=== PATIENT | female | born 1955 | race American Indian/Alaskan Native ===

== ENCOUNTER 2016-07-01 11:55 | Inpatient (IN) | payer MEDICARE ==
[2016-07-01 13:13] LABS: Eosinophils % (Auto) 6.3 % (0.0-4.3); Hematocrit 27.4 % (30.3-42.9); Hemoglobin 8.3 gm/dl (10.1-14.3); Mean Corpuscular HGB Conc 30 % (30-34); Platelet Count 529 K/mm3 (140-440); Red Blood Count 4.16 M/mm3 (3.65-5.03); White Blood Count 13.1 K/mm3 (4.5-11.0)
[2016-07-01 13:24] LABS: Mean Corpuscular Hemoglobin 20 pg (28-32); Mean Corpuscular Volume 66 fl (79-97); Red Cell Distribution Width 21.7 % (13.2-15.2)
[2016-07-01 13:43] LABS: Blood Urea Nitrogen 12 mg/dL (7-17); Calcium 8.8 mg/dL (8.4-10.2); Carbon Dioxide 23 mmol/L (22-30); Chloride 96.6 mmol/L (98-107); Glucose 168 mg/dL (65-100); Sodium 140 mmol/L (137-145)
[2016-07-01 14:24] LABS: Anion Gap 25 mmol/L; Potassium 4.5 mmol/L (3.6-5.0)
--- NOTE | 2016-07-01 16:36 | Emergency Department Report ---
HPI - General Chief Complaint: Chest Pain Time Seen by Provider: 07/01/16 16:19 - HPI HPI: Room 8 The patient is a 61-year-old female presenting with a chief complaint of chest pain headache and shortness of breath. The patient has a history of previous CVA with right-sided weakness and appears of expressive aphasia which limits history. Patient doesn't know she developed substernal chest pain associated with shortness of breath nausea and diaphoresis. The patient currently gives her pain a score of 8/10. The patient states today chest fell and she believes she lost consciousness. Patient complains of a headache. Patient denies bright red blood per rectum states she has noticed black stools as recently as today. The patient states she's never had a cardiac catheterization Location: [see above] Duration: One day Quality: Pain Severity: 8/10 Modifying factors: [see above] Context: [see above] Mode of transportation: [not driving] ED Past Medical Hx - Past Medical History Hx Hypertension: Yes Hx CVA: Yes Hx Congestive Heart Failure: Yes Hx Diabetes: Yes Hx Seizures: Yes - Surgical History Additional Surgical History: HYSTERECTOMY - Family History Family history: no significant - Social History Smoking Status: Never Smoker Substance Use Type: None - Medications Home Medications: Home Medications Medication Instructions Recorded Confirmed Last Taken Type AtorvaSTATin [Lipitor] 20 mg PO QDAY 11/11/14 07/01/16 06/30/16 History Furosemide [Lasix TAB] 40 mg PO BID 11/11/14 07/01/16 06/30/16 History Gemfibrozil [Lopid] 600 mg PO QDAY 11/11/14 07/01/16 06/30/16 History Insulin Glargine [Lantus VIAL] 60 units SUB-Q QHS 11/11/14 07/01/16 06/30/16 History Metformin HCl [Glucophage] 1,000 mg PO BID 11/11/14 07/01/16 06/30/16 History Phenytoin Chew [Dilantin Chew] 150 mg PO QDAY 11/11/14 07/01/16 06/30/16 History Potassium Chloride [K-Dur] 20 meq PO QDAY 11/11/14 07/01/16 06/30/16 History Warfarin [Coumadin] 10 mg PO Q24H #14 tablet 11/14/14 07/01/16 06/30/16 Rx Celecoxib [celeBREX] 200 mg PO BID 07/01/16 07/01/16 06/30/16 History Warfarin [Coumadin] 5 mg PO QDAY 07/01/16 07/01/16 06/30/16 History traMADol [Ultram] 50 mg PO Q6HR PRN 07/01/16 07/01/16 06/30/16 History ED Review of Systems ROS: Stated complaint: FELL/HEAD/CHEST PAIN/NAUSEA Other details as noted in HPI Comment: All other systems reviewed and negative Constitutional: denies: chills, fever Eyes: denies: eye pain, eye discharge, vision change ENT: denies: ear pain, throat pain Respiratory: shortness of breath. denies: cough, wheezing Cardiovascular: chest pain Endocrine: no symptoms reported Gastrointestinal: nausea. denies: vomiting Genitourinary: denies: urgency, dysuria, discharge Musculoskeletal: myalgia Skin: denies: rash, lesions Neurological: headache Psychiatric: denies: anxiety, depression Hematological/Lymphatic: denies: easy bleeding, easy bruising Physical Exam - Physical Exam Vital Signs: Vital Signs 07/01/16 07/01/16 07/01/16 12:22 13:57 14:48 Temperature 98.5 F Pulse Rate 124 H 106 H 107 H Respiratory 18 18 18 Rate Blood Pressure 132/77 Blood Pressure 150/85 131/82 [Left] O2 Sat by Pulse 95 94 94 Oximetry Physical Exam: GENERAL: The patient is well-developed well-nourished female lying on stretcher not appearing to be in acute distress. [] HEENT: Normocephalic. Atraumatic. Extraocular motions are intact. Patient has moist mucous membranes. NECK: Supple. Mild axial tenderness. No step off CHEST/LUNGS: Clear to auscultation. There is no respiratory distress noted. HEART/CARDIOVASCULAR: Regular. There is no tachycardia. There is no gallop rub or murmur. ABDOMEN: Abdomen is soft, nontender. Patient has normal bowel sounds. There is no abdominal distention. SKIN: There is no rash. There is no diaphoresis. NEURO: The patient is awake, alert, and oriented. The patient is cooperative. Cranial nerves II through XII grossly intact except for cranial nerve XI on the right. Patient has residual right-sided weakness from previous CVA. The patient has normal speech and has difficulty expressing herself at times MUSCULOSKELETAL: There is no evidence of acute injury. ED Course Vital Signs 07/01/16 07/01/16 07/01/16 12:22 13:57 14:48 Temperature 98.5 F Pulse Rate 124 H 106 H 107 H Respiratory 18 18 18 Rate Blood Pressure 132/77 Blood Pressure 150/85 131/82 [Left] O2 Sat by Pulse 95 94 94 Oximetry - Consultations Consultation #1: 07/01/16 18:20 Case discussed with admitting hospitalist Dr. Madrid. When asked if he wants me to administer FFP or vitamin K he states that he will take care of it ED Medical Decision Making - Lab Data Result diagrams: 07/01/16 12:35 07/01/16 12:35 Laboratory Tests 07/01/16 07/01/16 07/01/16 12:35 12:35 15:20 WBC 13.1 H RBC 4.16 Hgb 8.3 L Hct 27.4 L MCV 66 L MCH 20 L MCHC 30 RDW 21.7 H Plt Count 529 H Lymph % (Auto) 14.4 Mckinley % (Auto) 6.0 Eos % (Auto) 6.3 H Baso % (Auto) 1.0 Lymph # 1.9 Mckinley # 0.8 Eos # 0.8 H Baso # 0.1 Seg Neutrophils % 72.3 H Seg Neutrophils # 9.4 H PT Sodium 140 Potassium 4.5 Chloride 96.6 L Carbon Dioxide 23 Anion Gap 25 BUN 12 Creatinine 0.8 Estimated GFR > 60 BUN/Creatinine Ratio 15.00 Glucose 168 H Calcium 8.8 Troponin T < 0.010 < 0.010 Phenytoin Antibody Screen 07/01/16 07/01/16 07/01/16 16:31 16:31 16:31 WBC RBC Hgb Hct MCV MCH MCHC RDW Plt Count Lymph % (Auto) Mckinley % (Auto) Eos % (Auto) Baso % (Auto) Lymph # Mckinley # Eos # Baso # Seg Neutrophils % Seg Neutrophils # PT 75.4 H Sodium Potassium Chloride Carbon Dioxide Anion Gap BUN Creatinine Estimated GFR BUN/Creatinine Ratio Glucose Calcium Troponin T Phenytoin 10.2 Antibody Screen TNR INR 9.07 - EKG Data -: EKG Interpreted by Me EKG shows normal: sinus rhythm Rate: tachycardia (120 bpm ) - EKG Data When compared to previous EKG there are: no significant change Interpretation: unchanged when compared t (11/11/2014) - Radiology Data Radiology results: report reviewed (CT head, CT cervical spine), image reviewed (CT head, CT cervical spine, chest x-ray) interpreted by me: Chest x-ray-right hilar fullness. Slightly obscured left costophrenic angle. No pneumothorax CT cervical spine (read by radiologist)-calcified left posterior fossa intracranial mass further described on today's CT head. No acute traumatic abnormality identified. CT Head (read by radiologist)-remote left MCA distribution infarct. Large calcified mass within the left posterior fossa. Appearance mulls just meningioma however primary lesion cannot be excluded. Posterior supratentorial dural constipation along the falx could reflect additional meningioma. Further evaluation with MRI with and without contrast is recommended. Comparison with any prior studies and these could be obtained will be helpful further evaluation. No acute intracranial hemorrhage identified. - Differential Diagnosis ACS, ICH, Coumadin toxicity, GI bleed Critical care attestation.: If time is entered above; I have spent that time in minutes in the direct care of this critically ill patient, excluding procedure time. ED Disposition Clinical Impression: Chest pain, Anemia, Closed head injury, Coumadin toxicity Disposition: OP ADMITTED IP TO THIS HOSP Is pt being admited?: Yes Does the pt Need Aspirin: No Condition: Serious Instructions: Chest Pain (ED) Referrals: PRIMARY CARE, [Primary Care Provider] - 3-5 Days Time of Disposition: 18:12 (hospitalist paged)
--- NOTE | 2016-07-01 17:12 | Cat Scan Report ---
FINAL REPORT EXAM: CT HEAD/BRAIN WO CON HISTORY: fall, headache. On Coumadin TECHNIQUE: CT head without contrast PRIORS: No prior studies are available for comparison FINDINGS: There is encephalomalacia with volume loss and left MCA distribution involving temporal and frontal lobes. There is ex vacuo dilatation of the left lateral ventricle there is a large left posterior fossa partially calcified intracranial mass measuring 2.5 x 3.7 centimeters. Appearance is most suggestive of meningioma however and primary brain lesion is a differential consideration. Recommend further evaluation with MRI including contrast. There is additional calcification posterior dura measuring 1.2 x 0.5 centimeters may reflect dural calcification versus additional meningioma No additional acute intracranial findings are identified. No acute hemorrhage seen. IMPRESSION: Remote left MCA distribution infarct Large calcified mass within the left posterior fossa. Appearance most suggest meningioma however primary brain lesion cannot be excluded. Posterior supratentorial dural calcification along the falx could reflect additional meningioma. Further evaluation with MRI with and without contrast is recommended. Comparison with any prior studies if these could be obtained would be helpful for further evaluation. No acute intracranial hemorrhage identified
--- NOTE | 2016-07-01 17:17 | Cat Scan Report ---
FINAL REPORT EXAM: CT CERVICAL SPINE WO CON HISTORY: neck pain after fall TECHNIQUE: CT cervical spine with reconstructions PRIORS: None. FINDINGS: Vertebral bodies demonstrate normal height and alignment. The disk spaces are within normal limits. The facet joints demonstrate normal alignment. The spinous processes are intact. Craniocervical junction is unremarkable. C1 and C2 are intact. Calcified mass seen in the left posterior fossa noted further described on today's CT of the head IMPRESSION: Calcified left posterior fossa intracranial mass further described on today's CT head No acute traumatic abnormality identified
[2016-07-01 18:09] LABS: INR 9.07 (0.87-1.13)
[2016-07-01 18:10] LABS: Partial Thromboplastin Time 117.9 Sec. (24.2-36.6)
--- NOTE | 2016-07-01 23:53 | Event Note ---
Date: 07/01/16 See H/p in reports
[2016-07-02] MEDS ORDERED: SODIUM CHLORIDE FLUSH SYRINGE 10 ML IV PRN (00:35)
[2016-07-02] MEDS ORDERED: VITAMIN K (ADULT ONLY) 10 MG in NACL 0.9% 50 ML IV ONE (00:37)
[2016-07-02] MEDS: ULTRAM PO PRN (01:56)
[2016-07-02] MEDS ORDERED: LEXISCAN IV ONE ×2 (09:23→09:30)
[2016-07-02] MEDS ORDERED: NON-FORMULARY (Metformin Hcl [Glucophage] 1,000 MG) PO SCH (10:00)
[2016-07-02] MEDS ORDERED: PHENYTOIN 150 MG PO SCH (10:00)
[2016-07-02] MEDS ORDERED: GEMFIBROZIL 600 MG PO SCH (10:00)
--- NOTE | 2016-07-02 10:00 | History and Physical Report ---
CHIEF COMPLAINT: Left-sided chest pain. HISTORY OF PRESENT ILLNESS: A 61-year-old -English female with right-sided hemiplegia with contractures in the hand and also on the foot comes in for left-sided chest pain. The pain is substernal and about 8 on a scale of 1 to 10. Yesterday with shortness of breath and diaphoresis. Chest felt heavy. She also believed that she may have lost consciousness. Denies any bright red blood per rectum or black colored stools. Pain is about 8/10 with exacerbating and relieving factors. PAST MEDICAL HISTORY: Significant for hypertension, cerebrovascular accident, congestive heart failure, diabetes, and seizure disorder. PAST SURGICAL HISTORY: Hysterectomy. FAMILY HISTORY: No significant family history. SOCIAL HISTORY: Does not smoke. No alcohol, no recreational drugs. CURRENT MEDICATIONS: On the chart. REVIEW OF SYSTEMS: Right-sided weakness present. Left-sided chest pain 8 on a scale of 1 to 10 present. Slight shortness of breath present. Otherwise, review of systems is essentially negative. A 14-point review of systems done. PHYSICAL EXAMINATION: GENERAL: Elderly female, cooperative during examination. VITAL SIGNS: Blood pressure is 132/77, pulse is 124, saturation is 98, respiratory rate is 18. HEENT: Unremarkable. Pupils equal and reactive. NECK: Supple; no lymphadenopathy, no thyromegaly. LUNGS: Clear to auscultation and percussion. Good air entry. CARDIOVASCULAR: S1, S2 heard. No gallop, no murmur, no rub. Apical impulse in left fifth intercostal space and midclavicular line. ABDOMEN: Soft and benign. No hepatosplenomegaly. No guarding, no rigidity. Hernial orifices are normal. EXTREMITIES: Good pedal pulses. No pedal edema. CENTRAL NERVOUS SYSTEM: Alert and oriented x 4, right-sided hemiplegia present. SKIN: Normal. LABORATORY DATA: Significant for white count of 13,000, H and H of 8.6/27.4. Electrolytes are normal. Glucose 158. EKG shows ____. A calcified left posterior fossa intracranial mass. ____ shows remote left MCA infarction ____ even in the left posterior fossa, possible meningioma. ASSESSMENT AND PLAN: 1. Acute coronary syndrome. Chest pain protocol. We will check serial cardiac enzymes and Lexiscan in the morning. 2. Cerebrovascular accident. Continue Coumadin. 3. Congestive heart failure. Continue Lasix. 4. Insulin-dependent diabetes. Continue insulin, Levemir 60 units at nighttime and metformin 1000 b.i.d. 5. Hyperlipidemia. Continue atorvastatin 50 mg once a day. 6. Anticoagulation. Continue Coumadin. 7. Deep venous thrombosis prophylaxis with Lovenox not necessary because the Coumadin is on board and the patient is supratherapeutic. [facility]# [id number] IRVIN/NTS
--- NOTE | 2016-07-02 10:01 | XRay Report ---
CHEST ONE VIEW INDICATION: Chest pain. COMPARISON: 11/11/2014. FINDINGS: Portable, single, frontal chest radiograph demonstrates limited inspiration with exaggerated cardiomediastinal silhouette and somewhat crowded lung markings centrally and toward the bases. Mild left basilar atelectasis not excluded. Intact bones. Extrinsic EKG leads. CONCLUSION: Limited exam with hypoventilatory changes, as described. Please correlate. Thank you for the opportunity to participate in this patient's care.
--- NOTE | 2016-07-02 11:28 | Admit Criteria Form ---
Admission Criteria Documentation: HEMATOLOGY GRG Clinical Indications for Admission to Inpatient Care (Place 'X' for any and all applicable criteria): Hospital admission is needed for appropriate care of the patient because of ANY ONE of the following: [ ]I. Severe anemia indicated by ANY ONE of the following (1)(2) [ ]a) Altered mental status [ ]b) Syncope [ ]c) Other findings suggesting inadequate perfusion [ ]d) Chest pain [ ]e) Exertional dyspnea [ ]f) Treatment with transfusion or volume replacement is ineffective at resolving ANY ONE of the following [A]: [ ]i) Tachycardia for age [ ]ii) Orthostatic vital sign changes as indicated by ANY ONE of the following (3) [ ]1) Fall in SBP of 20 mm Hg or more 1 to 3 minutes after patient sits or stands from recumbent position [ ]2) Fall in DBP of 10 mm Hg or more 1 to 3 minutes after patient sits or stands from recumbent position [ ]II. High-risk febrile neutropenia [B] as indicated by ANY ONE of the following(4)(5) [ ]a) Hemodynamic instability [ ]b) Hypoxemia [ ]c) Tachypnea [ ]d) Altered mental status [ ]e) New onset abdominal pain [ ]f) New onset vomiting or diarrhea [ ]g) Pneumonia [ ]h) Profound neutropenia [C] anticipated to extend for more than 7 days [ ]i) Oral or gastrointestinal mucositis that interferes with swallowing or causes severe diarrhea [ ]j) Evidence of significant focal infection (eg, cellulitis, central line or catheter infection, perirectal abscess) [ ]k) Leukemia or lymphoma induction therapy [ ]l) Bone marrow transplant patient [ ]m) Renal insufficiency (eg, GFR of less than 30 mL/min/1.73m2 (0.5 mL/sec/1.73m2) [ ]n) Severe liver dysfunction (transaminase levels greater than 5 times normal) [ ]o) Platelet count less than 50,000/mm3 (50 x109/L)(6) [ ]p) Multinational Association for Supportive Care in Cancer (MASCC) Risk Index score of < 21 [D] [ ]III. High-risk low platelet count as indicated by ANY ONE of the following(8) (9) [ ]a) Severe or life-threatening bleeding (eg, intracranial, major gastrointestinal, or extensive mucosal bleeding), with any reduced platelet count [ ]b) Platelet count less than 20,000/mm3 (20 x109/L) with any active bleeding [ ]c) Platelet count less than 10,000/mm3 (10 x109/L) with minor purpura or petechiae [ ]d) Platelet count less than 5000/mm3 (5 x109/L) [ ]e) Low platelet count with hemolytic anemia [ ]IV.Active hemolysis with high-risk findings, including ANY ONE of the following(2)(10)(11) [ ]a) Hematocrit less than 25% (0.25) [ ]b) Rapidly progressing anemia [ ]c) Thrombocytopenia(12)(13) [ ]d) Evidence of thrombosis or new renal insufficiency [ ]V. Bleeding disorder with high-risk features (eg, hemophilia, coagulopathy) as indicated by ANY ONE of the following (2)(14)(15) [ ]a) Central nervous system bleeding [ ]b) Retroperitoneal bleeding [ ]c) Retropharyngeal bleeding [ ]d) Gastrointestinal bleeding (22) [ ]e) Purpura [ ]f) Disseminated intravascular coagulation(23) [ ]g) Major trauma [ ]h) Deep laceration [ ]i) Head trauma [ ]j) Any trauma with internal hematoma (eg, retroperitoneal, ocular) [ ]k) Failed outpatient management [X]. Severe over-anticoagulation or high-risk situation as indicated by ANY ONE of the following(24)(25) [ ]a) Active bleeding [ ]b) International normalized ratio 5 or greater and rapid reversal needed [X]c) International normalized ratio 9 or greater [ ]VII. Congenital immunodeficiency states with severe morbidity as indicated by ANY ONE of the following(26)(27) [ ]a) Severe infection [ ]b) Bone marrow transplant needed (Also use Medical Oncology GRG) [ ]VIII. Hyperviscosity syndrome with high-risk indicators indicated by ANY ONE of the following (2)(28)(29)(30)(31) [ ]a) Polycythemia vera with hematocrit greater than 60% (0.60) [ ]b) Elevated platelet count associated with thrombosis, bleeding, or life-threatening organ dysfunction [ ]c) Severe signs or symptoms from elevated red cell, white cell, or protein levels, including ANY ONE of the following: [ ]i) Mental status change [ ]ii) Dyspnea [ ]iii) Chest x-ray infiltrate [ ]iv) Visual changes [ ]v) Retinal abnormalities [ ]vi) Neuromuscular symptoms [ ]vii) Suspected ischemia or thrombosis [ ]viii) Bleeding [ ]IX. Methemoglobinemia greater than 15% (0.15) or severe symptoms persist after emergency treatment (32)(33) [ ]X. Spleen trauma with blood loss or other need for acute (medical) treatment (34) [ ]XI. Hematology condition and ALL of the following: [ ]a) Symptom or finding for which emergency and observation care have failed or are not considered appropriate (Also use General Criteria: Observation Care as appropriate) [ ]b) Presence of ANY ONE of the following: [ ]i) A General Admission Criteria [ ]ii) A Pediatric General Admission Criteria The original [facility] [employer] content created by [facility] has been revised. The portions of the content which have been revised are identified through the use of italic text or in bold, and [facility] has neither reviewed nor approved the modified material. All other unmodified content is copyright [facility]. Please see references footnoted in the original [facility] edition 2016 Admission Criteria Met: Yes
[2016-07-02 11:33] LABS: INR 1.81 (0.87-1.13)
[2016-07-02] MEDS: NOVOLOG SUB-Q SCH ×4 (11:36→21:26)
[2016-07-02] MEDS: LOPID PO SCH (11:38)
[2016-07-02] MEDS: K-DUR PO SCH (11:39)
[2016-07-02] MEDS: LASIX PO SCH ×2 (11:39→21:25)
[2016-07-02] MEDS: GLUCOPHAGE PO SCH ×2 (11:42→17:45)
[2016-07-02 11:43] LABS: Creatine Kinase 106 units/L (30-135)
[2016-07-02] MEDS: DILANTIN PO SCH (11:43)
[2016-07-02 11:44] LABS: Creatine Kinase MB < 1.0 ng/mL (0.0-4.0)
--- NOTE | 2016-07-02 15:33 | Progress Note ---
Assessment and Plan The patient is a 61-year-old female with a history of CVA with right-sided weakness, chronic anticoagulation with Coumadin, presented with a chief complaint of chest pain and shortness of breath. Patient also stated that before coming to the hospital she had an episode where she felt like she almost passed out. In the ER she noted to have INR greater than 9, and CT scan of the brain revealed left posterior fossa mass. Acute chest pain - Likely musculoskeletal, has significant chest wall tenderness on palpation - Monitored with serial cardiac enzymes and EKG - Stress test was normal Presyncope - CT scan of the brain showed possible posterior fossa mass - We'll get a MRI of the brain and carotid Doppler History of CVA with right-sided hemiparesis - Continue Lipitor - Hold Coumadin for now due to supratherapeutic INR and till repeat INR at Available CHF, compensated - Continue home dose of Lasix Insulin-dependent diabetes mellitus type 2 - Place on ADA diet -Continue Levemir 60 units at bedtime and metformin 1000 twice a day Supratherapeutic INR - Reversed with FFP and vitamin K - Wait for repeat level Hypertension, uncontrolled -We will resume her home medications - Monitor BP and adjust meds as needed Calcified mass in the left posterior fossa - Seen on CT of the head - We'll get MRI of the brain for further confirmation - Likely meningioma Subjective Date of service: 07/02/16 Interval history: Patient seen and examined. Medical records and medication list reviewed. No acute event overnight noted by the RN. Patient continued to complain of substernal chest pain, denies any difficulty breathing. Patient is tolerating diet. Discussed plan of care at bedside with patient. Objective - Exam Narrative Exam: GENERAL: well-developed and well-nourished -[place] female lying on bed appeared to be in no discomfort. HEENT: Normocephalic. Atraumatic. No conjunctival congestion or icterus. Patient has moist mucous membranes. NECK: Supple. Trachea midline. CHEST/LUNGS: Clear to auscultated bilaterally, breathing nonlabored. No wheezes crackles or rhonchi. HEART/CARDIOVASCULAR: Regular in rate and rhythm. S1 and S2 positive. ABDOMEN: Abdomen is soft, nontender. Patient has normal bowel sounds. SKIN: There is no rash. Warm and dry. NEURO: Right-sided weakness. Follows command. MUSCULOSKELETAL: No joint effusion or tenderness. EXTRIMITY: No edema, no cyanosis or clubbing. PSYCH: Cooperative. - Constitutional Vitals: Vital Signs - 12hr 07/02/16 07/02/16 07/02/16 08:40 08:41 09:34 Temperature 98.6 F Pulse Rate 104 H Pulse Rate [ 108 H Right] Respiratory 18 Rate Blood Pressure 154/79 Blood Pressure 131/68 [Right Arm] O2 Sat by Pulse 95 94 Oximetry 07/02/16 07/02/16 07/02/16 09:39 09:40 09:41 Temperature Pulse Rate 118 H 113 H 114 H Pulse Rate [ Right] Respiratory Rate Blood Pressure 165/82 142/73 162/80 Blood Pressure [Right Arm] O2 Sat by Pulse Oximetry 07/02/16 07/02/16 07/02/16 09:42 09:43 09:44 Temperature Pulse Rate 112 H 110 H 110 H Pulse Rate [ Right] Respiratory Rate Blood Pressure 169/82 165/79 142/78 Blood Pressure [Right Arm] O2 Sat by Pulse Oximetry 07/02/16 12:49 Temperature 98.4 F Pulse Rate Pulse Rate [ 113 H Right] Respiratory 18 Rate Blood Pressure Blood Pressure 127/65 [Right Arm] O2 Sat by Pulse 96 Oximetry - Labs CBC & Chem 7: 07/03/16 05:39 07/01/16 12:35 Labs: Abnormal lab results 07/01/16 07/02/16 Range/Units 22:41 10:58 PT 21.0 H (12.2-14.9) Sec. INR 1.81 H (0.87-1.13) POC Glucose 180 H (70-105)
[2016-07-02] MEDS ORDERED: COUMADIN PO SCH (17:00)
--- NOTE | 2016-07-02 17:43 | Magnetic Resonance Report ---
FINAL REPORT EXAM: MR BRAIN WO/W CON HISTORY: brain mass TECHNIQUE: Multi sequence multi planar MR images obtained of the brain prior to and following intravenous administration of 15 milliliters MultiHance contrast PRIORS: CT scan of the head from 07/01/2016 FINDINGS: There is moderate atrophy. There is extensive malacia in the left middle cerebral artery territory with associated ex vacuo change in the left lateral ventricle. There is asymmetry in the brainstem suggesting wallerian degeneration on the left side. There is a mass in the lateral aspect of the left posterior fossa correlating with the calcified mass seen in the prior CT scan. This appears to be extra-axial. This measures approximately 4 x 2.5 x 3.6 centimeters. There is a small amount of hyperintense T2 and FLAIR signal in the adjacent brain parenchyma. There is slight effacement of the left side of the 4th ventricle. There is a 2nd extra-axial calcified mass adjacent to the right side of the posterior aspect of the falx that measures approximately 1.4 x 0.8 centimeters in axial dimension. Orbits appear fairly symmetric. Mucosal thickening is seen in ethmoidal air cells on the right side. The craniocervical junction appears normal. IMPRESSION: 1. Previously described calcified extra-axial masses are re-identified. These most likely represent meningiomata. The larger is in the left side of the posterior fossa. There is local mass effect as described above. Neurosurgical consultation is recommended. 2. Sequelae from prior infarct are seen in the left middle cerebral artery territory.
[2016-07-02] MEDS: COUMADIN PO SCH (17:45)
[2016-07-02] MEDS: LOPRESSOR PO SCH (21:25)
[2016-07-02] MEDS: LEVEMIR SUB-Q SCH (21:28)
[2016-07-02] MEDS ORDERED: INSULIN GLARGINE 60 UNIT SUB-Q SCH (22:00)
--- NOTE | 2016-07-03 06:50 | Treadmill Report ---
INDICATION: Chest pain. ORDERING PHYSICIAN: Dr. Fco Madrid. FINDINGS: The left ventricular cavity is normal in size. There is no scintigraphic evidence of myocardial ischemia. There is normal wall motion and wall thickening. The left ventricular ejection fraction is measured at 84%. CONCLUSION: Normal perfusion scan. JOB# [id number] AKD/NTS
[2016-07-03 06:52] LABS: Hematocrit 24.3 % (30.3-42.9); Hemoglobin 7.6 gm/dl (10.1-14.3); Mean Corpuscular HGB Conc 31 % (30-34); Platelet Count 503 K/mm3 (140-440); White Blood Count 10.6 K/mm3 (4.5-11.0)
[2016-07-03 06:55] LABS: INR 1.29 (0.87-1.13)
[2016-07-03 07:19] LABS: Mean Corpuscular Hemoglobin 21 pg (28-32); Mean Corpuscular Volume 66 fl (79-97); Red Cell Distribution Width 21.2 % (13.2-15.2)
[2016-07-03] MEDS: LOPID PO SCH (11:56)
[2016-07-03] MEDS: DILANTIN PO SCH (11:56)
[2016-07-03] MEDS: LOPRESSOR PO SCH ×2 (11:57→21:44)
[2016-07-03] MEDS: K-DUR PO SCH (11:58)
[2016-07-03] MEDS: NOVOLOG SUB-Q SCH ×4 (11:58→23:03)
[2016-07-03] MEDS: LASIX PO SCH ×2 (12:20→21:43)
[2016-07-03] MEDS: GLUCOPHAGE PO SCH ×2 (12:20→16:27)
--- NOTE | 2016-07-03 16:06 | Progress Note ---
Assessment and Plan The patient is a 61-year-old female with a history of CVA with right-sided weakness, chronic anticoagulation with Coumadin, presented with a chief complaint of chest pain and shortness of breath. Patient also stated that before coming to the hospital she had an episode where she felt like she almost passed out. In the ER she noted to have INR greater than 9, and CT scan of the brain revealed left posterior fossa mass. Acute chest pain - Likely musculoskeletal, has significant chest wall tenderness on palpation - Monitored with serial cardiac enzymes and EKG - Stress test was normal Presyncope - CT scan of the brain showed possible posterior fossa mass - MRI of the brain revealed meningioma with mass effect - and carotid Doppler showed about 70% stenosis on the rt side - will do NS and VS eval History of CVA with right-sided hemiparesis - Continue Lipitor and coumadin CHF, compensated - Continue home dose of Lasix Insulin-dependent diabetes mellitus type 2 - Place on ADA diet -Continue Levemir 60 units at bedtime and metformin 1000 twice a day Supratherapeutic INR - Reversed with FFP and vitamin K Hypertension, uncontrolled -wen colbertl now with her home medications - Monitor BP and adjust meds as needed Calcified mass in the left posterior fossa - Seen on CT of the head - MRI of the brain showed meningioma with pressure effect - wait neurosurgery consult Subjective Date of service: 07/03/16 Interval history: Patient seen and examined. Medical records and medication list reviewed. No acute event overnight noted by the RN. Patient continued to complain of substernal chest pain, denies any difficulty breathing. Patient is tolerating diet. no further episode of dizziness Discussed plan of care at bedside with patient. Objective - Exam Narrative Exam: GENERAL: well-developed and well-nourished -[place]oven[place] female lying on bed appeared to be in no discomfort. HEENT: Normocephalic. Atraumatic. No conjunctival congestion or icterus. Patient has moist mucous membranes. NECK: Supple. Trachea midline. CHEST/LUNGS: Clear to auscultated bilaterally, breathing nonlabored. No wheezes crackles or rhonchi. HEART/CARDIOVASCULAR: Regular in rate and rhythm. S1 and S2 positive. ABDOMEN: Abdomen is soft, nontender. Patient has normal bowel sounds. SKIN: There is no rash. Warm and dry. NEURO: Right-sided weakness. Follows command. MUSCULOSKELETAL: No joint effusion or tenderness. EXTRIMITY: No edema, no cyanosis or clubbing. PSYCH: Cooperative. - Constitutional Vitals: Vital Signs - 12hr 07/03/16 07/03/16 07/03/16 05:00 07:43 11:57 Temperature 98.7 F Pulse Rate 106 H 70 Pulse Rate [ 100 H Right] Respiratory 18 Rate Blood Pressure 165/70 Blood Pressure 115/61 [Right Arm] O2 Sat by Pulse 93 Oximetry 07/03/16 13:00 Temperature Pulse Rate 111 H Pulse Rate [ Right] Respiratory Rate Blood Pressure Blood Pressure [Right Arm] O2 Sat by Pulse Oximetry - Labs CBC & Chem 7: 07/03/16 05:39 07/01/16 12:35 Labs: Abnormal lab results 07/02/16 07/02/16 07/02/16 Range/Units 08:11 11:18 17:31 Hgb (10.1-14.3) gm/dl Hct (30.3-42.9) % MCV (79-97) fl MCH (28-32) pg RDW (13.2-15.2) % Plt Count (140-440) K/mm3 PT (12.2-14.9) Sec. INR (0.87-1.13) POC Glucose 239 H 312 H 229 H (70-105) 07/02/16 07/03/16 07/03/16 Range/Units 21:05 05:39 05:39 Hgb 7.6 L (10.1-14.3) gm/dl Hct 24.3 L (30.3-42.9) % MCV 66 L (79-97) fl MCH 21 L (28-32) pg RDW 21.2 H (13.2-15.2) % Plt Count 503 H (140-440) K/mm3 PT 16.0 H (12.2-14.9) Sec. INR 1.29 H (0.87-1.13) POC Glucose 230 H (70-105) 07/03/16 07/03/16 Range/Units 07:43 11:02 Hgb (10.1-14.3) gm/dl Hct (30.3-42.9) % MCV (79-97) fl MCH (28-32) pg RDW (13.2-15.2) % Plt Count (140-440) K/mm3 PT (12.2-14.9) Sec. INR (0.87-1.13) POC Glucose 245 H 347 H (70-105)
[2016-07-03] MEDS: ULTRAM PO PRN (16:27)
[2016-07-03] MEDS: COUMADIN PO SCH (16:27)
[2016-07-03 17:38] LABS: Iron 22 ug/dL (37-170); Total Iron Binding Capacity 286 mcg/dL (250-450)
[2016-07-03] MEDS: LEVEMIR SUB-Q SCH (21:43)
[2016-07-04 06:27] LABS: INR 1.27 (0.87-1.13)
[2016-07-04] MEDS: GLUCOPHAGE PO SCH ×2 (07:57→17:09)
[2016-07-04] MEDS: NOVOLOG SUB-Q SCH ×4 (07:57→22:04)
--- NOTE | 2016-07-04 09:01 | Consultation ---
History of Present Illness - Reason for Consult Consult date: 07/04/16 Carotid stenosis - History of Present Illness Patient with a history of left CEA with residual right-sided weakness. She presents complaining of chest pain. She also states that she had an episode of lightheadedness which fell backwards. Initial INR supratherapeutic. CT scan of the brain demonstrates left MCA distribution encephalomalacia and calcified left mass. MRI demonstrates masking consistent with meningioma. Her carotid ultrasounds showed 50-79% stenosis on the right and less than 50% stenosis on the left. Past History Past Medical History: stroke Medications and Allergies Allergies Allergy/AdvReac Type Severity Reaction Status Date / Time Penicillins Allergy Unknown Verified 11/10/14 21:41 Peas Allergy Swelling Uncoded 07/01/16 12:21 Home Medications Medication Instructions Recorded Confirmed Last Taken Type AtorvaSTATin [Lipitor] 20 mg PO QDAY 11/11/14 07/01/16 06/30/16 History Furosemide [Lasix TAB] 40 mg PO BID 11/11/14 07/01/16 06/30/16 History Gemfibrozil [Lopid] 600 mg PO QDAY 11/11/14 07/01/16 06/30/16 History Insulin Glargine [Lantus VIAL] 60 units SUB-Q QHS 11/11/14 07/01/16 06/30/16 History Metformin HCl [Glucophage] 1,000 mg PO BID 11/11/14 07/01/16 06/30/16 History Phenytoin Chew [Dilantin Chew] 150 mg PO QAM 11/11/14 07/02/16 06/30/16 History Potassium Chloride [K-Dur] 20 meq PO QDAY 11/11/14 07/01/16 06/30/16 History Warfarin [Coumadin] 10 mg PO Q24H #14 tablet 11/14/14 07/01/16 06/30/16 Rx Celecoxib [celeBREX] 200 mg PO BID 07/01/16 07/01/16 06/30/16 History Warfarin [Coumadin] 5 mg PO QDAY 07/01/16 07/01/16 06/30/16 History traMADol [Ultram] 50 mg PO Q6HR PRN 07/01/16 07/01/16 06/30/16 History Phenytoin Sodium Extended 200 mg PO QHS 07/02/16 07/02/16 Unknown History Active Meds: Active Medications Atorvastatin Calcium (Lipitor) 20 mg PO QDAY [facility] Last Admin: 07/03/16 11:54 Dose: 20 mg Celecoxib (Celebrex) 200 mg PO BID [facility] Last Admin: 07/03/16 21:43 Dose: 200 mg Furosemide (Lasix) 40 mg PO BID [facility] Last Admin: 07/03/16 21:43 Dose: 40 mg Gemfibrozil (Lopid) 600 mg PO QDAY [facility] Last Admin: 07/03/16 11:56 Dose: 600 mg Insulin Aspart (Novolog) 0 units SUB-Q [facility] PRN Reason: Protocol Last Admin: 07/04/16 07:57 Dose: 3 units Insulin [facility]) [facility] Admin: 07/03/16 21:43 Dose: 60 units Metformin HCl (Glucophage) 1,000 mg PO BIDDIAB [facility] Last Admin: 07/04/16 07:57 Dose: 1,000 mg Metoprolol Tartrate (Lopressor) 25 mg PO BID [facility] Last Admin: 07/03/16 21:44 Dose: 25 mg Phenytoin (Dilantin) 150 mg PO QDAY [facility] Last Admin: 07/03/16 11:56 Dose: 150 mg Potassium Chloride (K-Dur) 20 meq PO QDAY [facility] Last Admin: 07/03/16 11:58 Dose: 20 meq Sodium Chloride (Sodium Chloride Flush Syringe 10 Ml) 10 ml IV PRN PRN PRN Reason: LINE FLUSH Tramadol HCl (Ultram) 50 mg PO Q6HR PRN PRN Reason: Pain Last Admin: 07/03/16 16:27 Dose: 50 mg Warfarin Sodium (Coumadin) 5 mg PO QDAY@1700 [facility] PRN Reason: Protocol Last Admin: 07/03/16 16:27 Dose: 5 mg Review of Systems All systems: negative Exam - Constitutional Vitals: Temp Pulse Resp BP Pulse Ox 98.1 F 99 H 18 135/66 95 07/04/16 04:35 07/04/16 04:35 07/04/16 04:35 07/04/16 04:35 07/04/16 04:35 General appearance: Present: no acute distress, obese - EENT Eyes: Present: EOM intact ENT: hearing intact - Neck Neck: Present: supple, normal ROM - Respiratory Respiratory effort: normal - Abdominal General gastrointestinal: Present: deferred Female genitourinary: Present: deferred - Rectal Rectal Exam: deferred - Musculoskeletal Musculoskeletal: right sided weakness - Psychiatric Psychiatric: cooperative Results - Labs CBC & Chem 7: 07/03/16 05:39 07/01/16 12:35 Labs: Abnormal lab results 07/03/16 07/03/16 07/03/16 Range/Units 07:43 11:02 15:49 PT (12.2-14.9) Sec. INR (0.87-1.13) POC Glucose 245 H 347 H 227 H (70-105) Iron (37-170) ug/dL 07/03/16 07/03/16 07/04/16 Range/Units 17:06 22:30 05:25 PT 15.8 H (12.2-14.9) Sec. INR 1.27 H (0.87-1.13) POC Glucose 240 H (70-105) Iron 22 L (37-170) ug/dL - Imaging and Cardiology CT Scan - head: report reviewed MRI - head: report reviewed Venous US: report reviewed (carotid doppler) Assessment and Plan Patient with 50-79% carotid stenosis on the right and less than 50% carotid stenosis on the left. Would recommending optimizing medical management. The patient will follow up in our office for surveillance carotid ultrasounds.
[2016-07-04] MEDS: LOPID PO SCH (09:15)
[2016-07-04] MEDS: LASIX PO SCH ×2 (09:16→22:04)
[2016-07-04] MEDS: K-DUR PO SCH (09:16)
[2016-07-04] MEDS: DILANTIN PO SCH (09:17)
[2016-07-04] MEDS: LOPRESSOR PO SCH ×2 (09:17→22:04)
[2016-07-04] MEDS: COUMADIN PO SCH (17:10)
--- NOTE | 2016-07-04 17:47 | Progress Note ---
Assessment and Plan The patient is a 61-year-old female with a history of CVA with right-sided weakness, chronic anticoagulation with Coumadin, presented with a chief complaint of chest pain and shortness of breath. Patient also stated that before coming to the hospital she had an episode where she felt like she almost passed out. In the ER she noted to have INR greater than 9, and CT scan of the brain revealed left posterior fossa mass. Acute chest pain - Likely musculoskeletal, has significant chest wall tenderness on palpation - Monitored with serial cardiac enzymes and EKG - Stress test was normal Presyncope - CT scan of the brain showed possible posterior fossa mass - MRI of the brain revealed meningioma with mass effect - and carotid Doppler showed about 70% stenosis on the rt side - VS recommended outpt follow up - NS consult pending History of CVA with right-sided hemiparesis - Continue Lipitor and coumadin CHF, compensated - Continue home dose of Lasix Insulin-dependent diabetes mellitus type 2 - Place on ADA diet -Continue Levemir 60 units at bedtime and metformin 1000 twice a day Supratherapeutic INR - Reversed with FFP and vitamin K Hypertension, uncontrolled -wen puga now with her home medications - Monitor BP and adjust meds as needed Calcified mass in the left posterior fossa - Seen on CT of the head - MRI of the brain showed meningioma with pressure effect - wait neurosurgery consult Subjective Date of service: 07/04/16 Interval history: Patient seen and examined. Medical records and medication list reviewed. No acute event overnight noted by the RN. Patient has no chest pain, denies any difficulty breathing. Patient is tolerating diet. no further episode of dizziness Discussed plan of care at bedside with patient. Objective - Exam Narrative Exam: GENERAL: well-developed and well-nourished -[place] female lying on bed appeared to be in no discomfort. HEENT: Normocephalic. Atraumatic. No conjunctival congestion or icterus. Patient has moist mucous membranes. NECK: Supple. Trachea midline. CHEST/LUNGS: Clear to auscultated bilaterally, breathing nonlabored. No wheezes crackles or rhonchi. HEART/CARDIOVASCULAR: Regular in rate and rhythm. S1 and S2 positive. ABDOMEN: Abdomen is soft, nontender. Patient has normal bowel sounds. SKIN: There is no rash. Warm and dry. NEURO: Right-sided weakness. Follows command. MUSCULOSKELETAL: No joint effusion or tenderness. EXTRIMITY: No edema, no cyanosis or clubbing. PSYCH: Cooperative. - Constitutional Vitals: Vital Signs - 12hr 07/04/16 07/04/16 07/04/16 07:00 08:15 09:17 Temperature 98.3 F Pulse Rate 64 62 Pulse Rate [ Left Radial] Pulse Rate [ 92 H Right Radial] Respiratory 20 Rate Blood Pressure 123/66 Blood Pressure [Left Radial Artery] Blood Pressure 127/63 [Right Arm] O2 Sat by Pulse 98 Oximetry 07/04/16 07/04/16 07/04/16 11:14 15:00 16:30 Temperature 98.4 F 98.5 F Pulse Rate 62 Pulse Rate [ 98 H 98 H Left Radial] Pulse Rate [ Right Radial] Respiratory 20 20 Rate Blood Pressure Blood Pressure 119/68 107/62 [Left Radial Artery] Blood Pressure [Right Arm] O2 Sat by Pulse 99 93 Oximetry - Labs CBC & Chem 7: 07/03/16 05:39 07/01/16 12:35 Labs: Abnormal lab results 07/03/16 07/04/16 07/04/16 Range/Units 22:30 05:25 08:04 PT 15.8 H (12.2-14.9) Sec. INR 1.27 H (0.87-1.13) POC Glucose 240 H 209 H (70-105) 07/04/16 Range/Units 11:14 PT (12.2-14.9) Sec. INR (0.87-1.13) POC Glucose 241 H (70-105)
[2016-07-04] MEDS: LEVEMIR SUB-Q SCH (22:04)
[2016-07-05 05:59] LABS: INR 1.24 (0.87-1.13)
[2016-07-05] MEDS: ULTRAM PO PRN ×2 (06:37→23:57)
[2016-07-05] MEDS: GLUCOPHAGE PO SCH ×2 (09:11→17:04)
[2016-07-05] MEDS: NOVOLOG SUB-Q SCH ×4 (09:12→21:51)
[2016-07-05] MEDS: LOVENOX SUB-Q SCH ×2 (10:14→21:51)
[2016-07-05] MEDS: LASIX PO SCH ×2 (10:15→21:50)
[2016-07-05] MEDS: LOPID PO SCH (10:15)
[2016-07-05] MEDS: K-DUR PO SCH (10:15)
[2016-07-05] MEDS: LOPRESSOR PO SCH ×2 (10:15→21:50)
[2016-07-05] MEDS: DILANTIN PO SCH (10:16)
--- NOTE | 2016-07-05 16:53 | Progress Note ---
Assessment and Plan The patient is a 61-year-old female with a history of CVA with right-sided weakness, chronic anticoagulation with Coumadin, presented with a chief complaint of chest pain and shortness of breath. Patient also stated that before coming to the hospital she had an episode where she felt like she almost passed out. In the ER she noted to have INR greater than 9, and CT scan of the brain revealed left posterior fossa mass. Acute chest pain - Likely musculoskeletal, has significant chest wall tenderness on palpation - Monitored with serial cardiac enzymes and EKG - Stress test was normal Presyncope - CT scan of the brain showed possible posterior fossa mass - MRI of the brain revealed meningioma with mass effect - and carotid Doppler showed about 70% stenosis on the rt side - VS recommended outpt follow up - NS consult pending, will ask neurology to evaluate the pt History of CVA with right-sided hemiparesis - Continue Lipitor and coumadin CHF, compensated - Continue home dose of Lasix Insulin-dependent diabetes mellitus type 2 - Place on ADA diet -Continue Levemir 60 units at bedtime and metformin 1000 twice a day Supratherapeutic INR - Reversed with FFP and vitamin K - now INT subtherapeutic - will have neurology consult if she is appropriate to be discharge with outpt f /u Hypertension, uncontrolled -wen puga now with her home medications - Monitor BP and adjust meds as needed Calcified mass in the left posterior fossa - Seen on CT of the head - MRI of the brain showed meningioma with pressure effect - wait neurosurgery/neurology consult Subjective Date of service: 07/05/16 Interval history: Patient seen and examined. Medical records and medication list reviewed. No acute event overnight noted by the RN. Patient has no chest pain, denies any difficulty breathing. Patient is tolerating diet. no further episode of dizziness INR subtherapeutic Discussed plan of care at bedside with patient. Objective - Exam Narrative Exam: GENERAL: well-developed and well-nourished -[place]izean female lying on bed appeared to be in no discomfort. HEENT: Normocephalic. Atraumatic. No conjunctival congestion or icterus. Patient has moist mucous membranes. NECK: Supple. Trachea midline. CHEST/LUNGS: Clear to auscultated bilaterally, breathing nonlabored. No wheezes crackles or rhonchi. HEART/CARDIOVASCULAR: Regular in rate and rhythm. S1 and S2 positive. ABDOMEN: Abdomen is soft, nontender. Patient has normal bowel sounds. SKIN: There is no rash. Warm and dry. NEURO: Right-sided weakness. Follows command. MUSCULOSKELETAL: No joint effusion or tenderness. EXTRIMITY: No edema, no cyanosis or clubbing. PSYCH: Cooperative. - Constitutional Vitals: Vital Signs - 12hr 07/05/16 07/05/16 07/05/16 05:00 08:30 10:00 Temperature 97.9 F 97.8 F Pulse Rate Pulse Rate [ 96 H 98 H Right Radial] Respiratory 18 20 20 Rate Blood Pressure 120/75 104/69 [Left Radial Artery] O2 Sat by Pulse 98 97 97 Oximetry 07/05/16 11:05 Temperature Pulse Rate 96 H Pulse Rate [ Right Radial] Respiratory Rate Blood Pressure [Left Radial Artery] O2 Sat by Pulse Oximetry - Labs CBC & Chem 7: 07/03/16 05:39 07/01/16 12:35 Labs: Abnormal lab results 07/04/16 07/04/16 07/05/16 Range/Units 16:06 21:06 04:59 PT 15.5 H (12.2-14.9) Sec. INR 1.24 H (0.87-1.13) POC Glucose 241 H 296 H (70-105) 07/05/16 07/05/16 Range/Units 08:39 11:33 PT (12.2-14.9) Sec. INR (0.87-1.13) POC Glucose 267 H 221 H (70-105)
[2016-07-05] MEDS: COUMADIN PO SCH (17:04)
[2016-07-05] MEDS: LEVEMIR SUB-Q SCH (21:51)
[2016-07-06 05:40] LABS: INR 1.32 (0.87-1.13)
[2016-07-06] MEDS: GLUCOPHAGE PO SCH ×2 (08:03→16:59)
[2016-07-06] MEDS: NOVOLOG SUB-Q SCH ×4 (08:03→21:57)
[2016-07-06] MEDS: LOPID PO SCH (09:27)
[2016-07-06] MEDS: LASIX PO SCH ×2 (09:27→21:56)
[2016-07-06] MEDS: LOVENOX SUB-Q SCH ×2 (09:28→21:56)
[2016-07-06] MEDS: DILANTIN PO SCH (09:28)
[2016-07-06] MEDS: K-DUR PO SCH (09:28)
[2016-07-06] MEDS: LOPRESSOR PO SCH ×2 (09:33→21:55)
--- NOTE | 2016-07-06 15:16 | Progress Note ---
Assessment and Plan The patient is a 61-year-old female with a history of CVA with right-sided weakness, chronic anticoagulation with Coumadin, presented with a chief complaint of chest pain and shortness of breath. Patient also stated that before coming to the hospital she had an episode where she felt like she almost passed out. In the ER she noted to have INR greater than 9, and CT scan of the brain revealed left posterior fossa mass. Acute chest pain - Likely musculoskeletal, has significant chest wall tenderness on palpation - Monitored with serial cardiac enzymes and EKG - Stress test was normal Presyncope - CT scan of the brain showed possible posterior fossa mass - MRI of the brain revealed meningioma with mass effect - and carotid Doppler showed about 70% stenosis on the rt side - VS recommended outpt follow up - NS consult pending, consulted andhe is neurology to evaluate the pt History of CVA with right-sided hemiparesis - Continue Lipitor and coumadin CHF, compensated - Continue home dose of Lasix Insulin-dependent diabetes mellitus type 2 - Place on ADA diet -Continue Levemir 60 units at bedtime and metformin 1000 twice a day Supratherapeutic INR - Reversed with FFP and vitamin K - now INT subtherapeutic - will have neurology consult if she is appropriate to be discharge with outpt f /u Hypertension, uncontrolled -wen controll now with her home medications - Monitor BP and adjust meds as needed Calcified mass in the left posterior fossa - Seen on CT of the head - MRI of the brain showed meningioma with pressure effect - wait neurosurgery/neurology consult Subjective Date of service: 07/06/16 Interval history: Patient seen and examined. Medical records and medication list reviewed. No acute event overnight noted by the RN. Patient has no chest pain, denies any difficulty breathing. Patient is tolerating diet. no further episode of dizziness INR still subtherapeutic Discussed plan of care at bedside with patient. Objective - Exam Narrative Exam: GENERAL: well-developed and well-nourished -[place] female lying on bed appeared to be in no discomfort. HEENT: Normocephalic. Atraumatic. No conjunctival congestion or icterus. Patient has moist mucous membranes. NECK: Supple. Trachea midline. CHEST/LUNGS: Clear to auscultated bilaterally, breathing nonlabored. No wheezes crackles or rhonchi. HEART/CARDIOVASCULAR: Regular in rate and rhythm. S1 and S2 positive. ABDOMEN: Abdomen is soft, nontender. Patient has normal bowel sounds. SKIN: There is no rash. Warm and dry. NEURO: Right-sided weakness. Follows command. MUSCULOSKELETAL: No joint effusion or tenderness. EXTRIMITY: No edema, no cyanosis or clubbing. PSYCH: Cooperative. - Constitutional Vitals: Vital Signs - 12hr 07/06/16 07/06/16 07/06/16 04:00 07:53 10:00 Temperature 98.2 F 98.5 F Pulse Rate Pulse Rate [ Left Radial] Pulse Rate [ 102 H 95 H Right Radial] Pulse Rate [ 95 H Right] Respiratory 18 20 20 Rate Blood Pressure 108/65 [Left Radial Artery] Blood Pressure 107/57 [Right Arm] O2 Sat by Pulse 98 96 96 Oximetry 07/06/16 07/06/16 11:00 11:41 Temperature 98.2 F Pulse Rate 99 H Pulse Rate [ 100 H Left Radial] Pulse Rate [ Right Radial] Pulse Rate [ Right] Respiratory 20 Rate Blood Pressure 128/60 [Left Radial Artery] Blood Pressure [Right Arm] O2 Sat by Pulse 99 Oximetry - Labs CBC & Chem 7: 07/03/16 05:39 07/01/16 12:35 Labs: Abnormal lab results 07/05/16 07/05/16 07/06/16 Range/Units 16:51 21:13 04:50 PT 16.3 H (12.2-14.9) Sec. INR 1.32 H (0.87-1.13) POC Glucose 154 H 243 H (70-105) 07/06/16 07/06/16 Range/Units 07:53 11:37 PT (12.2-14.9) Sec. INR (0.87-1.13) POC Glucose 196 H 232 H (70-105)
[2016-07-06] MEDS: COUMADIN PO SCH (16:59)
[2016-07-06] MEDS: LEVEMIR SUB-Q SCH (21:58)
[2016-07-06] MEDS: ULTRAM PO PRN (22:06)
[2016-07-07 06:40] LABS: INR 1.44 (0.87-1.13)
[2016-07-07] MEDS: NOVOLOG SUB-Q SCH ×4 (08:55→23:21)
[2016-07-07] MEDS: GLUCOPHAGE PO SCH ×2 (08:55→18:35)
[2016-07-07] MEDS: LOPID PO SCH ×2 (08:56→09:02)
[2016-07-07] MEDS: LOVENOX SUB-Q SCH ×3 (08:56→22:12)
[2016-07-07] MEDS: K-DUR PO SCH ×2 (08:57→09:01)
[2016-07-07] MEDS: LASIX PO SCH ×3 (08:57→22:11)
[2016-07-07] MEDS: LOPRESSOR PO SCH ×3 (08:57→22:08)
[2016-07-07] MEDS: DILANTIN PO SCH (12:58)
--- NOTE | 2016-07-07 13:59 | Progress Note ---
Assessment and Plan The patient is a 61-year-old female with a history of CVA with right-sided weakness, chronic anticoagulation with Coumadin, presented with a chief complaint of chest pain and shortness of breath. Patient also stated that before coming to the hospital she had an episode where she felt like she almost passed out. In the ER she noted to have INR greater than 9, and CT scan of the brain revealed left posterior fossa mass. Acute chest pain - Likely musculoskeletal, has significant chest wall tenderness on palpation - Monitored with serial cardiac enzymes and EKG - Stress test was normal Presyncope - CT scan of the brain showed possible posterior fossa mass - MRI of the brain revealed meningioma with mass effect - and carotid Doppler showed about 70% stenosis on the rt side - VS recommended outpt follow up - Neurology consult pending for brain mass History of CVA with right-sided hemiparesis - Continue Lipitor and coumadin CHF, compensated - Continue home dose of Lasix Insulin-dependent diabetes mellitus type 2 - Place on ADA diet -Continue Levemir 60 units at bedtime and metformin 1000 twice a day Supratherapeutic INR - Reversed with FFP and vitamin K - now INT subtherapeutic - will have neurology consult if she is appropriate to be discharge with outpt f /u Hypertension, uncontrolled -sladeer controll now with her home medications - Monitor BP and adjust meds as needed Calcified mass in the left posterior fossa - Seen on CT of the head - MRI of the brain showed meningioma with pressure effect - wait neurosurgery/neurology consult Subjective Date of service: 07/07/16 Interval history: Patient seen and examined. Medical records and medication list reviewed. No acute event overnight noted by the RN. Patient has no chest pain, denies any difficulty breathing. Patient is tolerating diet. no further episode of dizziness INR still subtherapeutic Discussed plan of care at bedside with patient. Objective - Exam Narrative Exam: GENERAL: well-developed and well-nourished -Turkish female lying on bed appeared to be in no discomfort. HEENT: Normocephalic. Atraumatic. No conjunctival congestion or icterus. Patient has moist mucous membranes. NECK: Supple. Trachea midline. CHEST/LUNGS: Clear to auscultated bilaterally, breathing nonlabored. No wheezes crackles or rhonchi. HEART/CARDIOVASCULAR: Regular in rate and rhythm. S1 and S2 positive. ABDOMEN: Abdomen is soft, nontender. Patient has normal bowel sounds. SKIN: There is no rash. Warm and dry. NEURO: Right-sided weakness. Follows command. MUSCULOSKELETAL: No joint effusion or tenderness. EXTRIMITY: No edema, no cyanosis or clubbing. PSYCH: Cooperative. - Constitutional Vitals: Vital Signs - 12hr 07/07/16 07/07/16 07/07/16 05:21 08:00 08:57 Temperature 98.9 F 97.4 F L Pulse Rate 113 H Pulse Rate [ 107 H 103 H Right Dorsalis Pedis] Respiratory 18 20 Rate Respiratory Rate [left leg pain] Blood Pressure 114/58 Blood Pressure 99/55 114/58 [Left Radial Artery] O2 Sat by Pulse 97 95 Oximetry 07/07/16 07/07/16 10:00 11:00 Temperature Pulse Rate 113 H Pulse Rate [ Right Dorsalis Pedis] Respiratory Rate Respiratory 18 Rate [left leg pain] Blood Pressure Blood Pressure [Left Radial Artery] O2 Sat by Pulse Oximetry - Labs CBC & Chem 7: 07/03/16 05:39 07/01/16 12:35 Labs: Abnormal lab results 07/06/16 07/06/16 07/07/16 Range/Units 15:58 21:38 05:39 PT 17.5 H (12.2-14.9) Sec. INR 1.44 H (0.87-1.13) POC Glucose 188 H 200 H (70-105)
[2016-07-07] MEDS: COUMADIN PO SCH (18:35)
[2016-07-07] MEDS: LEVEMIR SUB-Q SCH (22:13)
[2016-07-08 05:54] LABS: Basophils % (Auto) 0.6 % (0.0-1.8); Eosinophils % (Auto) 7.2 % (0.0-4.3); Hematocrit 24.5 % (30.3-42.9); Hemoglobin 7.5 gm/dl (10.1-14.3); Mean Corpuscular HGB Conc 31 % (30-34); Platelet Count 414 K/mm3 (140-440); Red Blood Count 3.73 M/mm3 (3.65-5.03); White Blood Count 8.9 K/mm3 (4.5-11.0)
[2016-07-08 05:58] LABS: Mean Corpuscular Hemoglobin 20 pg (28-32); Mean Corpuscular Volume 66 fl (79-97)
[2016-07-08 06:02] LABS: INR 1.57 (0.87-1.13)
[2016-07-08 06:12] LABS: Anion Gap 22 mmol/L; BUN/Creatinine Ratio 21.42; Blood Urea Nitrogen 15 mg/dL (7-17); Calcium 8.8 mg/dL (8.4-10.2); Carbon Dioxide 23 mmol/L (22-30); Chloride 98.4 mmol/L (98-107); Glucose 213 mg/dL (65-100); Sodium 139 mmol/L (137-145)
[2016-07-08] MEDS: NOVOLOG SUB-Q SCH ×4 (08:25→22:57)
[2016-07-08] MEDS: GLUCOPHAGE PO SCH ×2 (08:35→17:27)
[2016-07-08] MEDS: ULTRAM PO PRN ×2 (08:36→17:35)
[2016-07-08] MEDS: DILANTIN PO SCH (10:40)
[2016-07-08] MEDS: LOPRESSOR PO SCH ×2 (10:42→22:53)
[2016-07-08] MEDS: LASIX PO SCH ×2 (10:42→22:53)
[2016-07-08] MEDS: LOPID PO SCH (10:42)
[2016-07-08] MEDS: K-DUR PO SCH (10:42)
[2016-07-08] MEDS: LOVENOX SUB-Q SCH ×2 (10:43→22:56)
[2016-07-08] MEDS: COUMADIN PO SCH (17:27)
--- NOTE | 2016-07-08 20:13 | Progress Note ---
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 Chest pain Likely musculoskeletal (significant chest wall tenderness on palpation) EKG with no changes, CE normal, stress test negative 2. Presyncope CT scan of the brain showed possible posterior fossa mass MRI of the brain revealed meningioma with some mass effect Carotid Doppler showed about 70% stenosis on the right side 3. Meningioma Neurosurgery consulted, no intervention indicated at this time, outpatient f/u 4. R carotid stenosis Evaluated by [facility] Surgery and outpatient f/u recommended 5. Old CVA With right sided hemiparesis Anticoagulated with Coumadin On statin 6. Coagulopathy Reversed with FFP and vit K Resolved Coumadin dose adjusted 7. Chronic CHF Compensated, continue home dose of Lasix 8. HypertensionBP controlled after regimen adjusted 9. Insulin-dependent diabetes mellitus type 2 Continue long acting insulin along with Metformin 1000 10. DVT prophylaxis Anticoagulated with Coumadin History Interval history: c/o worsening weakness, inability to walk, some issues with her right leg brace sister present, discussed all findings in detail Hospitalist Physical - Constitutional Vitals: Temp Pulse Resp BP Pulse Ox 98.0 F 73 20 114/62 99 07/08/16 16:14 07/08/16 16:14 07/08/16 16:14 07/08/16 16:14 07/08/16 16:14 General appearance: Present: no acute distress, obese - EENT Eyes: Present: PERRL, EOM intact - Neck Neck: Present: supple, normal ROM. Absent: masses or JVD - Respiratory Respiratory effort: normal Respiratory: bilateral: CTA, negative: rhonchi, wheezing - Cardiovascular Rhythm: regular Heart Sounds: Present: S1 & S2. Absent: systolic murmur - Extremities Extremities: no ischemia - Abdominal General gastrointestinal: soft, non-tender, non-distended, normal bowel sounds - Psychiatric Psychiatric: cooperative - Neurologic Neurologic: other (R-sided hemiparesis) Results - Labs CBC & Chem 7: 07/08/16 05:02 07/08/16 05:02 Labs: Laboratory Last Values WBC 8.9 K/mm3 (4.5-11.0) 07/08/16 05:02 RBC 3.73 M/mm3 (3.65-5.03) 07/08/16 05:02 Hgb 7.5 gm/dl (10.1-14.3) L 07/08/16 05:02 Hct 24.5 % (30.3-42.9) L 07/08/16 05:02 MCV 66 fl (79-97) L 07/08/16 05:02 MCH 20 pg (28-32) L 07/08/16 05:02 MCHC 31 % (30-34) 07/08/16 05:02 RDW 22.0 % (13.2-15.2) H 07/08/16 05:02 Plt Count 414 K/mm3 (140-440) 07/08/16 05:02 Lymph % (Auto) 21.0 % (13.4-35.0) 07/08/16 05:02 Mobile % (Auto) 4.6 % (0.0-7.3) 07/08/16 05:02 Eos % (Auto) 7.2 % (0.0-4.3) H 07/08/16 05:02 Baso % (Auto) 0.6 % (0.0-1.8) 07/08/16 05:02 Lymph # 1.9 K/mm3 (1.2-5.4) 07/08/16 05:02 Mobile # 0.4 K/mm3 (0.0-0.8) 07/08/16 05:02 Eos # 0.6 K/mm3 (0.0-0.4) H 07/08/16 05:02 Baso # 0.1 K/mm3 (0.0-0.1) 07/08/16 05:02 Seg Neutrophils % 66.6 % (40.0-70.0) 07/08/16 05:02 Seg Neutrophils # 5.9 K/mm3 (1.8-7.7) 07/08/16 05:02 PT 18.7 Sec. (12.2-14.9) H 07/08/16 05:02 INR 1.57 (0.87-1.13) H 07/08/16 05:02 APTT 117.9 Sec. (24.2-36.6) H* 07/01/16 16:31 Sodium 139 mmol/L (137-145) 07/08/16 05:02 Potassium 4.0 mmol/L (3.6-5.0) 07/08/16 05:02 Chloride 98.4 mmol/L (98-107) 07/08/16 05:02 Carbon Dioxide 23 mmol/L (22-30) 07/08/16 05:02 Anion Gap 22 mmol/L 07/08/16 05:02 BUN 15 mg/dL (7-17) 07/08/16 05:02 Creatinine 0.7 mg/dL (0.7-1.2) 07/08/16 05:02 Estimated GFR > 60 ml/min 07/08/16 05:02 BUN/Creatinine Ratio 21.42 % 07/08/16 05:02 Glucose 213 mg/dL (65-100) H 07/08/16 05:02 POC Glucose 235 (70-105) H 07/08/16 16:11 Calcium 8.8 mg/dL (8.4-10.2) 07/08/16 05:02 Iron 22 ug/dL (37-170) L 07/03/16 17:06 TIBC 286 mcg/dL (250-450) 07/03/16 17:06 Total Creatine Kinase 106 units/L (30-135) 07/02/16 10:58 CK-MB (CK-2) < 1.0 ng/mL (0.0-4.0) 07/02/16 10:58 CK-MB (CK-2) Rel Index 0.9 (0-4) 07/02/16 10:58 Troponin T < 0.010 ng/mL (0.00-0.029) 07/02/16 10:58 Phenytoin 10.2 mg/L (10.0-20.0) 07/01/16 16:31 Blood Type B POSITIVE 07/01/16 16:31 Antibody Screen TNR 07/01/16 16: CINDY Antibody Screen Negative 07/01/16 16:31
[2016-07-08] MEDS: LEVEMIR SUB-Q SCH (22:59)
[2016-07-09 06:02] LABS: INR 1.6 (0.87-1.13)
[2016-07-09] MEDS: NOVOLOG SUB-Q SCH (09:53)
[2016-07-09] MEDS: LOPRESSOR PO SCH (09:54)
[2016-07-09] MEDS: K-DUR PO SCH (09:54)
[2016-07-09] MEDS: GLUCOPHAGE PO SCH (09:54)
[2016-07-09] MEDS: LASIX PO SCH (09:54)
[2016-07-09] MEDS: DILANTIN PO SCH (09:55)
[2016-07-09] MEDS: LOPID PO SCH (09:56)
[2016-07-09] MEDS: LOVENOX SUB-Q SCH (09:56)
--- NOTE | 2016-07-09 11:03 | Vascular Lab Report ---
CAROTID DUPLEX STUDY: RIGHT PSVEDV CCA PROX:[id number] CCA DIST:[id number] ICA PROX:[id number] ICA MID: 9638 ICA DIST: 9244 ECA: 137 VERT: 59 15 LEFT PSVEDV CCA PROX:[id number] CCA DIST:17219 ICA PROX:91275 ICA MID: 5714 ICA DIST: 36 9 ECA: 82 VERT: 47 15 REASON FOR EXAM: Carotid artery stenosis/syncope. COMMENTS ON THE RIGHT: Doppler frequency analysis is consistent with 16 to 49 percent diameter reduction of the internal carotid artery. Minimal amount of plaque is seen. The common carotid artery is patent. The external carotid artery is patent. The vertebral artery has antegrade flow. COMMENTS ON THE LEFT: Doppler frequency analysis is consistent with 16 to 49 percent diameter reduction of the internal carotid artery. Minimal amount of plaque is seen. The common carotid artery is patent. The external carotid artery is patent. The vertebral artery has antegrade flow. IMPRESSION: Less than 50% diameter reduction in the internal carotid arteries bilaterally. Consider repeat carotid artery duplex in 12 months.
--- NOTE | 2016-07-09 12:08 | Consultation ---
History of Present Illness Consult date: 07/09/16 Requesting physician: MAURO RICE Reason for Consult: brain mass Chief complaint: chest pain History of present illness: 61 YO F Hx L MCA stroke in past on Coumadin INR 9 on presentation and seizure disorder on PHT p/w chest pain/SOB. CTH revealed L cerebellar extra-axial brain mass confirmed on MRI Brain suspected meningioma. Pt does affirm headache. Hx somewhat limited by dysphasia. She does affirm difficulty walking but denies L sided weakness. She affirms frequent HAs. Sx are constant but waxing and waning. There are no clear aggravating, relieving or temporal factors. Severity is such to cause difficulty walking. Past History Past Medical History: stroke Past Surgical History: No surgical history Social history: single, lives with family. denies: smoking, alcohol abuse Family history: no significant family history Medications and Allergies Allergies Allergy/AdvReac Type Severity Reaction Status Date / Time Penicillins Allergy Unknown Verified 11/10/14 21:41 Peas Allergy Swelling Uncoded 07/01/16 12:21 Home Medications Medication Instructions Recorded Confirmed Last Taken Type AtorvaSTATin [Lipitor] 20 mg PO QDAY 11/11/14 07/01/16 06/30/16 History Furosemide [Lasix TAB] 40 mg PO BID 11/11/14 07/01/16 06/30/16 History Gemfibrozil [Lopid] 600 mg PO QDAY 11/11/14 07/01/16 06/30/16 History Insulin Glargine [Lantus VIAL] 60 units SUB-Q QHS 11/11/14 07/01/16 06/30/16 History Metformin HCl [Glucophage] 1,000 mg PO BID 11/11/14 07/01/16 06/30/16 History Phenytoin Chew [Dilantin Chew] 150 mg PO QAM 11/11/14 07/02/16 06/30/16 History Potassium Chloride [K-Dur] 20 meq PO QDAY 11/11/14 07/01/16 06/30/16 History Warfarin [Coumadin] 10 mg PO Q24H #14 tablet 11/14/14 07/01/16 06/30/16 Rx Celecoxib [celeBREX] 200 mg PO BID 07/01/16 07/01/16 06/30/16 History Warfarin [Coumadin] 5 mg PO QDAY 07/01/16 07/01/16 06/30/16 History traMADol [Ultram] 50 mg PO Q6HR PRN 07/01/16 07/01/16 06/30/16 History Phenytoin Sodium Extended 200 mg PO QHS 07/02/16 07/02/16 Unknown History Active Meds: Active Medications Atorvastatin Calcium (Lipitor) 20 mg PO QDAY [facility] Last Admin: 07/09/16 09:54 Dose: 20 mg Celecoxib (Celebrex) 200 mg PO BID [facility] Last Admin: 07/09/16 09:54 Dose: 200 mg Enoxaparin Sodium (Lovenox) 100 mg SUB-Q Q12HR [facility] Last Admin: 07/09/16 09:56 Dose: 100 mg Furosemide (Lasix) 40 mg PO BID [facility] Last Admin: 07/09/16 09:54 Dose: 40 mg Gemfibrozil (Lopid) 600 mg PO QDAY [facility] Last Admin: 07/09/16 09:56 Dose: 600 mg Insulin Aspart (Novolog) 0 units SUB-Q [facility] PRN Reason: Protocol Last Admin: 07/09/16 09:53 Dose: 2 units Insulin Detemir (Levemir) 60 units SUB-Q QHS [facility] Last Admin: 07/08/16 22:59 Dose: 60 units Metformin HCl (Glucophage) 1,000 mg PO BIDDIAB [facility] Last Admin: 07/09/16 09:54 Dose: 1,000 mg Metoprolol Tartrate (Lopressor) 25 mg PO BID [facility] Last Admin: 07/09/16 09:54 Dose: 25 mg Phenytoin (Dilantin) 150 mg PO QDAY [facility] Last Admin: 07/09/16 09:55 Dose: 150 mg Potassium Chloride (K-Dur) 20 meq PO QDAY [facility] Last Admin: 07/09/16 09:54 Dose: 20 meq Sodium Chloride (Sodium Chloride Flush Syringe 10 Ml) 10 ml IV PRN PRN PRN Reason: LINE FLUSH Tramadol HCl (Ultram) 50 mg PO Q6HR PRN PRN Reason: Pain Last Admin: 07/08/16 17:35 Dose: 50 mg Warfarin Sodium (Coumadin) 7.5 mg PO QDAY@1700 [facility] PRN Reason: Protocol Last Admin: 07/08/16 17:27 Dose: 7.5 mg Review of Systems All systems: negative Constitutional: fatigue, weakness, lethargy Cardiovascular: chest pain Respiratory: shortness of breath Neurological: weakness, numbness, lack of coordination, headaches, balance difficulties, gait dysfunction, motor disturbance, sensory deficit Physical Examination - Vital Signs Vital Signs: Vital Signs Temp Pulse Resp BP Pulse Ox 98.5 F 124 H 18 132/77 95 07/01/16 12:22 07/01/16 12:22 07/01/16 12:22 07/01/16 12:22 07/01/16 12:22 - Constitutional General appearance: comfortable, chronically ill - EENT EENT: Present: ATNC, PERRL, mucous membranes moist, hearing intact, vision intact - Respiratory Respiratory: Present: chest non-tender, normal breath sounds, no respiratory distress - Cardiovascular Cardiovascular: Present: regular rate Extremities: Present: no peripheral edema bilatateraly, no clubbing, cyanosis, no inflammation, no ischemia or petechiae - Gastrointestinal Gastrointestinal: Present: normoactive bowel sounds, soft, non-distended - Integumentary Integumentary: Present: normal - Neurologic Cranial nerve examination: PERRL, EOMI, VFF, V1/V2/V3 grossly intact, tongue midline, intact, Intact Vestibulo-ocular r, intact corneal reflex, facial droop (on R), normal palatal elevation Speech examination: motor aphasia, sensory aphasia Sensorimotor examination: pronator drift (on R), hemiparesis (on R), rigidity ( spastic on R) Motor examination - right side: 3/5: biceps, triceps, wrist flexion, wrist extension, cassandra developer, hip flexors, knee extensors, dorsiflexion, toe extension (EHL) , plantarflexion Motor examination - left side: 5/5: biceps, triceps, wrist flexion, wrist extension, cassandra developer, hip flexors, knee extensors, dorsiflexion, toe extension (EHL) , plantarflexion Detailed sensory examination: light touch, temperature (decr on R hemibody) Reflex and gait examination: Babinski's sign (on R) Reflexes: 3+: ankle (on R), bicep, knee, tricep Cerebellar examination: dysmetria (on L), dysdiadochokinesia, nystagmus - Musculoskeletal Musculoskeletal: Present: no fluid collection, no pain, normal range of motion - Psychiatric Psychiatric: Present: mood/affect appropriate, cooperative Results - Laboratory Findings CBC and BMP: 07/08/16 05:02 07/08/16 05:02 Abnormal Lab Findings: Abnormal Labs 07/01/16 07/02/16 07/02/16 22:41 08:11 10:58 Hgb Hct MCV MCH RDW Plt Count Eos % (Auto) Eos # PT 21.0 H INR 1.81 H Glucose POC Glucose 180 H 239 H Iron 07/02/16 07/02/16 07/02/16 11:18 17:31 21:05 Hgb Hct MCV MCH RDW Plt Count Eos % (Auto) Eos # PT INR Glucose POC Glucose 312 H 229 H 230 H Iron 07/03/16 07/03/16 07/03/16 05:39 05:39 07:43 Hgb 7.6 L Hct 24.3 L MCV 66 L MCH 21 L RDW 21.2 H Plt Count 503 H Eos % (Auto) Eos # PT 16.0 H INR 1.29 H Glucose POC Glucose 245 H Iron 07/03/16 07/03/16 07/03/16 11:02 15:49 17:06 Hgb Hct MCV MCH RDW Plt Count Eos % (Auto) Eos # PT INR Glucose POC Glucose 347 H 227 H Iron 22 L 07/03/16 07/04/16 07/04/16 22:30 05:25 08:04 Hgb Hct MCV MCH RDW Plt Count Eos % (Auto) Eos # PT 15.8 H INR 1.27 H Glucose POC Glucose 240 H 209 H Iron 07/04/16 07/04/16 07/04/16 11:14 16:06 21:06 Hgb Hct MCV MCH RDW Plt Count Eos % (Auto) Eos # PT INR Glucose POC Glucose 241 H 241 H 296 H Iron 07/05/16 07/05/16 07/05/16 04:59 08:39 11:33 Hgb Hct MCV MCH RDW Plt Count Eos % (Auto) Eos # PT 15.5 H INR 1.24 H Glucose POC Glucose 267 H 221 H Iron 07/05/16 07/05/16 07/06/16 16:51 21:13 04:50 Hgb Hct MCV MCH RDW Plt Count Eos % (Auto) Eos # PT 16.3 H INR 1.32 H Glucose POC Glucose 154 H 243 H Iron 07/06/16 07/06/16 07/06/16 07:53 11:37 15:58 Hgb Hct MCV MCH RDW Plt Count Eos % (Auto) Eos # PT INR Glucose POC Glucose 196 H 232 H 188 H Iron 07/06/16 07/07/16 07/07/16 21:38 05:39 07:42 Hgb Hct MCV MCH RDW Plt Count Eos % (Auto) Eos # PT 17.5 H INR 1.44 H Glucose POC Glucose 200 H 295 H Iron 07/07/16 07/07/16 07/07/16 12:45 17:39 22:29 Hgb Hct MCV MCH RDW Plt Count Eos % (Auto) Eos # PT INR Glucose POC Glucose 194 H 217 H 191 H Iron 07/08/16 07/08/16 07/08/16 05:02 05:02 05:02 Hgb 7.5 L Hct 24.5 L MCV 66 L MCH 20 L RDW 22.0 H Plt Count Eos % (Auto) 7.2 H Eos # 0.6 H PT 18.7 H INR 1.57 H Glucose 213 H POC Glucose Iron 07/08/16 07/08/16 07/08/16 07:42 11:33 16:11 Hgb Hct MCV MCH RDW Plt Count Eos % (Auto) Eos # PT INR Glucose POC Glucose 232 H 195 H 235 H Iron 07/08/16 07/09/16 07/09/16 21:30 04:28 08:00 Hgb Hct MCV MCH RDW Plt Count Eos % (Auto) Eos # PT 19.0 H INR 1.60 H Glucose POC Glucose 205 H 191 H Iron Assessment and Plan 61 YO F Hx L MCA stroke in past on Coumadin INR 9 on presentation and seizure disorder on PHT 150 QDay p/w chest pain/SOB and reported fall w/o LOC. CTH revealed L cerebellar > R extra-axial brain massed confirmed on MRI Brain as L 4x2.5x3.6 and R 1.4x0.8 suspected meningioma w/ mass effect but no hydrocephalus. There is some LUIS and L hemiataxia. Recs: 1. Neuro checks 2. Management of these extra-axial brain masses are not medical but rather surgical so will defer to Neurosurgery sql consultant who has been engaged in patient's care. 3. Minimal if any vasogenic edema w/o indication for steroids @ this time 4. Cont PHT 150mg QDay 5. Cont Coumadin for goal INR 2-3 6. We can revisit as needed.
--- NOTE | 2016-07-09 12:34 | Discharge Summary ---
Providers - Providers Date of Admission: 07/01/16 18:15 Date of discharge: 07/09/16 Attending physician: MAURO RICE 07/02/16 Consult to Cardiac Rehabilitation [CONS] Routine Reason For Exam: Phase I 07/03/16 09:21 Consult to Physician [CONS] Routine Consulting Provider: YOCASTA BARFIELD Reason For Exam: brain mass with pressure effect Place consult to:: neuro surg Notified:: office Phone number called:: [phone] Was contact made?: Yes If yes, spoke with:: yamil Time called:: 11:31 07/03/16 16:06 Consult to Physician [CONS] Routine Consulting Provider: AKIRA ROCHE Reason For Exam: carotid stenosis Place consult to:: vascular surgeon Notified:: a service Phone number called:: [phone] Was contact made?: Yes If yes, spoke with:: cherelle Time called:: 16:38 07/05/16 11:23 Consult to Physician [CONS] Routine Consulting Provider: GRACY BARCENAS Reason For Exam: brain mass Place consult to:: Dr. Barcenas Notified:: En CAT Phone number called:: 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 Chest pain Likely musculoskeletal (significant chest wall tenderness on palpation) EKG with no changes, CE normal, stress test negative 2. Presyncope CT scan of the brain showed possible posterior fossa mass MRI of the brain revealed meningioma with some mass effect Carotid Doppler showed about 70% stenosis on the right side 3. Meningioma Neurosurgery consulted, no intervention indicated at this time, outpatient f/u 4. R carotid stenosis Evaluated by [facility] Surgery and outpatient f/u recommended 5. Old CVA With right sided hemiparesis Anticoagulated with Coumadin On statin 6. Coagulopathy Reversed with FFP and vit K Resolved Coumadin dose adjusted 7. Chronic CHF Compensated, continue home dose of Lasix 8. HypertensionBP controlled after regimen adjusted 9. Insulin-dependent diabetes mellitus type 2 Continue long acting insulin along with Metformin 1000 1 Disposition: DC/TX HOME UNDER HOME HEALTH Time spent for discharge: 35 min Core Measure Documentation - Palliative Care Palliative Care/ Comfort Measures: Not Applicable - Core Measures Any of the following diagnoses?: stroke, history only - Stroke Discharge Requirements Statin for LDL = or >70 mg/dl on DC: Yes Anticoag for atrial fib/atrial flutter: Yes Antithrombotic for ischemic stroke: No Reason for no antithrombotic on DC: Medical Contraindication Exam - Constitutional Vitals: Temp Pulse Resp BP Pulse Ox 98.7 F 107 H 12 117/57 107 H 07/09/16 09:54 07/09/16 09:54 07/09/16 09:54 07/09/16 09:54 07/09/16 09:54 General appearance: Present: no acute distress, obese - EENT Eyes: Present: PERRL, EOM intact - Neck Neck: Present: supple, normal ROM. Absent: masses or JVD - Respiratory Respiratory effort: normal Respiratory: bilateral: CTA, negative: rhonchi, wheezing - Cardiovascular Rhythm: regular Heart Sounds: Present: S1 & S2. Absent: systolic murmur - Extremities Extremities: no ischemia - Abdominal General gastrointestinal: Present: soft, non-tender, non-distended, normal bowel sounds - Musculoskeletal Musculoskeletal: right sided weakness - Psychiatric Psychiatric: cooperative Plan Activity: advance as tolerated, fall precautions Diet: low cholesterol, low salt Follow up with: PRIMARY MD CHERIE [Primary Care Provider] - 3-5 Days YOCASTA BARFIELD MD [Staff Physician] - 7 Days Forms: Warfarin Discharge Instruction Prescriptions: Insulin Glargine [Lantus VIAL] 60 units SUB-Q QHS #1 units Phenytoin Sodium Extended 200 mg PO QHS #60 capsule AtorvaSTATin [Lipitor] 20 mg PO QDAY #30 tablet Furosemide [Lasix TAB] 40 mg PO BID #60 tablet Metformin HCl [Glucophage] 1,000 mg PO BID #60 tablet Metoprolol [Lopressor TAB] 25 mg PO BID #60 tablet Phenytoin (25 mg/ml) [Dilantin] 100 mg PO QDAY #30 oral.liqd Potassium Chloride [K-Dur] 20 meq PO QDAY #30 tablet Warfarin [Coumadin] 7.5 mg PO QDAY@1700 #30 tablet
[2016-07-09 13:48] VITALS: BP 124/72
--- NOTE | 2016-07-09 20:49 | Consultation ---
History of Present Illness Consult date: 07/09/16 Requesting physician: ANN HOLMAN Reason for Consult: brain tumor Chief complaint: They found something on my scan. History of present illness: 61 YO female history of left MCA stroke in past on Coumadin INR 9 on presentation and seizure disorder on PHT p/w chest pain/SOB. CTH revealed L cerebellar extra-axial brain mass confirmed on MRI Brain suspected meningioma. Pt does affirm headache. Hx somewhat limited by dysphasia. She does affirm difficulty walking but denies L sided weakness. She affirms frequent HAs. Sx are constant but waxing and waning. There are no clear aggravating, relieving or temporal factors. Severity is such to cause difficulty walking. Neurosurgery consulted due to left posterior fossa calcified mass suggestive of meningioma. No other issues as it relates to the tumor noted. Past History Past Medical History: stroke Past Surgical History: No surgical history Social history: single, lives with family. denies: smoking, alcohol abuse Family history: no significant family history Medications and Allergies Allergies Allergy/AdvReac Type Severity Reaction Status Date / Time Penicillins Allergy Unknown Verified 11/10/14 21:41 Peas Allergy Swelling Uncoded 07/01/16 12:21 Home Medications Medication Instructions Recorded Confirmed Last Taken Type traMADol [Ultram 50 MG tab] 50 mg PO Q6HR PRN 07/01/16 07/01/16 06/30/16 History AtorvaSTATin [Lipitor] 20 mg PO QDAY #30 tablet 07/09/16 Unknown Rx Furosemide [Lasix TAB] 40 mg PO BID #60 tablet 07/09/16 Unknown Rx Insulin Glargine [Lantus VIAL] 60 units SUB-Q QHS #1 units 07/09/16 Unknown Rx Metformin HCl [Glucophage] 1,000 mg PO BID #60 tablet 07/09/16 Unknown Rx Metoprolol [Lopressor TAB] 25 mg PO BID #60 tablet 07/09/16 Unknown Rx Phenytoin (25 mg/ml) [Dilantin] 100 mg PO QDAY #30 oral.liqd 07/09/16 Unknown Rx Phenytoin Sodium Extended 200 mg PO QHS #60 capsule 07/09/16 Unknown Rx Potassium Chloride [K-Dur] 20 meq PO QDAY #30 tablet 07/09/16 Unknown Rx Warfarin [Coumadin] 7.5 mg PO QDAY@1700 #30 tablet 07/09/16 Unknown Rx Review of Systems All systems: negative Constitutional: lethargy, chronic pain Physical Examination - Vital Signs Vital Signs: Vital Signs Temp Pulse Resp BP Pulse Ox 98.5 F 124 H 18 132/77 95 07/01/16 12:22 07/01/16 12:22 07/01/16 12:22 07/01/16 12:22 07/01/16 12:22 - Constitutional General appearance: comfortable - EENT EENT: Present: ATNC, PERRL - Respiratory Respiratory: Present: chest non-tender - Cardiovascular Cardiovascular: Present: regular rate Extremities: Present: non-pitting edema - Gastrointestinal Gastrointestinal: Present: soft, non-tender - Neurologic Candelario Coma Scale (3-15): 14 Speech examination: speech apraxia Sensorimotor examination: intact, other (right sided sensory loss (chronic)) Detailed motor examination: other (Chronic right sided weakness) Cerebellar examination: dysmetria - Musculoskeletal Musculoskeletal: Present: no fluid collection - Psychiatric Psychiatric: Present: mood/affect appropriate Results - Laboratory Findings CBC and BMP: 07/08/16 05:02 07/08/16 05:02 Abnormal Lab Findings: Abnormal Labs 07/01/16 07/02/16 07/02/16 22:41 08:11 10:58 Hgb Hct MCV MCH RDW Plt Count Eos % (Auto) Eos # PT 21.0 H INR 1.81 H Glucose POC Glucose 180 H 239 H Iron 07/02/16 07/02/16 07/02/16 11:18 17:31 21:05 Hgb Hct MCV MCH RDW Plt Count Eos % (Auto) Eos # PT INR Glucose POC Glucose 312 H 229 H 230 H Iron 07/03/16 07/03/16 07/03/16 05:39 05:39 07:43 Hgb 7.6 L Hct 24.3 L MCV 66 L MCH 21 L RDW 21.2 H Plt Count 503 H Eos % (Auto) Eos # PT 16.0 H INR 1.29 H Glucose POC Glucose 245 H Iron 07/03/16 07/03/16 07/03/16 11:02 15:49 17:06 Hgb Hct MCV MCH RDW Plt Count Eos % (Auto) Eos # PT INR Glucose POC Glucose 347 H 227 H Iron 22 L 07/03/16 07/04/16 07/04/16 22:30 05:25 08:04 Hgb Hct MCV MCH RDW Plt Count Eos % (Auto) Eos # PT 15.8 H INR 1.27 H Glucose POC Glucose 240 H 209 H Iron 07/04/16 07/04/16 07/04/16 11:14 16:06 21:06 Hgb Hct MCV MCH RDW Plt Count Eos % (Auto) Eos # PT INR Glucose POC Glucose 241 H 241 H 296 H Iron 07/05/16 07/05/16 07/05/16 04:59 08:39 11:33 Hgb Hct MCV MCH RDW Plt Count Eos % (Auto) Eos # PT 15.5 H INR 1.24 H Glucose POC Glucose 267 H 221 H Iron 07/05/16 07/05/16 07/06/16 16:51 21:13 04:50 Hgb Hct MCV MCH RDW Plt Count Eos % (Auto) Eos # PT 16.3 H INR 1.32 H Glucose POC Glucose 154 H 243 H Iron 07/06/16 07/06/16 07/06/16 07:53 11:37 15:58 Hgb Hct MCV MCH RDW Plt Count Eos % (Auto) Eos # PT INR Glucose POC Glucose 196 H 232 H 188 H Iron 07/06/16 07/07/16 07/07/16 21:38 05:39 07:42 Hgb Hct MCV MCH RDW Plt Count Eos % (Auto) Eos # PT 17.5 H INR 1.44 H Glucose POC Glucose 200 H 295 H Iron 07/07/16 07/07/16 07/07/16 12:45 17:39 22:29 Hgb Hct MCV MCH RDW Plt Count Eos % (Auto) Eos # PT INR Glucose POC Glucose 194 H 217 H 191 H Iron 07/08/16 07/08/16 07/08/16 05:02 05:02 05:02 Hgb 7.5 L Hct 24.5 L MCV 66 L MCH 20 L RDW 22.0 H Plt Count Eos % (Auto) 7.2 H Eos # 0.6 H PT 18.7 H INR 1.57 H Glucose 213 H POC Glucose Iron 07/08/16 07/08/16 07/08/16 07:42 11:33 16:11 Hgb Hct MCV MCH RDW Plt Count Eos % (Auto) Eos # PT INR Glucose POC Glucose 232 H 195 H 235 H Iron 07/08/16 07/09/16 07/09/16 21:30 04:28 08:00 Hgb Hct MCV MCH RDW Plt Count Eos % (Auto) Eos # PT 19.0 H INR 1.60 H Glucose POC Glucose 205 H 191 H Iron 07/09/16 13:15 Hgb Hct MCV MCH RDW Plt Count Eos % (Auto) Eos # PT INR Glucose POC Glucose 235 H Iron Assessment and Plan 61 yo female with history of left MCA stroke and recently diagnosed left posterior fossa mass suspicous for meningioma. No role for surgery on an emergent basis at this time. I would recommend follow up with [facility]. I can help arrange as an outpatient. Thanks for the consult and call with any questions.
== END 2016-07-09 14:15 | disposition home health service (06) | DRG 313 ==
LOC: ED 11:55 → 4A 18:15
PROVIDERS: ADMIT Internal Medicine; ATTEND Internal Medicine
DX: R07.89 Other chest pain (principal); I69.351 Hemiplegia and hemiparesis following cerebral infarction affecting right dominant side; D64.9 Anemia, unspecified; I50.9 Heart failure, unspecified; E78.5 Hyperlipidemia, unspecified; E11.9 Type 2 diabetes mellitus without complications; T45.515A Adverse effect of anticoagulants, initial encounter; G40.909 Epilepsy, unspecified, not intractable, without status epilepticus; I11.0 Hypertensive heart disease with heart failure; R55 Syncope and collapse; I65.23 Occlusion and stenosis of bilateral carotid arteries; Z88.0 Allergy status to penicillin; Z90.710 Acquired absence of both cervix and uterus; Z79.4 Long term (current) use of insulin; Z79.01 Long term (current) use of anticoagulants; Z79.899 Other long term (current) drug therapy; Z91.010 Allergy to peanuts
CPT/HCPCS: 36415; 70450; 70553; 71010; 72125; 78452; 80048; 80185; 82270; 82271; 82550; 82553; 82962; 83550; 84484; 85025; 85027; 85610; 85730; 86850; 86900; 86901; 93005; 93010; 93017; 93306; 93880; A9270-GY; A9502; A9577; G8978-GP; G8979-GP; J1650; J1815; J1818; J2785; J3430

== ENCOUNTER 2017-06-23 11:53 | Outpatient (CLI) | payer MEDICARE | END 2017-06-23 11:54 | disposition home or self-care (01) | LOC: LAB 11:53 | PROVIDERS: ATTEND Internal Medicine | DX: E11.8 Type 2 diabetes mellitus with unspecified complications (principal); I10 Essential (primary) hypertension; D64.9 Anemia, unspecified | CPT/HCPCS: 36415; 83036 ==

== ENCOUNTER 2018-08-30 11:31 | Outpatient (CLI) | payer MEDICARE ==
[2018-08-30 12:57] LABS: Chol/HDL Ratio 3.1 %
== END 2018-08-30 11:32 | disposition home or self-care (01) ==
LOC: LAB 11:31
PROVIDERS: ATTEND Internal Medicine
DX: E11.8 Type 2 diabetes mellitus with unspecified complications (principal); E78.5 Hyperlipidemia, unspecified; I11.0 Hypertensive heart disease with heart failure; I50.9 Heart failure, unspecified; J44.9 Chronic obstructive pulmonary disease, unspecified; E66.9 Obesity, unspecified; Z90.710 Acquired absence of both cervix and uterus
CPT/HCPCS: 36415; 80061; 83036

== ENCOUNTER 2018-10-01 19:34 | Inpatient (IN) | payer MEDICARE ==
[2018-10-01] MEDS ORDERED: XYLOCAINE 2% INFILTRATI ONE ×2 (20:59→21:00)
[2018-10-01] MEDS ORDERED: D50W (25GM) Syringe IV ONE (21:08)
[2018-10-01] MEDS ORDERED: NACL 0.9% 500 ML 500 ML IV ONE (21:08)
--- NOTE | 2018-10-01 21:27 | Emergency Department Report ---
ED General Adult HPI - General Chief complaint: Altered Mental Status Stated complaint: LOW BLOOD SUGAR Time Seen by Provider: 10/01/18 20:35 Source: patient, family, EMS (ems notes not available at time of chart dictation), RN notes reviewed, old records reviewed Mode of arrival: Stretcher Limitations: Altered Mental Status, Physical Limitation - History of Present Illness Initial comments: Primary care Dr.: DR Linda Koroma Cardiology: Dr. Senior Past medical history: Stroke, hypertension, diabetes, DVT, IVC filter, congestive heart failure, residual right-sided weakness, on Coumadin therapy, dementia History is primarily obtained from the patient's sister and reported power of fast food fry cook, Ms. Nusrat Andrade; [phone] This is a 63-year-old female. The patient is not known to this provider previously. The patient is brought to the hospital by EMS for hypoglycemia. Medications include metformin. Uncertain if the patient fell. The patient is not able to provide additional history. Her sister endorses that the patient has chronic dental pain and dental caries. She is on chronic anticoagulation, and oral surgeons that they have received consultations from in the past have declined to perform dental extraction secondary to the patient being on Coumadin therapy. As per family, the patient's primary care doctor does not feel that it is appropriate to discontinue Coumadin therapy. Therefore, the patient is reportedly not eating much, if at all. Apparently, the patient was found to be hypoglycemic, and given dextrose in the field, which improved her symptoms. In the ER, the patient is anxious but follows commands, moves left arm and left leg. She is found to be hypoglycemic. She is given our shoes which improves her hypoglycemia. However, she required initiation of a dextrose drip. Patient is a very difficult IV stick. Multiple nurses attempted to place peripheral lines, and unfortunately were not successful. This provider evaluating the patient's anatomy with an ultrasound, unfortunately, the patient was not able to receive peripheral placed ultrasound guided IV in the upper extremities. Therefore, a right lower extremity intraosseous line is placed. -: unknown Radiation: other Quality: other Consistency: other Improves with: other Worsens with: other - Related Data Home Medications Medication Instructions Recorded Confirmed Last Taken AtorvaSTATin [Lipitor] 20 mg PO QDAY 10/29/16 10/01/18 1 Day Ago ~10/29/16 Citalopram [celeXA] 10 mg PO TID 10/29/16 10/02/18 1 Day Ago ~10/29/16 Phenytoin Sodium Extended 200 mg PO QHS 10/30/16 10/01/18 1 Day Ago ~10/29/16 Carvedilol [Coreg] 3.125 mg PO BID 10/01/18 10/01/18 Unknown Clopidogrel [Plavix] 75 mg PO QDAY 10/01/18 10/01/18 Unknown DULoxetine [Cymbalta] 60 mg PO QDAY 10/01/18 10/01/18 Unknown Gemfibrozil [Lopid] 600 mg PO QDAY 10/01/18 10/01/18 Unknown Morphine Sulfate 15 mg PO BID 10/01/18 10/01/18 Unknown Phenytoin [Dilantin] 150 mg PO QDAY 10/01/18 10/01/18 Unknown predniSONE [Deltasone] 5 mg PO Q48HR 10/03/18 10/03/18 Unknown Previous Rx's Medication Instructions Recorded Last Taken Type AtorvaSTATin [Lipitor] 20 mg PO QDAY #30 tablet 07/09/16 1 Day Ago Rx ~10/29/16 Furosemide [Lasix TAB] 40 mg PO BID #60 tablet 07/09/16 1 Day Ago Rx ~10/29/16 Metformin HCl [Glucophage] 1,000 mg PO BID #60 tablet 07/09/16 1 Day Ago Rx ~10/29/16 Metoprolol [Lopressor TAB] 25 mg PO BID #60 tablet 07/09/16 1 Day Ago Rx ~10/29/16 Potassium Chloride [K-Dur] 20 meq PO QDAY #30 tablet 07/09/16 1 Day Ago Rx ~10/29/16 Insulin Glargine [Lantus VIAL] 10 units SUB-Q QHS #1 units 11/04/16 1 Day Ago Rx ~10/29/16 Allergies Allergy/AdvReac Type Severity Reaction Status Date / Time Penicillins Allergy Unknown Verified 11/10/14 21:41 Peas Allergy Swelling Uncoded 07/01/16 12:21 ED Review of Systems ROS: Stated complaint: LOW BLOOD SUGAR Other details as noted in HPI Comment: Unobtainable due to pts medical conditions Constitutional: malaise, weakness Neurological: weakness, confusion ED Past Medical Hx - Past Medical History Hx Hypertension: Yes Hx CVA: Yes (right sided residual weakness) Hx Congestive Heart Failure: Yes Hx Diabetes: Yes Hx Seizures: Yes Hx Asthma: Yes Hx COPD: Yes - Surgical History Additional Surgical History: HYSTERECTOMY - Social History Smoking Status: Never Smoker Substance Use Type: None - Medications Home Medications: Home Medications Medication Instructions Recorded Confirmed Last Taken Type AtorvaSTATin [Lipitor] 20 mg PO QDAY #30 tablet 07/09/16 10/01/18 1 Day Ago Rx ~10/29/16 Furosemide [Lasix TAB] 40 mg PO BID #60 tablet 07/09/16 10/01/18 1 Day Ago Rx ~10/29/16 Metformin HCl [Glucophage] 1,000 mg PO BID #60 tablet 07/09/16 10/01/18 1 Day Ago Rx ~10/29/16 Metoprolol [Lopressor TAB] 25 mg PO BID #60 tablet 07/09/16 10/02/18 1 Day Ago Rx ~10/29/16 Potassium Chloride [K-Dur] 20 meq PO QDAY #30 tablet 07/09/16 10/01/18 1 Day Ago Rx ~10/29/16 AtorvaSTATin [Lipitor] 20 mg PO QDAY 10/29/16 10/01/18 1 Day Ago History ~10/29/16 Citalopram [celeXA] 10 mg PO TID 10/29/16 10/02/18 1 Day Ago History ~10/29/16 Phenytoin Sodium Extended 200 mg PO QHS 10/30/16 10/01/18 1 Day Ago History ~10/29/16 Insulin Glargine [Lantus VIAL] 10 units SUB-Q QHS #1 units 11/04/16 10/02/18 1 Day Ago Rx ~10/29/16 Carvedilol [Coreg] 3.125 mg PO BID 10/01/18 10/01/18 Unknown History Clopidogrel [Plavix] 75 mg PO QDAY 10/01/18 10/01/18 Unknown History DULoxetine [Cymbalta] 60 mg PO QDAY 10/01/18 10/01/18 Unknown History Gemfibrozil [Lopid] 600 mg PO QDAY 10/01/18 10/01/18 Unknown History Morphine Sulfate 15 mg PO BID 10/01/18 10/01/18 Unknown History Phenytoin [Dilantin] 150 mg PO QDAY 10/01/18 10/01/18 Unknown History predniSONE [Deltasone] 5 mg PO Q48HR 10/03/18 10/03/18 Unknown History ED Physical Exam - General Limitations: Altered Mental Status General appearance: anxious, obese - Head Head exam: Present: atraumatic, normocephalic - Eye Eye exam: Present: normal appearance, EOMI. Absent: nystagmus - ENT ENT exam: Present: normal orophraynx, mucous membranes dry, normal external ear exam, other (the patient is found to have dry mucous membranes. Patient has poor dentition. Dry blood is noted in the oropharynx. There is no stridor, there is no elevation of the base of the tongue. Gingival caries noted) - Neck Neck exam: Present: normal inspection, full ROM. Absent: tenderness, meningismus - Respiratory Respiratory exam: Present: normal lung sounds bilaterally. Absent: respiratory distress - Cardiovascular Cardiovascular Exam: Present: normal rhythm, tachycardia, normal heart sounds. Absent: systolic murmur, diastolic murmur, rubs, gallop - GI/Abdominal GI/Abdominal exam: Present: soft. Absent: distended, tenderness, guarding, rigid, pulsatile mass - Rectal Rectal exam: Present: normal inspection, normal rectal tone, heme (-) stool, other (chaperoned by nurse Jannet shah). Absent: heme (+) stool, black stool, bloody stool - Extremities Exam Extremities exam: Present: normal inspection, full ROM, other (2+ pulses noted in the bilateral upper, lower extremities. Compartments soft. No long bony tenderness. The pelvis is stable.). Absent: joint swelling, calf tenderness - Back Exam Back exam: Present: normal inspection, full ROM. Absent: tenderness, CVA tenderness (R), CVA tenderness (L), paraspinal tenderness, vertebral tenderness - Neurological Exam Neurological exam: Present: altered (the patient is alert to name. The patient follows commands.), motor sensory deficit (right-sided weakness, chronic), other (there is no facial droop. The tongue is midline. The extraocular movements are intact bilaterally. Sensation intact to light touch left arm, left leg. Patient endorses decreased sensation to light touch right arm, right leg.) - Psychiatric Psychiatric exam: Present: normal affect, normal mood - Skin Skin exam: Present: warm, dry, intact, normal color. Absent: rash ED Course Vital Signs 10/01/18 10/01/18 10/01/18 20:22 20:29 20:30 Temperature 98.1 F Pulse Rate 113 H 118 H Respiratory 17 17 Rate Blood Pressure 144/88 154/94 Blood Pressure [Right] O2 Sat by Pulse 98 100 100 Oximetry 10/01/18 10/01/18 10/01/18 20:46 21:00 21:34 Temperature Pulse Rate 117 H 115 H Respiratory 12 17 Rate Blood Pressure 144/88 144/88 150/84 Blood Pressure [Right] O2 Sat by Pulse 98 96 Oximetry 10/01/18 10/01/18 10/01/18 21:45 22:05 22:36 Temperature Pulse Rate 109 H 114 H Respiratory 19 17 22 Rate Blood Pressure 131/77 131/77 Blood Pressure [Right] O2 Sat by Pulse 100 Oximetry 10/01/18 10/01/18 10/01/18 22:45 23:00 23:15 Temperature Pulse Rate 116 H 114 H 110 H Respiratory 10 L 22 17 Rate Blood Pressure 142/84 142/84 127/71 Blood Pressure [Right] O2 Sat by Pulse 96 96 97 Oximetry 10/01/18 10/01/18 10/02/18 23:30 23:36 00:00 Temperature Pulse Rate 112 H 112 H 114 H Respiratory 21 11 L 22 Rate Blood Pressure 135/81 127/71 141/80 Blood Pressure [Right] O2 Sat by Pulse 99 98 99 Oximetry 10/02/18 10/02/18 10/02/18 00:30 00:36 00:46 Temperature Pulse Rate 123 H 110 H 123 H Respiratory 18 16 19 Rate Blood Pressure 136/73 136/73 Blood Pressure 112/76 [Right] O2 Sat by Pulse 97 97 100 Oximetry 10/02/18 10/02/18 10/02/18 01:15 01:45 02:17 Temperature 98.2 F Pulse Rate 113 H 117 H 114 H Respiratory 15 23 18 Rate Blood Pressure 127/70 112/70 129/69 Blood Pressure [Right] O2 Sat by Pulse 100 97 98 Oximetry - Reevaluation(s) Reevaluation #1: 10/01/18 22:19 Differential diagnosis, including but not limited to: Hypoglycemia, pneumonia, urinary tract infection, dehydration, viremia, bacteremia, intracranial injury, intra-abdominal injury Assessment and plan: 63-year-old female with hypoglycemia, likely secondary to not eating and drinking much within the past week, likely secondary to chronic dentalgia and poor dentition. The patient is afebrile, but tachycardic, and is also found to have a leukocytosis. This may be multifactorial, including stress from hypoglycemia, dehydration, and may be infectious in etiology. Patient will be covered empirically with fluids, dextrose strip, and Levaquin antibiotic. CT scan of the brain, cervical spine, abdomen and pelvis has been requested. Had an extensive discussion with the patient's sister, regarding need for establishing long-term goals of care They have requested a case management consult which I have ordered as a courtesy. Patient will be started on dextrose drip, fluids, and Levaquin empirically. Patient may benefit from inpatient gastroenterology consultation for possible PEG tube placement, however, we will defer to the inpatient team. H&H reviewed and appreciated, also found to have thrombocytosis, question mild dysplastic syndrome. Guaiac negative from below. Reevaluation #2: 10/01/18 23:16 CT scan of the brain, cervical spine negative for acute disease. CT scan of the abdomen and pelvis suggest colonic mass. Case presented to the Hospital physician, Dr. Rosetta Judd, who accepts the patient to the medical service for systemic inflammatory response syndrome, hypoglycemia and generalized weakness. As a courtesy, a gastroenterology consultation has been ordered in the computer, however, based off of the current history and physical, the patient does not require emergent GI consultation this evening, and they can follow her up in the morning. - IO Right Tibia Consent Obtained: emergent situation Time Out Performed: Yes Anesthetic Used: Lidocaine 2% Amount of Anesthetic Used (mls): 10 IO Instrument Used to Penetrate the Cortex: battery powered IO drill Patient Tolerated Procedure: well Complications: none Additional Comments: The right proximal tibial region is cleansed with alcohol and typical aseptic fashion. 10 mL of 2% lidocaine are infiltrated over the periosteum. A 15 mm 25-gauge intraosseous line is drilled into the right proximal tibial region, with good aspiration of bone marrow products. Additional 5 mL of 2% lidocaine without epinephrine are then instilled to the line for pain control. The patient tolerated this adequately. ED Medical Decision Making - Lab Data Result diagrams: 10/04/18 12:46 10/04/18 12:46 Vital Signs 10/01/18 10/01/18 20:29 22:05 Temperature 98.1 F Pulse Rate 113 H Respiratory 17 17 Rate Blood Pressure 144/88 O2 Sat by Pulse 100 100 Oximetry Lab Results 10/01/18 10/01/18 10/01/18 Range/Units 20:30 21:17 21:40 WBC (4.5-11.0) K/mm3 RBC (3.65-5.03) M/mm3 Hgb (10.1-14.3) gm/dl Hct (30.3-42.9) % MCV (79-97) fl MCH (28-32) pg MCHC (30-34) % RDW (13.2-15.2) % Plt Count (140-440) K/mm3 Seg Neutrophils % PT 14.2 (12.2-14.9) Sec. INR 1.13 (0.87-1.13) APTT 25.3 (24.2-36.6) Sec. Sodium (137-145) mmol/L Potassium (3.6-5.0) mmol/L Chloride (98-107) mmol/L Carbon Dioxide (22-30) mmol/L Anion Gap mmol/L BUN (7-17) mg/dL Creatinine (0.7-1.2) mg/dL Estimated GFR ml/min BUN/Creatinine Ratio % Glucose (65-100) mg/dL POC Glucose 59 L 51 L (70-105) Calcium (8.4-10.2) mg/dL Magnesium (1.7-2.3) mg/dL Total Bilirubin (0.1-1.2) mg/dL AST (5-40) units/L ALT (7-56) units/L Alkaline Phosphatase (35-129) units/L Ammonia (25-60) umol/L Total Creatine Kinase (30-135) units/L Troponin T (0.00-0.029) ng/mL Total Protein (6.3-8.2) g/dL Albumin (3.9-5) g/dL Albumin/Globulin Ratio % Blood Type 10/01/18 10/01/18 10/01/18 Range/Units 21:40 21:40 21:40 WBC 18.4 H (4.5-11.0) K/mm3 RBC 4.09 (3.65-5.03) M/mm3 Hgb 8.2 L (10.1-14.3) gm/dl Hct 27.3 L (30.3-42.9) % MCV 67 L (79-97) fl MCH 20 L (28-32) pg MCHC 30 (30-34) % RDW 19.1 H (13.2-15.2) % Plt Count 869 H (140-440) K/mm3 Seg Neutrophils % Custom Bow Maker PT 14.2 (12.2-14.9) Sec. INR 1.13 (0.87-1.13) APTT (24.2-36.6) Sec. Sodium 137 (137-145) mmol/L Potassium 3.7 (3.6-5.0) mmol/L Chloride 94.5 L (98-107) mmol/L Carbon Dioxide 30 (22-30) mmol/L Anion Gap 16 mmol/L BUN 11 (7-17) mg/dL Creatinine 0.7 (0.7-1.2) mg/dL Estimated GFR > 60 ml/min BUN/Creatinine Ratio 16 % Glucose 222 H (65-100) mg/dL POC Glucose (70-105) Calcium 8.4 (8.4-10.2) mg/dL Magnesium 1.50 L (1.7-2.3) mg/dL Total Bilirubin < 0.20 (0.1-1.2) mg/dL AST 33 (5-40) units/L ALT 24 (7-56) units/L Alkaline Phosphatase 253 H (35-129) units/L Ammonia (25-60) umol/L Total Creatine Kinase 33 (30-135) units/L Troponin T < 0.010 (0.00-0.029) ng/mL Total Protein 7.3 (6.3-8.2) g/dL Albumin 2.7 L (3.9-5) g/dL Albumin/Globulin Ratio 0.6 % Blood Type 10/01/18 10/01/18 Range/Units 21:40 21:41 WBC (4.5-11.0) K/mm3 RBC (3.65-5.03) M/mm3 Hgb (10.1-14.3) gm/dl Hct (30.3-42.9) % MCV (79-97) fl MCH (28-32) pg MCHC (30-34) % RDW (13.2-15.2) % Plt Count (140-440) K/mm3 Seg Neutrophils % PT (12.2-14.9) Sec. INR (0.87-1.13) APTT (24.2-36.6) Sec. Sodium (137-145) mmol/L Potassium (3.6-5.0) mmol/L Chloride (98-107) mmol/L Carbon Dioxide (22-30) mmol/L Anion Gap mmol/L BUN (7-17) mg/dL Creatinine (0.7-1.2) mg/dL Estimated GFR ml/min BUN/Creatinine Ratio % Glucose (65-100) mg/dL POC Glucose (70-105) Calcium (8.4-10.2) mg/dL Magnesium (1.7-2.3) mg/dL Total Bilirubin (0.1-1.2) mg/dL AST (5-40) units/L ALT (7-56) units/L Alkaline Phosphatase (35-129) units/L Ammonia 38.0 (25-60) umol/L Total Creatine Kinase (30-135) units/L Troponin T (0.00-0.029) ng/mL Total Protein (6.3-8.2) g/dL Albumin (3.9-5) g/dL Albumin/Globulin Ratio % Blood Type B POSITIVE - EKG Data -: EKG Interpreted by Md EKG shows normal: sinus rhythm Rate: tachycardia - EKG Data 10/01/18 22:24 This is a sinus tachycardia, 108 bpm, normal axis, QTC 477 ms, the EKG is abnormal, it is not consistent with an ST elevation myocardial infarction, the EKG is apparently unchanged from prior EKG from October 2016. - Radiology Data Radiology results: pending, report reviewed, image reviewed Critical Care Time: Yes Critical care time in (mins) excluding proc time.: 35 Critical care attestation.: If time is entered above; I have spent that time in minutes in the direct care of this critically ill patient, excluding procedure time. ED Disposition Clinical Impression: Hypoglycemia, SIRS (systemic inflammatory response syndrome), Dementia, Dental caries Disposition: OP ADMIT IP TO THIS HOSP Is pt being admited?: Yes Condition: Fair
--- NOTE | 2018-10-01 21:48 | XRay Report ---
CHEST 1 VIEW INDICATION: ams hypoglycemia. COMPARISON: 10/29/2016. FINDINGS: Support devices: None. Heart: Normal. Lungs/Pleura: No acute pulmonary or pleural findings. There is mild atelectasis in the left lung base . IMPRESSION: 1. No acute findings. Signer Name: Jose Roberto Jules MD Signed: 10/01/2018 9:44 PM Workstation Name: [id number]
[2018-10-01 21:55] LABS: Hematocrit 27.3 % (30.3-42.9); Hemoglobin 8.2 gm/dl (10.1-14.3); Mean Corpuscular HGB Conc 30 % (30-34); Platelet Count 869 K/mm3 (140-440); Red Blood Count 4.09 M/mm3 (3.65-5.03); Red Cell Distribution Width 19.1 % (13.2-15.2)
[2018-10-01] MEDS ORDERED: D5/0.45NS 1,000 ML IV SCH (22:00)
[2018-10-01 22:06] LABS: INR 1.13 (0.87-1.13)
[2018-10-01 22:08] LABS: Mean Corpuscular Volume 67 fl (79-97)
[2018-10-01] MEDS ORDERED: NACL 0.9% 1000 ML IV ONE (22:10)
[2018-10-01 22:13] LABS: INR 1.13 (0.87-1.13); Partial Thromboplastin Time 25.3 Sec. (24.2-36.6)
[2018-10-01 22:15] LABS: Alanine Aminotransferase 24 units/L (7-56); Albumin 2.7 g/dL (3.9-5); BUN/Creatinine Ratio 16; Blood Urea Nitrogen 11 mg/dL (7-17); Calcium 8.4 mg/dL (8.4-10.2); Hemolysis Index 0
[2018-10-01] MEDS ORDERED: MAG-OX PO STA (22:25)
--- NOTE | 2018-10-01 22:34 | Cat Scan Report ---
CT HEAD WITHOUT CONTRAST INDICATION / CLINICAL INFORMATION: Altered mental status. Patient found down. TECHNIQUE: All CT scans at this location are performed using CT dose reduction for ALARA by means of automated e xposure control. COMPARISON: Head CT 10/29/2016 and 07/01/2016 and MRI brain 05/28/2011 FINDINGS: HEMORRHAGE: No evidence of intracranial hemorrhage or extra-axial fluid collection. EXTRA-AXIAL SPACES: Dilatation of the left sylvian fissure. Dilatation of the cortical sulci over the lateral convexity of the left cerebral hemisphere is noted secondary to remote left MCA infarction. Cortical sulci, sylvian fissures and basilar cisterns have an otherwise unremarkable appearance. VENTRICULAR SYSTEM: There is dilatation of the frontal horn and body of the left lateral ventricle se condary to encephalomalacia due to remote left MCA infarction. The ventricular system is otherwise of normal size and configuration. CEREBRAL PARENCHYMA: Large area of encephalomalacia is observed involving portions of the left fronta l, parietal and temporal lobe secondary to remote left MCA infarction. Dystrophic calcification is se en along the medial aspect of this large remote infarction. No areas of abnormal brain parenchymal at tenuation are identified. There is no indication of recent infarction. MIDLINE SHIFT OR HERNIATION: There is no mass effect. CEREBELLUM / BRAINSTEM: There is a large left-sided posterior fossa mass representing an extensively calcified meningioma which measures about 3.7 x 2.8 cm in transverse dimension. This is unchanged in comparison to previous studies dating back through 07/01/2016. The large meningioma appears to arise f rom the tentorium and excess both above and below the tentorium. The lesion is closely applied to the adjacent left transverse sinus. INTRACRANIAL VESSELS:No abnormalities are identified on this noncontrast head CT. ORBITS: No abnormality. SOFT TISSUES of HEAD: No significant abnormality. CALVARIUM: Evaluation of bone windows reveals no abnormalities. PARANASAL SINUSES / MASTOID AIR CELLS: Paranasal sinuses are free from inflammatory mucosal disease. Mastoid air cells are normally pneumatized. IMPRESSION: 1. Large left posterior fossa meningioma which is not significantly changed since 05/28/2011. 2. Extensive encephalomalacia secondary to remote left MCA infarction unchanged since 05/28/2011 Signer Name: Kael Loomis MD Signed: 10/01/2018 10:30 PM Workstation Name: [id number]
[2018-10-01 22:44] LABS: Basophils % (Manual) 0 % (0.0-1.8); Total Cells Counted 100
[2018-10-01 22:45] LABS: Platelet Estimate Appears Increased
[2018-10-01 22:46] LABS: Anisocytosis 2+; Poikilocytosis 1+
--- NOTE | 2018-10-01 22:50 | Cat Scan Report ---
CT CERVICAL SPINE WITHOUT CONTRAST HISTORY: COMPARISON: None TECHNIQUE: CT images of the cervical spine were obtained without contrast. Sagittal and coronal refo rmats were post-processed. CONTRAST: None. FINDINGS: Alignment: Normal. Vertebrae:No significant abnormality. Disc Spaces: No significant abnormality allowing for lack of intrathecal contrast. Facet Joints:No significant abnormality. Craniocervical Junction:No significant abnormality. Prevertebral Soft Tissues:No significant abnormality. Lung Apices: No significant abnormality. Additional Findings: Posterior fossa meningioma is noted. IMPRESSION: 1. No acute fracture or subluxation is seen. Signer Name: Jose Roberto Jules MD Signed: 10/01/2018 10:46 PM Workstation Name: [id number]
--- NOTE | 2018-10-01 22:56 | Cat Scan Report ---
CT ABDOMEN AND PELVIS WITHOUT IV CONTRAST INDICATION: ams found down. COMPARISON: None available. TECHNIQUE: All CT scans at this facility use dose modulation, automated exposure control, iterative reconstructi on or weight based dosing, when appropriate, to reduce radiation dose to as low as reasonably achieva ble. FINDINGS: Lung Bases: No significant abnormality. Skeletal System: No acute abnormality. ABDOMEN: Liver: No significant abnormality. Gallbladder: Removed. Bile Ducts: Mild common duct dilatation may be related to prior cholecystectomy. Pancreas: No significant abnormality. Spleen: No significant abnormality. Adrenals: No significant abnormality. Right Kidney: No significant abnormality. Left Kidney: No significant abnormality. Upper GI tract: No significant abnormality. Lymph Nodes: No significant adenopathy. Aorta: No significant abnormality. Additional Findings: IVC filter is noted. PELVIS: Colon: There appears to be a mass in the proximal ascending colon, the colon is diffusely thickened i n this region with collapse of the lumen. This measures 6.6 x 6.1 cm on axial image 56. There is loca l right lower quadrant adenopathy and mild pericolonic stranding. Urinary Bladder and Distal Ureters: The bladder is distended but otherwise unremarkable. Appendix: Not visualized. Lymph Nodes: No significant adenopathy. Additional Findings: None. IMPRESSION: 1. There appears to be a large acsending colon/cecal mass with mild pericolonic stranding and local right lower quadrant mesenteric adenopathy. Colonoscopy is recommended. 2. Incidental findings, as above. Signer Name: Jose Roberto Jules MD Signed: 10/01/2018 10:51 PM Workstation Name: [id number]
[2018-10-01] MEDS ORDERED: LEVAQUIN 750MG/150ML 750 MG/150 ML BAG IV SCH (23:00)
[2018-10-01] MEDS ORDERED: FLAGYL 500 MG/100 ML 500 MG/100 ML BAG IV ONE (23:12)
[2018-10-01 23:44] LABS: Bilirubin,Urine NEG (Negative); Blood,Urine NEG (Negative); Color,Urine Yellow (Yellow); Protein,Urine <15 mg/dL mg/dL (Negative); RBC,Urine < 1.0 /HPF (0.0-6.0); Urobilinogen,Urine < 2.0 mg/dL (<2.0); WBC,Urine < 1.0 /HPF (0.0-6.0)
[2018-10-01] MEDS ORDERED: VANCOMYCIN PHARMACY TO DOSE IV SCH (23:45)
[2018-10-02] MEDS ORDERED: VANCOMYCIN 1,750 MG in NACL 0.9% 500 ML 500 ML IV ONE (00:30)
[2018-10-02] MEDS ORDERED: FLAGYL 500 MG/100 ML 500 MG/100 ML BAG IV ONE (00:58)
[2018-10-02] MEDS ORDERED: TYLENOL ONE (00:58)
[2018-10-02] MEDS: TYLENOL PO PRN ×3 (01:02→13:33)
[2018-10-02] MEDS: NACL 0.9% 1000 ML 1,000 ML IV SCH (04:48)
--- NOTE | 2018-10-02 05:05 | History and Physical Report ---
CHIEF COMPLAINT: Weakness. Other complaint includes palpitation and low blood sugar. HISTORY OF PRESENT ILLNESS: The patient is a 63-year-old female who was noted to have a change in mental status with weakness, and EMS was called by family and they found the blood sugar to be low. Also, the patient was noted to be running low blood sugar a lot in the last few days because of inadequate oral intake, and the patient was transported to the Emergency Room. There was also complaint of rapid heartbeat and the patient was evaluated and presented for admission because of altered mental status, weakness, and finding of a mass in the colon on CAT scan. PAST MEDICAL HISTORY: Pertinent for hypertension, cerebrovascular accident with right-sided weakness, congestive heart failure, diabetes mellitus, seizure disorder, asthma, and COPD. PAST SURGICAL HISTORY: Pertinent for hysterectomy. FAMILY HISTORY: Reviewed and noncontributory. SOCIAL HISTORY: The patient lives with family. Does not smoke, does not drink alcohol and does not use illicit drugs. MEDICATIONS: The patient is on Lipitor 20 mg by mouth daily, Lasix 40 mg by mouth twice daily, metformin 1000 mg by mouth twice daily, metoprolol or Lopressor 20 mg by mouth twice daily, potassium chloride/K-Dur 20 mEq by mouth daily, Lipitor 20 mg by mouth daily, citalopram or Celexa 10 mg by mouth t.i.d., phenytoin sodium 200 mg by mouth at bedtime, Lantus insulin 10 units subQ at bedtime, Coreg 3.125 mg by mouth twice daily, Plavix 75 mg by mouth daily, Cymbalta 60 mg by mouth daily, gemfibrozil 600 mg by mouth daily, and morphine sulfate 15 mg by mouth twice daily. ALLERGIES: THE PATIENT IS ALLERGIC TO PENICILLIN AND PEAS. REVIEW OF SYSTEMS: CONSTITUTIONAL: There is no fever, no chills, no diaphoresis. HEENT: There is no headache or sore throat. CARDIOVASCULAR SYSTEM: There is no chest pain or orthopnea, but there is palpitation. RESPIRATORY SYSTEM: There is no shortness of breath or cough. GASTROINTESTINAL SYSTEM: There is no nausea, no vomiting, no abdominal pain, diarrhea or constipation. NEUROLOGICAL SYSTEM: Weakness noted, altered mental status noted. MUSCULOSKELETAL SYSTEM: There is no joint pain or swelling. DERMATOLOGICAL SYSTEM: There is no skin rash or itching. GENITOURINARY SYSTEM: There is no dysuria, hematuria, or flank pain. Rest of system review is normal. PHYSICAL EXAMINATION: GENERAL: At the time of exam, the patient was found to be alert, oriented x 3 and not in acute distress. VITAL SIGNS: At the initial time of presentation showed temperature of 98.1 degrees Fahrenheit, pulse of 113, respirations 17, blood pressure 144/88, O2 sat of 100% on room air. HEENT: Showed pupils to be equal, round, reactive to light and accommodation. Extraocular muscles are intact. NECK: Supple with no JVD or carotid bruit. CARDIOVASCULAR SYSTEM: Showed normal first and second heart sounds with no gallops or murmurs. RESPIRATORY SYSTEM: Showed good air entry on both sides of the lungs, with no abnormal breath sounds. GASTROINTESTINAL SYSTEM: Show abdomen to be full, soft, nontender, with no organomegaly or rigidity. NEUROLOGICAL: Shows no new focal deficits. MUSCULOSKELETAL SYSTEM: Showed no joint swelling or tenderness. DERMATOLOGICAL SYSTEM: Showed no skin rash. GENITOURINARY SYSTEM: Showed no costovertebral angle tenderness. PERTINENT LABORATORY AND IMAGING STUDIES: The patient has CT of the head without contrast done that shows large left posterior fossa meningioma which is not significantly changed since 05/28/2011. The patient also had extensive encephalomalacia secondary to remote left MCA infarction, unchanged since 05/28/2011. The patient also has CT of the cervical spine done that shows no acute fracture or subluxation. The patient has CT of the abdomen and pelvis without IV contrast done that shows large ascending colon/cecal mass with mild pericolonic stranding and local right lower quadrant mesenteric adenopathy and the radiologist said that colonoscopy is recommended. The patient also had chest x-ray done that shows no acute findings. Lab results, the patient's CBC show elevated white count of 18,400 with low hemoglobin of 8.2 and low hematocrit of 27.3 with elevated platelet count of 869 and CBC differential showed elevated segmented neutrophil count of 94%. Coagulation studies were unremarkable. The patient's chemistry show normal sodium, normal potassium level with low chloride level of 94.5, elevated blood glucose level of 222 and elevated lactic acid level of 2.4 and low magnesium level of 1.5. The patient's albumin level was low with a value of 2.7. The patient's urinalysis was unremarkable. Toxicology screen shows a low phenytoin level of 6.7. DIAGNOSES: 1. Altered mental status due to hypoglycemia. 2. Systemic inflammatory response syndrome. 3. Colon mass according to CT findings. 4. Subtherapeutic phenytoin level. 5. Low magnesium level. PLAN OF CARE: 1. The patient will be admitted to medical/surgical younger on remote telemetry. 2. The patient will be on maintenance IV fluids of normal saline at 125 mL an hour because of history of congestive heart failure. 3. The patient will be on IV Levaquin 750 mg daily and IV vancomycin with pharmacy to dose. The patient will also continue IV metronidazole 500 mg q.8 hours. 4. The patient will continue GI consult with Dr. Juan Alberto Siddiqui of [facility] as requested by the Emergency Room physician. 5. The patient will be on Accu-Chek every hour for management of hypoglycemia. 6. The patient will be on Tylenol 650 mg by mouth every 4 hours as needed for fever and headache. 7. The patient will have magnesium level checked in the morning. 8. The patient will be on her home medication as shown in the medication reconciliation section. JOB# [id number] [facility]/MARIAM HAWKINS
[2018-10-02] MEDS: FLAGYL 500 MG/100 ML 500 MG/100 ML BAG IV SCH ×3 (05:37→22:13)
[2018-10-02] MEDS ORDERED: D50W (25GM) Syringe IV PRN (08:23)
[2018-10-02] MEDS: D5NS 1,000 ML IV SCH ×2 (08:46→19:34)
--- NOTE | 2018-10-02 12:28 | Progress Note ---
Assessment and Plan Assessment and plan: 63-year-old female with past medical history significant for CVA with right-sided hemiplegia, lupus was presented to the emergency department with complaints of altered mental status. In the emergency department patient was found to have hypoglycemia and was treated accordingly. Workup showed that she has leukocytosis and elevated lactic acid level which may be suggestive of infection. Patient admitted to the floor for further workup and management. Acute metabolic encephalopathy due to hypoglycemia - Patient was treated with D50 and currently on D5 normal saline - Mentation is getting better and that sugar is above 100 Sepsis -Source of infection could be from the mouth -Patient had elevated lactic acid level and leukocytosis -Patient is on IV fluids Lupus - Continue pain medicine and start her prednisone Colonic mass - GI consulted for possible colonoscopy - We will do more workup based on the finding History of CVA with right hemiplegia - Supportive care DVT prophylaxis Disposition - Continue inpatient care History Interval history: Patient was seen evaluated this morning, patient was alert and oriented. patient was confused. Hospitalist Physical - Physical exam Narrative exam: Not in cardiopulmonary distress. The patient appeared well nourished and normally developed. Vital signs as documented. Head exam is unremarkable. No scleral icterus . Neck is without jugular venous distension, thyromegaly, or carotid bruits. Lungs are clear to auscultation. Cardiac exam reveals regular rate and Rhythm. Abdominal exam reveals normal bowel sounds, no masses, no organomegaly and no aortic enlargement. Extremities are nonedematous and both femoral and pedal pulses are normal. 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 Skin: Dry, intact. - Constitutional Vitals: Temp Pulse Resp BP Pulse Ox 98.6 F 113 H 18 121/64 99 10/02/18 05:37 10/02/18 05:37 10/02/18 05:37 10/02/18 05:37 10/02/18 05:37 Results - Labs CBC & Chem 7: 10/01/18 21:40 10/01/18 21:40 Labs: Laboratory Last Values WBC 18.4 K/mm3 (4.5-11.0) H 10/01/18 21:40 RBC 4.09 M/mm3 (3.65-5.03) 10/01/18 21:40 Hgb 8.2 gm/dl (10.1-14.3) L 10/01/18 21:40 Hct 27.3 % (30.3-42.9) L 10/01/18 21:40 MCV 67 fl (79-97) L 10/01/18 21:40 MCH 20 pg (28-32) L 10/01/18 21:40 MCHC 30 % (30-34) 10/01/18 21:40 RDW 19.1 % (13.2-15.2) H 10/01/18 21:40 Plt Count 869 K/mm3 (140-440) H 10/01/18 21:40 Add Manual Diff Complete 10/01/18 21:40 Total Counted 100 10/01/18 21:40 Seg Neutrophils % Manufacturing [employer] 10/01/18 21:40 Seg Neuts % (Manual) 94.0 % (40.0-70.0) H 10/01/18 21:40 0 % 10/01/18 21:40 2.0 % (13.4-35.0) L 10/01/18 21:40 Reactive Lymphs % (Man) 0 % 10/01/18 21:40 3.0 % (0.0-7.3) 10/01/18 21:40 1.0 % (0.0-4.3) 10/01/18 21:40 0 % (0.0-1.8) 10/01/18 21:40 0 % 10/01/18 21:40 0 % 10/01/18 21:40 0 % 10/01/18 21:40 0 % 10/01/18 21:40 Nucleated RBC % Not Reportable 10/01/18 21:40 Seg Neutrophils # Man 17.3 K/mm3 (1.8-7.7) H 10/01/18 21:40 Band Neutrophils # 0.0 K/mm3 10/01/18 21:40 0.4 K/mm3 (1.2-5.4) L 10/01/18 21:40 Abs React Lymphs (Man) 0.0 K/mm3 10/01/18 21:40 0.6 K/mm3 (0.0-0.8) 10/01/18 21:40 0.2 K/mm3 (0.0-0.4) 10/01/18 21:40 0.0 K/mm3 (0.0-0.1) 10/01/18 21:40 0.0 K/mm3 10/01/18 21:40 0.0 K/mm3 10/01/18 21:40 0.0 K/mm3 10/01/18 21:40 Blast Cells # 0.0 K/mm3 10/01/18 21:40 WBC Morphology Not Reportable 10/01/18 21:40 Hypersegmented Neuts Not Reportable 10/01/18 21:40 Hyposegmented Neuts Not Reportable 10/01/18 21:40 Hypogranular Neuts Not Reportable 10/01/18 21:40 Not Reportable 10/01/18 21:40 Not Reportable 10/01/18 21:40 Not Reportable 10/01/18 21:40 Not Reportable 10/01/18 21:40 Not Reportable 10/01/18 21:40 Not Reportable 10/01/18 21:40 Appears increased 10/01/18 21:40 Not Reportable 10/01/18 21:40 Plt Clumps, EDTA Not Reportable 10/01/18 21:40 Not Reportable 10/01/18 21:40 Not Reportable 10/01/18 21:40 Not Reportable 10/01/18 21:40 Plt Morphology Comment Not Reportable 10/01/18 21:40 RBC Morphology Not Reportable 10/01/18 21:40 Dimorphic RBCs Not Reportable 10/01/18 21:40 Not Reportable 10/01/18 21:40 Not Reportable 10/01/18 21:40 1+ 10/01/18 21:40 2+ 10/01/18 21:40 1+ 10/01/18 21:40 Not Reportable 10/01/18 21:40 Not Reportable 10/01/18 21:40 Not Reportable 10/01/18 21:40 Not Reportable 10/01/18 21:40 Not Reportable 10/01/18 21:40 Not Reportable 10/01/18 21:40 Not Reportable 10/01/18 21:40 Not Reportable 10/01/18 21:40 Not Reportable 10/01/18 21:40 Not Reportable 10/01/18 21:40 Not Reportable 10/01/18 21:40 Not Reportable 10/01/18 21:40 Not Reportable 10/01/18 21:40 Not Reportable 10/01/18 21:40 Acanthocytes (Spur) Not Reportable 10/01/18 21:40 Rouleaux Not Reportable 10/01/18 21:40 Not Reportable 10/01/18 21:40 Not Reportable 10/01/18 21:40 Not Reportable 10/01/18 21:40 Not Reportable 10/01/18 21:40 Hem Pathologist Commnt No 10/01/18 21:40 PT 14.2 Sec. (12.2-14.9) 10/01/18 21:40 PT 14.2 Sec. (12.2-14.9) 10/01/18 21:40 INR 1.13 (0.87-1.13) 10/01/18 21:40 INR 1.13 (0.87-1.13) 10/01/18 21:40 APTT 25.3 Sec. (24.2-36.6) 10/01/18 21:40 Sodium 137 mmol/L (137-145) 10/01/18 21:40 Potassium 3.7 mmol/L (3.6-5.0) 10/01/18 21:40 Chloride 94.5 mmol/L (98-107) L 10/01/18 21:40 Carbon Dioxide 30 mmol/L (22-30) 10/01/18 21:40 16 mmol/L 10/01/18 21:40 BUN 11 mg/dL (7-17) 10/01/18 21:40 0.7 mg/dL (0.7-1.2) 10/01/18 21:40 Estimated GFR > 60 ml/min 10/01/18 21:40 16 % 10/01/18 21:40 Glucose 222 mg/dL (65-100) H 10/01/18 21:40 POC Glucose 179 (70-105) H 10/02/18 12:10 Lactic Acid 2.90 mmol/L (0.7-2.0) H* 10/02/18 10:27 Calcium 8.4 mg/dL (8.4-10.2) 10/01/18 21:40 Magnesium 1.50 mg/dL (1.7-2.3) L 10/01/18 21:40 < 0.20 mg/dL (0.1-1.2) 10/01/18 21:40 AST 33 units/L (5-40) 10/01/18 21:40 ALT 24 units/L (7-56) 10/01/18 21:40 253 units/L (35-129) H 10/01/18 21:40 38.0 umol/L (25-60) 10/01/18 21:40 33 units/L (30-135) 10/01/18 21:40 < 0.010 ng/mL (0.00-0.029) 10/01/18 21:40 7.3 g/dL (6.3-8.2) 10/01/18 21:40 2.7 g/dL (3.9-5) L 10/01/18 21:40 0.6 % 10/01/18 21:40 TSH 0.449 mlU/mL (0.270-4.200) 10/01/18 21:40 Yellow (Yellow) 10/01/18 23:24 Clear (Clear) 10/01/18 23:24 5.0 (5.0-7.0) 10/01/18 23:24 Ur Specific [place] 1.010 (1.003-1.030) 10/01/18 23:24 <15 mg/dl mg/dL (Negative) 10/01/18 23:24 Neg mg/dL (Negative) 10/01/18 23:24 Neg mg/dL (Negative) 10/01/18 23:24 Neg (Negative) 10/01/18 23:24 Neg (Negative) 10/01/18 23:24 Neg (Negative) 10/01/18 23:24 < 2.0 mg/dL (<2.0) 10/01/18 23:24 Ur Leukocyte Esterase Neg (Negative) 10/01/18 23:24 < 1.0 /HPF (0.0-6.0) 10/01/18 23:24 < 1.0 /HPF (0.0-6.0) 10/01/18 23:24 Salicylates < 0.3 mg/dL (2.8-20.0) L 10/01/18 21:40 Acetaminophen < 5.0 ug/mL (10.0-30.0) L 10/01/18 21:40 Phenytoin 6.7 ug/mL (10.0-20.0) L 10/01/18 23:44 Plasma/Serum Alcohol < 0.01 % (0-0.07) 10/01/18 21:40 Blood Type B POSITIVE 10/01/18 21:41 Antibody Screen Negative 10/01/18 21:41 Active Medications - Current Medications Current Medications: Generic Name Dose Route Start Last Admin Trade Name Freq PRN Reason Stop Dose Admin Acetaminophen 650 mg 10/01/18 23:43 10/02/18 05:32 Tylenol PO 650 mg Q4H PRN Administration Fever >101 Dextrose 50 ml 10/02/18 08:23 10/02/18 08:46 D50w (25gm) Syringe IV 50 ml PRN PRN Administration Hypoglycemia Sodium Chloride 1,000 mls @ 125 mls/hr 10/01/18 23:45 10/02/18 04:48 Nacl 0.9% 1000 Ml IV 125 mls/hr DIRECT ART Administration Vancomycin HCl 1,250 mg/ 275 mls @ 166.667 mls/hr 10/02/18 14:00 Sodium Chloride IV Q12H ART Metronidazole 500 mg in 100 mls @ 100 mls/hr 10/02/18 06:00 10/02/18 05:37 Flagyl 500 Mg/100 Ml IV 100 mls/hr Q8HR ART Administration Protocol Levofloxacin/Dextrose 750 mg in 150 mls @ 100 mls/hr 10/02/18 22:00 Levaquin 750mg/150ml IV Q24H ART Dextrose/Sodium Chloride 1,000 mls @ 125 mls/hr 10/02/18 09:00 10/02/18 08:46 D5ns IV 125 mls/hr DIRECT ART Administration Ondansetron HCl 4 mg 10/01/18 23:42 Zofran IV Q8H PRN Nausea And Vomiting
[2018-10-02] MEDS ORDERED: DILANTIN PO SCH (13:00)
[2018-10-02] MEDS ORDERED: celeXA PO SCH (14:00)
--- NOTE | 2018-10-02 14:41 | Gastroenterology Consultation ---
History of Present Illness - Reason for Consult Consult date: 10/02/18 colon mass Requesting physician: KRYS SMITH - History of Present Illness The patient is a 63 yo aaf who presents for AMS. Patient with significant past medical history including CVA/dementia, CHF, and SLE. She presents with sepsis, AMS in setting of hypoglycemia. Pt with history of chronic MERRY; she is unable to provide history at the time of exam due to mental status. She had CT scan during admission which showed a mass in the ascending colon concerning for possible neoplasm. No reported history of gi bleeding. Unknown if patient has had prior endoscopic work-up/colonoscopy. She is on plavix per home medications. Past History Past Medical History: other ( Stroke, hypertension, diabetes, DVT, IVC filter, congestive heart failure, residual right-sided weakness, on Coumadin therapy, dementia) Past Surgical History: Other (IVC filter) Social history: other (unable to obtain) Medications and Allergies Allergies Allergy/AdvReac Type Severity Reaction Status Date / Time Penicillins Allergy Unknown Verified 11/10/14 21:41 Peas Allergy Swelling Uncoded 07/01/16 12:21 Home Medications Medication Instructions Recorded Confirmed Last Taken Type AtorvaSTATin [Lipitor] 20 mg PO QDAY #30 tablet 07/09/16 10/01/18 1 Day Ago Rx ~10/29/16 Furosemide [Lasix TAB] 40 mg PO BID #60 tablet 07/09/16 10/01/18 1 Day Ago Rx ~10/29/16 Metformin HCl [Glucophage] 1,000 mg PO BID #60 tablet 07/09/16 10/01/18 1 Day Ago Rx ~10/29/16 Metoprolol [Lopressor TAB] 25 mg PO BID #60 tablet 07/09/16 10/02/18 1 Day Ago Rx ~10/29/16 Potassium Chloride [K-Dur] 20 meq PO QDAY #30 tablet 07/09/16 10/01/18 1 Day Ago Rx ~10/29/16 AtorvaSTATin [Lipitor] 20 mg PO QDAY 10/29/16 10/01/18 1 Day Ago History ~10/29/16 Citalopram [celeXA] 10 mg PO TID 10/29/16 10/02/18 1 Day Ago History ~10/29/16 Phenytoin Sodium Extended 200 mg PO QHS 10/30/16 10/01/18 1 Day Ago History ~10/29/16 Insulin Glargine [Lantus VIAL] 10 units SUB-Q QHS #1 units 11/04/16 10/02/18 1 Day Ago Rx ~10/29/16 Carvedilol [Coreg] 3.125 mg PO BID 10/01/18 10/01/18 Unknown History Clopidogrel [Plavix] 75 mg PO QDAY 10/01/18 10/01/18 Unknown History DULoxetine [Cymbalta] 60 mg PO QDAY 10/01/18 10/01/18 Unknown History Gemfibrozil [Lopid] 600 mg PO QDAY 10/01/18 10/01/18 Unknown History Morphine Sulfate 15 mg PO BID 10/01/18 10/01/18 Unknown History Phenytoin [Dilantin] 150 mg PO QDAY 10/01/18 10/01/18 Unknown History Active Meds: Active Medications Acetaminophen (Tylenol) 650 mg PO Q4H PRN PRN Reason: Fever >101 Last Admin: 10/02/18 13:33 Dose: 650 mg Documented by: Atorvastatin Calcium (Lipitor) 20 mg PO QHS [facility] Carvedilol (Coreg) 3.125 mg PO BID ART Clopidogrel Bisulfate (Plavix) 75 mg PO QDAY [facility] Dextrose (D50w (25gm) Syringe) 50 ml IV PRN PRN PRN Reason: Hypoglycemia Last Admin: 10/02/18 08:46 Dose: 50 ml Documented by: Duloxetine HCl (Cymbalta) 60 mg PO QDAY [facility] Sodium Chloride (Nacl 0.9% 1000 Ml) 1,000 mls @ 125 mls/hr IV DIRECT ART Last Admin: 10/02/18 04:48 Dose: 125 mls/hr Documented by: Vancomycin HCl 1,250 mg/ (Sodium Chloride) 275 mls @ 166.667 mls/hr IV Q12H ART Metronidazole (Flagyl 500 Mg/100 Ml) 500 mg in 100 mls @ 100 mls/hr IV Q8HR [facility]; Protocol Last Admin: 10/02/18 13:35 Dose: 100 mls/hr Documented by: Levofloxacin/Dextrose (Levaquin 750mg/150ml) 750 mg in 150 mls @ 100 mls/hr IV Q24H [facility] Dextrose/Sodium Chloride (D5ns) 1,000 mls @ 125 mls/hr IV DIRECT ART Last Admin: 10/02/18 08:46 Dose: 125 mls/hr Documented by: Ondansetron HCl (Zofran) 4 mg IV Q8H PRN PRN Reason: Nausea And Vomiting Phenytoin (Dilantin) 200 mg PO QHS [facility] Reviewed/updated patient's home and current medications Review of Systems - Review of Systems ROS unobtainable: due to mental status Exam - Constitutional Vital Signs: Temp Pulse Resp BP Pulse Ox 98.0 F 124 H 20 153/79 97 10/02/18 12:05 10/02/18 12:05 10/02/18 12:05 10/02/18 12:05 10/02/18 12:05 General appearance: obese, other (altered mental status) - EENT ENT: other (dry mucous memranes) - Respiratory Respiratory effort: normal Respiratory: bilateral: CTA - Cardiovascular Rhythm: regular Heart Sounds: Present: S1 & S2 - Gastrointestinal General gastrointestinal: Present: soft, non-tender, non-distended - Neurologic Neurological: disoriented - Psychiatric Psychiatric: other (+ memory loss) - Labs CBC & Chem 7: 10/01/18 21:40 10/01/18 21:40 Lab Results: Laboratory Results - last 24 hr 10/01/18 10/01/18 10/01/18 20:30 21:17 21:40 WBC RBC Hgb Hct MCV MCH MCHC RDW Plt Count Add Manual Diff Total Counted Seg Neutrophils % Seg Neuts % (Manual) Band Neutrophils % Lymphocytes % (Manual) Reactive Lymphs % (Man) Monocytes % (Manual) Eosinophils % (Manual) Basophils % (Manual) Metamyelocytes % Myelocytes % Promyelocytes % Blast Cells % Nucleated RBC % Seg Neutrophils # Man Band Neutrophils # Lymphocytes # (Manual) Abs React Lymphs (Man) Monocytes # (Manual) Eosinophils # (Manual) Basophils # (Manual) Metamyelocytes # Myelocytes # Promyelocytes # Blast Cells # WBC Morphology Hypersegmented Neuts Hyposegmented Neuts Hypogranular Neuts Smudge Cells Toxic Granulation Toxic Vacuolation Dohle Bodies Pelger-Huet Anomaly Iliana Rods Platelet Estimate Clumped Platelets Plt Clumps, EDTA Large Platelets Giant Platelets Platelet Satelliting Plt Morphology Comment RBC Morphology Dimorphic RBCs Polychromasia Hypochromasia Poikilocytosis Anisocytosis Microcytosis Macrocytosis Spherocytes Pappenheimer Bodies Sickle Cells Target Cells Tear Drop Cells Ovalocytes Helmet Cells [place] Bodies [place] Rings Trae Cells Bite Cells Crenated Cell Elliptocytes Acanthocytes (Spur) Rouleaux Hemoglobin C Crystals Schistocytes Malaria parasites John Bodies Hem Pathologist Commnt PT 14.2 INR 1.13 APTT 25.3 Sodium Potassium Chloride Carbon Dioxide Anion Gap BUN Creatinine Estimated GFR BUN/Creatinine Ratio Glucose POC Glucose 59 L 51 L Lactic Acid Calcium Magnesium Total Bilirubin AST ALT Alkaline Phosphatase Ammonia Total Creatine Kinase Troponin T Total Protein Albumin Albumin/Globulin Ratio TSH Urine Color Urine Turbidity Urine pH Ur Specific [place] Urine Protein Urine Glucose (UA) Urine Ketones Urine Blood Urine Nitrite Urine Bilirubin Urine Urobilinogen Ur Leukocyte Esterase Urine WBC (Auto) Urine RBC (Auto) Salicylates Acetaminophen Phenytoin Plasma/Serum Alcohol Blood Type Antibody Screen 10/01/18 10/01/18 10/01/18 21:40 21:40 21:40 WBC 18.4 H RBC 4.09 Hgb 8.2 L Hct 27.3 L MCV 67 L MCH 20 L MCHC 30 RDW 19.1 H Plt Count 869 H Add Manual Diff Complete Total Counted 100 Seg Neutrophils % [employer] Seg Neuts % (Manual) 94.0 H Band Neutrophils % 0 Lymphocytes % (Manual) 2.0 L Reactive Lymphs % (Man) 0 Monocytes % (Manual) 3.0 Eosinophils % (Manual) 1.0 Basophils % (Manual) 0 Metamyelocytes % 0 Myelocytes % 0 Promyelocytes % 0 Blast Cells % 0 Nucleated RBC % Not Reportable Seg Neutrophils # Man 17.3 H Band Neutrophils # 0.0 Lymphocytes # (Manual) 0.4 L Abs React Lymphs (Man) 0.0 Monocytes # (Manual) 0.6 Eosinophils # (Manual) 0.2 Basophils # (Manual) 0.0 Metamyelocytes # 0.0 Myelocytes # 0.0 Promyelocytes # 0.0 Blast Cells # 0.0 WBC Morphology Not Reportable Hypersegmented Neuts Not Reportable Hyposegmented Neuts Not Reportable Hypogranular Neuts Not Reportable Smudge Cells Not Reportable Toxic Granulation Not Reportable Toxic Vacuolation Not Reportable Dohle Bodies Not Reportable Pelger-Huet Anomaly Not Reportable Iliana Rods Not Reportable Platelet Estimate Appears increased Clumped Platelets Not Reportable Plt Clumps, EDTA Not Reportable Large Platelets Not Reportable Giant Platelets Not Reportable Platelet Satelliting Not Reportable Plt Morphology Comment Not Reportable RBC Morphology Not Reportable Dimorphic RBCs Not Reportable Polychromasia Not Reportable Hypochromasia Not Reportable Poikilocytosis 1+ Anisocytosis 2+ Microcytosis 1+ Macrocytosis Not Reportable Spherocytes Not Reportable Pappenheimer Bodies Not Reportable Sickle Cells Not Reportable Target Cells Not Reportable Tear Drop Cells Not Reportable Ovalocytes Not Reportable Helmet Cells Not Reportable [place] Bodies Not Reportable [place] Rings Not Reportable Richey Cells Not Reportable Bite Cells Not Reportable Crenated Cell Not Reportable Elliptocytes Not Reportable Acanthocytes (Spur) Not Reportable Rouleaux Not Reportable Hemoglobin C Crystals Not Reportable Schistocytes Not Reportable Malaria parasites Not Reportable John Bodies Not Reportable Hem Pathologist Commnt No PT 14.2 INR 1.13 APTT Sodium 137 Potassium 3.7 Chloride 94.5 L Carbon Dioxide 30 Anion Gap 16 BUN 11 Creatinine 0.7 Estimated GFR > 60 BUN/Creatinine Ratio 16 Glucose 222 H POC Glucose Lactic Acid Calcium 8.4 Magnesium 1.50 L Total Bilirubin < 0.20 AST 33 ALT 24 Alkaline Phosphatase 253 H Ammonia Total Creatine Kinase 33 Troponin T < 0.010 Total Protein 7.3 Albumin 2.7 L Albumin/Globulin Ratio 0.6 TSH Urine Color Urine Turbidity Urine pH Ur Specific [place] Urine Protein Urine Glucose (UA) Urine Ketones Urine Blood Urine Nitrite Urine Bilirubin Urine Urobilinogen Ur Leukocyte Esterase Urine WBC (Auto) Urine RBC (Auto) Salicylates Acetaminophen Phenytoin Plasma/Serum Alcohol Blood Type Antibody Screen 10/01/18 10/01/18 10/01/18 21:40 21:40 21:40 WBC RBC Hgb Hct MCV MCH MCHC RDW Plt Count Add Manual Diff Total Counted Seg Neutrophils % Seg Neuts % (Manual) Band Neutrophils % Lymphocytes % (Manual) Reactive Lymphs % (Man) Monocytes % (Manual) Eosinophils % (Manual) Basophils % (Manual) Metamyelocytes % Myelocytes % Promyelocytes % Blast Cells % Nucleated RBC % Seg Neutrophils # Man Band Neutrophils # Lymphocytes # (Manual) Abs React Lymphs (Man) Monocytes # (Manual) Eosinophils # (Manual) Basophils # (Manual) Metamyelocytes # Myelocytes # Promyelocytes # Blast Cells # WBC Morphology Hypersegmented Neuts Hyposegmented Neuts Hypogranular Neuts Smudge Cells Toxic Granulation Toxic Vacuolation Dohle Bodies Pelger-Huet Anomaly Iliana Rods Platelet Estimate Clumped Platelets Plt Clumps, EDTA Large Platelets Giant Platelets Platelet Satelliting Plt Morphology Comment RBC Morphology Dimorphic RBCs Polychromasia Hypochromasia Poikilocytosis Anisocytosis Microcytosis Macrocytosis Spherocytes Pappenheimer Bodies Sickle Cells Target Cells Tear Drop Cells Ovalocytes Helmet Cells [place] Bodies [place] Rings Richey Cells Bite Cells Crenated Cell Elliptocytes Acanthocytes (Spur) Rouleaux Hemoglobin C Crystals Schistocytes Malaria parasites John Bodies Hem Pathologist Commnt PT INR APTT Sodium Potassium Chloride Carbon Dioxide Anion Gap BUN Creatinine Estimated GFR BUN/Creatinine Ratio Glucose POC Glucose Lactic Acid 2.20 H* Calcium Magnesium Total Bilirubin AST ALT Alkaline Phosphatase Ammonia 38.0 Total Creatine Kinase Troponin T Total Protein Albumin Albumin/Globulin Ratio TSH 0.449 Urine Color Urine Turbidity Urine pH Ur Specific [place] Urine Protein Urine Glucose (UA) Urine Ketones Urine Blood Urine Nitrite Urine Bilirubin Urine Urobilinogen Ur Leukocyte Esterase Urine WBC (Auto) Urine RBC (Auto) Salicylates Acetaminophen Phenytoin Plasma/Serum Alcohol Blood Type Antibody Screen 10/01/18 10/01/18 10/01/18 21:40 21:40 21:40 WBC RBC Hgb Hct MCV MCH MCHC RDW Plt Count Add Manual Diff Total Counted Seg Neutrophils % Seg Neuts % (Manual) Band Neutrophils % Lymphocytes % (Manual) Reactive Lymphs % (Man) Monocytes % (Manual) Eosinophils % (Manual) Basophils % (Manual) Metamyelocytes % Myelocytes % Promyelocytes % Blast Cells % Nucleated RBC % Seg Neutrophils # Man Band Neutrophils # Lymphocytes # (Manual) Abs React Lymphs (Man) Monocytes # (Manual) Eosinophils # (Manual) Basophils # (Manual) Metamyelocytes # Myelocytes # Promyelocytes # Blast Cells # WBC Morphology Hypersegmented Neuts Hyposegmented Neuts Hypogranular Neuts Smudge Cells Toxic Granulation Toxic Vacuolation Dohle Bodies Pelger-Huet Anomaly Iliana Rods Platelet Estimate Clumped Platelets Plt Clumps, EDTA Large Platelets Giant Platelets Platelet Satelliting Plt Morphology Comment RBC Morphology Dimorphic RBCs Polychromasia Hypochromasia Poikilocytosis Anisocytosis Microcytosis Macrocytosis Spherocytes Pappenheimer Bodies Sickle Cells Target Cells Tear Drop Cells Ovalocytes Helmet Cells [place] Bodies [place] Rings Richey Cells Bite Cells Crenated Cell Elliptocytes Acanthocytes (Spur) Rouleaux Hemoglobin C Crystals Schistocytes Malaria parasites John Bodies Hem Pathologist Commnt PT INR APTT Sodium Potassium Chloride Carbon Dioxide Anion Gap BUN Creatinine Estimated GFR BUN/Creatinine Ratio Glucose POC Glucose Lactic Acid Calcium Magnesium Total Bilirubin AST ALT Alkaline Phosphatase Ammonia Total Creatine Kinase Troponin T Total Protein Albumin Albumin/Globulin Ratio TSH Urine Color Urine Turbidity Urine pH Ur Specific [place] Urine Protein Urine Glucose (UA) Urine Ketones Urine Blood Urine Nitrite Urine Bilirubin Urine Urobilinogen Ur Leukocyte Esterase Urine WBC (Auto) Urine RBC (Auto) Salicylates < 0.3 L Acetaminophen < 5.0 L Phenytoin Plasma/Serum Alcohol < 0.01 Blood Type Antibody Screen 10/01/18 10/01/18 10/01/18 21:41 22:55 23:24 WBC RBC Hgb Hct MCV MCH MCHC RDW Plt Count Add Manual Diff Total Counted Seg Neutrophils % Seg Neuts % (Manual) Band Neutrophils % Lymphocytes % (Manual) Reactive Lymphs % (Man) Monocytes % (Manual) Eosinophils % (Manual) Basophils % (Manual) Metamyelocytes % Myelocytes % Promyelocytes % Blast Cells % Nucleated RBC % Seg Neutrophils # Man Band Neutrophils # Lymphocytes # (Manual) Abs React Lymphs (Man) Monocytes # (Manual) Eosinophils # (Manual) Basophils # (Manual) Metamyelocytes # Myelocytes # Promyelocytes # Blast Cells # WBC Morphology Hypersegmented Neuts Hyposegmented Neuts Hypogranular Neuts Smudge Cells Toxic Granulation Toxic Vacuolation Dohle Bodies Pelger-Huet Anomaly Iliana Rods Platelet Estimate Clumped Platelets Plt Clumps, EDTA Large Platelets Giant Platelets Platelet Satelliting Plt Morphology Comment RBC Morphology Dimorphic RBCs Polychromasia Hypochromasia Poikilocytosis Anisocytosis Microcytosis Macrocytosis Spherocytes Pappenheimer Bodies Sickle Cells Target Cells Tear Drop Cells Ovalocytes Helmet Cells [place] Bodies [place] Rings Richey Cells Bite Cells Crenated Cell Elliptocytes Acanthocytes (Spur) Rouleaux Hemoglobin C Crystals Schistocytes Malaria parasites John Bodies Hem Pathologist Commnt PT INR APTT Sodium Potassium Chloride Carbon Dioxide Anion Gap BUN Creatinine Estimated GFR BUN/Creatinine Ratio Glucose POC Glucose Lactic Acid 2.40 H* Calcium Magnesium Total Bilirubin AST ALT Alkaline Phosphatase Ammonia Total Creatine Kinase Troponin T Total Protein Albumin Albumin/Globulin Ratio TSH Urine Color Yellow Urine Turbidity Clear Urine pH 5.0 Ur Specific [place] 1.010 Urine Protein <15 mg/dl Urine Glucose (UA) Neg Urine Ketones Neg Urine Blood Neg Urine Nitrite Neg Urine Bilirubin Neg Urine Urobilinogen < 2.0 Ur Leukocyte Esterase Neg Urine WBC (Auto) < 1.0 Urine RBC (Auto) < 1.0 Salicylates Acetaminophen Phenytoin Plasma/Serum Alcohol Blood Type B POSITIVE Antibody Screen Negative 10/01/18 10/01/18 10/02/18 23:40 23:44 04:36 WBC RBC Hgb Hct MCV MCH MCHC RDW Plt Count Add Manual Diff Total Counted Seg Neutrophils % Seg Neuts % (Manual) Band Neutrophils % Lymphocytes % (Manual) Reactive Lymphs % (Man) Monocytes % (Manual) Eosinophils % (Manual) Basophils % (Manual) Metamyelocytes % Myelocytes % Promyelocytes % Blast Cells % Nucleated RBC % Seg Neutrophils # Man Band Neutrophils # Lymphocytes # (Manual) Abs React Lymphs (Man) Monocytes # (Manual) Eosinophils # (Manual) Basophils # (Manual) Metamyelocytes # Myelocytes # Promyelocytes # Blast Cells # WBC Morphology Hypersegmented Neuts Hyposegmented Neuts Hypogranular Neuts Smudge Cells Toxic Granulation Toxic Vacuolation Dohle Bodies Pelger-Huet Anomaly Iliana Rods Platelet Estimate Clumped Platelets Plt Clumps, EDTA Large Platelets Giant Platelets Platelet Satelliting Plt Morphology Comment RBC Morphology Dimorphic RBCs Polychromasia Hypochromasia Poikilocytosis Anisocytosis Microcytosis Macrocytosis Spherocytes Pappenheimer Bodies Sickle Cells Target Cells Tear Drop Cells Ovalocytes Helmet Cells [place] Bodies [place] Rings Trae Cells Bite Cells Crenated Cell Elliptocytes Acanthocytes (Spur) Rouleaux Hemoglobin C Crystals Schistocytes Malaria parasites John Bodies Hem Pathologist Commnt PT INR APTT Sodium Potassium Chloride Carbon Dioxide Anion Gap BUN Creatinine Estimated GFR BUN/Creatinine Ratio Glucose POC Glucose 141 H Lactic Acid 3.50 H* Calcium Magnesium Total Bilirubin AST ALT Alkaline Phosphatase Ammonia Total Creatine Kinase Troponin T Total Protein Albumin Albumin/Globulin Ratio TSH Urine Color Urine Turbidity Urine pH Ur Specific [place] Urine Protein Urine Glucose (UA) Urine Ketones Urine Blood Urine Nitrite Urine Bilirubin Urine Urobilinogen Ur Leukocyte Esterase Urine WBC (Auto) Urine RBC (Auto) Salicylates Acetaminophen Phenytoin 6.7 L Plasma/Serum Alcohol Blood Type Antibody Screen 10/02/18 10/02/18 10/02/18 04:50 05:51 08:21 WBC RBC Hgb Hct MCV MCH MCHC RDW Plt Count Add Manual Diff Total Counted Seg Neutrophils % Seg Neuts % (Manual) Band Neutrophils % Lymphocytes % (Manual) Reactive Lymphs % (Man) Monocytes % (Manual) Eosinophils % (Manual) Basophils % (Manual) Metamyelocytes % Myelocytes % Promyelocytes % Blast Cells % Nucleated RBC % Seg Neutrophils # Man Band Neutrophils # Lymphocytes # (Manual) Abs React Lymphs (Man) Monocytes # (Manual) Eosinophils # (Manual) Basophils # (Manual) Metamyelocytes # Myelocytes # Promyelocytes # Blast Cells # WBC Morphology Hypersegmented Neuts Hyposegmented Neuts Hypogranular Neuts Smudge Cells Toxic Granulation Toxic Vacuolation Dohle Bodies Pelger-Huet Anomaly Iliana Rods Platelet Estimate Clumped Platelets Plt Clumps, EDTA Large Platelets Giant Platelets Platelet Satelliting Plt Morphology Comment RBC Morphology Dimorphic RBCs Polychromasia Hypochromasia Poikilocytosis Anisocytosis Microcytosis Macrocytosis Spherocytes Pappenheimer Bodies Sickle Cells Target Cells Tear Drop Cells Ovalocytes Helmet Cells [place] Bodies [place] Rings Trae Cells Bite Cells Crenated Cell Elliptocytes Acanthocytes (Spur) Rouleaux Hemoglobin C Crystals Schistocytes Malaria parasites John Bodies Hem Pathologist Commnt PT INR APTT Sodium Potassium Chloride Carbon Dioxide Anion Gap BUN Creatinine Estimated GFR BUN/Creatinine Ratio Glucose POC Glucose 113 H 96 65 L Lactic Acid Calcium Magnesium Total Bilirubin AST ALT Alkaline Phosphatase Ammonia Total Creatine Kinase Troponin T Total Protein Albumin Albumin/Globulin Ratio TSH Urine Color Urine Turbidity Urine pH Ur Specific [place] Urine Protein Urine Glucose (UA) Urine Ketones Urine Blood Urine Nitrite Urine Bilirubin Urine Urobilinogen Ur Leukocyte Esterase Urine WBC (Auto) Urine RBC (Auto) Salicylates Acetaminophen Phenytoin Plasma/Serum Alcohol Blood Type Antibody Screen 10/02/18 10/02/18 10/02/18 08:49 09:33 10:27 WBC RBC Hgb Hct MCV MCH MCHC RDW Plt Count Add Manual Diff Total Counted Seg Neutrophils % Seg Neuts % (Manual) Band Neutrophils % Lymphocytes % (Manual) Reactive Lymphs % (Man) Monocytes % (Manual) Eosinophils % (Manual) Basophils % (Manual) Metamyelocytes % Myelocytes % Promyelocytes % Blast Cells % Nucleated RBC % Seg Neutrophils # Man Band Neutrophils # Lymphocytes # (Manual) Abs React Lymphs (Man) Monocytes # (Manual) Eosinophils # (Manual) Basophils # (Manual) Metamyelocytes # Myelocytes # Promyelocytes # Blast Cells # WBC Morphology Hypersegmented Neuts Hyposegmented Neuts Hypogranular Neuts Smudge Cells Toxic Granulation Toxic Vacuolation Dohle Bodies Pelger-Huet Anomaly Iliana Rods Platelet Estimate Clumped Platelets Plt Clumps, EDTA Large Platelets Giant Platelets Platelet Satelliting Plt Morphology Comment RBC Morphology Dimorphic RBCs Polychromasia Hypochromasia Poikilocytosis Anisocytosis Microcytosis Macrocytosis Spherocytes Pappenheimer Bodies Sickle Cells Target Cells Tear Drop Cells Ovalocytes Helmet Cells [place] Bodies [place] Rings Trae Cells Bite Cells Crenated Cell Elliptocytes Acanthocytes (Spur) Rouleaux Hemoglobin C Crystals Schistocytes Malaria parasites John Bodies Hem Pathologist Commnt PT INR APTT Sodium Potassium Chloride Carbon Dioxide Anion Gap BUN Creatinine Estimated GFR BUN/Creatinine Ratio Glucose POC Glucose 193 H Lactic Acid 2.60 H* 2.90 H* Calcium Magnesium Total Bilirubin AST ALT Alkaline Phosphatase Ammonia Total Creatine Kinase Troponin T Total Protein Albumin Albumin/Globulin Ratio TSH Urine Color Urine Turbidity Urine pH Ur Specific [place] Urine Protein Urine Glucose (UA) Urine Ketones Urine Blood Urine Nitrite Urine Bilirubin Urine Urobilinogen Ur Leukocyte Esterase Urine WBC (Auto) Urine RBC (Auto) Salicylates Acetaminophen Phenytoin Plasma/Serum Alcohol Blood Type Antibody Screen 10/02/18 10/02/18 10/02/18 11:28 12:10 13:25 WBC RBC Hgb Hct MCV MCH MCHC RDW Plt Count Add Manual Diff Total Counted Seg Neutrophils % Seg Neuts % (Manual) Band Neutrophils % Lymphocytes % (Manual) Reactive Lymphs % (Man) Monocytes % (Manual) Eosinophils % (Manual) Basophils % (Manual) Metamyelocytes % Myelocytes % Promyelocytes % Blast Cells % Nucleated RBC % Seg Neutrophils # Man Band Neutrophils # Lymphocytes # (Manual) Abs React Lymphs (Man) Monocytes # (Manual) Eosinophils # (Manual) Basophils # (Manual) Metamyelocytes # Myelocytes # Promyelocytes # Blast Cells # WBC Morphology Hypersegmented Neuts Hyposegmented Neuts Hypogranular Neuts Smudge Cells Toxic Granulation Toxic Vacuolation Dohle Bodies Pelger-Huet Anomaly Iliana Rods Platelet Estimate Clumped Platelets Plt Clumps, EDTA Large Platelets Giant Platelets Platelet Satelliting Plt Morphology Comment RBC Morphology Dimorphic RBCs Polychromasia Hypochromasia Poikilocytosis Anisocytosis Microcytosis Macrocytosis Spherocytes Pappenheimer Bodies Sickle Cells Target Cells Tear Drop Cells Ovalocytes Helmet Cells [place] Bodies [place] Rings Richey Cells Bite Cells Crenated Cell Elliptocytes Acanthocytes (Spur) Rouleaux Hemoglobin C Crystals Schistocytes Malaria parasites John Bodies Hem Pathologist Commnt PT INR APTT Sodium Potassium Chloride Carbon Dioxide Anion Gap BUN Creatinine Estimated GFR BUN/Creatinine Ratio Glucose POC Glucose 183 H 179 H Lactic Acid 2.50 H* Calcium Magnesium Total Bilirubin AST ALT Alkaline Phosphatase Ammonia Total Creatine Kinase Troponin T Total Protein Albumin Albumin/Globulin Ratio TSH Urine Color Urine Turbidity Urine pH Ur Specific [place] Urine Protein Urine Glucose (UA) Urine Ketones Urine Blood Urine Nitrite Urine Bilirubin Urine Urobilinogen Ur Leukocyte Esterase Urine WBC (Auto) Urine RBC (Auto) Salicylates Acetaminophen Phenytoin Plasma/Serum Alcohol Blood Type Antibody Screen - Imaging CT Scan: report reviewed Assessment and Plan 1. Colon mass 2. Iron deficiency anemia 3. Altered mental status 4. Sepsis -CT findings in setting of MERRY concerning for neoplasm. Pt with other acute medical issues at present time and currently not candidate for prep/colonoscopy. once acute medical issues improve and able to drink prep, will need colonoscopy to evaluate for possible malignancy.
[2018-10-02] MEDS: PLAVIX PO SCH (14:54)
[2018-10-02] MEDS: CYMBALTA PO SCH (14:54)
[2018-10-02] MEDS: VANCOMYCIN 1,250 MG in NACL 0.9% 250ML 250 ML IV SCH (14:54)
[2018-10-02] MEDS ORDERED: MS CONTIN ER PO SCH (22:00)
[2018-10-02] MEDS ORDERED: LOPRESSOR PO SCH (22:00)
[2018-10-02] MEDS ORDERED: NON-FORMULARY (Phenytoin Sodium Extended [Phenytoin Sodium Extended] 200 MG) PO SCH (22:00)
[2018-10-02] MEDS: DILANTIN PO SCH (22:17)
[2018-10-02] MEDS: MS CONTIN ER PO SCH (22:17)
[2018-10-02] MEDS: COREG PO SCH (22:18)
[2018-10-02] MEDS: LEVAQUIN 750MG/150ML 750 MG/150 ML BAG IV SCH (22:21)
[2018-10-03] MEDS: VANCOMYCIN 1,250 MG in NACL 0.9% 250ML 250 ML IV SCH ×2 (01:53→13:11)
[2018-10-03] MEDS: FLAGYL 500 MG/100 ML 500 MG/100 ML BAG IV SCH ×3 (05:11→21:56)
[2018-10-03 05:45] LABS: Basophils % (Auto) 0.5 % (0.0-1.8); Eosinophils # (Auto) 0.1 K/mm3 (0.0-0.4); Eosinophils % (Auto) 0.7 % (0.0-4.3); Hematocrit 23.3 % (30.3-42.9); Hemoglobin 7.2 gm/dl (10.1-14.3); Lymphocytes % (Auto) 10.7 % (13.4-35.0); Mean Corpuscular HGB Conc 31 % (30-34); Monocytes # (Auto) 0.7 K/mm3 (0.0-0.8); Monocytes % (Auto) 7.8 % (0.0-7.3); Platelet Count 707 K/mm3 (140-440); Red Blood Count 3.51 M/mm3 (3.65-5.03); Red Cell Distribution Width 18.5 % (13.2-15.2)
[2018-10-03 05:46] LABS: Mean Corpuscular Volume 66 fl (79-97)
[2018-10-03 05:58] LABS: BUN/Creatinine Ratio 10; Blood Urea Nitrogen 6 mg/dL (7-17); Calcium 7.8 mg/dL (8.4-10.2); Hemolysis Index 0
[2018-10-03] MEDS: MS CONTIN ER PO SCH ×2 (10:06→21:58)
[2018-10-03] MEDS: NACL 0.9% 1000 ML 1,000 ML IV SCH ×2 (10:06→19:18)
[2018-10-03] MEDS: CYMBALTA PO SCH (10:07)
[2018-10-03] MEDS: PLAVIX PO SCH (10:07)
[2018-10-03] MEDS: COREG PO SCH ×2 (10:07→22:25)
--- NOTE | 2018-10-03 16:25 | Progress Note ---
Assessment and Plan Assessment and plan: 63-year-old female with past medical history significant for CVA with right-sided hemiplegia, lupus was presented to the emergency department with complaints of altered mental status. In the emergency department patient was found to have hypoglycemia and was treated accordingly. Workup showed that she has leukocytosis and elevated lactic acid level which may be suggestive of infection. Patient admitted to the floor for further workup and management. Acute metabolic encephalopathy due to hypoglycemia - Patient was treated with D50 and currently on D5 normal saline - Mentation is getting better and that sugar is above 100 Sepsis -Source of infection could be from the mouth -Patient had elevated lactic acid level and leukocytosis -Patient is on IV fluids Lupus - Continue pain medicine and start her prednisone Colonic mass - GI consulted for possible colonoscopy - We will do more workup based on the finding History of CVA with right hemiplegia - Supportive care DVT prophylaxis Disposition - Continue inpatient care History Interval history: Patient was seen evaluated this morning, patient was alert and oriented. patient was confused. Hospitalist Physical - Physical exam Narrative exam: Not in cardiopulmonary distress. The patient appeared well nourished and normally developed. Vital signs as documented. Head exam is unremarkable. No scleral icterus . Neck is without jugular venous distension, thyromegaly, or carotid bruits. Lungs are clear to auscultation. Cardiac exam reveals regular rate and Rhythm. Abdominal exam reveals normal bowel sounds, no masses, no organomegaly and no aortic enlargement. Extremities are nonedematous and both femoral and pedal pulses are normal. PCAS: Alert and confused. Skin: Dry, intact. Hospitalist Physical - Constitutional Vitals: Temp Pulse Resp BP Pulse Ox 98.1 F 107 H 18 120/73 95 10/03/18 11:24 10/03/18 11:24 10/03/18 11:24 10/03/18 11:24 10/03/18 11:24 Results - Labs CBC & Chem 7: 10/03/18 04:57 10/03/18 04:57 Labs: Laboratory Last Values WBC 9.5 K/mm3 (4.5-11.0) 10/03/18 04:57 RBC 3.51 M/mm3 (3.65-5.03) L 10/03/18 04:57 Hgb 7.2 gm/dl (10.1-14.3) L 10/03/18 04:57 Hct 23.3 % (30.3-42.9) L 10/03/18 04:57 MCV 66 fl (79-97) L 10/03/18 04:57 MCH 21 pg (28-32) L 10/03/18 04:57 MCHC 31 % (30-34) 10/03/18 04:57 RDW 18.5 % (13.2-15.2) H 10/03/18 04:57 Plt Count 707 K/mm3 (140-440) H 10/03/18 04:57 Lymph % (Auto) 10.7 % (13.4-35.0) L 10/03/18 04:57 [place] % (Auto) 7.8 % (0.0-7.3) H 10/03/18 04:57 Eos % (Auto) 0.7 % (0.0-4.3) 10/03/18 04:57 Baso % (Auto) 0.5 % (0.0-1.8) 10/03/18 04:57 Lymph # 1.0 K/mm3 (1.2-5.4) L 10/03/18 04:57 [place] # 0.7 K/mm3 (0.0-0.8) 10/03/18 04:57 Eos # 0.1 K/mm3 (0.0-0.4) 10/03/18 04:57 Baso # 0.0 K/mm3 (0.0-0.1) 10/03/18 04:57 Add Manual Diff Complete 10/01/18 21:40 Total Counted 100 10/01/18 21:40 Seg Neutrophils % 80.3 % (40.0-70.0) H 10/03/18 04:57 Seg Neuts % (Manual) 94.0 % (40.0-70.0) H 10/01/18 21:40 0 % 10/01/18 21:40 2.0 % (13.4-35.0) L 10/01/18 21:40 Reactive Lymphs % (Man) 0 % 10/01/18 21:40 3.0 % (0.0-7.3) 10/01/18 21:40 1.0 % (0.0-4.3) 10/01/18 21:40 0 % (0.0-1.8) 10/01/18 21:40 0 % 10/01/18 21:40 0 % 10/01/18 21:40 0 % 10/01/18 21:40 0 % 10/01/18 21:40 Nucleated RBC % Not Reportable 10/01/18 21:40 Seg Neutrophils # 7.6 K/mm3 (1.8-7.7) 10/03/18 04:57 Seg Neutrophils # Man 17.3 K/mm3 (1.8-7.7) H 10/01/18 21:40 Band Neutrophils # 0.0 K/mm3 10/01/18 21:40 0.4 K/mm3 (1.2-5.4) L 10/01/18 21:40 Abs React Lymphs (Man) 0.0 K/mm3 10/01/18 21:40 0.6 K/mm3 (0.0-0.8) 10/01/18 21:40 0.2 K/mm3 (0.0-0.4) 10/01/18 21:40 0.0 K/mm3 (0.0-0.1) 10/01/18 21:40 0.0 K/mm3 10/01/18 21:40 0.0 K/mm3 10/01/18 21:40 0.0 K/mm3 10/01/18 21:40 Blast Cells # 0.0 K/mm3 10/01/18 21:40 WBC Morphology Not Reportable 10/01/18 21:40 Hypersegmented Neuts Not Reportable 10/01/18 21:40 Hyposegmented Neuts Not Reportable 10/01/18 21:40 Hypogranular Neuts Not Reportable 10/01/18 21:40 Not Reportable 10/01/18 21:40 Not Reportable 10/01/18 21:40 Not Reportable 10/01/18 21:40 Not Reportable 10/01/18 21:40 Not Reportable 10/01/18 21:40 Not Reportable 10/01/18 21:40 Appears increased 10/01/18 21:40 Not Reportable 10/01/18 21:40 Plt Clumps, EDTA Not Reportable 10/01/18 21:40 Not Reportable 10/01/18 21:40 Not Reportable 10/01/18 21:40 Not Reportable 10/01/18 21:40 Plt Morphology Comment Not Reportable 10/01/18 21:40 RBC Morphology Not Reportable 10/01/18 21:40 Dimorphic RBCs Not Reportable 10/01/18 21:40 Not Reportable 10/01/18 21:40 Not Reportable 10/01/18 21:40 1+ 10/01/18 21:40 2+ 10/01/18 21:40 1+ 10/01/18 21:40 Not Reportable 10/01/18 21:40 Not Reportable 10/01/18 21:40 Not Reportable 10/01/18 21:40 Not Reportable 10/01/18 21:40 Not Reportable 10/01/18 21:40 Not Reportable 10/01/18 21:40 Not Reportable 10/01/18 21:40 Not Reportable 10/01/18 21:40 Not Reportable 10/01/18 21:40 Not Reportable 10/01/18 21:40 Not Reportable 10/01/18 21:40 Not Reportable 10/01/18 21:40 Not Reportable 10/01/18 21:40 Not Reportable 10/01/18 21:40 Acanthocytes (Spur) Not Reportable 10/01/18 21:40 Rouleaux Not Reportable 10/01/18 21:40 Not Reportable 10/01/18 21:40 Not Reportable 10/01/18 21:40 Not Reportable 10/01/18 21:40 Not Reportable 10/01/18 21:40 Hem Pathologist Commnt No 10/01/18 21:40 PT 14.2 Sec. (12.2-14.9) 10/01/18 21:40 PT 14.2 Sec. (12.2-14.9) 10/01/18 21:40 INR 1.13 (0.87-1.13) 10/01/18 21:40 INR 1.13 (0.87-1.13) 10/01/18 21:40 APTT 25.3 Sec. (24.2-36.6) 10/01/18 21:40 Sodium 141 mmol/L (137-145) 10/03/18 04:57 Potassium 3.0 mmol/L (3.6-5.0) L 10/03/18 04:57 Chloride 103.1 mmol/L (98-107) 10/03/18 04:57 Carbon Dioxide 25 mmol/L (22-30) 10/03/18 04:57 16 mmol/L 10/03/18 04:57 BUN 6 mg/dL (7-17) L 10/03/18 04:57 0.6 mg/dL (0.7-1.2) L 10/03/18 04:57 Estimated GFR > 60 ml/min 10/03/18 04:57 10 % 10/03/18 04:57 Glucose 212 mg/dL (65-100) H 10/03/18 04:57 POC Glucose 197 (70-105) H 10/03/18 16:13 Lactic Acid 1.10 mmol/L (0.7-2.0) 10/02/18 16:50 Calcium 7.8 mg/dL (8.4-10.2) L 10/03/18 04:57 Magnesium 1.50 mg/dL (1.7-2.3) L 10/01/18 21:40 < 0.20 mg/dL (0.1-1.2) 10/01/18 21:40 AST 33 units/L (5-40) 10/01/18 21:40 ALT 24 units/L (7-56) 10/01/18 21:40 253 units/L (35-129) H 10/01/18 21:40 38.0 umol/L (25-60) 10/01/18 21:40 33 units/L (30-135) 10/01/18 21:40 < 0.010 ng/mL (0.00-0.029) 10/01/18 21:40 7.3 g/dL (6.3-8.2) 10/01/18 21:40 2.7 g/dL (3.9-5) L 10/01/18 21:40 0.6 % 10/01/18 21:40 TSH 0.449 mlU/mL (0.270-4.200) 10/01/18 21:40 Yellow (Yellow) 10/01/18 23:24 Clear (Clear) 10/01/18 23:24 5.0 (5.0-7.0) 10/01/18 23:24 Ur Specific [place] 1.010 (1.003-1.030) 10/01/18 23:24 <15 mg/dl mg/dL (Negative) 10/01/18 23:24 Neg mg/dL (Negative) 10/01/18 23:24 Neg mg/dL (Negative) 10/01/18 23:24 Neg (Negative) 10/01/18 23:24 Neg (Negative) 10/01/18 23:24 Neg (Negative) 10/01/18 23:24 < 2.0 mg/dL (<2.0) 10/01/18 23:24 Ur Leukocyte Esterase Neg (Negative) 10/01/18 23:24 < 1.0 /HPF (0.0-6.0) 10/01/18 23:24 < 1.0 /HPF (0.0-6.0) 10/01/18 23:24 Salicylates < 0.3 mg/dL (2.8-20.0) L 10/01/18 21:40 Acetaminophen < 5.0 ug/mL (10.0-30.0) L 10/01/18 21:40 Phenytoin 6.7 ug/mL (10.0-20.0) L 10/01/18 23:44 Plasma/Serum Alcohol < 0.01 % (0-0.07) 10/01/18 21:40 Blood Type B POSITIVE 10/01/18 21:41 Antibody Screen Negative 10/01/18 21:41 Active Medications - Current Medications Current Medications: Generic Name Dose Route Start Last Admin Trade Name Freq PRN Reason Stop Dose Admin Acetaminophen 650 mg 10/01/18 23:43 10/02/18 13:33 Tylenol PO 650 mg Q4H PRN Administration Fever >101 Atorvastatin Calcium 20 mg 10/02/18 22:00 10/02/18 22:18 Lipitor PO 20 mg QHS ART Administration Carvedilol 3.125 mg 10/02/18 22:00 10/03/18 10:07 Coreg PO 3.125 mg BID ART Administration Clopidogrel Bisulfate 75 mg 10/02/18 14:00 10/03/18 10:07 Plavix PO 75 mg QDAY ART Administration Dextrose 50 ml 10/02/18 08:23 10/02/18 08:46 D50w (25gm) Syringe IV 50 ml PRN PRN Administration Hypoglycemia Duloxetine HCl 60 mg 10/02/18 14:00 10/03/18 10:07 Cymbalta PO 60 mg QDAY ART Administration Sodium Chloride 1,000 mls @ 125 mls/hr 10/01/18 23:45 10/03/18 10:06 Nacl 0.9% 1000 Ml IV 125 mls/hr DIRECT ART Administration Vancomycin HCl 1,250 mg/ 275 mls @ 166.667 mls/hr 10/02/18 14:00 10/03/18 13:11 Sodium Chloride IV 166.667 mls/hr Q12H ART Administration Metronidazole 500 mg in 100 mls @ 100 mls/hr 10/02/18 06:00 10/03/18 13:08 Flagyl 500 Mg/100 Ml IV 100 mls/hr Q8HR ART Administration Protocol Levofloxacin/Dextrose 750 mg in 150 mls @ 100 mls/hr 10/02/18 22:00 10/02/18 22:21 Levaquin 750mg/150ml IV 100 mls/hr Q24H ART Administration Dextrose/Sodium Chloride 1,000 mls @ 125 mls/hr 10/02/18 09:00 10/02/18 19:34 D5ns IV 125 mls/hr DIRECT ART Administration Morphine Sulfate 15 mg 10/02/18 22:00 10/03/18 10:06 Ms Contin Er PO 15 mg Q12HR ART Administration Ondansetron HCl 4 mg 10/01/18 23:42 Zofran IV Q8H PRN Nausea And Vomiting Phenytoin 200 mg 10/02/18 22:00 10/02/18 22:17 Dilantin PO 200 mg QHS ART Administration
[2018-10-03] MEDS ORDERED: KCL 40 MEQ in NACL 0.45% 500 ML IV SCH (16:30)
[2018-10-03] MEDS: DILANTIN PO SCH (21:58)
[2018-10-03] MEDS: LEVAQUIN 750MG/150ML 750 MG/150 ML BAG IV SCH (23:13)
[2018-10-04] MEDS: VANCOMYCIN 1,250 MG in NACL 0.9% 250ML 250 ML IV SCH ×2 (01:20→14:32)
[2018-10-04] MEDS: FLAGYL 500 MG/100 ML 500 MG/100 ML BAG IV SCH ×2 (05:20→14:32)
[2018-10-04] MEDS: NACL 0.9% 1000 ML 1,000 ML IV SCH ×2 (08:37→14:34)
[2018-10-04] MEDS: MS CONTIN ER PO SCH ×2 (10:20→22:22)
[2018-10-04] MEDS: CYMBALTA PO SCH (10:20)
[2018-10-04] MEDS: PLAVIX PO SCH (10:20)
[2018-10-04] MEDS: COREG PO SCH ×2 (10:20→22:24)
--- NOTE | 2018-10-04 11:21 | Gastroenterology Progress Note ---
<ALEX GONZALEZ - Last Filed: 10/04/18 13:11> Assessment and Plan 1. Colon mass 2. Iron deficiency anemia -H/H 7.2/23.2-no active signs of bleeding -continue to monitor H/H and transfuse as needed -CT findings in setting of MERRY concerning for neoplasm -will tentatively schedule for colonoscopy on after plavix is held (ca lled and spoke with patient's family (sister Nusrat [phone]) this am to discuss colonoscopy to include risks vs benefits and she is agreeable to proceed) -continue supportive care -will follow 3. Altered mental status 4. Sepsis- origin thought to be from mouth; on antibiotics) 5.lupus 6.H/o CVA/dementia Subjective Date of service: 10/04/18 Principal diagnosis: colonic mass Interval history: No acute distress. Reports lower abd discomfort. No N/V. Tolerating diet. Objective - Constitutional Vitals: Temp Pulse Resp BP Pulse Ox 98.0 F 98 H 20 111/60 96 10/04/18 04:49 10/04/18 04:49 10/04/18 04:49 10/04/18 04:49 10/04/18 04:49 General appearance: no acute distress - Respiratory Respiratory effort: normal - Cardiovascular Rhythm: other (tachycardia) - Gastrointestinal General gastrointestinal: Present: soft, non-distended, normal bowel sounds - Labs CBC & Chem 7: 10/03/18 04:57 10/03/18 04:57 Labs: Laboratory Results - last 24 hr 10/03/18 10/03/18 10/04/18 16:13 21:00 07:53 POC Glucose 197 H 230 H 212 H <CB STONE - Last Filed: 10/04/18 19:34> Assessment and Plan Patient seen and examined. Agree with note above. Objective - Constitutional Vitals: Temp Pulse Resp BP Pulse Ox 98.8 F 108 H 20 112/55 95 10/04/18 17:11 10/04/18 17:11 10/04/18 17:11 10/04/18 17:11 10/04/18 17:11 - Labs CBC & Chem 7: 10/04/18 12:46 10/04/18 12:46 Labs: Laboratory Results - last 24 hr 10/03/18 10/04/18 10/04/18 21:00 07:53 11:36 WBC RBC Hgb Hct MCV MCH MCHC RDW Plt Count Lymph % (Auto) [place] % (Auto) Eos % (Auto) Baso % (Auto) Lymph # [place] # Eos # Baso # Seg Neutrophils % Seg Neutrophils # Sodium Potassium Chloride Carbon Dioxide Anion Gap BUN Creatinine Estimated GFR BUN/Creatinine Ratio Glucose POC Glucose 230 H 212 H 283 H Calcium Vancomycin Trough 10/04/18 10/04/18 10/04/18 12:46 12:46 12:46 WBC 7.9 RBC 3.27 L Hgb 6.7 L Hct 21.5 L MCV 66 L MCH 20 L MCHC 31 RDW 19.0 H Plt Count 654 H Lymph % (Auto) 9.7 L [place] % (Auto) 5.2 Eos % (Auto) 2.8 Baso % (Auto) 0.6 Lymph # 0.8 L [place] # 0.4 Eos # 0.2 Baso # 0.0 Seg Neutrophils % 81.7 H Seg Neutrophils # 6.4 Sodium 140 Potassium 2.9 L* Chloride 106.9 Carbon Dioxide 22 Anion Gap 14 BUN 4 L Creatinine 0.5 L Estimated GFR > 60 BUN/Creatinine Ratio 8 Glucose 203 H POC Glucose Calcium 7.0 L Vancomycin Trough 9.4
--- NOTE | 2018-10-04 12:35 | Progress Note ---
Hospitalist Physical - Constitutional Vitals: Temp Pulse Resp BP Pulse Ox 97.9 F 110 H 20 116/62 95 10/04/18 11:30 10/04/18 11:30 10/04/18 11:30 10/04/18 11:30 10/04/18 11:30 Results - Labs CBC & Chem 7: 10/03/18 04:57 10/03/18 04:57 Labs: Laboratory Last Values WBC 9.5 K/mm3 (4.5-11.0) 10/03/18 04:57 RBC 3.51 M/mm3 (3.65-5.03) L 10/03/18 04:57 Hgb 7.2 gm/dl (10.1-14.3) L 10/03/18 04:57 Hct 23.3 % (30.3-42.9) L 10/03/18 04:57 MCV 66 fl (79-97) L 10/03/18 04:57 MCH 21 pg (28-32) L 10/03/18 04:57 MCHC 31 % (30-34) 10/03/18 04:57 RDW 18.5 % (13.2-15.2) H 10/03/18 04:57 Plt Count 707 K/mm3 (140-440) H 10/03/18 04:57 Lymph % (Auto) 10.7 % (13.4-35.0) L 10/03/18 04:57 [place] % (Auto) 7.8 % (0.0-7.3) H 10/03/18 04:57 Eos % (Auto) 0.7 % (0.0-4.3) 10/03/18 04:57 Baso % (Auto) 0.5 % (0.0-1.8) 10/03/18 04:57 Lymph # 1.0 K/mm3 (1.2-5.4) L 10/03/18 04:57 [place] # 0.7 K/mm3 (0.0-0.8) 10/03/18 04:57 Eos # 0.1 K/mm3 (0.0-0.4) 10/03/18 04:57 Baso # 0.0 K/mm3 (0.0-0.1) 10/03/18 04:57 Add Manual Diff Complete 10/01/18 21:40 Total Counted 100 10/01/18 21:40 Seg Neutrophils % 80.3 % (40.0-70.0) H 10/03/18 04:57 Seg Neuts % (Manual) 94.0 % (40.0-70.0) H 10/01/18 21:40 0 % 10/01/18 21:40 2.0 % (13.4-35.0) L 10/01/18 21:40 Reactive Lymphs % (Man) 0 % 10/01/18 21:40 3.0 % (0.0-7.3) 10/01/18 21:40 1.0 % (0.0-4.3) 10/01/18 21:40 0 % (0.0-1.8) 10/01/18 21:40 0 % 10/01/18 21:40 0 % 10/01/18 21:40 0 % 10/01/18 21:40 0 % 10/01/18 21:40 Nucleated RBC % Not Reportable 10/01/18 21:40 Seg Neutrophils # 7.6 K/mm3 (1.8-7.7) 10/03/18 04:57 Seg Neutrophils # Man 17.3 K/mm3 (1.8-7.7) H 10/01/18 21:40 Band Neutrophils # 0.0 K/mm3 10/01/18 21:40 0.4 K/mm3 (1.2-5.4) L 10/01/18 21:40 Abs React Lymphs (Man) 0.0 K/mm3 10/01/18 21:40 0.6 K/mm3 (0.0-0.8) 10/01/18 21:40 0.2 K/mm3 (0.0-0.4) 10/01/18 21:40 0.0 K/mm3 (0.0-0.1) 10/01/18 21:40 0.0 K/mm3 10/01/18 21:40 0.0 K/mm3 10/01/18 21:40 0.0 K/mm3 10/01/18 21:40 Blast Cells # 0.0 K/mm3 10/01/18 21:40 WBC Morphology Not Reportable 10/01/18 21:40 Hypersegmented Neuts Not Reportable 10/01/18 21:40 Hyposegmented Neuts Not Reportable 10/01/18 21:40 Hypogranular Neuts Not Reportable 10/01/18 21:40 Not Reportable 10/01/18 21:40 Not Reportable 10/01/18 21:40 Not Reportable 10/01/18 21:40 Not Reportable 10/01/18 21:40 Not Reportable 10/01/18 21:40 Not Reportable 10/01/18 21:40 Appears increased 10/01/18 21:40 Not Reportable 10/01/18 21:40 Plt Clumps, EDTA Not Reportable 10/01/18 21:40 Not Reportable 10/01/18 21:40 Not Reportable 10/01/18 21:40 Not Reportable 10/01/18 21:40 Plt Morphology Comment Not Reportable 10/01/18 21:40 RBC Morphology Not Reportable 10/01/18 21:40 Dimorphic RBCs Not Reportable 10/01/18 21:40 Not Reportable 10/01/18 21:40 Not Reportable 10/01/18 21:40 1+ 10/01/18 21:40 2+ 10/01/18 21:40 1+ 10/01/18 21:40 Not Reportable 10/01/18 21:40 Not Reportable 10/01/18 21:40 Not Reportable 10/01/18 21:40 Not Reportable 10/01/18 21:40 Not Reportable 10/01/18 21:40 Not Reportable 10/01/18 21:40 Not Reportable 10/01/18 21:40 Not Reportable 10/01/18 21:40 Not Reportable 10/01/18 21:40 Not Reportable 10/01/18 21:40 Not Reportable 10/01/18 21:40 Not Reportable 10/01/18 21:40 Not Reportable 10/01/18 21:40 Not Reportable 10/01/18 21:40 Acanthocytes (Spur) Not Reportable 10/01/18 21:40 Rouleaux Not Reportable 10/01/18 21:40 Not Reportable 10/01/18 21:40 Not Reportable 10/01/18 21:40 Not Reportable 10/01/18 21:40 Not Reportable 10/01/18 21:40 Hem Pathologist Commnt No 10/01/18 21:40 PT 14.2 Sec. (12.2-14.9) 10/01/18 21:40 PT 14.2 Sec. (12.2-14.9) 10/01/18 21:40 INR 1.13 (0.87-1.13) 10/01/18 21:40 INR 1.13 (0.87-1.13) 10/01/18 21:40 APTT 25.3 Sec. (24.2-36.6) 10/01/18 21:40 Sodium 141 mmol/L (137-145) 10/03/18 04:57 Potassium 3.0 mmol/L (3.6-5.0) L 10/03/18 04:57 Chloride 103.1 mmol/L (98-107) 10/03/18 04:57 Carbon Dioxide 25 mmol/L (22-30) 10/03/18 04:57 16 mmol/L 10/03/18 04:57 BUN 6 mg/dL (7-17) L 10/03/18 04:57 0.6 mg/dL (0.7-1.2) L 10/03/18 04:57 Estimated GFR > 60 ml/min 10/03/18 04:57 10 % 10/03/18 04:57 Glucose 212 mg/dL (65-100) H 10/03/18 04:57 POC Glucose 283 (70-105) H 10/04/18 11:36 Lactic Acid 1.10 mmol/L (0.7-2.0) 10/02/18 16:50 Calcium 7.8 mg/dL (8.4-10.2) L 10/03/18 04:57 Magnesium 1.50 mg/dL (1.7-2.3) L 10/01/18 21:40 < 0.20 mg/dL (0.1-1.2) 10/01/18 21:40 AST 33 units/L (5-40) 10/01/18 21:40 ALT 24 units/L (7-56) 10/01/18 21:40 253 units/L (35-129) H 10/01/18 21:40 38.0 umol/L (25-60) 10/01/18 21:40 33 units/L (30-135) 10/01/18 21:40 < 0.010 ng/mL (0.00-0.029) 10/01/18 21:40 7.3 g/dL (6.3-8.2) 10/01/18 21:40 2.7 g/dL (3.9-5) L 10/01/18 21:40 0.6 % 10/01/18 21:40 TSH 0.449 mlU/mL (0.270-4.200) 10/01/18 21:40 Yellow (Yellow) 10/01/18 23:24 Clear (Clear) 10/01/18 23:24 5.0 (5.0-7.0) 10/01/18 23:24 Ur Specific [place] 1.010 (1.003-1.030) 10/01/18 23:24 <15 mg/dl mg/dL (Negative) 10/01/18 23:24 Neg mg/dL (Negative) 10/01/18 23:24 Neg mg/dL (Negative) 10/01/18 23:24 Neg (Negative) 10/01/18 23:24 Neg (Negative) 10/01/18 23:24 Neg (Negative) 10/01/18 23:24 < 2.0 mg/dL (<2.0) 10/01/18 23:24 Ur Leukocyte Esterase Neg (Negative) 10/01/18 23:24 < 1.0 /HPF (0.0-6.0) 10/01/18 23:24 < 1.0 /HPF (0.0-6.0) 10/01/18 23:24 Salicylates < 0.3 mg/dL (2.8-20.0) L 10/01/18 21:40 Acetaminophen < 5.0 ug/mL (10.0-30.0) L 10/01/18 21:40 Phenytoin 6.7 ug/mL (10.0-20.0) L 10/01/18 23:44 Plasma/Serum Alcohol < 0.01 % (0-0.07) 10/01/18 21:40 Blood Type B POSITIVE 10/01/18 21:41 Antibody Screen Negative 10/01/18 21:41 Active Medications - Current Medications Current Medications: Generic Name Dose Route Start Last Admin Trade Name Freq PRN Reason Stop Dose Admin Acetaminophen 650 mg 10/01/18 23:43 10/02/18 13:33 Tylenol PO 650 mg Q4H PRN Administration Fever >101 Atorvastatin Calcium 20 mg 10/02/18 22:00 10/03/18 21:58 Lipitor PO 20 mg QHS ART Administration Carvedilol 3.125 mg 10/02/18 22:00 10/04/18 10:20 Coreg PO 3.125 mg BID ART Administration Clopidogrel Bisulfate 75 mg 10/02/18 14:00 10/04/18 10:20 Plavix PO 75 mg QDAY ART Administration Dextrose 50 ml 10/02/18 08:23 10/02/18 08:46 D50w (25gm) Syringe IV 50 ml PRN PRN Administration Hypoglycemia Duloxetine HCl 60 mg 10/02/18 14:00 10/04/18 10:20 Cymbalta PO 60 mg QDAY ART Administration Sodium Chloride 1,000 mls @ 125 mls/hr 10/01/18 23:45 10/04/18 08:37 Nacl 0.9% 1000 Ml IV 125 mls/hr DIRECT ART Administration Vancomycin HCl 1,250 mg/ 275 mls @ 166.667 mls/hr 10/02/18 14:00 10/04/18 01:20 Sodium Chloride IV 166.667 mls/hr Q12H ART Administration Metronidazole 500 mg in 100 mls @ 100 mls/hr 10/02/18 06:00 10/04/18 05:20 Flagyl 500 Mg/100 Ml IV 100 mls/hr Q8HR ART Administration Protocol Levofloxacin/Dextrose 750 mg in 150 mls @ 100 mls/hr 10/02/18 22:00 10/03/18 23:13 Levaquin 750mg/150ml IV 100 mls/hr Q24H ART Administration Dextrose/Sodium Chloride 1,000 mls @ 125 mls/hr 10/02/18 09:00 10/02/18 19:34 D5ns IV 125 mls/hr DIRECT ART Administration Morphine Sulfate 15 mg 10/02/18 22:00 10/04/18 10:20 Ms Contin Er PO 15 mg Q12HR ART Administration Ondansetron HCl 4 mg 10/01/18 23:42 Zofran IV Q8H PRN Nausea And Vomiting Phenytoin 200 mg 10/02/18 22:00 10/03/18 21:58 Dilantin PO 200 mg QHS ART Administration
[2018-10-04 13:35] LABS: Basophils % (Auto) 0.6 % (0.0-1.8); Eosinophils # (Auto) 0.2 K/mm3 (0.0-0.4); Eosinophils % (Auto) 2.8 % (0.0-4.3); Hematocrit 21.5 % (30.3-42.9); Hemoglobin 6.7 gm/dl (10.1-14.3); Lymphocytes # (Auto) 0.8 K/mm3 (1.2-5.4); Lymphocytes % (Auto) 9.7 % (13.4-35.0); Mean Corpuscular HGB Conc 31 % (30-34); Monocytes # (Auto) 0.4 K/mm3 (0.0-0.8); Monocytes % (Auto) 5.2 % (0.0-7.3); Platelet Count 654 K/mm3 (140-440); Red Blood Count 3.27 M/mm3 (3.65-5.03)
[2018-10-04 13:38] LABS: Mean Corpuscular Volume 66 fl (79-97)
[2018-10-04 13:58] LABS: BUN/Creatinine Ratio 8; Blood Urea Nitrogen 4 mg/dL (7-17); Hemolysis Index 3
[2018-10-04] MEDS ORDERED: MAGNESIUM SULFATE 2GM/50ML 2 GM/50 ML BAG IV ONE (15:18)
[2018-10-04] MEDS ORDERED: KCL 40 MEQ in NACL 0.45% 500 ML IV SCH (15:30)
[2018-10-04] MEDS ORDERED: NACL 0.9% 500 ML 500 ML IV ONE (16:40)
[2018-10-04] MEDS: DILANTIN PO SCH (22:22)
[2018-10-04] MEDS: LEVAQUIN 750MG/150ML 750 MG/150 ML BAG IV SCH (22:28)
[2018-10-05] MEDS: MS CONTIN ER PO SCH ×3 (00:32→23:16)
[2018-10-05] MEDS: TYLENOL PO PRN (00:37)
[2018-10-05] MEDS: FLAGYL 500 MG/100 ML 500 MG/100 ML BAG IV SCH ×4 (00:45→23:21)
[2018-10-05] MEDS: LEVAQUIN 750MG/150ML 750 MG/150 ML BAG IV SCH (05:20)
[2018-10-05] MEDS: VANCOMYCIN 1,250 MG in NACL 0.9% 250ML 250 ML IV SCH ×3 (05:35→13:37)
[2018-10-05 06:11] LABS: Basophils % (Auto) 0.4 % (0.0-1.8); Eosinophils # (Auto) 0.3 K/mm3 (0.0-0.4); Hemoglobin 8.1 gm/dl (10.1-14.3); Lymphocytes # (Auto) 0.9 K/mm3 (1.2-5.4); Mean Corpuscular HGB Conc 33 % (30-34); Monocytes # (Auto) 0.5 K/mm3 (0.0-0.8); Monocytes % (Auto) 5.9 % (0.0-7.3); Platelet Count 655 K/mm3 (140-440); Red Blood Count 3.63 M/mm3 (3.65-5.03)
[2018-10-05 06:24] LABS: Mean Corpuscular Volume 69 fl (79-97); Red Cell Distribution Width 22.7 % (13.2-15.2)
[2018-10-05 06:33] LABS: BUN/Creatinine Ratio 10; Blood Urea Nitrogen 4 mg/dL (7-17); Calcium 7.7 mg/dL (8.4-10.2); Hemolysis Index 0
[2018-10-05] MEDS: COREG PO SCH ×2 (10:34→23:18)
[2018-10-05] MEDS: LOPID PO SCH (10:34)
[2018-10-05] MEDS: PLAVIX PO SCH (10:35)
[2018-10-05] MEDS: NACL 0.9% 1000 ML 1,000 ML IV SCH ×2 (10:37→23:31)
[2018-10-05] MEDS: CYMBALTA PO SCH (10:57)
--- NOTE | 2018-10-05 12:37 | Progress Note ---
Assessment and Plan Assessment and plan: 63-year-old female with past medical history significant for CVA with right-sided hemiplegia, lupus was presented to the emergency department with complaints of altered mental status. In the emergency department patient was found to have hypoglycemia and was treated accordingly. Workup showed that she has leukocytosis and elevated lactic acid level which may be suggestive of infection. Patient admitted to the floor for further workup and management. Acute metabolic encephalopathy due to hypoglycemia - Patient was treated with dextrose, now resolved Sepsis -Source of infection could be from the mouth as she has chronic dental carries, cont abx Lupus - Continue pain medicine and start her prednisone Colonic mass - For c scope on , plavix on hold History of CVA with right hemiplegia - Supportive care DVT prophylaxis Disposition - Continue inpatient care, home with sister when acute issues resolved History Interval history: Patient was seen evaluated this morning, patient was alert and oriented. patient was confused. Hospitalist Physical - Physical exam Narrative exam: Not in cardiopulmonary distress. The patient appeared well nourished and normally developed. Vital signs as documented. Head exam is unremarkable. No scleral icterus . Neck is without jugular venous distension, thyromegaly, or carotid bruits. Lungs are clear to auscultation. Cardiac exam reveals regular rate and Rhythm. Abdominal exam reveals normal bowel sounds, no masses, no organomegaly and no aortic enlargement. Extremities are nonedematous and both femoral and pedal pulses are normal. 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 Skin: Dry, intact. Hospitalist Physical - Constitutional Vitals: Temp Pulse Resp BP Pulse Ox 98.9 F 104 H 20 118/75 95 10/05/18 11:30 10/05/18 11:30 10/05/18 11:30 10/05/18 11:30 10/05/18 11:30 Results - Labs CBC & Chem 7: 10/05/18 05:56 10/05/18 05:56 Labs: Laboratory Last Values WBC 7.9 K/mm3 (4.5-11.0) 10/05/18 05:56 RBC 3.63 M/mm3 (3.65-5.03) L 10/05/18 05:56 Hgb 8.1 gm/dl (10.1-14.3) L 10/05/18 05:56 Hct 25.0 % (30.3-42.9) L 10/05/18 05:56 MCV 69 fl (79-97) L 10/05/18 05:56 MCH 22 pg (28-32) L 10/05/18 05:56 MCHC 33 % (30-34) 10/05/18 05:56 RDW 22.7 % (13.2-15.2) H 10/05/18 05:56 Plt Count 655 K/mm3 (140-440) H 10/05/18 05:56 Lymph % (Auto) 12.0 % (13.4-35.0) L 10/05/18 05:56 Desha % (Auto) 5.9 % (0.0-7.3) 10/05/18 05:56 Eos % (Auto) 4.0 % (0.0-4.3) 10/05/18 05:56 Baso % (Auto) 0.4 % (0.0-1.8) 10/05/18 05:56 Lymph # 0.9 K/mm3 (1.2-5.4) L 10/05/18 05:56 Desha # 0.5 K/mm3 (0.0-0.8) 10/05/18 05:56 Eos # 0.3 K/mm3 (0.0-0.4) 10/05/18 05:56 Baso # 0.0 K/mm3 (0.0-0.1) 10/05/18 05:56 Add Manual Diff Complete 10/01/18 21:40 Total Counted 100 10/01/18 21:40 Seg Neutrophils % 77.7 % (40.0-70.0) H 10/05/18 05:56 Seg Neuts % (Manual) 94.0 % (40.0-70.0) H 10/01/18 21:40 0 % 10/01/18 21:40 2.0 % (13.4-35.0) L 10/01/18 21:40 Reactive Lymphs % (Man) 0 % 10/01/18 21:40 3.0 % (0.0-7.3) 10/01/18 21:40 1.0 % (0.0-4.3) 10/01/18 21:40 0 % (0.0-1.8) 10/01/18 21:40 0 % 10/01/18 21:40 0 % 10/01/18 21:40 0 % 10/01/18 21:40 0 % 10/01/18 21:40 Nucleated RBC % Not Reportable 10/01/18 21:40 Seg Neutrophils # 6.1 K/mm3 (1.8-7.7) 10/05/18 05:56 Seg Neutrophils # Man 17.3 K/mm3 (1.8-7.7) H 10/01/18 21:40 Band Neutrophils # 0.0 K/mm3 10/01/18 21:40 0.4 K/mm3 (1.2-5.4) L 10/01/18 21:40 Abs React Lymphs (Man) 0.0 K/mm3 10/01/18 21:40 0.6 K/mm3 (0.0-0.8) 10/01/18 21:40 0.2 K/mm3 (0.0-0.4) 10/01/18 21:40 0.0 K/mm3 (0.0-0.1) 10/01/18 21:40 0.0 K/mm3 10/01/18 21:40 0.0 K/mm3 10/01/18 21:40 0.0 K/mm3 10/01/18 21:40 Blast Cells # 0.0 K/mm3 10/01/18 21:40 WBC Morphology Not Reportable 10/01/18 21:40 Hypersegmented Neuts Not Reportable 10/01/18 21:40 Hyposegmented Neuts Not Reportable 10/01/18 21:40 Hypogranular Neuts Not Reportable 10/01/18 21:40 Not Reportable 10/01/18 21:40 Not Reportable 10/01/18 21:40 Not Reportable 10/01/18 21:40 Not Reportable 10/01/18 21:40 Not Reportable 10/01/18 21:40 Not Reportable 10/01/18 21:40 Appears increased 10/01/18 21:40 Not Reportable 10/01/18 21:40 Plt Clumps, EDTA Not Reportable 10/01/18 21:40 Not Reportable 10/01/18 21:40 Not Reportable 10/01/18 21:40 Not Reportable 10/01/18 21:40 Plt Morphology Comment Not Reportable 10/01/18 21:40 RBC Morphology Not Reportable 10/01/18 21:40 Dimorphic RBCs Not Reportable 10/01/18 21:40 Not Reportable 10/01/18 21:40 Not Reportable 10/01/18 21:40 1+ 10/01/18 21:40 2+ 10/01/18 21:40 1+ 10/01/18 21:40 Not Reportable 10/01/18 21:40 Not Reportable 10/01/18 21:40 Not Reportable 10/01/18 21:40 Not Reportable 10/01/18 21:40 Not Reportable 10/01/18 21:40 Not Reportable 10/01/18 21:40 Not Reportable 10/01/18 21:40 Not Reportable 10/01/18 21:40 Not Reportable 10/01/18 21:40 Not Reportable 10/01/18 21:40 Not Reportable 10/01/18 21:40 Not Reportable 10/01/18 21:40 Not Reportable 10/01/18 21:40 Not Reportable 10/01/18 21:40 Acanthocytes (Spur) Not Reportable 10/01/18 21:40 Rouleaux Not Reportable 10/01/18 21:40 Not Reportable 10/01/18 21:40 Not Reportable 10/01/18 21:40 Not Reportable 10/01/18 21:40 Not Reportable 10/01/18 21:40 Hem Pathologist Commnt No 10/01/18 21:40 PT 14.2 Sec. (12.2-14.9) 10/01/18 21:40 PT 14.2 Sec. (12.2-14.9) 10/01/18 21:40 INR 1.13 (0.87-1.13) 10/01/18 21:40 INR 1.13 (0.87-1.13) 10/01/18 21:40 APTT 25.3 Sec. (24.2-36.6) 10/01/18 21:40 Sodium 142 mmol/L (137-145) 10/05/18 05:56 Potassium 3.4 mmol/L (3.6-5.0) L 10/05/18 05:56 Chloride 108.2 mmol/L (98-107) H 10/05/18 05:56 Carbon Dioxide 26 mmol/L (22-30) 10/05/18 05:56 11 mmol/L 10/05/18 05:56 BUN 4 mg/dL (7-17) L 10/05/18 05:56 0.4 mg/dL (0.7-1.2) L 10/05/18 05:56 Estimated GFR > 60 ml/min 10/05/18 05:56 10 % 10/05/18 05:56 Glucose 209 mg/dL (65-100) H 10/05/18 05:56 POC Glucose 311 (70-105) H 10/05/18 11:36 Lactic Acid 1.10 mmol/L (0.7-2.0) 10/02/18 16:50 Calcium 7.7 mg/dL (8.4-10.2) L 10/05/18 05:56 Phosphorus 2.10 mg/dL (2.5-4.5) L 10/05/18 05:56 Magnesium 2.00 mg/dL (1.7-2.3) 10/05/18 05:56 < 0.20 mg/dL (0.1-1.2) 10/01/18 21:40 AST 33 units/L (5-40) 10/01/18 21:40 ALT 24 units/L (7-56) 10/01/18 21:40 253 units/L (35-129) H 10/01/18 21:40 38.0 umol/L (25-60) 10/01/18 21:40 33 units/L (30-135) 10/01/18 21:40 < 0.010 ng/mL (0.00-0.029) 10/01/18 21:40 7.3 g/dL (6.3-8.2) 10/01/18 21:40 2.7 g/dL (3.9-5) L 10/01/18 21:40 0.6 % 10/01/18 21:40 TSH 0.449 mlU/mL (0.270-4.200) 10/01/18 21:40 Yellow (Yellow) 10/01/18 23:24 Clear (Clear) 10/01/18 23:24 5.0 (5.0-7.0) 10/01/18 23:24 Ur Specific [place] 1.010 (1.003-1.030) 10/01/18 23:24 <15 mg/dl mg/dL (Negative) 10/01/18 23:24 Neg mg/dL (Negative) 10/01/18 23:24 Neg mg/dL (Negative) 10/01/18 23:24 Neg (Negative) 10/01/18 23:24 Neg (Negative) 10/01/18 23:24 Neg (Negative) 10/01/18 23:24 < 2.0 mg/dL (<2.0) 10/01/18 23:24 Ur Leukocyte Esterase Neg (Negative) 10/01/18 23:24 < 1.0 /HPF (0.0-6.0) 10/01/18 23:24 < 1.0 /HPF (0.0-6.0) 10/01/18 23:24 Vancomycin Trough 9.4 ug/mL (5.0-20.0) 10/04/18 12:46 Salicylates < 0.3 mg/dL (2.8-20.0) L 10/01/18 21:40 Acetaminophen < 5.0 ug/mL (10.0-30.0) L 10/01/18 21:40 Phenytoin 6.7 ug/mL (10.0-20.0) L 10/01/18 23:44 Plasma/Serum Alcohol < 0.01 % (0-0.07) 10/01/18 21:40 Blood Type B POSITIVE 10/04/18 19:36 Antibody Screen Negative 10/04/18 19:36 Crossmatch See Detail 10/04/18 19:36 Active Medications - Current Medications Current Medications: Generic Name Dose Route Start Last Admin Trade Name Freq PRN Reason Stop Dose Admin Acetaminophen 650 mg 10/01/18 23:43 10/05/18 00:37 Tylenol PO 325 mg Q4H PRN Administration Fever >101 Atorvastatin Calcium 20 mg 10/02/18 22:00 10/04/18 22:24 Lipitor PO 20 mg QHS ART Administration Carvedilol 3.125 mg 10/02/18 22:00 10/05/18 10:34 Coreg PO 3.125 mg BID ART Administration Dextrose 50 ml 10/02/18 08:23 10/02/18 08:46 D50w (25gm) Syringe IV 50 ml PRN PRN Administration Hypoglycemia Duloxetine HCl 60 mg 10/02/18 14:00 10/05/18 10:57 Cymbalta PO 60 mg QDAY ART Administration Gemfibrozil 600 mg 10/05/18 10:00 10/05/18 10:34 Lopid PO 600 mg QDAY ART Administration Sodium Chloride 1,000 mls @ 125 mls/hr 10/01/18 23:45 10/05/18 10:37 Nacl 0.9% 1000 Ml IV 125 mls/hr DIRECT ART Administration Vancomycin HCl 1,250 mg/ 275 mls @ 166.667 mls/hr 10/02/18 14:00 10/05/18 07:14 Sodium Chloride IV 166.667 mls/hr Q12H ART Administration Metronidazole 500 mg in 100 mls @ 100 mls/hr 10/02/18 06:00 10/05/18 05:55 Flagyl 500 Mg/100 Ml IV 100 mls/hr Q8HR ART Administration Protocol Levofloxacin/Dextrose 750 mg in 150 mls @ 100 mls/hr 10/02/18 22:00 10/05/18 05:20 Levaquin 750mg/150ml IV 100 mls/hr Q24H ART Administration Dextrose/Sodium Chloride 1,000 mls @ 125 mls/hr 10/02/18 09:00 10/02/18 19:34 D5ns IV 125 mls/hr DIRECT ART Administration Insulin Human Lispro 0 unit 10/05/18 16:30 Humalog SUB-Q ACHS ART Protocol Morphine Sulfate 15 mg 10/02/18 22:00 10/05/18 10:35 Ms Contin Er PO 15 mg Q12HR ART Administration Ondansetron HCl 4 mg 10/01/18 23:42 Zofran IV Q8H PRN Nausea And Vomiting Phenytoin 200 mg 10/02/18 22:00 10/04/18 22:22 Dilantin PO 200 mg QHS ART Administration Prednisone 5 mg 10/06/18 10:00 Deltasone PO Q48HR ART
--- NOTE | 2018-10-05 13:57 | Gastroenterology Progress Note ---
Assessment and Plan 1. Colon mass 2. Iron deficiency anemia -H/H 8.1/25.0 s/p blood transfusion-no active signs of bleeding -continue to monitor H/H and transfuse as needed -CT findings in setting of MERRY concerning for neoplasm -continue to hold plavix -colonoscopy tentatively on (family (sister Nusrat [phone]) agreeable to proceed) -continue supportive care -will follow 3. Altered mental status 4. Sepsis- origin thought to be from mouth; on antibiotics) 5.lupus 6.H/o CVA/dementia Subjective Date of service: 10/05/18 Principal diagnosis: colonic mass Interval history: No acute distress or new GI complaints. Objective - Constitutional Vitals: Temp Pulse Resp BP Pulse Ox 98.9 F 104 H 20 118/75 95 10/05/18 11:30 10/05/18 11:30 10/05/18 11:30 10/05/18 11:30 10/05/18 11:30 General appearance: no acute distress - Respiratory Respiratory effort: normal - Cardiovascular Rhythm: other (tachycardia) - Gastrointestinal General gastrointestinal: Present: soft, non-tender, non-distended, normal bowel sounds - Labs CBC & Chem 7: 10/05/18 05:56 10/05/18 05:56 Labs: Laboratory Results - last 24 hr 10/04/18 10/04/18 10/04/18 12:46 12:46 17:19 WBC RBC Hgb Hct MCV MCH MCHC RDW Plt Count Lymph % (Auto) [place] % (Auto) Eos % (Auto) Baso % (Auto) Lymph # [place] # Eos # Baso # Seg Neutrophils % Seg Neutrophils # Sodium 140 Potassium 2.9 L* Chloride 106.9 Carbon Dioxide 22 Anion Gap 14 BUN 4 L Creatinine 0.5 L Estimated GFR > 60 BUN/Creatinine Ratio 8 Glucose 203 H POC Glucose 235 H Calcium 7.0 L Phosphorus Magnesium Vancomycin Trough 9.4 Blood Type Antibody Screen Crossmatch 10/04/18 10/04/18 10/05/18 19:36 21:20 05:56 WBC 7.9 RBC 3.63 L Hgb 8.1 L Hct 25.0 L MCV 69 L MCH 22 L MCHC 33 RDW 22.7 H Plt Count 655 H Lymph % (Auto) 12.0 L Kimball % (Auto) 5.9 Eos % (Auto) 4.0 Baso % (Auto) 0.4 Lymph # 0.9 L Kimball # 0.5 Eos # 0.3 Baso # 0.0 Seg Neutrophils % 77.7 H Seg Neutrophils # 6.1 Sodium Potassium Chloride Carbon Dioxide Anion Gap BUN Creatinine Estimated GFR BUN/Creatinine Ratio Glucose POC Glucose 276 H Calcium Phosphorus Magnesium Vancomycin Trough Blood Type B POSITIVE Antibody Screen Negative Crossmatch See Detail 10/05/18 10/05/18 10/05/18 05:56 07:55 11:36 WBC RBC Hgb Hct MCV MCH MCHC RDW Plt Count Lymph % (Auto) [place] % (Auto) Eos % (Auto) Baso % (Auto) Lymph # [place] # Eos # Baso # Seg Neutrophils % Seg Neutrophils # Sodium 142 Potassium 3.4 L Chloride 108.2 H Carbon Dioxide 26 Anion Gap 11 BUN 4 L Creatinine 0.4 L Estimated GFR > 60 BUN/Creatinine Ratio 10 Glucose 209 H POC Glucose 234 H 311 H Calcium 7.7 L Phosphorus 2.10 L Magnesium 2.00 Vancomycin Trough Blood Type Antibody Screen Crossmatch
[2018-10-05] MEDS: HumaLOG SUB-Q SCH ×2 (17:32→23:27)
[2018-10-05] MEDS: DILANTIN PO SCH (23:16)
[2018-10-06] MEDS: LEVAQUIN 750MG/150ML 750 MG/150 ML BAG IV SCH (00:30)
[2018-10-06] MEDS: VANCOMYCIN 1,250 MG in NACL 0.9% 250ML 250 ML IV SCH ×2 (03:21→15:59)
[2018-10-06] MEDS: FLAGYL 500 MG/100 ML 500 MG/100 ML BAG IV SCH ×2 (06:01→13:47)
[2018-10-06] MEDS: HumaLOG SUB-Q SCH ×3 (08:50→18:20)
--- NOTE | 2018-10-06 09:22 | Cat Scan Report ---
CT FACIAL BONES WITH CONTRAST INDICATION : oral infection, pain in maxilla. Bilateral jaw swelling. TECHNIQUE: Axial imaging performed through the face following 100 cc of Omnipaque 300 with reconstru cted images also reviewed. Sagittal and coronal reformatted images. All CT scans at this location are performed using CT dose reduction for ALARA by means of automated exposure control. COMPARISON: None FINDINGS: Poor dentition is noted with multiple dental caries. Multiple teeth are absent as well. Th ere are small areas of periapical lucency surrounding a right maxillary incisor and a left posterior molar which are concerning for small periapical tooth abscesses. Smaller similar appearing area of pe riapical lucency is identified and a right mandibular incisor. There is no evidence for large areas o f bony destruction or extension to the soft tissues. The paranasal sinuses are adequately aerated. There is minimal mucosal thickening in the inferior max illary sinuses. No evidence for facial bone fracture or bony lesion. Skull base structures are intact . There is a large calcified mass in the left side of the posterior fossa measuring up to 4 cm which is partially imaged. Please report to the CT head report 10/01/2018. IMPRESSION: Poor dentition as described. Multiple dental caries are identified. 3 areas of small chavo apical tooth abscesses are also suggested as outlined above. Signer Name: Bimal Menendez Jr, MD Signed: 10/06/2018 9:18 AM Workstation Name: [id number]
[2018-10-06] MEDS: DELTASONE PO SCH (11:06)
[2018-10-06] MEDS: LOPID PO SCH (11:06)
[2018-10-06] MEDS: MS CONTIN ER PO SCH ×2 (11:07→21:25)
[2018-10-06] MEDS: COREG PO SCH ×2 (11:07→21:25)
--- NOTE | 2018-10-06 12:48 | Gastroenterology Progress Note ---
Assessment and Plan 1. Colon mass 2. Iron deficiency anemia -H/H 8.1/25.0 s/p blood transfusion-no active signs of bleeding -continue to monitor H/H and transfuse as needed -CT findings in setting of MERRY concerning for neoplasm -continue to hold plavix for colonoscopy tomorrow (family (sister Nusrat [phone]) agreeable to proceed) -clear liquids today, then NPO after MN -okay to place NGT if need to help facilitate completion of colon prep -INR in am -continue supportive care -will follow 3. Altered mental status 4. Sepsis- origin thought to be from mouth; on antibiotics) 5.lupus 6.H/o CVA/dementia Subjective Date of service: 10/06/18 Principal diagnosis: colonic mass Interval history: No acute distress or new GI complaints. Objective - Constitutional Vitals: Temp Pulse Resp BP Pulse Ox 97.3 F L 95 H 18 115/76 97 10/06/18 11:36 10/06/18 11:36 10/06/18 11:36 10/06/18 11:36 10/06/18 11:36 General appearance: no acute distress - Cardiovascular Rhythm: regular - Gastrointestinal General gastrointestinal: Present: soft, non-distended, normal bowel sounds - Labs CBC & Chem 7: 10/05/18 05:56 10/05/18 05:56 Labs: Laboratory Results - last 24 hr 10/05/18 10/05/18 10/06/18 16:57 21:43 05:56 POC Glucose 230 H 301 H Hemoglobin A1c 5.4 10/06/18 10/06/18 07:26 11:29 POC Glucose 201 H 282 H Hemoglobin A1c
--- NOTE | 2018-10-06 12:51 | Consultation ---
History of Present Illness - Reason for Consult Consult date: 10/06/18 Sepsis Requesting physician: JOSEPH ROSARIO - History of Present Illness This patient is a 63-year-old female with a past medical history of CVA with right-sided hemiplegia, Lupus, Diabetes, DVT, IVC filter, CHF and dementia that presented in the ED on 10/01/18 with complaints of altered mental status. On admission, patient was unable to provide history, sister stated taht patient has had chronic dental pain and dental caries. Dental extraction declined by oral surgeon due to cur rent coumadin therapy. On admission WBC 18, Creatinine 0.7, Lactic Acid 3.5, Temperature 98.1, HR 113. UA negative. CXR negative. Face CT showed multiple dental careies and 3 areas of small periapical tooth abscesses. Cervical Spine CT show posterior fossa meningioma. Abdomen and pelvis CT show large ascending colon/cecal mass with mild pericolonic stranding and local right lower quadrant mesenteric adenopathy. Blood and urine cultures show no growth. Review of systems unobtainable due to mental status. History obtained from chart review, nursing and family at bedside. Past History Past Medical History: other ( Stroke, hypertension, diabetes, DVT, IVC filter, congestive heart failure, residual right-sided weakness, on Coumadin therapy, dementia) Past Surgical History: Other (IVC filter) Social history: other (unable to obtain) Medications and Allergies Allergies Allergy/AdvReac Type Severity Reaction Status Date / Time Penicillins Allergy Unknown Verified 11/10/14 21:41 Peas Allergy Swelling Uncoded 07/01/16 12:21 Home Medications Medication Instructions Recorded Confirmed Last Taken Type AtorvaSTATin [Lipitor] 20 mg PO QDAY #30 tablet 07/09/16 10/01/18 1 Day Ago Rx ~10/29/16 Furosemide [Lasix TAB] 40 mg PO BID #60 tablet 07/09/16 10/01/18 1 Day Ago Rx ~10/29/16 Metformin HCl [Glucophage] 1,000 mg PO BID #60 tablet 07/09/16 10/01/18 1 Day Ago Rx ~10/29/16 Metoprolol [Lopressor TAB] 25 mg PO BID #60 tablet 07/09/16 10/02/18 1 Day Ago Rx ~10/29/16 Potassium Chloride [K-Dur] 20 meq PO QDAY #30 tablet 07/09/16 10/01/18 1 Day Ago Rx ~10/29/16 AtorvaSTATin [Lipitor] 20 mg PO QDAY 10/29/16 10/01/18 1 Day Ago History ~10/29/16 Citalopram [celeXA] 10 mg PO TID 10/29/16 10/02/18 1 Day Ago History ~10/29/16 Phenytoin Sodium Extended 200 mg PO QHS 10/30/16 10/01/18 1 Day Ago History ~10/29/16 Insulin Glargine [Lantus VIAL] 10 units SUB-Q QHS #1 units 11/04/16 10/02/18 1 Day Ago Rx ~10/29/16 Carvedilol [Coreg] 3.125 mg PO BID 10/01/18 10/01/18 Unknown History Clopidogrel [Plavix] 75 mg PO QDAY 10/01/18 10/01/18 Unknown History DULoxetine [Cymbalta] 60 mg PO QDAY 10/01/18 10/01/18 Unknown History Gemfibrozil [Lopid] 600 mg PO QDAY 10/01/18 10/01/18 Unknown History Morphine Sulfate 15 mg PO BID 10/01/18 10/01/18 Unknown History Phenytoin [Dilantin] 150 mg PO QDAY 10/01/18 10/01/18 Unknown History predniSONE [Deltasone] 5 mg PO Q48HR 10/03/18 10/03/18 Unknown History Active Meds: Active Medications Acetaminophen (Tylenol) 650 mg PO Q4H PRN PRN Reason: Fever >101 Last Admin: 10/05/18 00:37 Dose: 325 mg Documented by: Atorvastatin Calcium (Lipitor) 20 mg PO QHS [facility] [place] Last Admin: 10/05/18 23:20 Dose: 20 mg Documented by: Carvedilol (Coreg) 3.125 mg PO BID [facility] [place] Last Admin: 10/06/18 11:07 Dose: 3.125 mg Documented by: Dextrose (D50w (25gm) Syringe) 50 ml IV PRN PRN PRN Reason: Hypoglycemia Last Admin: 10/02/18 08:46 Dose: 50 ml Documented by: Duloxetine HCl (Cymbalta) 60 mg PO QDAY [facility] [place] Last Admin: 10/05/18 10:57 Dose: 60 mg Documented by: Gemfibrozil (Lopid) 600 mg PO QDAY [facility] [place] Last Admin: 10/06/18 11:06 Dose: 600 mg Documented by: Sodium Chloride (Nacl 0.9% 1000 Ml) 1,000 mls @ 125 mls/hr IV DIRECT ART Last Admin: 10/05/18 23:31 Dose: 125 mls/hr Documented by: Vancomycin HCl 1,250 mg/ (Sodium Chloride) 275 mls @ 166.667 mls/hr IV Q12H ART Last Admin: 10/06/18 03:21 Dose: 166.667 mls/hr Documented by: Metronidazole (Flagyl 500 Mg/100 Ml) 500 mg in 100 mls @ 100 mls/hr IV Q8HR ART; Protocol Last Admin: 10/06/18 06:01 Dose: 100 mls/hr Documented by: Levofloxacin/Dextrose (Levaquin 750mg/150ml) 750 mg in 150 mls @ 100 mls/hr IV Q24H ART Last Admin: 10/06/18 00:30 Dose: 100 mls/hr Documented by: Dextrose/Sodium Chloride (D5ns) 1,000 mls @ 125 mls/hr IV DIRECT ART Last Admin: 10/02/18 19:34 Dose: 125 mls/hr Documented by: Insulin Human Lispro (Humalog) 0 unit SUB-Q ACHS ART; Protocol Last Admin: 10/06/18 08:50 Dose: Not Given Documented by: Morphine Sulfate (Ms Contin Er) 15 mg PO Q12HR [facility] [place] Last Admin: 10/06/18 11:07 Dose: 15 mg Documented by: Ondansetron HCl (Zofran) 4 mg IV Q8H PRN PRN Reason: Nausea And Vomiting Phenytoin (Dilantin) 200 mg PO QHS [facility] [place] Last Admin: 10/05/18 23:16 Dose: 200 mg Documented by: Polyethylene Glycol/Electrolytes (Golytely) 4,000 ml PO ONCE ONE Stop: 10/06/18 16:01 Prednisone (Deltasone) 5 mg PO Q48HR [facility] [place] Last Admin: 10/06/18 11:06 Dose: 5 mg Documented by: Review of Systems ROS unobtainable: due to mental status Physical Examination - Physical Exam Narrative exam: Constitutional: Alert, cooperative. No acute distress. AMS Head, Ears, Nose: Normocephalic, atraumatic. External ears, nose normal Eyes: Conjunctivae/corneas clear. No icterus. No ptosis. Neck: Supple, no meningeal signs Oral: dentition poor, dental caries. no thrush. oral mucosa moist Cardiovascular: S1, S2 normal. Respiratory: Good air entry, clear to auscultation bilaterally GI: Soft, non-tender; bowel sounds normal. No peritoneal signs. Gu: [place] cath + Musculoskeletal: No pedal edema, no cyanosis. Skin: No rash or abscess. Hem/Lymphatic: No palpable cervical or supraclavicular nodes. No lymphangitis Psych: Mood ok. affect flat Neurological: Awake, alert, confused. - Constitutional Vitals: Vital Signs Temp Pulse Resp BP Pulse Ox 97.3 F L 95 H 18 115/76 97 10/06/18 11:36 10/06/18 11:36 10/06/18 11:36 10/06/18 11:36 10/06/18 11:36 Temperature -Last 24 Hours Temperature 97.3 F Temperature 97.4 F Temperature 98.4 F Temperature 98.3 F Results - Labs CBC & Chem 7: 10/05/18 05:56 10/05/18 05:56 Labs: Abnormal lab results 10/05/18 10/05/18 10/06/18 Range/Units 16:57 21:43 07:26 POC Glucose 230 H 301 H 201 H (70-105) 10/06/18 Range/Units 11:29 POC Glucose 282 H (70-105) - Imaging and Cardiology Chest x-ray: report reviewed (no consolidation) Abdominal x-ray: report reviewed ( ), other CT scan - abdomen: report reviewed (large acsending colon/cecal mass with mild pericolonic stranding and local right lower quadrant mesenteric adenopathy) CT Scan - head: report reviewed (Large left posterior fossa meningioma which is not significantly changed since . 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 On admission, patient was unable to provide history, sister stated that patient has had chronic dental pain and dental caries. Dental extraction declined by oral surgeon due to current coumadin therapy. Admitted with: 1. Sepsis on admission: evidenced by leukocytoisis, elevated lactic acid and tachycardia. Etiology multifactoral dental caries with 3 periapical tooth abscess vs colonic mass. no fevers. Blood cultures no growth,. Urine culture no growth. UA negative. CXR negative. Currently being treated with Levofloxacin, Flagyl and Vancomycin 2. Periapical Tooth Abscess: with dental caries: Face CT shows multiple dental caries and 3 areas of small periapical tooth abscesses. 3. Colonic Mass: Abdomen and Pelvis CT which shows a mass in the ascending colon, concerning for possible neoplasm. Colonoscopy tomorrow, GI following. 4. History of CVA with right hemiplegia: 5. Acute metabolic encephalopathy due to hypoglycemia 6. Penicillin allergy: ?allergy as a child., per sister. Unsure of reaction. Has taken cephalosporins in the past without reaction. Will give oral amoxicillin challenge of 250mg x 1. Recommendations: -discontinue Levofloxacin, Flagyl and Vancomycin -Give oral Amoxicillin challenge of 250mg PO times 1. Monitor closely for reaction (discussed with bedside nurse) -If tolerates Amoxicillin challenge, will start Augmentin times 1 week with outpatient dental follow-up D/w Dr. Kiki Krishnan, [facility] M: [phone] O:[phone]
[2018-10-06] MEDS: CYMBALTA PO SCH (14:06)
--- NOTE | 2018-10-06 15:17 | Progress Note ---
Assessment and Plan 63-year-old female with past medical history significant for CVA with right-sided hemiplegia, lupus was presented to the emergency department with complaints of altered mental status. In the emergency department patient w as found to have hypoglycemia and was treated accordingly. Workup showed that she has leukocytosis and elevated lactic acid level which may be suggestive of infection. Patient admitted to the floor for further workup and management. Acute metabolic encephalopathy due to hypoglycemia - Patient was treated with dextrose, now resolved Sepsis -Source of infection could be from the mouth as she has chronic dental carries, cont abx Lupus - Continue pain medicine and start her prednisone Colonic mass - For c scope on , plavix on hold History of CVA with right hemiplegia - Supportive care DVT prophylaxis Disposition - Continue inpatient care, home with sister when acute issues resolved Subjective Date of service: 10/06/18 Principal diagnosis: colonic mass Objective - Constitutional Vitals: Vital Signs - 12hr 10/06/18 10/06/18 10/06/18 05:34 10:58 11:07 Temperature 97.4 F L Pulse Rate 93 H Respiratory 18 Rate Blood Pressure 129/84 150/80 150/88 O2 Sat by Pulse 97 Oximetry 10/06/18 11:36 Temperature 97.3 F L Pulse Rate 95 H Respiratory 18 Rate Blood Pressure 115/76 O2 Sat by Pulse 97 Oximetry General appearance: Present: no acute distress, well-nourished - EENT Eyes: PERRL, EOM intact ENT: hearing intact, clear oral mucosa Ears: bilateral: normal - Neck Neck: supple, normal ROM - Respiratory Respiratory effort: normal Respiratory: bilateral: CTA - Breasts Breasts: normal - Cardiovascular Rhythm: regular Heart Sounds: Present: S1 & S2. Absent: gallop, rub Extremities: pulses intact, No edema, normal color, Full ROM - Gastrointestinal General gastrointestinal: Present: soft, non-tender, non-distended, normal bowel sounds - Genitourinary Female genitourinary: normal - Integumentary Integumentary: clear, warm, dry - Musculoskeletal Musculoskeletal: 1, strength equal bilaterally - Neurologic Neurologic: moves all extremities - Psychiatric Psychiatric: memory intact, appropriate mood/affect, intact judgment & insight - Labs CBC & Chem 7: 10/05/18 05:56 10/05/18 05:56 Labs: Abnormal lab results 10/05/18 10/05/18 10/06/18 Range/Units 16:57 21:43 07:26 POC Glucose 230 H 301 H 201 H (70-105) 10/06/18 Range/Units 11:29 POC Glucose 282 H (70-105)
[2018-10-06] MEDS ORDERED: TRIMOX PO ONE (15:30)
[2018-10-06] MEDS ORDERED: GOLYTELY PO ONE (16:00)
[2018-10-06] MEDS: ZOFRAN IV PRN (20:38)
[2018-10-06] MEDS: NACL 0.9% 1000 ML 1,000 ML IV SCH (20:48)
[2018-10-06] MEDS: DILANTIN PO SCH (21:25)
[2018-10-07] MEDS: HumaLOG SUB-Q SCH ×5 (00:34→23:40)
[2018-10-07 06:19] LABS: INR 1.22 (0.87-1.13)
[2018-10-07] MEDS: NACL 0.9% 1000 ML 1,000 ML IV SCH ×3 (06:59→23:42)
--- NOTE | 2018-10-07 09:12 | Progress Note ---
Assessment and Plan Cultures: 10/01/18 Blood: no growth 10/01/18 Urine; no growth 10/01/18 Stool: negative A/P: 63-year-old female with a past medical history of CVA with right-sided h emiplegia, Lupus, Diabetes, DVT, IVC filter, CHF and dementia that presented in the ED on 10/01/18 with complaints of altered mental status. On admission, patient was unable to provide history, sister stated that patient has had chronic dental pain and dental caries. Dental extraction declined by oral surgeon due to current coumadin therapy. Admitted with: 1. Sepsis on admission: Resolved. evidenced by leukocytoisis, elevated lactic acid and tachycardia. Etiology multifactoral dental caries with 3 periapical tooth abscess vs colonic mass. no fevers. Blood cultures no growth,. Urine culture no growth. UA negative. CXR negative. 2. Periapical Tooth Abscess: with dental caries: Face CT shows multiple dental caries and 3 areas of small periapical tooth abscesses. 3. Colonic Mass: Abdomen and Pelvis CT which shows a mass in the ascending colon, concerning for possible neoplasm. Colonoscopy today. GI following. 4. History of CVA with right hemiplegia: 5. Acute metabolic encephalopathy due to hypoglycemia 6. Penicillin allergy: ?allergy as a child., per sister. Unsure of reaction. Has taken cephalosporins in the past without reaction. No reaction from amoxicillin challenge. Will proceed with Augmentin for 5 days. Recommendations: -No reaction from amoxicillin challenge. Will start Augmentin 875 PO BID for 5 days. Continue to monitor closely -follow up with dentist/oral surgeon outpatient ID is signing off, please call for questions. Kathryn Krishnan NP [facility] M: [id number] O:[phone] Subjective Date of service: 10/07/18 Principal diagnosis: colonic mass Interval history: Patient seen and examined. Laying in bed, no acute distress reported. Sister at bedside. No fevers . Objective - Exam Narrative Exam: Constitutional: Alert, cooperative. No acute distress. AMS Head, Ears, Nose: Normocephalic, atraumatic. External ears, nose normal Eyes: Conjunctivae/corneas clear. No icterus. No ptosis. Neck: Supple, no meningeal signs Oral: dentition poor, dental caries. no thrush. oral mucosa moist Cardiovascular: S1, S2 normal. Respiratory: Good air entry, clear to auscultation bilaterally GI: Soft, non-tender; bowel sounds normal. No peritoneal signs. Gu: Purewick cath + Musculoskeletal: No pedal edema, no cyanosis. Skin: No rash or abscess. Hem/Lymphatic: No palpable cervical or supraclavicular nodes. No lymphangitis Psych: Mood ok. affect flat Neurological: Awake, alert, confused. - Constitutional Vitals: Vital Signs Temp Pulse Resp BP Pulse Ox 98.2 F 97 H 18 134/77 96 10/07/18 05:26 10/07/18 05:26 10/07/18 05:26 10/07/18 05:26 10/07/18 05:26 Temperature -Last 24 Hours Temperature 98.2 F Temperature 97.9 F Temperature 98.3 F Temperature 97.3 F - Labs CBC & Chem 7: 10/05/18 05:56 10/05/18 05:56 Labs: Abnormal lab results 10/06/18 10/06/18 10/06/18 Range/Units 11:29 16:50 21:22 PT (12.2-14.9) Sec. INR (0.87-1.13) POC Glucose 282 H 302 H 249 H (70-105) 10/07/18 10/07/18 Range/Units 05:24 08:01 PT 15.1 H (12.2-14.9) Sec. INR 1.22 H (0.87-1.13) POC Glucose 234 H (70-105)
[2018-10-07] MEDS: COREG PO SCH ×2 (10:41→23:39)
[2018-10-07] MEDS: CYMBALTA PO SCH (10:41)
[2018-10-07] MEDS: AUGMENTIN 875 MG PO SCH ×2 (10:41→23:34)
[2018-10-07] MEDS: LOPID PO SCH (10:41)
[2018-10-07] MEDS: MS CONTIN ER PO SCH ×2 (10:42→23:37)
[2018-10-07] MEDS ORDERED: DIPRIVAN 10 MG/ML IV ONE ×2 (15:44)
--- NOTE | 2018-10-07 16:22 | Operative Report ---
Operative Report Operative Report: Colonoscopy Procedure Note with Biopsy and Submucosal Injection Date of procedure: 10/07/2018 Endoscopist: Job Weinstein Pre-op diagnosis: Abnormal CT scan, iron deficiency anemia Post-op diagnosis: Tumor in suspected ascending colon. Anesthesia: MAC Complications: No immediate complications Estimated blood loss: minimal Procedure: After consent was obtained from the patient's sister, the patient was placed in the left lateral decubitus position. The olympus colonoscope was inserted into the patient's rectum under direct vision, and advanced to the cecum without difficulty. The patient tolerated the procedure well. The views of the mucosa were good. The quality of prep was good. The patient's vital signs were monitored continuously throughout the procedure. Findings: There was an ulcerated, near circumferential tumor in the suspected ascending colon. There was moderate to severe stenosis secondary to the mass which was unable to be traversed. Multiple biopsies were obtained. Tattoo was injected distal to the tumor. Impression: 1. Mass (likely malignant) in the suspected ascending colon. Unable to traverse with colonoscope due to stenosis secondary to the tumor. Multiple biopsies were obtained. Tattoo injected distally. Recommendations: -follow-up pathology -CT scan of chest for staging (CT of abdomen/pelvis performed on admission) -check CEA level -surgery consult. will need partial colon resection (even if path non- diagnostic) given degree of stenosis from the mass -oncology consult -discussed findings and plan with patient's sister
--- NOTE | 2018-10-07 16:29 | Anesthesia Consultation ---
Anesthesia Consult and Med Hx Date of service: 10/07/18 - Airway Anesthetic Teeth Evaluation: Poor, Dentures ROM Head & Neck: Adequate Mental/Hyoid Distance: Inadequate Mallampati Class: Class III Intubation Access Assessment: Possibly Difficult - Pulmonary Exam CTA: Yes - Cardiac Exam Cardiac Exam: RRR (irregular rhythm) - Pre-Operative Health Status ASA Pre-Surgery Classification: ASA3 Proposed Anesthetic Plan: MAC - Pulmonary Hx Asthma: Yes COPD: Yes - Cardiovascular System Hx Hypertension: Yes Hx Coronary Artery Disease: No (hx CHF; normal EF 2016) Hx Pacemaker: No Hx Internal Defibrillator: No - Central Nervous System Hx Seizures: Yes CVA: Yes (right sided weakness) Hx Psychiatric Problems: Yes (dementia) - Endocrine Hx Renal Disease: No Hx Liver Disease: No Hx Insulin Dependent Diabetes: Yes - Hematic Hx Anemia: Yes - Other Systems Hx Obesity: Yes
--- NOTE | 2018-10-07 16:29 | Anesthesia Day of Surgery ---
Anesthesia Day of Surgery - Day of Surgery Patient Examined: Yes Patient H&P Reviewed: Yes Patient is NPO: Yes
[2018-10-07] MEDS: DILANTIN PO SCH (23:37)
[2018-10-07] MEDS: ZOFRAN IV PRN (23:40)
[2018-10-08] MEDS: HumaLOG SUB-Q SCH ×4 (08:22→21:59)
[2018-10-08] MEDS: DELTASONE PO SCH (09:51)
[2018-10-08] MEDS: MS CONTIN ER PO SCH ×2 (09:51→22:00)
[2018-10-08] MEDS: CYMBALTA PO SCH (09:51)
[2018-10-08] MEDS: AUGMENTIN 875 MG PO SCH ×2 (09:51→21:59)
[2018-10-08] MEDS: COREG PO SCH ×2 (09:51→22:01)
[2018-10-08] MEDS ORDERED: PLAVIX PO SCH (10:00)
[2018-10-08] MEDS: LOPID PO SCH (10:06)
--- NOTE | 2018-10-08 11:51 | Gastroenterology Progress Note ---
Assessment and Plan 1. Colon mass 2. Iron deficiency anemia -H/H 8.1/25.0 s/p blood transfusion-no active signs of bleeding -continue to monitor H/H and transfuse as needed -abd CT findings in setting of MERRY concerning for neoplasm -s/p colonoscopy yesterday that revealed mass (likely malignant) in the suspected ascending colon (tattoo injected and biopsies obtained) -bx results pending -CEA level and chest CT (r/o mets) ordered -recommend surgery (will need partial colon resection even if path non- diagnostic given degree of stenosis from mass) and oncology consult for further management -continue supportive care -will follow pathology 3. Altered mental status 4. Sepsis- origin thought to be from mouth; on antibiotics) 5.lupus 6.H/o CVA/dementia Subjective Date of service: 10/08/18 Principal diagnosis: colonic mass Interval history: No acute distress or new GI complaints. Objective - Constitutional Vitals: Temp Pulse Resp BP Pulse Ox 98.3 F 78 20 152/84 93 10/08/18 04:45 10/08/18 09:51 10/08/18 09:51 10/08/18 09:51 10/08/18 04:55 General appearance: no acute distress - Respiratory Respiratory effort: normal - Cardiovascular Rhythm: regular - Gastrointestinal General gastrointestinal: Present: soft, non-tender, non-distended, normal bowel sounds - Labs CBC & Chem 7: 10/05/18 05:56 10/05/18 05:56 Labs: Laboratory Results - last 24 hr 10/07/18 10/07/18 10/08/18 17:26 20:50 07:52 POC Glucose 176 H 253 H 269 H
--- NOTE | 2018-10-08 12:58 | Progress Note ---
Assessment and Plan 63-year-old female with past medical history significant for CVA with right-sided hemiplegia, lupus was presented to the emergency department with complaints of altered mental status. In the emergency department patient w as found to have hypoglycemia and was treated accordingly. Workup showed that she has leukocytosis and elevated lactic acid level which may be suggestive of infection. Patient admitted to the floor for further workup and management. Acute metabolic encephalopathy due to hypoglycemia - Patient was treated with dextrose, now resolved Sepsis -Source of infection could be from the mouth as she has chronic dental carries, cont abx Lupus - Continue pain medicine and start her prednisone Colonic mass 1. Mass (likely malignant) in the suspected ascending colon. Unable to traverse with colonoscope due to stenosis secondary to the tumor. Multiple biopsies were obtained. Tattoo injected distally. Recommendations: -follow-up pathology -CT scan of chest for staging (CT of abdomen/pelvis performed on admission) -check CEA level -surgery consult. will need partial colon resection (even if path non- diagnostic) given degree of stenosis from the mass -oncology consult History of CVA with right hemiplegia - Supportive care DVT prophylaxis Disposition - Continue inpatient care, home with sister when acute issues resolved Subjective Date of service: 10/07/18 Principal diagnosis: colonic mass Interval history: 63-year-old female with past medical history significant for CVA with right-sided hemiplegia, lupus was presented to the emergency department with complaints of altered mental status. In the emergency department patient was found to have hypoglycemia and was treated accordingly. Workup showed that she has leukocytosis and elevated lactic acid level which may be suggestive of infection. Patient admitted to the floor for further workup and management. Objective - Constitutional Vitals: Vital Signs - 12hr 10/08/18 10/08/18 10/08/18 01:57 04:45 04:55 Temperature 98.3 F Pulse Rate 87 97 H 78 Respiratory 18 18 18 Rate Blood Pressure 163/94 191/102 152/84 O2 Sat by Pulse 96 92 93 Oximetry 10/08/18 09:51 Temperature Pulse Rate 78 Respiratory 20 Rate Blood Pressure 152/84 O2 Sat by Pulse Oximetry General appearance: Present: no acute distress, well-nourished - EENT Eyes: PERRL, EOM intact ENT: hearing intact, clear oral mucosa Ears: bilateral: normal - Neck Neck: supple, normal ROM - Respiratory Respiratory effort: normal Respiratory: bilateral: CTA - Breasts Breasts: normal - Cardiovascular Rhythm: regular Heart Sounds: Present: S1 & S2. Absent: gallop, rub Extremities: pulses intact, No edema, normal color, Full ROM - Gastrointestinal General gastrointestinal: Present: soft, non-tender, non-distended, normal bowel sounds - Genitourinary Female genitourinary: normal - Integumentary Integumentary: clear, warm, dry - Musculoskeletal Musculoskeletal: 1, strength equal bilaterally - Neurologic Neurologic: moves all extremities - Psychiatric Psychiatric: memory intact, appropriate mood/affect, intact judgment & insight - Labs CBC & Chem 7: 10/05/18 05:56 10/05/18 05:56 Labs: Abnormal lab results 10/07/18 10/07/18 10/08/18 Range/Units 17:26 20:50 07:52 POC Glucose 176 H 253 H 269 H (70-105) 10/08/18 Range/Units 12:17 POC Glucose 277 H (70-105)
[2018-10-08 14:06] LABS: Alanine Aminotransferase 13 units/L (7-56); Albumin 2.1 g/dL (3.9-5); BUN/Creatinine Ratio 6; Blood Urea Nitrogen 3 mg/dL (7-17); Hemolysis Index 2
--- NOTE | 2018-10-08 14:58 | Progress Note ---
Assessment and Plan 63-year-old female with past medical history significant for CVA with right-sided hemiplegia, lupus was presented to the emergency department with complaints of altered mental status. In the emergency department patient w as found to have hypoglycemia and was treated accordingly. Workup showed that she has leukocytosis and elevated lactic acid level which may be suggestive of infection. Patient admitted to the floor for further workup and management. Acute metabolic encephalopathy due to hypoglycemia - Patient was treated with dextrose, now resolved Sepsis -Source of infection could be from the mouth as she has chronic dental carries, cont abx Lupus - Continue pain medicine and start her prednisone Colonic mass 1. Mass (likely malignant) in the suspected ascending colon. Unable to traverse with colonoscope due to stenosis secondary to the tumor. Multiple biopsies were obtained. Tattoo injected distally. Recommendations: -follow-up pathology -CT scan of chest for staging (CT of abdomen/pelvis performed on admission) -check CEA level -surgery consult. will need partial colon resection (even if path non- diagnostic) given degree of stenosis from the mass -oncology consult-requested History of CVA with right hemiplegia - Supportive care DVT prophylaxis Disposition - Continue inpatient care, home with sister when acute issues resolved Subjective Date of service: 10/08/18 Principal diagnosis: colonic mass Interval history: 63-year-old female with past medical history significant for CVA with right-sided hemiplegia, lupus was presented to the emergency department with complaints of altered mental status. In the emergency department patient was found to have hypoglycemia and was treated accordingly. Workup showed that she has leukocytosis and elevated lactic acid level which may be suggestive of infection. Patient admitted to the floor for further workup and management. Objective - Constitutional Vitals: Vital Signs - 12hr 10/08/18 10/08/18 10/08/18 04:45 04:55 09:51 Temperature 98.3 F Pulse Rate 97 H 78 78 Respiratory 18 18 20 Rate Blood Pressure 191/102 152/84 152/84 O2 Sat by Pulse 92 93 Oximetry General appearance: Present: no acute distress, well-nourished - EENT Eyes: PERRL, EOM intact ENT: hearing intact, clear oral mucosa Ears: bilateral: normal - Neck Neck: supple, normal ROM - Respiratory Respiratory effort: normal Respiratory: bilateral: CTA - Breasts Breasts: normal - Cardiovascular Heart rate: 78 Rhythm: regular Heart Sounds: Present: S1 & S2. Absent: gallop, rub Extremities: no ischemia, pulses intact, No edema, normal color, Full ROM - Gastrointestinal General gastrointestinal: Present: soft, non-tender, non-distended, normal bowel sounds - Genitourinary Female genitourinary: deferred, normal - Integumentary Integumentary: clear, warm, dry - Musculoskeletal Musculoskeletal: 1, strength equal bilaterally - Neurologic Neurologic: moves all extremities - Psychiatric Psychiatric: memory intact, appropriate mood/affect, intact judgment & insight - Allied health notes Allied health notes reviewed: nursing, case management - Labs CBC & Chem 7: 10/05/18 05:56 10/08/18 13:29 Labs: Abnormal lab results 10/07/18 10/07/18 10/08/18 Range/Units 17:26 20:50 07:52 Sodium (137-145) mmol/L Chloride (98-107) mmol/L BUN (7-17) mg/dL Creatinine (0.7-1.2) mg/dL Glucose (65-100) mg/dL POC Glucose 176 H 253 H 269 H (70-105) Calcium (8.4-10.2) mg/dL Alkaline Phosphatase (35-129) units/L Total Protein (6.3-8.2) g/dL Albumin (3.9-5) g/dL 10/08/18 10/08/18 Range/Units 12:17 13:29 Sodium 147 H (137-145) mmol/L Chloride 107.6 H (98-107) mmol/L BUN 3 L (7-17) mg/dL Creatinine 0.5 L (0.7-1.2) mg/dL Glucose 316 H (65-100) mg/dL POC Glucose 277 H (70-105) Calcium 8.0 L (8.4-10.2) mg/dL Alkaline Phosphatase 136 H (35-129) units/L Total Protein 5.2 L (6.3-8.2) g/dL Albumin 2.1 L (3.9-5) g/dL
--- NOTE | 2018-10-08 16:21 | Consultation ---
History of Present Illness Consult date: 10/08/18 Reason for consult: other (colon mass) Requesting physician: CB STONE Chief complaint: abdominal pain - History of present illness History of present illness: 63yo F with multiple medical problems presented to the emergency department with altered mental status. As part of the workup, CT scan was done which showed a possible mass in the right colon. Colonoscopy was done which confirmed a near obstructing mass. General surgery was asked to consult for evaluation and m anagement. Patient does report that for some time she has had difficulty with right-sided abdominal pain. Has had nausea and intermittent vomiting. She has had problems with constipation. Stools are essentially liquid. Not sure if she has lost weight. She would like to have the mass removed. Family history is significant for father with cancer, but she does not know what type. Past History Past Medical History: other ( Stroke, hypertension, diabetes, DVT, IVC filter, congestive heart failure, residual right-sided weakness, on Coumadin therapy, dementia) Past Surgical History: hysterectomy, Other (IVC filter, umbo hernia repair) Social history: other (unable to obtain). denies: smoking, alcohol abuse Family history: cancer (father) Medications and Allergies Allergies Allergy/AdvReac Type Severity Reaction Status Date / Time Penicillins Allergy Unknown Verified 11/10/14 21:41 Peas Allergy Swelling Uncoded 07/01/16 12:21 Home Medications Medication Instructions Recorded Confirmed Last Taken Type AtorvaSTATin [Lipitor] 20 mg PO QDAY #30 tablet 07/09/16 10/01/18 1 Day Ago Rx ~10/29/16 Furosemide [Lasix TAB] 40 mg PO BID #60 tablet 07/09/16 10/01/18 1 Day Ago Rx ~10/29/16 Metformin HCl [Glucophage] 1,000 mg PO BID #60 tablet 07/09/16 10/01/18 1 Day Ago Rx ~10/29/16 Metoprolol [Lopressor TAB] 25 mg PO BID #60 tablet 07/09/16 10/02/18 1 Day Ago Rx ~10/29/16 Potassium Chloride [K-Dur] 20 meq PO QDAY #30 tablet 07/09/16 10/01/18 1 Day Ago Rx ~10/29/16 AtorvaSTATin [Lipitor] 20 mg PO QDAY 10/29/16 10/01/18 1 Day Ago History ~10/29/16 Citalopram [celeXA] 10 mg PO TID 10/29/16 10/02/18 1 Day Ago History ~10/29/16 Phenytoin Sodium Extended 200 mg PO QHS 10/30/16 10/01/18 1 Day Ago History ~10/29/16 Insulin Glargine [Lantus VIAL] 10 units SUB-Q QHS #1 units 11/04/16 10/02/18 1 Day Ago Rx ~10/29/16 Carvedilol [Coreg] 3.125 mg PO BID 10/01/18 10/01/18 Unknown History Clopidogrel [Plavix] 75 mg PO QDAY 10/01/18 10/01/18 Unknown History DULoxetine [Cymbalta] 60 mg PO QDAY 10/01/18 10/01/18 Unknown History Gemfibrozil [Lopid] 600 mg PO QDAY 10/01/18 10/01/18 Unknown History Morphine Sulfate 15 mg PO BID 10/01/18 10/01/18 Unknown History Phenytoin [Dilantin] 150 mg PO QDAY 10/01/18 10/01/18 Unknown History predniSONE [Deltasone] 5 mg PO Q48HR 10/03/18 10/03/18 Unknown History Active Meds: Active Medications Acetaminophen (Tylenol) 650 mg PO Q4H PRN PRN Reason: Fever >101 Last Admin: 10/05/18 00:37 Dose: 325 mg Documented by: Amoxicillin/Clavulanate Potassium (Augmentin 875 Mg) 1 each PO Q12HR [facility] Last Admin: 10/08/18 09:51 Dose: 1 each Documented by: Atorvastatin Calcium (Lipitor) 20 mg PO QHS [facility] Last Admin: 10/07/18 23:43 Dose: 20 mg Documented by: Carvedilol (Coreg) 3.125 mg PO BID [facility] Last Admin: 10/08/18 09:51 Dose: 3.125 mg Documented by: Dextrose (D50w (25gm) Syringe) 50 ml IV PRN PRN PRN Reason: Hypoglycemia Last Admin: 10/02/18 08:46 Dose: 50 ml Documented by: Duloxetine HCl (Cymbalta) 60 mg PO QDAY [facility] Last Admin: 10/08/18 09:51 Dose: 60 mg Documented by: Gemfibrozil (Lopid) 600 mg PO QDAY [facility] Last Admin: 10/08/18 10:06 Dose: 600 mg Documented by: Sodium Chloride (Nacl 0.9% 1000 Ml) 1,000 mls @ 125 mls/hr IV DIRECT ART Last Admin: 10/07/18 06:59 Dose: 125 mls/hr Documented by: Dextrose/Sodium Chloride (D5ns) 1,000 mls @ 125 mls/hr IV DIRECT ART Last Admin: 10/02/18 19:34 Dose: 125 mls/hr Documented by: Sodium Chloride (Nacl 0.9% 1000 Ml) 1,000 mls @ 50 mls/hr IV DIRECT [facility] Last Admin: 10/07/18 23:42 Dose: 50 mls/hr Documented by: Insulin Human Lispro (Humalog) 0 unit SUB-Q ACHS [facility]; Protocol Last Admin: 10/08/18 13:07 Dose: 4 unit Documented by: Morphine Sulfate (Ms Contin Er) 15 mg PO Q12HR [facility] Last Admin: 10/08/18 09:51 Dose: 15 mg Documented by: Ondansetron HCl (Zofran) 4 mg IV Q8H PRN PRN Reason: Nausea And Vomiting Last Admin: 10/07/18 23:40 Dose: 4 mg Documented by: Phenytoin (Dilantin) 200 mg PO QHS [facility] Last Admin: 10/07/18 23:37 Dose: 200 mg Documented by: Prednisone (Deltasone) 5 mg PO Q48HR [facility] Last Admin: 10/08/18 09:51 Dose: 5 mg Documented by: Review of Systems - Constitutional chronic pain, no fever, no chills - Cardiovascular no chest pain, no shortness of breath - Respiratory no cough - Gastrointestinal abdominal pain, change in bowel habits, hematochezia (occasionally), dyspepsia/bloating, no nausea, no vomiting - Muskuloskeletal no low back pain - Integumentary no sores, no wounds - Neurological paralysis, other (CVA) Exam Vital Signs Pulse Ox 98 10/01/18 20:22 - General physical appearance Positive: no distress, no pain, obese, other (pleasant) - Respiratory Positive: normal expansion, normal respiratory effort, clear to auscultation - Cardiovascular Rhythm: regular - Extremities Extremity abnormal: other (does not move RUE; minimal movement of RLE) - Abdomen Abdomen: Present: soft, tender (mild throughout), surgical scars (subumbilical - well healed). Absent: distended, masses, rebound, guarding, rigid, wound - Integumentary no rash, no growths, no abnormal pigmentation - Neurologic Neurologic: alert and oriented to time, place and person - Psychiatric Psychiatric: appropriate mood/affect, intact judgment & insight, cooperative Results - Labs 10/05/18 05:56 10/08/18 13:29 Abnormal lab results 10/07/18 10/07/18 10/08/18 Range/Units 17:26 20:50 07:52 Sodium (137-145) mmol/L Chloride (98-107) mmol/L BUN (7-17) mg/dL Creatinine (0.7-1.2) mg/dL Glucose (65-100) mg/dL POC Glucose 176 H 253 H 269 H (70-105) Calcium (8.4-10.2) mg/dL Alkaline Phosphatase (35-129) units/L Total Protein (6.3-8.2) g/dL Albumin (3.9-5) g/dL 10/08/18 10/08/18 Range/Units 12:17 13:29 Sodium 147 H (137-145) mmol/L Chloride 107.6 H (98-107) mmol/L BUN 3 L (7-17) mg/dL Creatinine 0.5 L (0.7-1.2) mg/dL Glucose 316 H (65-100) mg/dL POC Glucose 277 H (70-105) Calcium 8.0 L (8.4-10.2) mg/dL Alkaline Phosphatase 136 H (35-129) units/L Total Protein 5.2 L (6.3-8.2) g/dL Albumin 2.1 L (3.9-5) g/dL Diabetes panel 10/08/18 Range/Units 13:29 Sodium 147 H (137-145) mmol/L Potassium 3.7 (3.6-5.0) mmol/L Chloride 107.6 H (98-107) mmol/L Carbon Dioxide 23 (22-30) mmol/L BUN 3 L (7-17) mg/dL Creatinine 0.5 L (0.7-1.2) mg/dL Glucose 316 H (65-100) mg/dL Calcium 8.0 L (8.4-10.2) mg/dL AST 14 (5-40) units/L ALT 13 (7-56) units/L Alkaline Phosphatase 136 H (35-129) units/L Total Protein 5.2 L (6.3-8.2) g/dL Albumin 2.1 L (3.9-5) g/dL Calcium panel 10/08/18 Range/Units 13:29 Calcium 8.0 L (8.4-10.2) mg/dL Albumin 2.1 L (3.9-5) g/dL Pituitary panel 10/08/18 Range/Units 13:29 Sodium 147 H (137-145) mmol/L Potassium 3.7 (3.6-5.0) mmol/L Chloride 107.6 H (98-107) mmol/L Carbon Dioxide 23 (22-30) mmol/L BUN 3 L (7-17) mg/dL Creatinine 0.5 L (0.7-1.2) mg/dL Glucose 316 H (65-100) mg/dL Calcium 8.0 L (8.4-10.2) mg/dL Adrenal panel 10/08/18 Range/Units 13:29 Sodium 147 H (137-145) mmol/L Potassium 3.7 (3.6-5.0) mmol/L Chloride 107.6 H (98-107) mmol/L Carbon Dioxide 23 (22-30) mmol/L BUN 3 L (7-17) mg/dL Creatinine 0.5 L (0.7-1.2) mg/dL Glucose 316 H (65-100) mg/dL Calcium 8.0 L (8.4-10.2) mg/dL Total Bilirubin < 0.20 (0.1-1.2) mg/dL AST 14 (5-40) units/L ALT 13 (7-56) units/L Alkaline Phosphatase 136 H (35-129) units/L Total Protein 5.2 L (6.3-8.2) g/dL Albumin 2.1 L (3.9-5) g/dL - Imaging CT scan - abdomen: report reviewed, image reviewed CT scan - pelvis: report reviewed, image reviewed Assessment and Plan - Patient Problems (1) Mass of colon Current Visit: Yes Status: Acute Plan to address problem: Pt stable. Patient with near obstructing colonic mass. Most likely malignant. As the mass is near obstructing, would recommend resection during this admission. Patient and sister are in agreement. We will need cardiac clearance as patient has a history of heart failure. She is managed by [facility]. Plavix will need to continue to be held. We'll finalize procedure in time once cardiac clearance is obtained. Will follow along. Please call with questions. Time=45min
[2018-10-08] MEDS: DILANTIN PO SCH (21:59)
[2018-10-09 06:05] LABS: Basophils # (Auto) 0.1 K/mm3 (0.0-0.1); Basophils % (Auto) 0.8 % (0.0-1.8); Eosinophils # (Auto) 0.2 K/mm3 (0.0-0.4); Eosinophils % (Auto) 2.5 % (0.0-4.3); Hemoglobin 8.4 gm/dl (10.1-14.3); Lymphocytes # (Auto) 1.4 K/mm3 (1.2-5.4); Lymphocytes % (Auto) 16.3 % (13.4-35.0); Monocytes # (Auto) 0.6 K/mm3 (0.0-0.8); Monocytes % (Auto) 6.4 % (0.0-7.3)
[2018-10-09 06:29] LABS: Alanine Aminotransferase 15 units/L (7-56); Albumin 2.4 g/dL (3.9-5); BUN/Creatinine Ratio 6; Blood Urea Nitrogen 3 mg/dL (7-17); Calcium 8.3 mg/dL (8.4-10.2); Hemolysis Index 0
[2018-10-09 07:24] LABS: Hematocrit 27.1 % (30.3-42.9); Mean Corpuscular HGB Conc 31 % (30-34); Mean Corpuscular Volume 69 fl (79-97); Red Blood Count 3.92 M/mm3 (3.65-5.03); Red Cell Distribution Width 24.5 % (13.2-15.2)
[2018-10-09 07:25] LABS: Mean Platelet Volume 7.1 fl (6-12); Platelet Count 603 K/mm3 (140-440)
[2018-10-09] MEDS: HumaLOG SUB-Q SCH ×4 (09:06→22:34)
[2018-10-09] MEDS: MS CONTIN ER PO SCH ×2 (12:25→22:32)
[2018-10-09] MEDS: CYMBALTA PO SCH (12:25)
[2018-10-09] MEDS: COREG PO SCH ×3 (12:25→22:32)
[2018-10-09] MEDS: LOPID PO SCH (12:25)
[2018-10-09] MEDS: AUGMENTIN 875 MG PO SCH ×4 (12:25→22:32)
--- NOTE | 2018-10-09 13:00 | Consultation ---
History of Present Illness Consult date: 10/09/18 Consult reason: congestive heart failure History of present illness: Impression Pt is diagnosed with colonic mass, we have been asked to give pre-op risk assessment. Currently she does not have chest pain or shortness of breath No acute findings on CXR. she is functionally limited, less than 4 METS due to CVA She has prior history of CHF,right sided by history HTN DVT s/p IVC filter 2014 No anticoag due to GI bleeding h/o Carotid disease Lupus anemia Plan ECG sinus tachy, LAE no ischemic findings CXR no acute findings Recommend echocardiogram Lexiscan to stratify CAD risk on Thursday Plavix to be held Replete potassium Titrate b-nikki to control HR. Past History Past Medical History: other ( Stroke, hypertension, diabetes, DVT, IVC filter, c ongestive heart failure, residual right-sided weakness, on Coumadin therapy, dementia) Past Surgical History: hysterectomy, Other (IVC filter, umbo hernia repair) Social history: other (unable to obtain). denies: smoking, alcohol abuse Family history: cancer (father) Medications and Allergies Allergies Allergy/AdvReac Type Severity Reaction Status Date / Time Penicillins Allergy Unknown Verified 11/10/14 21:41 Peas Allergy Swelling Uncoded 07/01/16 12:21 Home Medications Medication Instructions Recorded Confirmed Last Taken Type AtorvaSTATin [Lipitor] 20 mg PO QDAY #30 tablet 07/09/16 10/01/18 1 Day Ago Rx ~10/29/16 Furosemide [Lasix TAB] 40 mg PO BID #60 tablet 07/09/16 10/01/18 1 Day Ago Rx ~10/29/16 Metformin HCl [Glucophage] 1,000 mg PO BID #60 tablet 07/09/16 10/01/18 1 Day Ago Rx ~10/29/16 Metoprolol [Lopressor TAB] 25 mg PO BID #60 tablet 07/09/16 10/02/18 1 Day Ago Rx ~10/29/16 Potassium Chloride [K-Dur] 20 meq PO QDAY #30 tablet 07/09/16 10/01/18 1 Day Ago Rx ~10/29/16 AtorvaSTATin [Lipitor] 20 mg PO QDAY 10/29/16 10/01/18 1 Day Ago History ~10/29/16 Citalopram [celeXA] 10 mg PO TID 10/29/16 10/02/18 1 Day Ago History ~10/29/16 Phenytoin Sodium Extended 200 mg PO QHS 10/30/16 10/01/18 1 Day Ago History ~10/29/16 Insulin Glargine [Lantus VIAL] 10 units SUB-Q QHS #1 units 11/04/16 10/02/18 1 Day Ago Rx ~10/29/16 Carvedilol [Coreg] 3.125 mg PO BID 10/01/18 10/01/18 Unknown History Clopidogrel [Plavix] 75 mg PO QDAY 10/01/18 10/01/18 Unknown History DULoxetine [Cymbalta] 60 mg PO QDAY 10/01/18 10/01/18 Unknown History Gemfibrozil [Lopid] 600 mg PO QDAY 10/01/18 10/01/18 Unknown History Morphine Sulfate 15 mg PO BID 10/01/18 10/01/18 Unknown History Phenytoin [Dilantin] 150 mg PO QDAY 10/01/18 10/01/18 Unknown History predniSONE [Deltasone] 5 mg PO Q48HR 10/03/18 10/03/18 Unknown History Active Meds: Active Medications Acetaminophen (Tylenol) 650 mg PO Q4H PRN PRN Reason: Fever >101 Last Admin: 10/05/18 00:37 Dose: 325 mg Documented by: Amoxicillin/Clavulanate Potassium (Augmentin 875 Mg) 1 each PO Q12HR [facility] Stop: 10/11/18 22:01 Last Admin: 10/09/18 12:45 Dose: Not Given Documented by: Atorvastatin Calcium (Lipitor) 20 mg PO QHS [facility] Last Admin: 10/08/18 21:59 Dose: 20 mg Documented by: Carvedilol (Coreg) 3.125 mg PO BID [facility] Last Admin: 10/09/18 12:25 Dose: Not Given Documented by: Dextrose (D50w (25gm) Syringe) 50 ml IV PRN PRN PRN Reason: Hypoglycemia Last Admin: 10/02/18 08:46 Dose: 50 ml Documented by: Duloxetine HCl (Cymbalta) 60 mg PO QDAY [facility] Last Admin: 10/09/18 12:25 Dose: Not Given Documented by: Gemfibrozil (Lopid) 600 mg PO QDAY [facility] Last Admin: 10/09/18 12:25 Dose: Not Given Documented by: Sodium Chloride (Nacl 0.9% 1000 Ml) 1,000 mls @ 125 mls/hr IV DIRECT ART Last Admin: 10/07/18 06:59 Dose: 125 mls/hr Documented by: Dextrose/Sodium Chloride (D5ns) 1,000 mls @ 125 mls/hr IV DIRECT [facility] Last Admin: 10/02/18 19:34 Dose: 125 mls/hr Documented by: Sodium Chloride (Nacl 0.9% 1000 Ml) 1,000 mls @ 50 mls/hr IV DIRECT [facility] Last Admin: 10/07/18 23:42 Dose: 50 mls/hr Documented by: Insulin Human Lispro (Humalog) 0 unit SUB-Q ACHS [facility]; Protocol Last Admin: 10/09/18 09:06 Dose: Not Given Documented by: Morphine Sulfate (Ms Contin Er) 15 mg PO Q12HR [facility] Last Admin: 10/09/18 12:25 Dose: Not Given Documented by: Ondansetron HCl (Zofran) 4 mg IV Q8H PRN PRN Reason: Nausea And Vomiting Last Admin: 10/07/18 23:40 Dose: 4 mg Documented by: Phenytoin (Dilantin) 200 mg PO QHS [facility] Last Admin: 10/08/18 21:59 Dose: 200 mg Documented by: Prednisone (Deltasone) 5 mg PO Q48HR [facility] Last Admin: 10/08/18 09:51 Dose: 5 mg Documented by: Review of Systems All systems: negative (stated in impression) Physical Examination Vital Signs Pulse Ox 98 10/01/18 20:22 General appearance: no acute distress Neck: Positive: neck supple Cardiac: Positive: Reg Rate and Rhythm, S1/S2 Lungs: Positive: clear to auscultation Abdomen: Positive: Soft. Negative: Pulsations/Bruits Extremities: Present: +1 Edema Results 10/09/18 05:31 10/09/18 05:31 Cardiac Enzymes 10/08/18 10/09/18 Range/Units 13:29 05:31 AST 14 15 (5-40) units/L CBC 10/09/18 Range/Units 05:31 WBC 8.9 (4.5-11.0) K/mm3 RBC 3.92 (3.65-5.03) M/mm3 Hgb 8.4 L (10.1-14.3) gm/dl Hct 27.1 L (30.3-42.9) % Plt Count 603 H (140-440) K/mm3 Lymph # 1.4 (1.2-5.4) K/mm3 [place] # 0.6 (0.0-0.8) K/mm3 Eos # 0.2 (0.0-0.4) K/mm3 Baso # 0.1 (0.0-0.1) K/mm3 Comprehensive Metabolic Panel 10/08/18 10/09/18 Range/Units 13:29 05:31 Sodium 147 H 143 (137-145) mmol/L Potassium 3.7 3.3 L (3.6-5.0) mmol/L Chloride 107.6 H 106.3 (98-107) mmol/L Carbon Dioxide 23 27 (22-30) mmol/L BUN 3 L 3 L (7-17) mg/dL Creatinine 0.5 L 0.5 L (0.7-1.2) mg/dL Glucose 316 H 218 H (65-100) mg/dL Calcium 8.0 L 8.3 L (8.4-10.2) mg/dL AST 14 15 (5-40) units/L ALT 13 15 (7-56) units/L Alkaline Phosphatase 136 H 151 H (35-129) units/L Total Protein 5.2 L 5.8 L (6.3-8.2) g/dL Albumin 2.1 L 2.4 L (3.9-5) g/dL
--- NOTE | 2018-10-09 13:14 | Cat Scan Report ---
CT CHEST WITH CONTRAST INDICATION: Recently diagnosed colon mass. Evaluate for metastases. TECHNIQUE: Axial CT images were obtained through the chest after injection of 100 mL Omnipaque 300 contrast. Cor onal and sagittal reformats were produced. All CT scans at this location are performed using CT dose reduction for ALARA by means of automated exposure control. COMPARISON: One view of the chest from 10/01/2018. FINDINGS: MEDIASTINUM and YURY: No significant abnormality of the thyroid gland, trachea or main bronchi. Right paratracheal nodes measure up to 1.1 cm on image 33 of series 2. No additional lymphadenopathy or do minant mass is seen. The heart is normal in size without a significant pericardial effusion. The aort a and great vessels are patent and normal in caliber. The central pulmonary arteries are patent. No s ignificant coronary atherosclerosis is seen. LUNGS: Trace bilateral pleural effusions are noted with associated atelectasis. No suspicious nodule, mass or area of consolidation is seen. No pneumothorax. ADDITIONAL FINDINGS: There is a prominent right axillary node measuring 1.2 cm in short axis dimensio n on image 18 of series 2. UPPER ABDOMEN: No acute abnormality. SKELETAL SYSTEM: No acute abnormality or aggressive appearing osseous lesion. IMPRESSION: 1. Mildly enlarged mediastinal and right axillary nodes are of uncertain significance. Metastatic dis ease cannot be excluded. No additional CT evidence of metastatic disease in the chest. 2. Trace bilateral pleural effusions with associated atelectasis. Signer Name: James Diaz MD Signed: 10/09/2018 1:10 PM Workstation Name: [id number]
--- NOTE | 2018-10-09 13:48 | Progress Note ---
Assessment and Plan Acute metabolic encephalopathy due to hypoglycemia - Patient was treated with dextrose, now resolved Sepsis -Source of infection could be from the mouth as she has chronic dental carries, cont abx Lupus - Continue pain medicine and start her prednisone Colonic mass 1. Mass (likely malignant) in the suspected ascending colon. Unable to traverse with colonoscope due to stenosis secondary to the tumor. Multiple biopsies were obtained. Tattoo injected distally. Recommendations: -follow-up pathology -CT scan of chest for staging (CT of abdomen/pelvis performed on admission) -check CEA level -surgery consult. --Appreciated-Waiting for cardiology clearance For Lexiscan on Thursday -oncology consult-requested History of CVA with right hemiplegia - Supportive care DVT prophylaxis Disposition - Continue inpatient care, home with sister when acute issues resolved Subjective Date of service: 10/09/18 Principal diagnosis: colonic mass Interval history: 63-year-old female with past medical history significant for CVA with right-sided hemiplegia, lupus was presented to the emergency department with complaints of altered mental status. In the emergency department patient was found to have hypoglycemia and was treated accordingly. Workup showed that she has leukocytosis and elevated lactic acid level which may be suggestive of infection. Patient admitted to the floor for further workup and management. Further work up revealed Ascending colon mass nearly obsructing--needs resection Objective - Constitutional Vitals: Vital Signs - 12hr 10/09/18 10/09/18 05:10 12:26 Temperature 98.2 F 98.3 F Pulse Rate 105 H 95 H Respiratory 20 20 Rate Blood Pressure 154/75 148/74 O2 Sat by Pulse 94 98 Oximetry General appearance: Present: no acute distress, well-nourished - EENT Eyes: PERRL, EOM intact ENT: hearing intact, clear oral mucosa Ears: bilateral: normal - Neck Neck: supple, normal ROM - Respiratory Respiratory effort: normal Respiratory: bilateral: CTA - Breasts Breasts: normal - Cardiovascular Heart rate: 88 Rhythm: regular Heart Sounds: Present: S1 & S2. Absent: gallop, rub Extremities: pulses intact, No edema, normal color, Full ROM - Gastrointestinal General gastrointestinal: Present: soft, non-tender, non-distended, normal bowel sounds - Genitourinary Female genitourinary: normal - Integumentary Integumentary: clear, warm, dry - Musculoskeletal Musculoskeletal: 1, strength equal bilaterally - Neurologic Neurologic: moves all extremities - Psychiatric Psychiatric: memory intact, appropriate mood/affect, intact judgment & insight - Labs CBC & Chem 7: 10/09/18 05:31 10/09/18 05:31 Labs: Abnormal lab results 10/08/18 10/08/18 10/08/18 Range/Units 13:29 17:11 20:53 Hgb (10.1-14.3) gm/dl Hct (30.3-42.9) % MCV (79-97) fl MCH (28-32) pg RDW (13.2-15.2) % Plt Count (140-440) K/mm3 Seg Neutrophils % (40.0-70.0) % Sodium 147 H (137-145) mmol/L Potassium (3.6-5.0) mmol/L Chloride 107.6 H (98-107) mmol/L BUN 3 L (7-17) mg/dL Creatinine 0.5 L (0.7-1.2) mg/dL Glucose 316 H (65-100) mg/dL POC Glucose 243 H 245 H (70-105) Calcium 8.0 L (8.4-10.2) mg/dL Alkaline Phosphatase 136 H (35-129) units/L Total Protein 5.2 L (6.3-8.2) g/dL Albumin 2.1 L (3.9-5) g/dL 10/09/18 10/09/18 10/09/18 Range/Units 05:31 05:31 07:57 Hgb 8.4 L (10.1-14.3) gm/dl Hct 27.1 L (30.3-42.9) % MCV 69 L (79-97) fl MCH 22 L (28-32) pg RDW 24.5 H (13.2-15.2) % Plt Count 603 H (140-440) K/mm3 Seg Neutrophils % 74.0 H (40.0-70.0) % Sodium (137-145) mmol/L Potassium 3.3 L (3.6-5.0) mmol/L Chloride (98-107) mmol/L BUN 3 L (7-17) mg/dL Creatinine 0.5 L (0.7-1.2) mg/dL Glucose 218 H (65-100) mg/dL POC Glucose 234 H (70-105) Calcium 8.3 L (8.4-10.2) mg/dL Alkaline Phosphatase 151 H (35-129) units/L Total Protein 5.8 L (6.3-8.2) g/dL Albumin 2.4 L (3.9-5) g/dL 10/09/18 Range/Units 12:34 Hgb (10.1-14.3) gm/dl Hct (30.3-42.9) % MCV (79-97) fl MCH (28-32) pg RDW (13.2-15.2) % Plt Count (140-440) K/mm3 Seg Neutrophils % (40.0-70.0) % Sodium (137-145) mmol/L Potassium (3.6-5.0) mmol/L Chloride (98-107) mmol/L BUN (7-17) mg/dL Creatinine (0.7-1.2) mg/dL Glucose (65-100) mg/dL POC Glucose 225 H (70-105) Calcium (8.4-10.2) mg/dL Alkaline Phosphatase (35-129) units/L Total Protein (6.3-8.2) g/dL Albumin (3.9-5) g/dL
[2018-10-09] MEDS: K-DUR PO SCH (16:20)
[2018-10-09] MEDS: NACL 0.9% 1000 ML 1,000 ML IV SCH (20:12)
[2018-10-09] MEDS: DILANTIN PO SCH (22:33)
[2018-10-10] MEDS: ZOFRAN IV PRN (02:32)
[2018-10-10] MEDS: TYLENOL PO PRN (02:32)
[2018-10-10] MEDS ORDERED: PERCOCET 5/325 PO ONE (03:07)
[2018-10-10] MEDS: HumaLOG SUB-Q SCH ×4 (09:07→22:38)
[2018-10-10] MEDS ORDERED: APRESOLINE IV ONE (09:22)
[2018-10-10] MEDS: AUGMENTIN 875 MG PO SCH ×2 (09:44→22:39)
[2018-10-10] MEDS: MS CONTIN ER PO SCH ×2 (09:45→22:38)
[2018-10-10] MEDS: COREG PO SCH ×2 (09:46→22:39)
[2018-10-10] MEDS: CYMBALTA PO SCH (09:46)
[2018-10-10] MEDS: LOPID PO SCH (09:46)
[2018-10-10] MEDS: DELTASONE PO SCH (09:53)
[2018-10-10] MEDS: K-DUR PO SCH (09:53)
--- NOTE | 2018-10-10 10:36 | Progress Note ---
Subjective Date of service: 10/10/18 Principal diagnosis: colonic mass Interval history: Pt is diagnosed with colonic mass, we have been asked to give pre-op risk assessment. Currently she does not have chest pain or shortness of breath No acute findings on CXR. she is functionally limited, less than 4 METS due to CVA She has prior history of CHF,right sided by history HTN DVT s/p IVC filter 2014 No anticoag due to GI bleeding h/o Carotid disease Lupus anemia Plan ECG sinus tachy, LAE no ischemic findings CXR no acute findings Echocardiogram EF 55%, mild pulm HTN Lexiscan to stratify CAD risk on Thursday Plavix to be held Replete potassium Titrate b-nikki to control HR. Objective Vital Signs Temp Pulse Resp Resp BP Pulse Ox 10/10/18 09:54 98 H 147/85 10/10/18 09:46 98 H 147/85 10/10/18 05:07 98.3 F 98 H 18 179/91 96 10/10/18 04:05 18 10/10/18 03:32 20 10/10/18 03:05 20 10/10/18 02:32 20 10/09/18 23:37 98.4 F 87 18 174/86 100 10/09/18 23:32 18 10/09/18 22:32 87 18 20 177/90 10/09/18 22:30 98.0 F 75 18 177/90 98 10/09/18 21:30 20 10/09/18 17:01 98.6 F 89 20 142/82 98 10/09/18 16:20 95 H 148/74 10/09/18 12:26 98.3 F 95 H 20 148/74 98 - Physical Examination General: No Apparent Distress Neck: Positive: neck supple Cardiac: Positive: Reg Rate and Rhythm, S1/S2 Lungs: Positive: clear to auscultation Abdomen: Positive: Soft. Negative: Pulsations/Bruits Extremities: Present: +1 Edema
[2018-10-10] MEDS: NACL 0.9% 1000 ML 1,000 ML IV SCH (16:19)
--- NOTE | 2018-10-10 21:39 | Progress Note ---
Assessment and Plan Assessment and plan: 63-year-old female with past medical history significant for CVA with right-sided hemiplegia, lupus was presented to the emergency department with complaints of altered mental status. In the emergency department patient was found to have hypoglycemia and was treated accordingly. Workup showed that she has leukocytosis and elevated lactic acid level which may be suggestive of infection. Patient admitted to the floor for further workup and management. Acute metabolic encephalopathy due to hypoglycemia - Patient was treated with dextrose, now resolved Sepsis -from periodontal infection, continue augmentin till 10/12 per id Lupus - Continue pain medicine and her prednisone Colonic mass - almost completely obstructed, for surgical resection, stress test tomorrow History of CVA with right hemiplegia - Supportive care DVT prophylaxis Disposition - Continue inpatient care, home with sister when acute issues resolved History Interval history: Patient was seen evaluated this morning, patient was alert and oriented. patient was confused. Hospitalist Physical - Physical exam Narrative exam: Not in cardiopulmonary distress. The patient appeared well nourished and normally developed. Vital signs as documented. poor dentition Head exam is unremarkable. No scleral icterus . Neck is without jugular venous distension, thyromegaly, or carotid bruits. Lungs are clear to auscultation. Cardiac exam reveals regular rate and Rhythm. Abdominal exam reveals normal bowel sounds, no masses, no organomegaly and no aortic enlargement. Extremities are nonedematous and both femoral and pedal pulses are normal. [employer]: Alert and confused at baseline, sister makes her decisions. Skin: Dry, intact. Hospitalist Physical - Constitutional Vitals: Temp Pulse Resp BP Pulse Ox 99.5 F 111 H 16 128/75 96 10/10/18 11:58 10/10/18 11:58 10/10/18 11:58 10/10/18 11:58 10/10/18 11:58 General appearance: Present: no acute distress, well-nourished Results - Labs CBC & Chem 7: 10/09/18 05:31 10/09/18 05:31 Labs: Laboratory Last Values WBC 8.9 K/mm3 (4.5-11.0) 10/09/18 05:31 RBC 3.92 M/mm3 (3.65-5.03) 10/09/18 05:31 Hgb 8.4 gm/dl (10.1-14.3) L 10/09/18 05:31 Hct 27.1 % (30.3-42.9) L 10/09/18 05:31 MCV 69 fl (79-97) L 10/09/18 05:31 MCH 22 pg (28-32) L 10/09/18 05:31 MCHC 31 % (30-34) 10/09/18 05:31 RDW 24.5 % (13.2-15.2) H 10/09/18 05:31 Plt Count 603 K/mm3 (140-440) H 10/09/18 05:31 Lymph % (Auto) 16.3 % (13.4-35.0) 10/09/18 05:31 [place] % (Auto) 6.4 % (0.0-7.3) 10/09/18 05:31 Eos % (Auto) 2.5 % (0.0-4.3) 10/09/18 05:31 Baso % (Auto) 0.8 % (0.0-1.8) 10/09/18 05:31 Lymph # 1.4 K/mm3 (1.2-5.4) 10/09/18 05:31 [place] # 0.6 K/mm3 (0.0-0.8) 10/09/18 05:31 Eos # 0.2 K/mm3 (0.0-0.4) 10/09/18 05:31 Baso # 0.1 K/mm3 (0.0-0.1) 10/09/18 05:31 Add Manual Diff Complete 10/01/18 21:40 Total Counted 100 10/01/18 21:40 Seg Neutrophils % 74.0 % (40.0-70.0) H 10/09/18 05:31 Seg Neuts % (Manual) 94.0 % (40.0-70.0) H 10/01/18 21:40 0 % 10/01/18 21:40 2.0 % (13.4-35.0) L 10/01/18 21:40 Reactive Lymphs % (Man) 0 % 10/01/18 21:40 3.0 % (0.0-7.3) 10/01/18 21:40 1.0 % (0.0-4.3) 10/01/18 21:40 0 % (0.0-1.8) 10/01/18 21:40 0 % 10/01/18 21:40 0 % 10/01/18 21:40 0 % 10/01/18 21:40 0 % 10/01/18 21:40 Nucleated RBC % Not Reportable 10/01/18 21:40 Seg Neutrophils # 6.5 K/mm3 (1.8-7.7) 10/09/18 05:31 Seg Neutrophils # Man 17.3 K/mm3 (1.8-7.7) H 10/01/18 21:40 Band Neutrophils # 0.0 K/mm3 10/01/18 21:40 0.4 K/mm3 (1.2-5.4) L 10/01/18 21:40 Abs React Lymphs (Man) 0.0 K/mm3 10/01/18 21:40 0.6 K/mm3 (0.0-0.8) 10/01/18 21:40 0.2 K/mm3 (0.0-0.4) 10/01/18 21:40 0.0 K/mm3 (0.0-0.1) 10/01/18 21:40 0.0 K/mm3 10/01/18 21:40 0.0 K/mm3 10/01/18 21:40 0.0 K/mm3 10/01/18 21:40 Blast Cells # 0.0 K/mm3 10/01/18 21:40 WBC Morphology Not Reportable 10/01/18 21:40 Hypersegmented Neuts Not Reportable 10/01/18 21:40 Hyposegmented Neuts Not Reportable 10/01/18 21:40 Hypogranular Neuts Not Reportable 10/01/18 21:40 Not Reportable 10/01/18 21:40 Not Reportable 10/01/18 21:40 Not Reportable 10/01/18 21:40 Not Reportable 10/01/18 21:40 Not Reportable 10/01/18 21:40 Not Reportable 10/01/18 21:40 Appears increased 10/01/18 21:40 Not Reportable 10/01/18 21:40 Plt Clumps, EDTA Not Reportable 10/01/18 21:40 Not Reportable 10/01/18 21:40 Not Reportable 10/01/18 21:40 Not Reportable 10/01/18 21:40 Plt Morphology Comment Not Reportable 10/01/18 21:40 RBC Morphology Not Reportable 10/01/18 21:40 Dimorphic RBCs Not Reportable 10/01/18 21:40 Not Reportable 10/01/18 21:40 Not Reportable 10/01/18 21:40 1+ 10/01/18 21:40 2+ 10/01/18 21:40 1+ 10/01/18 21:40 Not Reportable 10/01/18 21:40 Not Reportable 10/01/18 21:40 Not Reportable 10/01/18 21:40 Not Reportable 10/01/18 21:40 Not Reportable 10/01/18 21:40 Not Reportable 10/01/18 21:40 Not Reportable 10/01/18 21:40 Not Reportable 10/01/18 21:40 Not Reportable 10/01/18 21:40 Not Reportable 10/01/18 21:40 Not Reportable 10/01/18 21:40 Not Reportable 10/01/18 21:40 Not Reportable 10/01/18 21:40 Not Reportable 10/01/18 21:40 Acanthocytes (Spur) Not Reportable 10/01/18 21:40 Rouleaux Not Reportable 10/01/18 21:40 Not Reportable 10/01/18 21:40 Not Reportable 10/01/18 21:40 Not Reportable 10/01/18 21:40 Not Reportable 10/01/18 21:40 Hem Pathologist Commnt No 10/01/18 21:40 PT 15.1 Sec. (12.2-14.9) H 10/07/18 05:24 INR 1.22 (0.87-1.13) H 10/07/18 05:24 APTT 25.3 Sec. (24.2-36.6) 10/01/18 21:40 Sodium 143 mmol/L (137-145) 10/09/18 05:31 Potassium 3.3 mmol/L (3.6-5.0) L 10/09/18 05:31 Chloride 106.3 mmol/L (98-107) 10/09/18 05:31 Carbon Dioxide 27 mmol/L (22-30) 10/09/18 05:31 13 mmol/L 10/09/18 05:31 BUN 3 mg/dL (7-17) L 10/09/18 05:31 0.5 mg/dL (0.7-1.2) L 10/09/18 05:31 Estimated GFR > 60 ml/min 10/09/18 05:31 6 % 10/09/18 05:31 Glucose 218 mg/dL (65-100) H 10/09/18 05:31 POC Glucose 226 (70-105) H 10/10/18 21:07 5.4 % (4-6) 10/06/18 05:56 Lactic Acid 1.10 mmol/L (0.7-2.0) 10/02/18 16:50 Calcium 8.3 mg/dL (8.4-10.2) L 10/09/18 05:31 Phosphorus 2.10 mg/dL (2.5-4.5) L 10/05/18 05:56 Magnesium 2.00 mg/dL (1.7-2.3) 10/05/18 05:56 < 0.20 mg/dL (0.1-1.2) 10/09/18 05:31 AST 15 units/L (5-40) 10/09/18 05:31 ALT 15 units/L (7-56) 10/09/18 05:31 151 units/L (35-129) H 10/09/18 05:31 38.0 umol/L (25-60) 10/01/18 21:40 33 units/L (30-135) 10/01/18 21:40 < 0.010 ng/mL (0.00-0.029) 10/01/18 21:40 5.8 g/dL (6.3-8.2) L 10/09/18 05:31 2.4 g/dL (3.9-5) L 10/09/18 05:31 0.7 % 10/09/18 05:31 TSH 0.449 mlU/mL (0.270-4.200) 10/01/18 21:40 Yellow (Yellow) 10/01/18 23:24 Clear (Clear) 10/01/18 23:24 5.0 (5.0-7.0) 10/01/18 23:24 Ur Specific [place] 1.010 (1.003-1.030) 10/01/18 23:24 <15 mg/dl mg/dL (Negative) 10/01/18 23:24 Neg mg/dL (Negative) 10/01/18 23:24 Neg mg/dL (Negative) 10/01/18 23:24 Neg (Negative) 10/01/18 23:24 Neg (Negative) 10/01/18 23:24 Neg (Negative) 10/01/18 23:24 < 2.0 mg/dL (<2.0) 10/01/18 23:24 Ur Leukocyte Esterase Neg (Negative) 10/01/18 23:24 < 1.0 /HPF (0.0-6.0) 10/01/18 23:24 < 1.0 /HPF (0.0-6.0) 10/01/18 23:24 Vancomycin Trough 9.4 ug/mL (5.0-20.0) 10/04/18 12:46 Salicylates < 0.3 mg/dL (2.8-20.0) L 10/01/18 21:40 Acetaminophen < 5.0 ug/mL (10.0-30.0) L 10/01/18 21:40 Phenytoin 6.7 ug/mL (10.0-20.0) L 10/01/18 23:44 Plasma/Serum Alcohol < 0.01 % (0-0.07) 10/01/18 21:40 Blood Type B POSITIVE 10/04/18 19:36 Antibody Screen Negative 10/04/18 19:36 Crossmatch See Detail 10/04/18 19:36 Active Medications - Current Medications Current Medications: Generic Name Dose Route Start Last Admin Trade Name Freq PRN Reason Stop Dose Admin Acetaminophen 650 mg 10/01/18 23:43 10/10/18 02:32 Tylenol PO 650 mg Q4H PRN Administration Fever >101 Amoxicillin/Clavulanate Potassium 1 each 10/07/18 10:00 10/10/18 09:44 Augmentin 875 Mg PO 10/11/18 22:01 1 each Q12HR ART Administration Atorvastatin Calcium 20 mg 10/02/18 22:00 10/09/18 22:32 Lipitor PO 20 mg QHS ART Administration Carvedilol 6.25 mg 10/09/18 14:00 10/10/18 09:46 Coreg PO 6.25 mg BID ART Administration Dextrose 50 ml 10/02/18 08:23 10/02/18 08:46 D50w (25gm) Syringe IV 50 ml PRN PRN Administration Hypoglycemia Duloxetine HCl 60 mg 10/02/18 14:00 10/10/18 09:46 Cymbalta PO 60 mg QDAY ART Administration Gemfibrozil 600 mg 10/05/18 10:00 10/10/18 09:46 Lopid PO 600 mg QDAY ART Administration Sodium Chloride 1,000 mls @ 125 mls/hr 10/01/18 23:45 10/07/18 06:59 Nacl 0.9% 1000 Ml IV 125 mls/hr DIRECT ART Administration Dextrose/Sodium Chloride 1,000 mls @ 125 mls/hr 10/02/18 09:00 10/02/18 19:34 D5ns IV 125 mls/hr DIRECT ART Administration Sodium Chloride 1,000 mls @ 50 mls/hr 10/07/18 14:00 10/10/18 16:19 Nacl 0.9% 1000 Ml IV 50 mls/hr DIRECT ART Administration Insulin Human Lispro 0 unit 10/05/18 16:30 10/10/18 18:41 Humalog SUB-Q 3 unit ACHS ART Administration Protocol Morphine Sulfate 15 mg 10/02/18 22:00 10/10/18 09:45 Ms Contin Er PO 15 mg Q12HR ART Administration Ondansetron HCl 4 mg 10/01/18 23:42 10/10/18 02:32 Zofran IV 4 mg Q8H PRN Administration Nausea And Vomiting Phenytoin 200 mg 10/02/18 22:00 10/09/18 22:33 Dilantin PO 200 mg QHS ART Administration Potassium Chloride 20 meq 10/09/18 14:00 10/10/18 09:53 K-Dur PO 20 meq QDAY ART Administration Prednisone 5 mg 10/06/18 10:00 10/10/18 09:53 Deltasone PO 5 mg Q48HR ART Administration Nutrition/Malnutrition Assess - Dietary Evaluation Nutrition/Malnutrition Findings: Nutrition Notes Start: 10/06/18 15:07 Freq: Status: Active Protocol: Document 10/08/18 14:18 FREDDY (Rec: 10/08/18 14:28 [email or web address]- [email or web address]) Nutrition Notes Initial or Follow up Assessment Current Diagnosis Sepsis,Stroke Other Pertinent Diagnosis Colon mass, AMS, Lupus, Dementia Current Diet Cl liq Labs/Tests Na 147 BG 316 Pertinent Medications D5NS at 125ml/hr, MS Contin q12h, Dilantin Height 5 ft 6 in Weight 109.9 kg [place] Body Weight (kg) 59.09 BMI 39.1 Subjective/Other Information Pt sleeping soundly at time of visit (11:33). She did not consume breakfast this am. Colonoscopy revealed a tumor in the ascending colon; may need a partial colon resection . Pt inappropriate for diet education at this time. Burn Absent Trauma Absent #1 Nutrition Diagnosis Inadequate oral intake Etiology GI dysfunction, AMS As Evidenced by Signs and Symptoms pt did not consume breakfast this am Is patient on ventilator? No Is Patient Ambulatory and/or Out of Bed No REE-([facility]-confined to bed) 2020.436 Kcal/Kg value to use for calculation 14 Approximate Energy Requirements Using 1539 kcal/Kg Calculation Used for Recommendations Kcal/kg Additional Notes Pro needs 0.8-1g/kg adjBW: 68- 84g/day Fluid needs 1ml/kcal Nutrition Intervention Change Diet Order: Add Consistent CHO modifier to current diet order Goal #1 PO tolerance Goal #2 Diet advancement to meet nutrient needs Goal #3 Improved BG control Anticipated Discharge Needs: Unable to identify at this time Follow-Up By: 10/11/18 Additional Comments F/U: diet advancement, intakes
[2018-10-10] MEDS: DILANTIN PO SCH (22:39)
[2018-10-11] MEDS ORDERED: LEXISCAN IV ONE (07:18)
--- NOTE | 2018-10-11 07:34 | Event Note ---
Date: 10/11/18 [id number]
--- NOTE | 2018-10-11 08:05 | Progress Note ---
Assessment and Plan Assessment and plan: 63-year-old female with past medical history significant for CVA with right-sided hemiplegia, lupus was presented to the emergency department with complaints of altered mental status. In the emergency department patient was found to have hypoglycemia and was treated accordingly. Workup showed that she has leukocytosis and elevated lactic acid level which may be suggestive of infection. Patient admitted to the floor for further workup and management. Colonic mass - almost completely obstructed, for surgical resection tomorrow, stress test today Acute metabolic encephalopathy due to hypoglycemia - Patient was treated with dextrose, now resolved Sepsis -from periodontal infection, continue augmentin till 10/12 per id Lupus - Continue pain medicine and her prednisone History of CVA with right hemiplegia - Supportive care DVT prophylaxis Disposition - Continue inpatient care, home with sister when acute issues resolved History Interval history: no cough, no cp no abdominal pain, no fever no chills Hospitalist Physical - Constitutional Vitals: Temp Pulse Resp BP Pulse Ox 98.4 F 104 H 18 140/80 94 10/11/18 05:16 10/11/18 05:16 10/11/18 05:16 10/11/18 05:16 10/11/18 05:16 General appearance: Present: no acute distress, well-nourished - EENT Eyes: Present: PERRL ENT: hearing intact, poor dentition - Neck Neck: Present: supple - Respiratory Respiratory effort: normal Respiratory: bilateral: CTA - Cardiovascular Rhythm: regular Heart Sounds: Present: S1 & S2 - Extremities Extremities: no ischemia - Abdominal General gastrointestinal: soft, non-tender - Integumentary Integumentary: Present: clear, warm - Psychiatric Psychiatric: no appropriate mood/affect, no intact judgment & insight - Neurologic Neurologic: CNII-XII intact, focal deficits, moves all extremities Results - Labs CBC & Chem 7: 10/09/18 05:31 10/09/18 05:31 Labs: Laboratory Last Values WBC 8.9 K/mm3 (4.5-11.0) 10/09/18 05:31 RBC 3.92 M/mm3 (3.65-5.03) 10/09/18 05:31 Hgb 8.4 gm/dl (10.1-14.3) L 10/09/18 05:31 Hct 27.1 % (30.3-42.9) L 10/09/18 05:31 MCV 69 fl (79-97) L 10/09/18 05:31 MCH 22 pg (28-32) L 10/09/18 05:31 MCHC 31 % (30-34) 10/09/18 05:31 RDW 24.5 % (13.2-15.2) H 10/09/18 05:31 Plt Count 603 K/mm3 (140-440) H 10/09/18 05:31 Lymph % (Auto) 16.3 % (13.4-35.0) 10/09/18 05:31 [place] % (Auto) 6.4 % (0.0-7.3) 10/09/18 05:31 Eos % (Auto) 2.5 % (0.0-4.3) 10/09/18 05:31 Baso % (Auto) 0.8 % (0.0-1.8) 10/09/18 05:31 Lymph # 1.4 K/mm3 (1.2-5.4) 10/09/18 05:31 [place] # 0.6 K/mm3 (0.0-0.8) 10/09/18 05:31 Eos # 0.2 K/mm3 (0.0-0.4) 10/09/18 05:31 Baso # 0.1 K/mm3 (0.0-0.1) 10/09/18 05:31 Add Manual Diff Complete 10/01/18 21:40 Total Counted 100 10/01/18 21:40 Seg Neutrophils % 74.0 % (40.0-70.0) H 10/09/18 05:31 Seg Neuts % (Manual) 94.0 % (40.0-70.0) H 10/01/18 21:40 0 % 10/01/18 21:40 2.0 % (13.4-35.0) L 10/01/18 21:40 Reactive Lymphs % (Man) 0 % 10/01/18 21:40 3.0 % (0.0-7.3) 10/01/18 21:40 1.0 % (0.0-4.3) 10/01/18 21:40 0 % (0.0-1.8) 10/01/18 21:40 0 % 10/01/18 21:40 0 % 10/01/18 21:40 0 % 10/01/18 21:40 0 % 10/01/18 21:40 Nucleated RBC % Not Reportable 10/01/18 21:40 Seg Neutrophils # 6.5 K/mm3 (1.8-7.7) 10/09/18 05:31 Seg Neutrophils # Man 17.3 K/mm3 (1.8-7.7) H 10/01/18 21:40 Band Neutrophils # 0.0 K/mm3 10/01/18 21:40 0.4 K/mm3 (1.2-5.4) L 10/01/18 21:40 Abs React Lymphs (Man) 0.0 K/mm3 10/01/18 21:40 0.6 K/mm3 (0.0-0.8) 10/01/18 21:40 0.2 K/mm3 (0.0-0.4) 10/01/18 21:40 0.0 K/mm3 (0.0-0.1) 10/01/18 21:40 0.0 K/mm3 10/01/18 21:40 0.0 K/mm3 10/01/18 21:40 0.0 K/mm3 10/01/18 21:40 Blast Cells # 0.0 K/mm3 10/01/18 21:40 WBC Morphology Not Reportable 10/01/18 21:40 Hypersegmented Neuts Not Reportable 10/01/18 21:40 Hyposegmented Neuts Not Reportable 10/01/18 21:40 Hypogranular Neuts Not Reportable 10/01/18 21:40 Not Reportable 10/01/18 21:40 Not Reportable 10/01/18 21:40 Not Reportable 10/01/18 21:40 Not Reportable 10/01/18 21:40 Not Reportable 10/01/18 21:40 Not Reportable 10/01/18 21:40 Appears increased 10/01/18 21:40 Not Reportable 10/01/18 21:40 Plt Clumps, EDTA Not Reportable 10/01/18 21:40 Not Reportable 10/01/18 21:40 Not Reportable 10/01/18 21:40 Not Reportable 10/01/18 21:40 Plt Morphology Comment Not Reportable 10/01/18 21:40 RBC Morphology Not Reportable 10/01/18 21:40 Dimorphic RBCs Not Reportable 10/01/18 21:40 Not Reportable 10/01/18 21:40 Not Reportable 10/01/18 21:40 1+ 10/01/18 21:40 2+ 10/01/18 21:40 1+ 10/01/18 21:40 Not Reportable 10/01/18 21:40 Not Reportable 10/01/18 21:40 Not Reportable 10/01/18 21:40 Not Reportable 10/01/18 21:40 Not Reportable 10/01/18 21:40 Not Reportable 10/01/18 21:40 Not Reportable 10/01/18 21:40 Not Reportable 10/01/18 21:40 Not Reportable 10/01/18 21:40 Not Reportable 10/01/18 21:40 Not Reportable 10/01/18 21:40 Not Reportable 10/01/18 21:40 Not Reportable 10/01/18 21:40 Not Reportable 10/01/18 21:40 Acanthocytes (Spur) Not Reportable 10/01/18 21:40 Rouleaux Not Reportable 10/01/18 21:40 Not Reportable 10/01/18 21:40 Not Reportable 10/01/18 21:40 Not Reportable 10/01/18 21:40 Not Reportable 10/01/18 21:40 Hem Pathologist Commnt No 10/01/18 21:40 PT 15.1 Sec. (12.2-14.9) H 10/07/18 05:24 INR 1.22 (0.87-1.13) H 10/07/18 05:24 APTT 25.3 Sec. (24.2-36.6) 10/01/18 21:40 Sodium 143 mmol/L (137-145) 10/09/18 05:31 Potassium 3.3 mmol/L (3.6-5.0) L 10/09/18 05:31 Chloride 106.3 mmol/L (98-107) 10/09/18 05:31 Carbon Dioxide 27 mmol/L (22-30) 10/09/18 05:31 13 mmol/L 10/09/18 05:31 BUN 3 mg/dL (7-17) L 10/09/18 05:31 0.5 mg/dL (0.7-1.2) L 10/09/18 05:31 Estimated GFR > 60 ml/min 10/09/18 05:31 6 % 10/09/18 05:31 Glucose 218 mg/dL (65-100) H 10/09/18 05:31 POC Glucose 226 (70-105) H 10/10/18 21:07 5.4 % (4-6) 10/06/18 05:56 Lactic Acid 1.10 mmol/L (0.7-2.0) 10/02/18 16:50 Calcium 8.3 mg/dL (8.4-10.2) L 10/09/18 05:31 Phosphorus 2.10 mg/dL (2.5-4.5) L 10/05/18 05:56 Magnesium 2.00 mg/dL (1.7-2.3) 10/05/18 05:56 < 0.20 mg/dL (0.1-1.2) 10/09/18 05:31 AST 15 units/L (5-40) 10/09/18 05:31 ALT 15 units/L (7-56) 10/09/18 05:31 151 units/L (35-129) H 10/09/18 05:31 38.0 umol/L (25-60) 10/01/18 21:40 33 units/L (30-135) 10/01/18 21:40 < 0.010 ng/mL (0.00-0.029) 10/01/18 21:40 5.8 g/dL (6.3-8.2) L 10/09/18 05:31 2.4 g/dL (3.9-5) L 10/09/18 05:31 0.7 % 10/09/18 05:31 TSH 0.449 mlU/mL (0.270-4.200) 10/01/18 21:40 Yellow (Yellow) 10/01/18 23:24 Clear (Clear) 10/01/18 23:24 5.0 (5.0-7.0) 10/01/18 23:24 Ur Specific [place] 1.010 (1.003-1.030) 10/01/18 23:24 <15 mg/dl mg/dL (Negative) 10/01/18 23:24 Neg mg/dL (Negative) 10/01/18 23:24 Neg mg/dL (Negative) 10/01/18 23:24 Neg (Negative) 10/01/18 23:24 Neg (Negative) 10/01/18 23:24 Neg (Negative) 10/01/18 23:24 < 2.0 mg/dL (<2.0) 10/01/18 23:24 Ur Leukocyte Esterase Neg (Negative) 10/01/18 23:24 < 1.0 /HPF (0.0-6.0) 10/01/18 23:24 < 1.0 /HPF (0.0-6.0) 10/01/18 23:24 Vancomycin Trough 9.4 ug/mL (5.0-20.0) 10/04/18 12:46 Salicylates < 0.3 mg/dL (2.8-20.0) L 10/01/18 21:40 Acetaminophen < 5.0 ug/mL (10.0-30.0) L 10/01/18 21:40 Phenytoin 6.7 ug/mL (10.0-20.0) L 10/01/18 23:44 Plasma/Serum Alcohol < 0.01 % (0-0.07) 10/01/18 21:40 Blood Type B POSITIVE 10/04/18 19:36 Antibody Screen Negative 10/04/18 19:36 Crossmatch See Detail 10/04/18 19:36 Active Medications - Current Medications Current Medications: Generic Name Dose Route Start Last Admin Trade Name Bertoq PRN Reason Stop Dose Admin Acetaminophen 650 mg 10/01/18 23:43 10/10/18 02:32 Tylenol PO 650 mg Q4H PRN Administration Fever >101 Amoxicillin/Clavulanate Potassium 1 each 10/07/18 10:00 10/10/18 22:39 Augmentin 875 Mg PO 10/11/18 22:01 1 each Q12HR ART Administration Atorvastatin Calcium 20 mg 10/02/18 22:00 10/10/18 22:39 Lipitor PO 20 mg QHS ART Administration Carvedilol 6.25 mg 10/09/18 14:00 10/10/18 22:39 Coreg PO 6.25 mg BID ART Administration Dextrose 50 ml 10/02/18 08:23 10/02/18 08:46 D50w (25gm) Syringe IV 50 ml PRN PRN Administration Hypoglycemia Duloxetine HCl 60 mg 10/02/18 14:00 10/10/18 09:46 Cymbalta PO 60 mg QDAY ART Administration Gemfibrozil 600 mg 10/05/18 10:00 10/10/18 09:46 Lopid PO 600 mg QDAY ART Administration Sodium Chloride 1,000 mls @ 125 mls/hr 10/01/18 23:45 10/07/18 06:59 Nacl 0.9% 1000 Ml IV 125 mls/hr DIRECT ART Administration Dextrose/Sodium Chloride 1,000 mls @ 125 mls/hr 10/02/18 09:00 10/02/18 19:34 D5ns IV 125 mls/hr DIRECT ART Administration Sodium Chloride 1,000 mls @ 50 mls/hr 10/07/18 14:00 10/10/18 16:19 Nacl 0.9% 1000 Ml IV 50 mls/hr DIRECT ART Administration Insulin Human Lispro 0 unit 10/05/18 16:30 10/10/18 22:38 Humalog SUB-Q 3 unit ACHS ART Administration Protocol Morphine Sulfate 15 mg 10/02/18 22:00 10/10/18 22:38 Ms Contin Er PO 15 mg Q12HR ART Administration Ondansetron HCl 4 mg 10/01/18 23:42 10/10/18 02:32 Zofran IV 4 mg Q8H PRN Administration Nausea And Vomiting Phenytoin 200 mg 10/02/18 22:00 10/10/18 22:39 Dilantin PO 200 mg QHS ART Administration Potassium Chloride 20 meq 10/09/18 14:00 10/10/18 09:53 K-Dur PO 20 meq QDAY ART Administration Prednisone 5 mg 10/06/18 10:00 10/10/18 09:53 Deltasone PO 5 mg Q48HR ART Administration Nutrition/Malnutrition Assess - Dietary Evaluation Nutrition/Malnutrition Findings: Nutrition Notes Start: 10/06/18 15:07 Freq: Status: Active Protocol: Document 10/08/18 14:18 FREDDY (Rec: 10/08/18 14:28 FREDDY [facility]- [email or web address]) Nutrition Notes Initial or Follow up Assessment Current Diagnosis Sepsis,Stroke Other Pertinent Diagnosis Colon mass, AMS, Lupus, Dementia Current Diet Cl liq Labs/Tests Na 147 BG 316 Pertinent Medications D5NS at 125ml/hr, MS Contin q12h, Dilantin Height 5 ft 6 in Weight 109.9 kg [place] Body Weight (kg) 59.09 BMI 39.1 Subjective/Other Information Pt sleeping soundly at time of visit (11:33). She did not consume breakfast this am. Colonoscopy revealed a tumor in the ascending colon; may need a partial colon resection . Pt inappropriate for diet education at this time. Burn Absent Trauma Absent #1 Nutrition Diagnosis Inadequate oral intake Etiology GI dysfunction, AMS As Evidenced by Signs and Symptoms pt did not consume breakfast this am Is patient on ventilator? No Is Patient Ambulatory and/or Out of Bed No REE-([facility]-confined to bed) 2020.436 Kcal/Kg value to use for calculation 14 Approximate Energy Requirements Using 1539 kcal/Kg Calculation Used for Recommendations Kcal/kg Additional Notes Pro needs 0.8-1g/kg adjBW: 68- 84g/day Fluid needs 1ml/kcal Nutrition Intervention Change Diet Order: Add Consistent CHO modifier to current diet order Goal #1 PO tolerance Goal #2 Diet advancement to meet nutrient needs Goal #3 Improved BG control Anticipated Discharge Needs: Unable to identify at this time Follow-Up By: 10/11/18 Additional Comments F/U: diet advancement, intakes
[2018-10-11] MEDS: HumaLOG SUB-Q SCH ×4 (08:49→21:54)
--- NOTE | 2018-10-11 09:48 | Consultation ---
REFERRED BY: Tyra Varner MD REASON FOR CONSULTATION: Right-sided colon mass and anemia. HISTORY OF PRESENT ILLNESS: I saw the patient, a 63 years old female, in the medical floor. The patient came to the ER with altered mentation. Radiology showed right-sided colon mass. Colonoscopy was done. This was near obstructing on the ascending colon. The patient also had anemia. The patient has a history of stroke, hypertension, diabetes, DVT, IVC filter, CHF, right-sided weakness. The patient was on Coumadin therapy and has mention of dementia. I have been asked to evaluate the patient for history of colon mass. Pathology is pending. CEA has been ordered. REVIEW OF SYSTEMS: The patient has history of dementia. She is able to answer a few questions, like the name of her sister, but it takes time for her to recollect. Most of the information is coming from medical records. No mention of bleeding. No vomiting, no diarrhea. No chest pain, no abdominal pain. Mention of altered mentation. PAST MEDICAL HISTORY: As above, CVA, hypertension, diabetes, DVT, IVC filter, anticoagulation, CHF, dementia. PAST SURGICAL HISTORY: Hysterectomy, IVC filter. SOCIAL HISTORY: No history of tobacco or alcohol usage. ALLERGIES: PENICILLIN AND BEES. MEDICATIONS: Include Augmentin, atorvastatin, Coreg, insulin, morphine, Zofran, Dilantin, prednisone. PHYSICAL EXAMINATION: VITAL SIGNS: Temperature 98.4, pulse 104, respirations 18, BP 140/80. HEENT: Pallor present, no icterus. NECK: No neck lymph nodes. HEART: S1, S2. LUNGS: Clear to auscultation anteriorly. ABDOMEN: Soft. EXTREMITIES: No calf tenderness. NEUROLOGIC: Right-sided hemiparesis. LABORATORY DATA: White cell 8.9, hemoglobin 8.4, MCV 69, platelets 603, potassium 3.3, creatinine 0.5, calcium 8.3, serum iron 28, bilirubin 0.2, B12 30. RADIOLOGY: CT abdo-pelvis, CT face and CT chest was done. This shows a 6.6-cm colon mass. There is also local right lower quadrant adenopathy. CT chest shows mildly enlarged mediastinal and right axillary lymph nodes of uncertain significance. ASSESSMENT: 1. Colon mass, waiting for pathology, clinically cancer, surgical team following the patient. 2. Anemia, MCV low, low iron. 3. B12 deficiency. 4. Radiology mentions 6-cm ascending colon mass with lymph nodes. 5. Radiology mentions right axillary lymph nodes. 6. History of cerebrovascular accident with right hemiparesis. 7. History of hypertension. 8. History of diabetes. 9. History of deep venous thrombosis, was on Coumadin at some time. 10. History of inferior vena cava filter. 11. History of congestive heart failure. 12. There is a plan for surgical evaluation. I will follow the patient during inpatient stay. We will wait for pathology. JOB# [id number] NM/NTS
[2018-10-11] MEDS: CYMBALTA PO SCH ×2 (10:47→15:05)
[2018-10-11] MEDS: COREG PO SCH ×3 (10:47→21:51)
[2018-10-11] MEDS: AUGMENTIN 875 MG PO SCH ×2 (10:47→21:38)
[2018-10-11] MEDS: K-DUR PO SCH ×2 (10:47→15:04)
[2018-10-11] MEDS: MS CONTIN ER PO SCH ×2 (10:48→21:53)
[2018-10-11] MEDS: LOPID PO SCH ×2 (10:48→15:04)
--- NOTE | 2018-10-11 13:07 | Progress Note ---
Assessment and Plan - Patient Problems (1) Pre-op evaluation Current Visit: Yes Status: Acute Plan to address problem: Patient is awaiting surgery for colonic mass, preoperative cardiac assessment so far, echocardiogram showed normal left ventricular study function, ejection fraction 55-60%, Lexiscan thallium stress test done today was normal. Okay to proceed with surgery, low cardiac risk. Subjective Date of service: 10/11/18 Principal diagnosis: colonic mass Interval history: The patient underwent a Lexiscan thallium stress test today, normal study. Objective Vital Signs Temp Pulse Resp BP Pulse Ox 10/11/18 10:24 162/109 10/11/18 10:22 164/86 10/11/18 10:20 161/86 10/11/18 10:18 136/82 10/11/18 10:05 147/82 10/11/18 09:53 149/84 10/11/18 05:16 98.4 F 104 H 18 140/80 94 10/10/18 22:55 98.4 F 100 H 20 122/73 94 10/10/18 22:39 111 H 128/75 10/10/18 22:00 20 10/10/18 17:26 99.0 F 110 H 18 129/72 95 - Physical Examination General: No Apparent Distress HEENT: Positive: PERRL Neck: Positive: neck supple Cardiac: Positive: Reg Rate and Rhythm Lungs: Positive: Decreased Breath Sounds Neuro: Positive: Weakness Abdomen: Positive: Soft. Negative: Pulsations/Bruits Skin: Positive: Clear Extremities: Present: edema (trace)
--- NOTE | 2018-10-11 14:43 | Treadmill Report ---
THALLIUM STRESS TEST LEFT VENTRICLE: Left ventricular chamber size is within normal spread. Perfusion study demonstrates homogeneous uptake of the tracer in all segments, no significant defects identified. Gated analysis demonstrates normal left ventricular systolic function, ejection fraction greater than 70%. CONCLUSION: Normal myocardial perfusion study. JOB# [id number] CA/NTS
--- NOTE | 2018-10-11 16:54 | Progress Note ---
Assessment and Plan - Patient Problems (1) Mass of colon Current Visit: Yes Status: Acute Plan to address problem: Pt stable. Patient with near obstructing colonic mass. Most likely malignant. As the mass is near obstructing, would recommend resection during this admission. Appreciate cardiac assistance with clearance. Tentative plan is for right open hemicolectomy this . Procedure, risks, benefits were discussed with patient and sister (Nusrat). All questions were answered. Consent was obtained. We will write for bowel prep on Thursday. Will follow along. Please call with questions. Time=15min Subjective Date of service: 10/11/18 Patient Reports: Positive: no new complaints Objective Vital Signs - 12hr 10/11/18 10/11/18 10/11/18 05:16 09:53 10:05 Temperature 98.4 F Pulse Rate 104 H Respiratory 18 Rate Blood Pressure 140/80 149/84 147/82 O2 Sat by Pulse 94 Oximetry 10/11/18 10/11/18 10/11/18 10:18 10:20 10:22 Temperature Pulse Rate Respiratory Rate Blood Pressure 136/82 161/86 164/86 O2 Sat by Pulse Oximetry 10/11/18 10/11/18 10:24 15:05 Temperature Pulse Rate Respiratory Rate Blood Pressure 162/109 162/109 O2 Sat by Pulse Oximetry - General physical appearance no distress, no pain - Respiratory normal expansion, normal respiratory effort - Abdomen soft, tender, not distended, not guarding, not rigid - Integumentary no rash, no growths, no abnormal pigmentation - Labs 10/09/18 05:31 10/09/18 05:31
[2018-10-11] MEDS: DILANTIN PO SCH (21:39)
[2018-10-11] MEDS: HEPARIN SUB-Q SCH (21:55)
[2018-10-12] MEDS: HEPARIN SUB-Q SCH ×3 (05:03→22:43)
[2018-10-12] MEDS: HumaLOG SUB-Q SCH ×4 (08:32→22:41)
--- NOTE | 2018-10-12 08:46 | Progress Note ---
Assessment and Plan Colon mass Pre-op cardiac assessment Prior CVA HTN DVT s/p IVC filter 2014 no anticoagulation due to severe anemia, GI bleed and recurrent falls. Anemia Dementia An echocardiogram shows a normal left ventricular systolic function, EF 55-60%. Normal stress thallium test this admission. Okay to proceed with surgery, low cardiac risk. Subjective Date of service: 10/12/18 Principal diagnosis: colonic mass Interval history: No cardiac complaints. Tentatively planned for colon surgery . Objective Vital Signs Temp Pulse Resp Resp BP BP Pulse Ox 10/12/18 06:13 98.9 F 104 H 20 125/70 96 10/11/18 23:22 98.3 F 99 H 19 151/89 97 10/11/18 22:00 20 20 10/11/18 21:51 102 H 152/87 10/11/18 17:02 98.2 F 115 H 20 140/78 96 10/11/18 15:05 162/109 10/11/18 12:28 98.7 F 19 156/92 10/11/18 10:24 162/109 10/11/18 10:22 164/86 10/11/18 10:20 161/86 10/11/18 10:18 136/82 10/11/18 10:05 147/82 10/11/18 09:53 149/84 - Physical Examination General: No Apparent Distress HEENT: Positive: PERRL Neck: Positive: neck supple Cardiac: Positive: Reg Rate and Rhythm Lungs: Positive: Decreased Breath Sounds Neuro: Positive: Weakness Extremities: Absent: edema
[2018-10-12] MEDS: LOPID PO SCH (10:46)
[2018-10-12] MEDS: K-DUR PO SCH (10:46)
[2018-10-12] MEDS: COREG PO SCH ×2 (10:47→22:40)
[2018-10-12] MEDS: DELTASONE PO SCH (10:47)
[2018-10-12] MEDS: CYMBALTA PO SCH (10:47)
[2018-10-12] MEDS: MS CONTIN ER PO SCH ×2 (10:47→22:40)
--- NOTE | 2018-10-12 13:04 | Hem/Onc Progress Note ---
Assessment and Plan 1. Colon mass, surgical team following the patient. 2. Anemia, MCV low, low iron. 3. B12 deficiency. 4. Radiology mentions 6-cm ascending colon mass with lymph nodes. 5. Radiology mentions right axillary lymph nodes. 6. History of cerebrovascular accident with right hemiparesis. 7. History of hypertension. 8. History of diabetes. 9. History of deep venous thrombosis, was on Coumadin at some time. 10. History of inferior vena cava filter. 11. History of congestive heart failure. 12. There is a plan for surgical evaluation. I will follow the patient during inpatient stay. We will wait for pathology. family/pt keen for treatment will await final staging CEA 17 low b12 - inj low iron - IV iron trial - Patient Problems (1) Mass of colon Current Visit: Yes Status: Acute Subjective Date of service: 10/12/18 Principal diagnosis: colon mass Interval history: d/w family - sister - niece Objective - Exam Narrative Exam: Pain - none - obese General appearance not in acute distress Performance status limited self care Eyes - no icterus ENT - no bleeding LNs cervical not palpable Neck - no LN Respiratory Normal Breath sounds - decreased air entry CVS S1 S2 + Extremities normal temperature General GI Soft Rectal deferred female - deferred Skin warm Musculoskeletal rt side weakness Neurologically CVA - effecting rt side - Constitutional Vitals: Last Vital Signs Temp 98.9 F 10/12/18 06:13 Pulse 95 H 10/12/18 10:47 Resp 20 10/12/18 06:13 BP 138/71 10/12/18 10:47 Pulse Ox 96 10/12/18 06:13 - Labs Lab Results: Laboratory Results - last 24 hr 10/09/18 10/11/18 10/11/18 11:34 17:08 21:49 POC Glucose 255 H 191 H Carcinoembryonic Ag 17.7 H 10/12/18 10/12/18 08:07 11:40 POC Glucose 188 H 239 H Carcinoembryonic Ag Medications & Allergies - Medications Allergies/Adverse Reactions: Allergies Penicillins Allergy (Verified 11/10/14 21:41) Unknown Peas Allergy (Uncoded 07/01/16 12:21) Swelling Home Medications: Home Medications Medication Instructions Recorded Confirmed Last Taken Type AtorvaSTATin [Lipitor] 20 mg PO QDAY #30 tablet 07/09/16 10/01/18 1 Day Ago Rx ~10/29/16 Furosemide [Lasix TAB] 40 mg PO BID #60 tablet 07/09/16 10/01/18 1 Day Ago Rx ~10/29/16 Metformin HCl [Glucophage] 1,000 mg PO BID #60 tablet 07/09/16 10/01/18 1 Day Ago Rx ~10/29/16 Metoprolol [Lopressor TAB] 25 mg PO BID #60 tablet 07/09/16 10/02/18 1 Day Ago Rx ~10/29/16 Potassium Chloride [K-Dur] 20 meq PO QDAY #30 tablet 07/09/16 10/01/18 1 Day Ago Rx ~10/29/16 AtorvaSTATin [Lipitor] 20 mg PO QDAY 10/29/16 10/01/18 1 Day Ago History ~10/29/16 Citalopram [celeXA] 10 mg PO TID 10/29/16 10/02/18 1 Day Ago History ~10/29/16 Phenytoin Sodium Extended 200 mg PO QHS 10/30/16 10/01/18 1 Day Ago History ~10/29/16 Insulin Glargine [Lantus VIAL] 10 units SUB-Q QHS #1 units 11/04/16 10/02/18 1 Day Ago Rx ~10/29/16 Carvedilol [Coreg] 3.125 mg PO BID 10/01/18 10/01/18 Unknown History Clopidogrel [Plavix] 75 mg PO QDAY 10/01/18 10/01/18 Unknown History DULoxetine [Cymbalta] 60 mg PO QDAY 10/01/18 10/01/18 Unknown History Gemfibrozil [Lopid] 600 mg PO QDAY 10/01/18 10/01/18 Unknown History Morphine Sulfate 15 mg PO BID 10/01/18 10/01/18 Unknown History Phenytoin [Dilantin] 150 mg PO QDAY 10/01/18 10/01/18 Unknown History predniSONE [Deltasone] 5 mg PO Q48HR 10/03/18 10/03/18 Unknown History Active Medications: Generic Name Dose Route Start Last Admin Trade Name Freq PRN Reason Stop Dose Admin Acetaminophen 650 mg 10/01/18 23:43 10/10/18 02:32 Tylenol PO 650 mg Q4H PRN Administration Fever >101 Atorvastatin Calcium 20 mg 10/02/18 22:00 10/11/18 21:40 Lipitor PO 20 mg QHS ART Administration Carvedilol 6.25 mg 10/09/18 14:00 10/12/18 10:47 Coreg PO 6.25 mg BID ART Administration Dextrose 50 ml 10/02/18 08:23 10/02/18 08:46 D50w (25gm) Syringe IV 50 ml PRN PRN Administration Hypoglycemia Duloxetine HCl 60 mg 10/02/18 14:00 10/12/18 10:47 Cymbalta PO 60 mg QDAY ART Administration Gemfibrozil 600 mg 10/05/18 10:00 10/12/18 10:46 Lopid PO 600 mg QDAY ART Administration Heparin Sodium (Porcine) 5,000 unit 10/11/18 22:00 10/12/18 05:03 Heparin SUB-Q 5,000 unit Q8HR ART Administration Sodium Chloride 1,000 mls @ 125 mls/hr 10/01/18 23:45 10/07/18 06:59 Nacl 0.9% 1000 Ml IV 125 mls/hr DIRECT ART Administration Dextrose/Sodium Chloride 1,000 mls @ 125 mls/hr 10/02/18 09:00 10/02/18 19:34 D5ns IV 125 mls/hr DIRECT ART Administration Sodium Chloride 1,000 mls @ 50 mls/hr 10/07/18 14:00 10/10/18 16:19 Nacl 0.9% 1000 Ml IV 50 mls/hr DIRECT ART Administration Insulin Human Lispro 0 unit 10/05/18 16:30 10/12/18 08:32 Humalog SUB-Q 2 unit ACHS ART Administration Protocol Morphine Sulfate 15 mg 10/02/18 22:00 10/12/18 10:47 Ms Contin Er PO 15 mg Q12HR ART Administration Ondansetron HCl 4 mg 10/01/18 23:42 10/10/18 02:32 Zofran IV 4 mg Q8H PRN Administration Nausea And Vomiting Phenytoin 200 mg 10/02/18 22:00 10/11/18 21:39 Dilantin PO 200 mg QHS ART Administration Potassium Chloride 20 meq 10/09/18 14:00 10/12/18 10:46 K-Dur PO 20 meq QDAY ART Administration Prednisone 5 mg 10/06/18 10:00 10/12/18 10:47 Deltasone PO 5 mg Q48HR ART Administration
--- NOTE | 2018-10-12 17:41 | Progress Note ---
Assessment and Plan 63-year-old female with past medical history significant for CVA with right-sided hemiplegia, lupus was presented to the emergency department with complaints of altered mental status. In the emergency department patient w as found to have hypoglycemia and was treated accordingly. Workup showed that she has leukocytosis and elevated lactic acid level which may be suggestive of infection. Patient admitted to the floor for further workup and management. 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 Leg quietly in bed in no apparent distress. No fever. No abdomen pain nausea or vomiting. Objective - Exam Narrative Exam: Constitutional: Well-nourished well-developed. In no distress Head: Normocephalic atraumatic Eyes: Pupils are equal round and reactive to light Nose: No enlarged turbinates, no septal deviation. Mouth: Moist mucous membranes. Neck: Supple no thyromegaly. No bruit. No JVD Heart: Regular rate and rhythm, S1-S2 normal. No rubs murmurs or gallop Lungs: Clear to auscultation bilaterally. no rales or rhonchi Abdomen: Soft, nontender. Bowel sound are present. Extremities: No edema, no cyanosis, no clubbing. Neuro: Alert oriented Oriented x2. Right hemiparesis Skin: No rashes or hyperpigmented spots Musculoskeletal system: No joint pain or swelling Hematological: No petechia or subcutanous hemorrhages. Immunological: No multiple septic spots on the skin Lymphatic: No generalized lymphadenopathy Psychiatry: Euthymic. Calm. - Constitutional Vitals: Vital Signs - 12hr 10/12/18 10/12/18 10/12/18 06:13 10:42 10:47 Temperature 98.9 F Pulse Rate 104 H 95 H Respiratory 20 Rate Blood Pressure 125/70 138/71 138/71 O2 Sat by Pulse 96 Oximetry 10/12/18 12:30 Temperature 100.2 F H Pulse Rate 101 H Respiratory 18 Rate Blood Pressure 143/62 O2 Sat by Pulse 95 Oximetry - Labs CBC & Chem 7: 10/09/18 05:31 10/09/18 05:31 Labs: Abnormal lab results 10/09/18 10/11/18 10/12/18 Range/Units 11:34 21:49 08:07 POC Glucose 191 H 188 H (70-105) Carcinoembryonic Ag 17.7 H (0.0-2.4) ng/mL 10/12/18 10/12/18 Range/Units 11:40 16:33 POC Glucose 239 H 307 H (70-105) Carcinoembryonic Ag (0.0-2.4) ng/mL
[2018-10-12] MEDS: NACL 0.9% 1000 ML 1,000 ML IV SCH (19:49)
[2018-10-12] MEDS: DILANTIN PO SCH (22:39)
[2018-10-13] MEDS: HEPARIN SUB-Q SCH ×2 (05:53→20:02)
--- NOTE | 2018-10-13 08:13 | Hem/Onc Progress Note ---
Assessment and Plan 1. Colon mass, surgical team following the patient. 2. Anemia, MCV low, low iron. 3. B12 deficiency. 4. Radiology mentions 6-cm ascending colon mass with lymph nodes. 5. Radiology mentions right axillary lymph nodes. 6. History of cerebrovascular accident with right hemiparesis. 7. History of hypertension. 8. History of diabetes. 9. History of deep venous thrombosis, was on Coumadin at some time. 10. History of inferior vena cava filter. 11. History of congestive heart failure. 12. There is a plan for surgical evaluation. I will follow the patient during inpatient stay. We will wait for pathology. family/pt keen for treatment will await final staging after sx CEA 17 low b12 - inj low iron - IV iron trial - Patient Problems (1) Mass of colon Current Visit: Yes Status: Acute Subjective Date of service: 10/13/18 Principal diagnosis: colon mass Interval history: waiting for sx Objective - Exam Narrative Exam: Pain - none - obese General appearance not in acute distress Performance status limited self care Eyes - no icterus ENT - no bleeding LNs cervical not palpable Neck - no LN Respiratory Normal Breath sounds - decreased air entry CVS S1 S2 + Extremities normal temperature General GI Soft Rectal deferred female - deferred Skin warm Musculoskeletal rt side weakness Neurologically CVA - effecting rt side - Constitutional Vitals: Last Vital Signs Temp 98.2 F 10/13/18 05:47 Pulse 92 H 10/13/18 05:47 Resp 18 10/13/18 05:47 BP 141/70 10/13/18 05:47 Pulse Ox 97 10/13/18 05:47 - Labs Lab Results: Laboratory Results - last 24 hr 10/12/18 10/12/18 10/12/18 11:40 16:33 21:48 POC Glucose 239 H 307 H 267 H 10/13/18 07:42 POC Glucose 176 H Medications & Allergies - Medications Allergies/Adverse Reactions: Allergies Penicillins Allergy (Verified 11/10/14 21:41) Unknown Peas Allergy (Uncoded 07/01/16 12:21) Swelling Home Medications: Home Medications Medication Instructions Recorded Confirmed Last Taken Type AtorvaSTATin [Lipitor] 20 mg PO QDAY #30 tablet 07/09/16 10/01/18 1 Day Ago Rx ~10/29/16 Furosemide [Lasix TAB] 40 mg PO BID #60 tablet 07/09/16 10/01/18 1 Day Ago Rx ~10/29/16 Metformin HCl [Glucophage] 1,000 mg PO BID #60 tablet 07/09/16 10/01/18 1 Day Ago Rx ~10/29/16 Metoprolol [Lopressor TAB] 25 mg PO BID #60 tablet 07/09/16 10/02/18 1 Day Ago Rx ~10/29/16 Potassium Chloride [K-Dur] 20 meq PO QDAY #30 tablet 07/09/16 10/01/18 1 Day Ago Rx ~10/29/16 AtorvaSTATin [Lipitor] 20 mg PO QDAY 10/29/16 10/01/18 1 Day Ago History ~10/29/16 Citalopram [celeXA] 10 mg PO TID 10/29/16 10/02/18 1 Day Ago History ~10/29/16 Phenytoin Sodium Extended 200 mg PO QHS 10/30/16 10/01/18 1 Day Ago History ~10/29/16 Insulin Glargine [Lantus VIAL] 10 units SUB-Q QHS #1 units 11/04/16 10/02/18 1 Day Ago Rx ~10/29/16 Carvedilol [Coreg] 3.125 mg PO BID 10/01/18 10/01/18 Unknown History Clopidogrel [Plavix] 75 mg PO QDAY 10/01/18 10/01/18 Unknown History DULoxetine [Cymbalta] 60 mg PO QDAY 10/01/18 10/01/18 Unknown History Gemfibrozil [Lopid] 600 mg PO QDAY 10/01/18 10/01/18 Unknown History Morphine Sulfate 15 mg PO BID 10/01/18 10/01/18 Unknown History Phenytoin [Dilantin] 150 mg PO QDAY 10/01/18 10/01/18 Unknown History predniSONE [Deltasone] 5 mg PO Q48HR 10/03/18 10/03/18 Unknown History Active Medications: Generic Name Dose Route Start Last Admin Trade Name Freq PRN Reason Stop Dose Admin Acetaminophen 650 mg 10/01/18 23:43 10/10/18 02:32 Tylenol PO 650 mg Q4H PRN Administration Fever >101 Atorvastatin Calcium 20 mg 10/02/18 22:00 10/12/18 22:40 Lipitor PO 20 mg QHS ART Administration Carvedilol 6.25 mg 10/09/18 14:00 10/12/18 22:40 Coreg PO 6.25 mg BID ART Administration Cyanocobalamin 1,000 mcg 10/13/18 10:00 Vitamin B-12 SUB-Q 10/13/18 10:01 ONCE ONE Dextrose 50 ml 10/02/18 08:23 10/02/18 08:46 D50w (25gm) Syringe IV 50 ml PRN PRN Administration Hypoglycemia Duloxetine HCl 60 mg 10/02/18 14:00 10/12/18 10:47 Cymbalta PO 60 mg QDAY ART Administration Ferrous Sulfate 325 mg 10/13/18 10:00 Feosol PO BID ART Gemfibrozil 600 mg 10/05/18 10:00 10/12/18 10:46 Lopid PO 600 mg QDAY ART Administration Heparin Sodium (Porcine) 5,000 unit 10/11/18 22:00 10/13/18 05:53 Heparin SUB-Q 5,000 unit Q8HR ART Administration Sodium Chloride 1,000 mls @ 125 mls/hr 10/01/18 23:45 10/07/18 06:59 Nacl 0.9% 1000 Ml IV 125 mls/hr DIRECT ART Administration Dextrose/Sodium Chloride 1,000 mls @ 125 mls/hr 10/02/18 09:00 10/02/18 19:34 D5ns IV 125 mls/hr DIRECT ART Administration Sodium Chloride 1,000 mls @ 50 mls/hr 10/07/18 14:00 10/12/18 19:49 Nacl 0.9% 1000 Ml IV 50 mls/hr DIRECT ART Administration Ferric Sodium Gluconate 110 mls @ 100 mls/hr 10/13/18 09:30 Complex 125 mg/ Sodium IV 10/13/18 10:35 Chloride ONCE ONE Insulin Human Lispro 0 unit 10/05/18 16:30 10/12/18 22:41 Humalog SUB-Q 4 unit ACHS ART Administration Protocol Morphine Sulfate 15 mg 10/02/18 22:00 10/12/18 22:40 Ms Contin Er PO 15 mg Q12HR ART Administration Multivitamins 5 ml 10/13/18 10:00 Centrum Liq PO QDAY ART Ondansetron HCl 4 mg 10/01/18 23:42 10/10/18 02:32 Zofran IV 4 mg Q8H PRN Administration Nausea And Vomiting Phenytoin 200 mg 10/02/18 22:00 10/12/18 22:39 Dilantin PO 200 mg QHS ART Administration Potassium Chloride 20 meq 10/09/18 14:00 10/12/18 10:46 K-Dur PO 20 meq QDAY ART Administration Prednisone 5 mg 10/06/18 10:00 10/12/18 10:47 Deltasone PO 5 mg Q48HR ART Administration
--- NOTE | 2018-10-13 08:59 | Progress Note ---
Assessment and Plan Colon mass Pre-op cardiac assessment Prior CVA HTN DVT s/p IVC filter 2014 no anticoagulation due to severe anemia, GI bleed and recurrent falls. Anemia Dementia An echocardiogram shows a normal left ventricular systolic function, EF 55-60%. Normal stress thallium test this admission. Okay to proceed with surgery, low cardiac risk. Patient planned for surgery today. Subjective Date of service: 10/13/18 Principal diagnosis: colon mass Interval history: No acute events. Resting comfortably. No chest pain or SOB. Objective Vital Signs Temp Pulse Resp Resp BP Pulse Ox 10/13/18 05:47 98.2 F 92 H 18 141/70 97 10/12/18 23:40 17 10/12/18 22:40 106 H 18 132/74 10/12/18 22:36 98.4 F 103 H 18 135/71 95 10/12/18 22:00 18 17 10/12/18 21:00 105 H 132/74 99 10/12/18 17:27 98.4 F 106 H 18 117/53 94 10/12/18 12:30 100.2 F H 101 H 18 143/62 95 10/12/18 10:47 95 H 138/71 10/12/18 10:42 138/71 - Physical Examination General: No Apparent Distress HEENT: Positive: PERRL Neck: Positive: neck supple Neuro: Positive: Weakness Abdomen: Positive: Soft. Negative: Pulsations/Bruits Skin: Positive: Clear Extremities: Absent: edema
--- NOTE | 2018-10-13 09:03 | Progress Note ---
Assessment and Plan - Patient Problems (1) Mass of colon Current Visit: Yes Status: Acute Plan to address problem: Pt stable. Patient with near obstructing colonic mass. Most likely malignant. As the mass is near obstructing, would recommend resection during this admission. Appreciate cardiac assistance with clearance. Tentative plan is for right open hemicolectomy tomorrow. All questions were answered. Consent has been obtained. We will write for bowel prep today Plan: 1) bowel prep today 2) Clears today and NPO after midnight 3) Ask anesthesia for KELSEY block tomorrow 4) Discuss need for stress dose steroids with anesthesia 5) labs in AM. Will follow along. Please call with questions. Time=10min Subjective Date of service: 10/13/18 Patient Reports: Positive: no new complaints Objective Vital Signs - 12hr 10/12/18 10/12/18 10/12/18 22:00 22:36 22:40 Temperature 98.4 F Pulse Rate 103 H 106 H Respiratory 18 18 18 Rate Respiratory 17 Rate [left leg pain] Blood Pressure 135/71 132/74 O2 Sat by Pulse 95 Oximetry 10/12/18 10/13/18 23:40 05:47 Temperature 98.2 F Pulse Rate 92 H Respiratory 17 18 Rate Respiratory Rate [left leg pain] Blood Pressure 141/70 O2 Sat by Pulse 97 Oximetry - General physical appearance no distress, no pain, other (looks well) - Respiratory normal expansion, normal respiratory effort - Abdomen soft - Integumentary no rash, no growths, no abnormal pigmentation - Psychiatric oriented to time, oriented to person, oriented to place, memory intact - Labs 10/09/18 05:31 10/09/18 05:31
[2018-10-13] MEDS ORDERED: FERRLECIT 125 MG in NACL 0.9% 100 ML IV ONE (09:30)
[2018-10-13] MEDS: CYMBALTA PO SCH (09:44)
[2018-10-13] MEDS: HumaLOG SUB-Q SCH ×4 (09:44→19:16)
[2018-10-13] MEDS: FEOSOL PO SCH ×2 (09:44→11:00)
[2018-10-13] MEDS: Centrum Liq PO SCH (09:45)
[2018-10-13] MEDS: LOPID PO SCH (09:45)
[2018-10-13] MEDS: COREG PO SCH (09:46)
[2018-10-13] MEDS: K-DUR PO SCH (09:47)
[2018-10-13] MEDS: MS CONTIN ER PO SCH (09:47)
[2018-10-13] MEDS ORDERED: VITAMIN B-12 SUB-Q ONE (10:00)
[2018-10-13] MEDS ORDERED: GOLYTELY PO ONE (12:00)
[2018-10-13] MEDS: NACL 0.9% 1000 ML 1,000 ML IV SCH (18:37)
--- NOTE | 2018-10-13 19:30 | Progress Note ---
Assessment and Plan 63-year-old female with past medical history significant for CVA with right-sided hemiplegia, lupus was presented to the emergency department with complaints of altered mental status. In the emergency department patient w as found to have hypoglycemia and was treated accordingly. Workup showed that she has leukocytosis and elevated lactic acid level which may be suggestive of infection. Patient admitted to the floor for further workup and management. Colonic mass - almost completely obstructed. for surgical resection 10/13/18 Present clearance for surgery by head animal keeper with normal stress tests and equal Acute metabolic encephalopathy due to hypoglycemia - Patient was treated with dextrose, now resolved Sepsis -from periodontal infection, continue augmentin till 10/12 per id Lupus - Continue pain medicine and her prednisone History of CVA with right hemiplegia - Supportive care DVT prophylaxis Disposition - Continue inpatient care, home with sister when acute issues resolved Subjective Date of service: 10/13/18 Principal diagnosis: colon mass Interval history: Patient is seen and examined. Leg quietly in bed in no apparent distress. No fever. No abdomen pain nausea or vomiting. Objective - Exam Narrative Exam: Constitutional: Well-nourished well-developed. In no distress Head: Normocephalic atraumatic Eyes: Pupils are equal round and reactive to light Nose: No enlarged turbinates, no septal deviation. Mouth: Moist mucous membranes. Neck: Supple no thyromegaly. No bruit. No JVD Heart: Regular rate and rhythm, S1-S2 normal. No rubs murmurs or gallop Lungs: Clear to auscultation bilaterally. no rales or rhonchi Abdomen: Soft, nontender. Bowel sound are present. Extremities: No edema, no cyanosis, no clubbing. Neuro: Alert oriented Oriented x2. Right hemiparesis Skin: No rashes or hyperpigmented spots Musculoskeletal system: No joint pain or swelling Hematological: No petechia or subcutanous hemorrhages. Immunological: No multiple septic spots on the skin Lymphatic: No generalized lymphadenopathy Psychiatry: Euthymic. Calm. - Constitutional Vitals: Vital Signs - 12hr 10/13/18 10/13/18 12:16 17:15 Temperature 98.1 F 97.9 F Pulse Rate 93 H 80 Respiratory 16 18 Rate Blood Pressure 151/76 150/71 O2 Sat by Pulse 97 98 Oximetry - Labs CBC & Chem 7: 10/09/18 05:31 10/09/18 05:31 Labs: Abnormal lab results 10/12/18 10/13/18 10/13/18 Range/Units 21:48 07:42 11:18 POC Glucose 267 H 176 H 230 H (70-105) 10/13/18 Range/Units 16:29 POC Glucose 185 H (70-105)
--- NOTE | 2018-10-13 21:47 | Anesthesia Consultation ---
Anesthesia Consult and Med Hx Date of service: 10/14/18 - Airway Anesthetic Teeth Evaluation: Poor, Dentures ROM Head & Neck: Adequate Mental/Hyoid Distance: Adequate Mallampati Class: Class III Intubation Access Assessment: Probably Good - Pre-Operative Health Status ASA Pre-Surgery Classification: ASA3 Proposed Anesthetic Plan: General (Consider steroid stress dose) Nerve Block: TAP - Pulmonary Hx Asthma: Yes COPD: Yes - Cardiovascular System Hx Hypertension: Yes (+Cardiac clearance; Normal ECHO and NST this admission) Hx Coronary Artery Disease: No (hx CHF; normal EF 2016) Hx Pacemaker: No Hx Internal Defibrillator: No - Central Nervous System Hx Seizures: Yes CVA: Yes (right sided weakness) Hx Psychiatric Problems: Yes (dementia) - Endocrine Hx Renal Disease: No Hx Liver Disease: No Hx Insulin Dependent Diabetes: Yes - Hematic Hx Anemia: Yes - Other Systems Hx Obesity: Yes - Additional Comments Anesthesia Medical History Comments: Prior CVA. HTN. DVT s/p IVC filter 2014. no anticoagulation due to severe anemia, GI bleed and recurrent falls. Anemia. Dementia. An echocardiogram shows a normal left ventricular systolic function, EF 55-60%. Normal stress thallium test this admission. Okay to proceed with surgery, low cardiac risk.
[2018-10-14] MEDS: HEPARIN SUB-Q SCH ×4 (01:05→02:25)
[2018-10-14] MEDS: FEOSOL PO SCH ×4 (01:06→23:08)
[2018-10-14] MEDS: DILANTIN PO SCH ×3 (01:06→21:11)
[2018-10-14] MEDS: MS CONTIN ER PO SCH ×3 (01:11→23:09)
[2018-10-14] MEDS: HumaLOG SUB-Q SCH ×5 (02:19→23:07)
[2018-10-14] MEDS ORDERED: CLEOCIN 600 MG/50 mL 600 MG/50 ML BAG IV NR (06:00)
[2018-10-14 07:03] LABS: Hematocrit 25.7 % (30.3-42.9); Hemoglobin 7.9 gm/dl (10.1-14.3); Mean Corpuscular HGB Conc 31 % (30-34); Platelet Count 347 K/mm3 (140-440); Red Blood Count 3.74 M/mm3 (3.65-5.03)
[2018-10-14 07:14] LABS: Mean Corpuscular Volume 69 fl (79-97); Red Cell Distribution Width 24.8 % (13.2-15.2)
[2018-10-14] MEDS ORDERED: MARCAINE-EPI 0.25%-1:200,000 INFILTRATI ONE (07:14)
[2018-10-14 07:15] LABS: Partial Thromboplastin Time 30.2 Sec. (24.2-36.6)
[2018-10-14 07:16] LABS: INR 1.16 (0.87-1.13)
[2018-10-14] MEDS ORDERED: SUBLIMAZE ONE (07:37)
[2018-10-14] MEDS ORDERED: XYLOCAINE MPF 2% ONE (07:38)
[2018-10-14] MEDS ORDERED: DIPRIVAN 10 MG/ML IV ONE (07:38)
[2018-10-14] MEDS ORDERED: ZEMURON IV ONE ×2 (07:40→08:41)
[2018-10-14 07:41] LABS: Alanine Aminotransferase 10 units/L (7-56); Albumin 2.1 g/dL (3.9-5); BUN/Creatinine Ratio 5; Blood Urea Nitrogen 2 mg/dL (7-17); Calcium 7.8 mg/dL (8.4-10.2); Hemolysis Index 0
[2018-10-14] MEDS ORDERED: VERSED ONE (07:41)
[2018-10-14] MEDS ORDERED: NACL 0.9% 1000 ML 1,000 ML ONE ×2 (07:42→10:04)
[2018-10-14] MEDS ORDERED: CLEOCIN 600 MG/50 mL 600 MG/50 ML BAG IV ONE (08:05)
--- NOTE | 2018-10-14 08:28 | Hem/Onc Progress Note ---
Assessment and Plan 1. Colon mass, surgical team following the patient. 2. Anemia, MCV low, low iron. 3. B12 deficiency. 4. Radiology mentions 6-cm ascending colon mass with lymph nodes. 5. Radiology mentions right axillary lymph nodes. 6. History of cerebrovascular accident with right hemiparesis. 7. History of hypertension. 8. History of diabetes. 9. History of deep venous thrombosis, was on Coumadin at some time. 10. History of inferior vena cava filter. 11. History of congestive heart failure. 12. There is a plan for surgical evaluation. I will follow the patient during inpatient stay. We will wait for pathology. family/pt keen for treatment will await final staging after sx CEA 17 low b12 - inj low iron - IV iron trial - Patient Problems (1) Mass of colon Current Visit: Yes Status: Acute Subjective Date of service: 10/14/18 Principal diagnosis: colon mass Interval history: due sx Objective - Exam Narrative Exam: Pain - none - obese General appearance not in acute distress Performance status limited self care Eyes - no icterus ENT - no bleeding LNs cervical not palpable Neck - no LN Respiratory Normal Breath sounds - decreased air entry CVS S1 S2 + Extremities normal temperature General GI Soft Rectal deferred female - deferred Skin warm Musculoskeletal rt side weakness Neurologically CVA - effecting rt side - Constitutional Vitals: Last Vital Signs Temp 98.0 F 10/14/18 00:42 Pulse 95 H 10/14/18 00:42 Resp 20 10/14/18 00:42 BP 148/69 10/14/18 00:42 Pulse Ox 99 10/14/18 00:42 - Labs Lab Results: Laboratory Results - last 24 hr 10/13/18 10/13/18 10/14/18 11:18 16:29 02:23 WBC RBC Hgb Hct MCV MCH MCHC RDW Plt Count PT INR APTT Sodium Potassium Chloride Carbon Dioxide Anion Gap BUN Creatinine Estimated GFR BUN/Creatinine Ratio Glucose POC Glucose 230 H 185 H 163 H Calcium Total Bilirubin AST ALT Alkaline Phosphatase Total Protein Albumin Albumin/Globulin Ratio Blood Type Antibody Screen Crossmatch 10/14/18 10/14/18 10/14/18 05:59 05:59 05:59 WBC 7.3 RBC 3.74 Hgb 7.9 L Hct 25.7 L MCV 69 L MCH 21 L MCHC 31 RDW 24.8 H Plt Count 347 PT 14.5 INR 1.16 H APTT 30.2 Sodium 145 Potassium 3.5 L Chloride 109.0 H Carbon Dioxide 26 Anion Gap 14 BUN 2 L Creatinine 0.4 L Estimated GFR > 60 BUN/Creatinine Ratio 5 Glucose 145 H POC Glucose Calcium 7.8 L Total Bilirubin < 0.20 AST 16 ALT 10 Alkaline Phosphatase 167 H Total Protein 5.3 L Albumin 2.1 L Albumin/Globulin Ratio 0.7 Blood Type Antibody Screen Crossmatch 10/14/18 05:59 WBC RBC Hgb Hct MCV MCH MCHC RDW Plt Count PT INR APTT Sodium Potassium Chloride Carbon Dioxide Anion Gap BUN Creatinine Estimated GFR BUN/Creatinine Ratio Glucose POC Glucose Calcium Total Bilirubin AST ALT Alkaline Phosphatase Total Protein Albumin Albumin/Globulin Ratio Blood Type B POSITIVE Antibody Screen Negative Crossmatch See Detail Medications & Allergies - Medications Allergies/Adverse Reactions: Allergies Penicillins Allergy (Verified 11/10/14 21:41) Unknown Peas Allergy (Uncoded 07/01/16 12:21) Swelling Home Medications: Home Medications Medication Instructions Recorded Confirmed Last Taken Type AtorvaSTATin [Lipitor] 20 mg PO QDAY #30 tablet 07/09/16 10/01/18 1 Day Ago Rx ~10/29/16 Furosemide [Lasix TAB] 40 mg PO BID #60 tablet 07/09/16 10/01/18 1 Day Ago Rx ~10/29/16 Metformin HCl [Glucophage] 1,000 mg PO BID #60 tablet 07/09/16 10/01/18 1 Day Ago Rx ~10/29/16 Metoprolol [Lopressor TAB] 25 mg PO BID #60 tablet 07/09/16 10/02/18 1 Day Ago Rx ~10/29/16 Potassium Chloride [K-Dur] 20 meq PO QDAY #30 tablet 07/09/16 10/01/18 1 Day Ago Rx ~10/29/16 AtorvaSTATin [Lipitor] 20 mg PO QDAY 10/29/16 10/01/18 1 Day Ago History ~10/29/16 Citalopram [celeXA] 10 mg PO TID 10/29/16 10/02/18 1 Day Ago History ~10/29/16 Phenytoin Sodium Extended 200 mg PO QHS 10/30/16 10/01/18 1 Day Ago History ~10/29/16 Insulin Glargine [Lantus VIAL] 10 units SUB-Q QHS #1 units 11/04/16 10/02/18 1 Day Ago Rx ~10/29/16 Carvedilol [Coreg] 3.125 mg PO BID 10/01/18 10/01/18 Unknown History Clopidogrel [Plavix] 75 mg PO QDAY 10/01/18 10/01/18 Unknown History DULoxetine [Cymbalta] 60 mg PO QDAY 10/01/18 10/01/18 Unknown History Gemfibrozil [Lopid] 600 mg PO QDAY 10/01/18 10/01/18 Unknown History Morphine Sulfate 15 mg PO BID 10/01/18 10/01/18 Unknown History Phenytoin [Dilantin] 150 mg PO QDAY 10/01/18 10/01/18 Unknown History predniSONE [Deltasone] 5 mg PO Q48HR 10/03/18 10/03/18 Unknown History Active Medications: Generic Name Dose Route Start Last Admin Trade Name Freq PRN Reason Stop Dose Admin Acetaminophen 650 mg 10/01/18 23:43 10/10/18 02:32 Tylenol PO 650 mg Q4H PRN Administration Fever >101 Atorvastatin Calcium 20 mg 10/02/18 22:00 10/14/18 00:00 Lipitor PO 20 mg QHS ART Administration Carvedilol 6.25 mg 10/09/18 14:00 10/14/18 00:00 Coreg PO 6.25 mg BID ART Administration Dextrose 50 ml 10/02/18 08:23 10/02/18 08:46 D50w (25gm) Syringe IV 50 ml PRN PRN Administration Hypoglycemia Duloxetine HCl 60 mg 10/02/18 14:00 10/13/18 09:44 Cymbalta PO 60 mg QDAY ART Administration Ferrous Sulfate 325 mg 10/13/18 10:00 10/14/18 01:06 Feosol PO 325 mg BID ART Administration Gemfibrozil 600 mg 10/05/18 10:00 10/13/18 09:45 Lopid PO 600 mg QDAY ART Administration Heparin Sodium (Porcine) 5,000 unit 10/11/18 22:00 10/14/18 02:25 Heparin SUB-Q 5,000 unit Q8HR ART Administration Sodium Chloride 1,000 mls @ 125 mls/hr 10/01/18 23:45 10/13/18 18:37 Nacl 0.9% 1000 Ml IV 125 mls/hr DIRECT ART Administration Dextrose/Sodium Chloride 1,000 mls @ 125 mls/hr 10/02/18 09:00 10/02/18 19:34 D5ns IV 125 mls/hr DIRECT ART Administration Sodium Chloride 1,000 mls @ 50 mls/hr 10/07/18 14:00 10/12/18 19:49 Nacl 0.9% 1000 Ml IV 50 mls/hr DIRECT ART Administration Clindamycin HCl 600 mg in 50 mls @ 100 mls/hr 10/14/18 06:00 Cleocin 600 Mg/50 Ml IV 10/14/18 23:00 PREOP NR Protocol Insulin Human Lispro 0 unit 10/05/18 16:30 10/14/18 02:19 Humalog SUB-Q 2 unit ACHS ART Administration Protocol Morphine Sulfate 15 mg 10/02/18 22:00 10/14/18 01:11 Ms Contin Er PO 15 mg Q12HR ART Administration Multivitamins 5 ml 10/13/18 10:00 10/13/18 09:45 Centrum Liq PO 5 ml QDAY ART Administration Ondansetron HCl 4 mg 10/01/18 23:42 10/10/18 02:32 Zofran IV 4 mg Q8H PRN Administration Nausea And Vomiting Phenytoin 200 mg 10/02/18 22:00 10/14/18 01:06 Dilantin PO 200 mg QHS ART Administration Potassium Chloride 20 meq 10/09/18 14:00 10/13/18 09:47 K-Dur PO 20 meq QDAY ART Administration Prednisone 5 mg 10/06/18 10:00 10/12/18 10:47 Deltasone PO 5 mg Q48HR ART Administration
[2018-10-14] MEDS ORDERED: ZOFRAN ONE (09:22)
[2018-10-14] MEDS ORDERED: PHENYLEPHRINE/NS Syringe 1,000 MCG/10 ML IV ONE (10:00)
[2018-10-14] MEDS ORDERED: BLOXIVERZ ONE (10:01)
[2018-10-14] MEDS ORDERED: ROBINUL ONE (10:01)
[2018-10-14] MEDS ORDERED: NACL 0.9% IR ONE (10:20)
--- NOTE | 2018-10-14 10:28 | Post Operative Note ---
Date of procedure: 10/14/18 (Dictation: [id number]) Pre-op diagnosis: cecal mass-near obstructing Post-op diagnosis: same Findings: large mass in cecum. large lymph nodes in mesentery. No other disease Procedure: Open right hemicolectomy with primary anastomosis IVF 1L EBL 100cc UOP 100cc Anesthesia: MIKE Surgeon: MONICA KAHN [employer] Yarn Slitting Machine Operator: PEDRO KEE (Asst: Patria Vázquez) Estimated blood loss: 50-100ml Pathology: list (right colon) Specimen disposition: to lab Condition: stable Disposition: PACU
[2018-10-14] MEDS ORDERED: MORPHINE IV PRN (10:41)
[2018-10-14] MEDS ORDERED: ZOFRAN IV PRN (11:12)
[2018-10-14] MEDS ORDERED: HumuLIN R IV ONE (11:13)
[2018-10-14] MEDS: DILAUDID IV PRN ×4 (11:20→21:15)
[2018-10-14] MEDS ORDERED: HumuLIN R ONE (11:20)
[2018-10-14] MEDS: NACL 0.9% 1000 ML 1,000 ML IV SCH (12:37)
[2018-10-14] MEDS: CYMBALTA PO SCH (13:43)
[2018-10-14] MEDS: COREG PO SCH ×3 (13:44→23:07)
--- NOTE | 2018-10-14 16:44 | Operative Report ---
PREOPERATIVE DIAGNOSIS: Near obstructing cecal mass. POSTOPERATIVE DIAGNOSIS: Near obstructing cecal mass. PROCEDURE PERFORMED: Open right hemicolectomy with primary anastomosis. ATTENDING PHYSICIAN: Terra Stevenson M.D. INSOLVENCY CONSULTANT: Dr. Aviles and Dr. Vázquez. ANESTHESIA: General. ESTIMATED BLOOD LOSS: Less than 100 mL. FLUIDS: 1 liter. URINE OUTPUT: 100 mL. FINDINGS: Large nonadherent mass in the right cecum. No invasion into the adjacent tissues. Large lymph nodes noted in the colonic mesentery. No evidence of any nodules in the peritoneum, liver or other solid organs. Rest of the colon had already been examined by GI and there were no internal lesions, externally it appeared normal. Small bowel was normal. SPECIMENS: Right colon. DRAINS: None. COMPLICATION: None DISPOSITION: Stable, transferred to Recovery Room. INDICATIONS: This is a 63-year-old female who was recently found to have a near obstructing mass in the right colon. General Surgery was consulted. CT scan shows at least a 6 cm mass in the right colon. The patient was assessed to be in need for right hemicolectomy. Procedure, risks, benefits were explained to the patient. Risks included but were not limited to infection, bleeding, pain, injury to surrounding structures, possible need for colostomy, possible need for further procedures in the future. The patient understood and consented. OPERATIVE NOTE: The patient was brought to the operating room and placed on the table in supine position. After adequate general anesthesia was established, the patient was prepped and draped in the usual sterile fashion. OG tube had been inserted. Martinez catheter, SCDs were in place. Antibiotics had been given. Time-out was called. I began by making an upper midline incision and then we extended around the umbilicus and just below. This provided adequate visualization. We entered the peritoneal cavity safely. I did an examination of the abdomen. I saw no evidence of any metastatic disease other than enlarged lymph nodes in the colonic mesentery. A Bookwalter was set up. We began by packing the sigmoid colon and small bowel to the left side of the abdomen. We began by mobilizing the colon from a lateral to medial approach taking down the white line of Toldt. We mobilized the hepatic flexure. We had a very nice mobilization. We maintained the retroperitoneal plane. We did not violate it. There were some mild adhesions in the right upper quadrant and right lower quadrant that we took down very easily. They were thin and flimsy. Once we had mobilized the colon completely, we divided the small bowel approximately 10 cm proximal to the ileocecal valve with the SAW stapler using a blue load. We divided the transverse colon just to the right of the middle colic vessels. We used the EnSeal device to seal the vessels. Once the bowels were divided, we made sure we are as far down as possible on the mesentery near the origin of the ileocolic vessel. We then divided that colonic mesentery with the EnSeal device. We did multiple seals of the ileocolic vessels before dividing it. We had excellent hemostasis. We then anastomosed the small bowel and remainder of the transverse colon using a SAW stapler with a blue load. We had excellent hemostasis. We closed the opening with a TA stapler and then reinforced the staple line with interrupted 3-0 silk sutures. We had a very large mesenteric opening. After the anastomosis, we felt that it would be better to leave it open for fear that if we closed it and had a gap, that would be high risk for an internal hernia, therefore it was left wide open. We put an extra stitch at the crotch of the anastomosis. We had a nice wide patent anastomosis. We had excellent hemostasis. We thoroughly washed out the abdomen. Everything was hemostatic. We made sure all the bowel was in the appropriate positions and there was no twisting. Omentum was laid on top of our anastomosis and then the fascia was closed with a running #1 looped PDS suture. Subcutaneous tissue was irrigated. Skin was closed with ernie. The patient tolerated the procedure well. There were no complications. All counts were correct at the end of the case. JOB# [id number] GIOVANNI/MARIAM
[2018-10-14] MEDS: ZOFRAN IV PRN (17:52)
[2018-10-14] MEDS: APRESOLINE IV PRN (17:54)
[2018-10-14] MEDS: DELTASONE PO SCH (18:04)
[2018-10-14] MEDS: K-DUR PO SCH (18:04)
[2018-10-14] MEDS: LOPID PO SCH (18:05)
[2018-10-14] MEDS: Centrum Liq PO SCH (18:05)
--- NOTE | 2018-10-14 20:34 | Progress Note ---
Assessment and Plan 63-year-old female with past medical history significant for CVA with right-sided hemiplegia, lupus was presented to the emergency department with complaints of altered mental status. In the emergency department patient w as found to have hypoglycemia and was treated accordingly. Workup showed that she has leukocytosis and elevated lactic acid level which may be suggestive of infection. Patient admitted to the floor for further workup and management. Colonic mass s/p right hemicolectmy today 10/14/18 - almost completely obstructed. for surgical resection 10/13/18 Present clearance for surgery by senior bi architect with normal stress tests and equal - Anemia transfuse - Hypokalemai repleted Acute metabolic encephalopathy due to hypoglycemia - Patient was treated with dextrose, now resolved Sepsis -from periodontal infection, continue augmentin till 10/12 per id Lupus - Continue pain medicine and her prednisone History of CVA with right hemiplegia - Supportive care DVT prophylaxis Disposition - Continue inpatient care, home with sister when acute issues resolved Subjective Date of service: 10/14/18 Principal diagnosis: colon mass Interval history: Patient is seen and examined. Leg quietly in bed in no apparent distress. No fever. No abdomen pain nausea or vomiting. Had right hemicolectomy today Objective - Exam Narrative Exam: Constitutional: Well-nourished well-developed. In no distress Head: Normocephalic atraumatic Eyes: Pupils are equal round and reactive to light Nose: No enlarged turbinates, no septal deviation. Mouth: Moist mucous membranes. Neck: Supple no thyromegaly. No bruit. No JVD Heart: Regular rate and rhythm, S1-S2 normal. No rubs murmurs or gallop Lungs: Clear to auscultation bilaterally. no rales or rhonchi Abdomen: Soft, nontender. Bowel sound are present. Extremities: No edema, no cyanosis, no clubbing. Neuro: Alert oriented Oriented x2. Right hemiparesis Skin: No rashes or hyperpigmented spots Musculoskeletal system: No joint pain or swelling Hematological: No petechia or subcutanous hemorrhages. Immunological: No multiple septic spots on the skin Lymphatic: No generalized lymphadenopathy Psychiatry: Euthymic. Calm. - Constitutional Vitals: Vital Signs - 12hr 10/14/18 10/14/18 10/14/18 10:35 10:40 10:45 Temperature 97.8 F Pulse Rate 94 H 69 80 Respiratory 13 16 18 Rate Blood Pressure 133/61 156/63 142/50 O2 Sat by Pulse 96 96 97 Oximetry 10/14/18 10/14/18 10/14/18 10:50 11:00 11:15 Temperature Pulse Rate 81 81 87 Respiratory 21 16 20 Rate Blood Pressure 166/66 148/68 142/73 O2 Sat by Pulse 100 100 9 L Oximetry 10/14/18 10/14/18 10/14/18 11:20 11:30 11:35 Temperature 98.9 F Pulse Rate 92 H Respiratory 16 20 17 Rate Blood Pressure 167/77 O2 Sat by Pulse 997 H Oximetry 10/14/18 10/14/18 10/14/18 11:43 11:46 12:10 Temperature 97.4 F L Pulse Rate 94 H 81 Respiratory 16 17 22 Rate Blood Pressure 160/79 171/94 O2 Sat by Pulse 97 83 L Oximetry 10/14/18 10/14/18 10/14/18 13:00 13:44 17:01 Temperature 99.0 F Pulse Rate 100 H 109 H Respiratory 22 Rate Blood Pressure 171/99 198/104 O2 Sat by Pulse 95 95 Oximetry 10/14/18 17:54 Temperature Pulse Rate 109 H Respiratory Rate Blood Pressure 198/100 O2 Sat by Pulse Oximetry - Labs CBC & Chem 7: 10/14/18 05:59 10/14/18 05:59 Labs: Abnormal lab results 10/14/18 10/14/18 10/14/18 Range/Units 02:23 05:59 05:59 Hgb 7.9 L (10.1-14.3) gm/dl Hct 25.7 L (30.3-42.9) % MCV 69 L (79-97) fl MCH 21 L (28-32) pg RDW 24.8 H (13.2-15.2) % INR 1.16 H (0.87-1.13) Potassium (3.6-5.0) mmol/L Chloride (98-107) mmol/L BUN (7-17) mg/dL Creatinine (0.7-1.2) mg/dL Glucose (65-100) mg/dL POC Glucose 163 H (70-105) Calcium (8.4-10.2) mg/dL Alkaline Phosphatase (35-129) units/L Total Protein (6.3-8.2) g/dL Albumin (3.9-5) g/dL Crossmatch 10/14/18 10/14/18 10/14/18 Range/Units 05:59 05:59 10:59 Hgb (10.1-14.3) gm/dl Hct (30.3-42.9) % MCV (79-97) fl MCH (28-32) pg RDW (13.2-15.2) % INR (0.87-1.13) Potassium 3.5 L (3.6-5.0) mmol/L Chloride 109.0 H (98-107) mmol/L BUN 2 L (7-17) mg/dL Creatinine 0.4 L (0.7-1.2) mg/dL Glucose 145 H (65-100) mg/dL POC Glucose 241 H (70-105) Calcium 7.8 L (8.4-10.2) mg/dL Alkaline Phosphatase 167 H (35-129) units/L Total Protein 5.3 L (6.3-8.2) g/dL Albumin 2.1 L (3.9-5) g/dL Crossmatch See Detail 10/14/18 10/14/18 Range/Units 12:00 17:06 Hgb (10.1-14.3) gm/dl Hct (30.3-42.9) % MCV (79-97) fl MCH (28-32) pg RDW (13.2-15.2) % INR (0.87-1.13) Potassium (3.6-5.0) mmol/L Chloride (98-107) mmol/L BUN (7-17) mg/dL Creatinine (0.7-1.2) mg/dL Glucose (65-100) mg/dL POC Glucose 212 H 215 H (70-105) Calcium (8.4-10.2) mg/dL Alkaline Phosphatase (35-129) units/L Total Protein (6.3-8.2) g/dL Albumin (3.9-5) g/dL Crossmatch
[2018-10-15] MEDS: NACL 0.9% 1000 ML 1,000 ML IV SCH ×2 (00:13→18:07)
[2018-10-15] MEDS: APRESOLINE IV PRN ×2 (00:15→12:47)
[2018-10-15] MEDS: DILAUDID IV PRN ×5 (01:12→18:28)
[2018-10-15 05:53] LABS: Hematocrit 31.3 % (30.3-42.9); Hemoglobin 9.7 gm/dl (10.1-14.3); Mean Corpuscular HGB Conc 31 % (30-34); Red Blood Count 4.49 M/mm3 (3.65-5.03)
[2018-10-15 05:54] LABS: Mean Corpuscular Volume 70 fl (79-97); Red Cell Distribution Width 25.4 % (13.2-15.2)
[2018-10-15 06:06] LABS: Alanine Aminotransferase 15 units/L (7-56); Albumin 2.2 g/dL (3.9-5); BUN/Creatinine Ratio 5; Blood Urea Nitrogen 2 mg/dL (7-17); Calcium 8.4 mg/dL (8.4-10.2); Hemolysis Index 23
--- NOTE | 2018-10-15 07:10 | Hem/Onc Progress Note ---
Assessment and Plan colon mass s/p sx 1. Colon mass, surgical team following the patient. 2. Anemia, MCV low, low iron. 3. B12 deficiency. 4. Radiology mentions 6-cm ascending colon mass with lymph nodes. 5. Radiology mentions right axillary lymph nodes. 6. History of cerebrovascular accident with right hemiparesis. 7. History of hypertension. 8. History of diabetes. 9. History of deep venous thrombosis, was on Coumadin at some time. 10. History of inferior vena cava filter. 11. History of congestive heart failure. 12. There is a plan for surgical evaluation. I will follow the patient during inpatient stay. We will wait for pathology. family/pt keen for treatment will await final staging after sx CEA 17 low b12 - inj low iron - IV iron trial 10/15 - s/p sx CT chest has mediastinal and rt axillary LN - OP PET will help - Patient Problems (1) Mass of colon Current Visit: Yes Status: Acute Subjective Date of service: 10/15/18 Principal diagnosis: colon mass Interval history: s/p sx Objective - Exam Narrative Exam: Pain - none - obese General appearance not in acute distress Performance status limited self care Eyes - no icterus ENT - no bleeding LNs cervical not palpable Neck - no LN Respiratory Normal Breath sounds - decreased air entry CVS S1 S2 + Extremities normal temperature General GI - s/p sx Rectal deferred female - deferred Skin warm Musculoskeletal rt side weakness Neurologically CVA - effecting rt side - Constitutional Vitals: Last Vital Signs Temp 99.3 F 10/15/18 05:22 Pulse 132 H 10/15/18 05:22 Resp 20 10/15/18 05:22 BP 143/77 10/15/18 05:22 Pulse Ox 95 10/15/18 05:22 - Labs Lab Results: Laboratory Results - last 24 hr 10/14/18 10/14/18 10/14/18 05:59 05:59 05:59 WBC 7.3 RBC 3.74 Hgb 7.9 L Hct 25.7 L MCV 69 L MCH 21 L MCHC 31 RDW 24.8 H Plt Count 347 Seg Neutrophils % PT 14.5 INR 1.16 H APTT 30.2 Sodium 145 Potassium 3.5 L Chloride 109.0 H Carbon Dioxide 26 Anion Gap 14 BUN 2 L Creatinine 0.4 L Estimated GFR > 60 BUN/Creatinine Ratio 5 Glucose 145 H POC Glucose Calcium 7.8 L Phosphorus Magnesium Total Bilirubin < 0.20 AST 16 ALT 10 Alkaline Phosphatase 167 H Total Protein 5.3 L Albumin 2.1 L Albumin/Globulin Ratio 0.7 Blood Type Antibody Screen Crossmatch 10/14/18 10/14/18 10/14/18 05:59 10:59 12:00 WBC RBC Hgb Hct MCV MCH MCHC RDW Plt Count Seg Neutrophils % PT INR APTT Sodium Potassium Chloride Carbon Dioxide Anion Gap BUN Creatinine Estimated GFR BUN/Creatinine Ratio Glucose POC Glucose 241 H 212 H Calcium Phosphorus Magnesium Total Bilirubin AST ALT Alkaline Phosphatase Total Protein Albumin Albumin/Globulin Ratio Blood Type B POSITIVE Antibody Screen Negative Crossmatch See Detail 10/14/18 10/14/18 10/15/18 17:06 21:19 05:35 WBC 20.0 H RBC 4.49 Hgb 9.7 L Hct 31.3 MCV 70 L MCH 22 L MCHC 31 RDW 25.4 H Plt Count Seg Neutrophils % Store Lead PT INR APTT Sodium Potassium Chloride Carbon Dioxide Anion Gap BUN Creatinine Estimated GFR BUN/Creatinine Ratio Glucose POC Glucose 215 H 253 H Calcium Phosphorus Magnesium Total Bilirubin AST ALT Alkaline Phosphatase Total Protein Albumin Albumin/Globulin Ratio Blood Type Antibody Screen Crossmatch 10/15/18 10/15/18 05:35 05:35 WBC RBC Hgb Hct MCV MCH MCHC RDW Plt Count Seg Neutrophils % PT INR APTT Sodium 142 Potassium 3.9 Chloride 106.0 Carbon Dioxide 24 Anion Gap 16 BUN 2 L Creatinine 0.4 L Estimated GFR > 60 BUN/Creatinine Ratio 5 Glucose 203 H POC Glucose Calcium 8.4 Phosphorus 4.00 Magnesium 1.70 Total Bilirubin < 0.20 AST 18 ALT 15 Alkaline Phosphatase 181 H Total Protein 5.6 L Albumin 2.2 L Albumin/Globulin Ratio 0.6 Blood Type Antibody Screen Crossmatch Medications & Allergies - Medications Allergies/Adverse Reactions: Allergies Penicillins Allergy (Verified 11/10/14 21:41) Unknown Peas Allergy (Uncoded 07/01/16 12:21) Swelling Home Medications: Home Medications Medication Instructions Recorded Confirmed Last Taken Type AtorvaSTATin [Lipitor] 20 mg PO QDAY #30 tablet 07/09/16 10/01/18 1 Day Ago Rx ~10/29/16 Furosemide [Lasix TAB] 40 mg PO BID #60 tablet 07/09/16 10/01/18 1 Day Ago Rx ~10/29/16 Metformin HCl [Glucophage] 1,000 mg PO BID #60 tablet 07/09/16 10/01/18 1 Day Ago Rx ~10/29/16 Metoprolol [Lopressor TAB] 25 mg PO BID #60 tablet 07/09/16 10/02/18 1 Day Ago Rx ~10/29/16 Potassium Chloride [K-Dur] 20 meq PO QDAY #30 tablet 07/09/16 10/01/18 1 Day Ago Rx ~10/29/16 AtorvaSTATin [Lipitor] 20 mg PO QDAY 10/29/16 10/01/18 1 Day Ago History ~10/29/16 Citalopram [celeXA] 10 mg PO TID 10/29/16 10/02/18 1 Day Ago History ~10/29/16 Phenytoin Sodium Extended 200 mg PO QHS 10/30/16 10/01/18 1 Day Ago History ~10/29/16 Insulin Glargine [Lantus VIAL] 10 units SUB-Q QHS #1 units 11/04/16 10/02/18 1 Day Ago Rx ~10/29/16 Carvedilol [Coreg] 3.125 mg PO BID 10/01/18 10/01/18 Unknown History Clopidogrel [Plavix] 75 mg PO QDAY 10/01/18 10/01/18 Unknown History DULoxetine [Cymbalta] 60 mg PO QDAY 10/01/18 10/01/18 Unknown History Gemfibrozil [Lopid] 600 mg PO QDAY 10/01/18 10/01/18 Unknown History Morphine Sulfate 15 mg PO BID 10/01/18 10/01/18 Unknown History Phenytoin [Dilantin] 150 mg PO QDAY 10/01/18 10/01/18 Unknown History predniSONE [Deltasone] 5 mg PO Q48HR 10/03/18 10/03/18 Unknown History Active Medications: Generic Name Dose Route Start Last Admin Trade Name Freq PRN Reason Stop Dose Admin Acetaminophen 650 mg 10/01/18 23:43 10/10/18 02:32 Tylenol PO 650 mg Q4H PRN Administration Fever >101 Atorvastatin Calcium 20 mg 10/02/18 22:00 10/14/18 23:08 Lipitor PO Not Given QHS [facility] Carvedilol 6.25 mg 10/09/18 14:00 10/14/18 23:07 Coreg PO Not Given BID ART Dextrose 50 ml 10/02/18 08:23 10/02/18 08:46 D50w (25gm) Syringe IV 50 ml PRN PRN Administration Hypoglycemia Duloxetine HCl 60 mg 10/02/18 14:00 10/14/18 13:43 Cymbalta PO 60 mg QDAY ART Administration Enoxaparin Sodium 40 mg 10/14/18 22:00 Lovenox SUB-Q QDAY@2200 ART Ferrous Sulfate 325 mg 10/13/18 10:00 10/14/18 23:08 Feosol PO Not Given BID ART Gemfibrozil 600 mg 10/05/18 10:00 10/14/18 18:05 Lopid PO Not Given QDAY ART Hydralazine HCl 10 mg 10/14/18 16:00 10/15/18 00:15 Apresoline IV 10 mg Q6H PRN Administration Blood Pressure Hydrocortisone Sodium Succinate 25 mg 10/16/18 07:00 Solu-Cortef IV DAILY ART Hydromorphone HCl 0.5 mg 10/14/18 10:41 10/15/18 05:13 Dilaudid IV 0.5 mg Q3H PRN Administration Pain , Severe (7-10) Hydromorphone HCl 0.5 mg 10/14/18 11:12 10/14/18 11:35 Dilaudid IV 10/15/18 11:11 0.5 mg Q10MIN PRN Administration Pain , Severe (7-10) Sodium Chloride 1,000 mls @ 125 mls/hr 10/01/18 23:45 10/13/18 18:37 Nacl 0.9% 1000 Ml IV 125 mls/hr DIRECT ART Administration Dextrose/Sodium Chloride 1,000 mls @ 125 mls/hr 10/02/18 09:00 10/02/18 19:34 D5ns IV 125 mls/hr DIRECT ART Administration Sodium Chloride 1,000 mls @ 50 mls/hr 10/07/18 14:00 10/15/18 00:13 Nacl 0.9% 1000 Ml IV 50 mls/hr DIRECT ART Administration Insulin Human Lispro 0 unit 10/05/18 16:30 10/14/18 23:07 Humalog SUB-Q 4 unit ACHS ART Administration Protocol Morphine Sulfate 15 mg 10/02/18 22:00 10/14/18 23:09 Ms Contin Er PO Not Given Q12HR [facility] Morphine Sulfate 4 mg 10/14/18 10:41 Morphine IV Q3H PRN Pain, Moderate (4-6) Multivitamins 5 ml 10/13/18 10:00 10/14/18 18:05 Centrum Liq PO Not Given QDAY [facility] Ondansetron HCl 4 mg 10/01/18 23:42 10/14/18 17:52 Zofran IV 4 mg Q8H PRN Administration Nausea And Vomiting Ondansetron HCl 4 mg 10/14/18 11:12 Zofran IV ONCE PRN Nausea And Vomiting Phenytoin 200 mg 10/02/18 22:00 10/14/18 21:11 Dilantin PO Not Given QHS [facility] Potassium Chloride 20 meq 10/09/18 14:00 10/14/18 18:04 K-Dur PO Not Given QDAY [facility] Prednisone 5 mg 10/06/18 10:00 10/14/18 18:04 Deltasone PO Not Given Q48HR [facility]
[2018-10-15] MEDS: HumaLOG SUB-Q SCH ×4 (07:30→21:48)
[2018-10-15 07:38] LABS: Basophils % (Manual) 0 % (0.0-1.8); Eosinophils % (Manual) 0 % (0.0-4.3); Total Cells Counted 100
[2018-10-15 07:41] LABS: Anisocytosis 2+; Hypochromasia 2+; Schistocytes Few; Spherocytes Few; Target Cells Few
[2018-10-15 07:44] LABS: Platelet Estimate Consistent w Auto
[2018-10-15 08:18] LABS: Platelet Count 355 K/mm3 (140-440)
--- NOTE | 2018-10-15 09:54 | Progress Note ---
Assessment and Plan Colon mass s/p open right hemicolectomy with primary anastomosis Prior CVA HTN DVT s/p IVC filter 2014 no anticoagulation due to severe anemia, GI bleed and recurrent falls. Anemia Dementia An echocardiogram shows a normal left ventricular systolic function, EF 55-60%. Normal stress thallium test this admission. Conservative cardiac management. We will sign off. Subjective Date of service: 10/15/18 Principal diagnosis: colon mass Interval history: Patient is 1 day status post right hemicolectomy. She denies chest pain and shortness of breath. Objective Vital Signs Temp Pulse Resp BP Pulse Ox 10/15/18 05:22 99.3 F 132 H 20 143/77 95 10/15/18 01:06 99.1 F 139 H 18 131/71 97 10/14/18 22:55 99.4 F 139 H 18 178/96 95 10/14/18 17:54 109 H 198/100 10/14/18 17:01 99.0 F 109 H 22 198/104 95 10/14/18 13:44 100 H 171/99 10/14/18 13:00 95 10/14/18 12:10 97.4 F L 81 22 171/94 83 L 10/14/18 11:46 94 H 17 160/79 97 10/14/18 11:43 16 10/14/18 11:35 17 10/14/18 11:30 98.9 F 92 H 20 167/77 997 H 10/14/18 11:20 16 10/14/18 11:15 87 20 142/73 9 L 10/14/18 11:00 81 16 148/68 100 10/14/18 10:50 81 21 166/66 100 10/14/18 10:45 80 18 142/50 97 10/14/18 10:40 69 16 156/63 96 10/14/18 10:35 97.8 F 94 H 13 133/61 96 - Physical Examination General: No Apparent Distress HEENT: Positive: PERRL Neck: Positive: neck supple Cardiac: Positive: Reg Rate and Rhythm Lungs: Positive: Decreased Breath Sounds Neuro: Positive: Weakness Abdomen: Positive: Soft Extremities: Absent: edema - Labs and Meds Cardiac Enzymes 10/15/18 Range/Units 05:35 AST 18 (5-40) units/L CBC 10/15/18 Range/Units 05:35 WBC 20.0 H (4.5-11.0) K/mm3 RBC 4.49 (3.65-5.03) M/mm3 Hgb 9.7 L (10.1-14.3) gm/dl Hct 31.3 (30.3-42.9) % Plt Count 355 (140-440) K/mm3 Comprehensive Metabolic Panel 10/15/18 Range/Units 05:35 Sodium 142 (137-145) mmol/L Potassium 3.9 (3.6-5.0) mmol/L Chloride 106.0 (98-107) mmol/L Carbon Dioxide 24 (22-30) mmol/L BUN 2 L (7-17) mg/dL Creatinine 0.4 L (0.7-1.2) mg/dL Glucose 203 H (65-100) mg/dL Calcium 8.4 (8.4-10.2) mg/dL AST 18 (5-40) units/L ALT 15 (7-56) units/L Alkaline Phosphatase 181 H (35-129) units/L Total Protein 5.6 L (6.3-8.2) g/dL Albumin 2.2 L (3.9-5) g/dL
[2018-10-15] MEDS: MS CONTIN ER PO SCH ×2 (10:00→21:44)
[2018-10-15] MEDS: CYMBALTA PO SCH (13:39)
[2018-10-15] MEDS: LOPID PO SCH (13:39)
[2018-10-15] MEDS: LOPRESSOR PO SCH ×2 (13:41→21:44)
--- NOTE | 2018-10-15 15:05 | Progress Note ---
Assessment and Plan - Patient Problems (1) Mass of colon Current Visit: Yes Status: Acute Plan to address problem: Pt stable. s/p open right hemicolectomy (10/14/18) - POD#1. Pt seems to be doing ok. Leukocytosis is probably reactive in nature. rec: 1) Clear tonight. Advance once bowel function resumes 2) Ambulate 3) remove dickinson (discussed with nurse - supposed to be done in AM) 4) remove dressing tomorrow. My colleagues will be covering for me this weekend. Please call with questions. time=10min Subjective Date of service: 10/15/18 Patient Reports: Positive: no new complaints (feeling sleepy after recent pain meds), no flatus. Negative: nausea, vomiting Objective Vital Signs - 12hr 10/15/18 10/15/18 10/15/18 05:22 12:30 12:47 Temperature 99.3 F 99.3 F Pulse Rate 132 H Respiratory 20 20 Rate Blood Pressure 143/77 180/90 180/90 O2 Sat by Pulse 95 Oximetry 10/15/18 13:41 Temperature Pulse Rate 128 H Respiratory Rate Blood Pressure 180/90 O2 Sat by Pulse Oximetry - General physical appearance no distress, no pain, other (sleepy) - Respiratory normal expansion, normal respiratory effort - Abdomen soft, not tender, not distended, other (dressing dry) - Integumentary no rash, no growths, no abnormal pigmentation - Labs 10/15/18 05:35 10/15/18 05:35 Diabetes panel 10/15/18 Range/Units 05:35 Sodium 142 (137-145) mmol/L Potassium 3.9 (3.6-5.0) mmol/L Chloride 106.0 (98-107) mmol/L Carbon Dioxide 24 (22-30) mmol/L BUN 2 L (7-17) mg/dL Creatinine 0.4 L (0.7-1.2) mg/dL Glucose 203 H (65-100) mg/dL Calcium 8.4 (8.4-10.2) mg/dL AST 18 (5-40) units/L ALT 15 (7-56) units/L Alkaline Phosphatase 181 H (35-129) units/L Total Protein 5.6 L (6.3-8.2) g/dL Albumin 2.2 L (3.9-5) g/dL Calcium panel 10/15/18 10/15/18 Range/Units 05:35 05:35 Calcium 8.4 (8.4-10.2) mg/dL Phosphorus 4.00 (2.5-4.5) mg/dL Albumin 2.2 L (3.9-5) g/dL Pituitary panel 10/15/18 Range/Units 05:35 Sodium 142 (137-145) mmol/L Potassium 3.9 (3.6-5.0) mmol/L Chloride 106.0 (98-107) mmol/L Carbon Dioxide 24 (22-30) mmol/L BUN 2 L (7-17) mg/dL Creatinine 0.4 L (0.7-1.2) mg/dL Glucose 203 H (65-100) mg/dL Calcium 8.4 (8.4-10.2) mg/dL Adrenal panel 10/15/18 Range/Units 05:35 Sodium 142 (137-145) mmol/L Potassium 3.9 (3.6-5.0) mmol/L Chloride 106.0 (98-107) mmol/L Carbon Dioxide 24 (22-30) mmol/L BUN 2 L (7-17) mg/dL Creatinine 0.4 L (0.7-1.2) mg/dL Glucose 203 H (65-100) mg/dL Calcium 8.4 (8.4-10.2) mg/dL Total Bilirubin < 0.20 (0.1-1.2) mg/dL AST 18 (5-40) units/L ALT 15 (7-56) units/L Alkaline Phosphatase 181 H (35-129) units/L Total Protein 5.6 L (6.3-8.2) g/dL Albumin 2.2 L (3.9-5) g/dL
[2018-10-15] MEDS: K-DUR PO SCH (18:08)
[2018-10-15] MEDS: Centrum Liq PO SCH (18:08)
[2018-10-15] MEDS: FEOSOL PO SCH ×2 (18:08→21:44)
[2018-10-15] MEDS: ZOFRAN IV PRN (18:28)
--- NOTE | 2018-10-15 20:43 | Progress Note ---
Assessment and Plan 63-year-old female with past medical history significant for CVA with right-sided hemiplegia, lupus was presented to the emergency department with complaints of altered mental status. In the emergency department patient w as found to have hypoglycemia and was treated accordingly. Workup showed that she has leukocytosis and elevated lactic acid level which may be suggestive of infection. Patient admitted to the floor for further workup and management. Colonic mass s/p right hemicolectmy today 10/14/18 - almost completely obstructed. for surgical resection 10/13/18 Present clearance for surgery by prison officer with normal stress tests and equal - Anemia transfuse - Hypokalemai repleted and recheck Acute metabolic encephalopathy due to hypoglycemia - Patient was treated with dextrose, now resolved Sepsis -from periodontal infection, continue augmentin till 10/12 per id Lupus - Continue pain medicine and her prednisone History of CVA with right hemiplegia - Supportive care DVT prophylaxis Disposition - Continue inpatient care, home with sister when acute issues resolved Subjective Date of service: 10/15/18 Principal diagnosis: colon mass Interval history: Patient is seen and examined. Leg quietly in bed in no apparent distress. No fever. No abdomen pain nausea or vomiting. Had right hemicolectomy today Objective - Exam Narrative Exam: Constitutional: Well-nourished well-developed. In no distress Head: Normocephalic atraumatic Eyes: Pupils are equal round and reactive to light Nose: No enlarged turbinates, no septal deviation. Mouth: Moist mucous membranes. Neck: Supple no thyromegaly. No bruit. No JVD Heart: Regular rate and rhythm, S1-S2 normal. No rubs murmurs or gallop Lungs: Clear to auscultation bilaterally. no rales or rhonchi Abdomen: Soft, post op tender. Bowel sound not present. Extremities: No edema, no cyanosis, no clubbing. Neuro: Alert oriented Oriented x2. Right hemiparesis Skin: No rashes or hyperpigmented spots Musculoskeletal system: No joint pain or swelling Hematological: No petechia or subcutanous hemorrhages. Immunological: No multiple septic spots on the skin Lymphatic: No generalized lymphadenopathy Psychiatry: Euthymic. Calm. - Constitutional Vitals: Vital Signs - 12hr 10/15/18 10/15/18 10/15/18 10:00 12:30 12:47 Temperature 99.3 F Pulse Rate Respiratory 20 Rate Blood Pressure 180/90 180/90 O2 Sat by Pulse 95 Oximetry 10/15/18 10/15/18 13:41 17:20 Temperature 98.2 F Pulse Rate 128 H Respiratory 20 Rate Blood Pressure 180/90 146/73 O2 Sat by Pulse Oximetry - Labs CBC & Chem 7: 10/15/18 05:35 10/15/18 05:35 Labs: Abnormal lab results 10/14/18 10/15/18 10/15/18 Range/Units 21:19 05:35 05:35 WBC 20.0 H (4.5-11.0) K/mm3 Hgb 9.7 L (10.1-14.3) gm/dl MCV 70 L (79-97) fl MCH 22 L (28-32) pg RDW 25.4 H (13.2-15.2) % Seg Neuts % (Manual) 96.0 H (40.0-70.0) % Lymphocytes % (Manual) 2.0 L (13.4-35.0) % Seg Neutrophils # Man 19.2 H (1.8-7.7) K/mm3 Lymphocytes # (Manual) 0.4 L (1.2-5.4) K/mm3 BUN 2 L (7-17) mg/dL Creatinine 0.4 L (0.7-1.2) mg/dL Glucose 203 H (65-100) mg/dL POC Glucose 253 H (70-105) Alkaline Phosphatase 181 H (35-129) units/L Total Protein 5.6 L (6.3-8.2) g/dL Albumin 2.2 L (3.9-5) g/dL 10/15/18 10/15/18 10/15/18 Range/Units 08:04 12:35 17:26 WBC (4.5-11.0) K/mm3 Hgb (10.1-14.3) gm/dl MCV (79-97) fl MCH (28-32) pg RDW (13.2-15.2) % Seg Neuts % (Manual) (40.0-70.0) % Lymphocytes % (Manual) (13.4-35.0) % Seg Neutrophils # Man (1.8-7.7) K/mm3 Lymphocytes # (Manual) (1.2-5.4) K/mm3 BUN (7-17) mg/dL Creatinine (0.7-1.2) mg/dL Glucose (65-100) mg/dL POC Glucose 222 H 193 H 229 H (70-105) Alkaline Phosphatase (35-129) units/L Total Protein (6.3-8.2) g/dL Albumin (3.9-5) g/dL
[2018-10-15] MEDS: DILANTIN PO SCH (21:44)
[2018-10-15] MEDS: LOVENOX SUB-Q SCH (21:44)
[2018-10-16 05:25] LABS: Hematocrit 29.2 % (30.3-42.9); Hemoglobin 8.9 gm/dl (10.1-14.3); Mean Corpuscular HGB Conc 31 % (30-34); Mean Corpuscular Volume 70 fl (79-97); Platelet Count 395 K/mm3 (140-440); Red Blood Count 4.15 M/mm3 (3.65-5.03)
[2018-10-16 05:52] LABS: Alanine Aminotransferase 13 units/L (7-56); Albumin 2.7 g/dL (3.9-5); BUN/Creatinine Ratio 8; Blood Urea Nitrogen 3 mg/dL (7-17); Calcium 8.8 mg/dL (8.4-10.2); Hemolysis Index 4
[2018-10-16 06:46] LABS: Anisocytosis 1+; Basophils % (Manual) 0 % (0.0-1.8); Eosinophils % (Manual) 0 % (0.0-4.3); Total Cells Counted 100
[2018-10-16 06:47] LABS: Hypochromasia 1+; Ovalocytes Few
[2018-10-16 06:48] LABS: Schistocytes Rare
[2018-10-16 06:52] LABS: Stomatocytes Rare
[2018-10-16] MEDS: LOPRESSOR PO SCH ×3 (07:03→22:00)
[2018-10-16] MEDS: HumaLOG SUB-Q SCH ×4 (09:14→22:51)
[2018-10-16] MEDS: Centrum Liq PO SCH (09:44)
[2018-10-16] MEDS: K-DUR PO SCH (09:44)
[2018-10-16] MEDS: LOPID PO SCH (09:45)
[2018-10-16] MEDS: CYMBALTA PO SCH (09:45)
[2018-10-16] MEDS: FEOSOL PO SCH ×2 (09:45→22:52)
[2018-10-16] MEDS: MS CONTIN ER PO SCH ×2 (09:46→22:52)
[2018-10-16] MEDS: APRESOLINE IV PRN (09:52)
--- NOTE | 2018-10-16 11:29 | Progress Note ---
Assessment and Plan - Patient Problems (1) Pre-op evaluation Current Visit: Yes Status: Acute Plan to address problem: No cardiac complaints, cardiovascular status is stable following surgery. Subjective Date of service: 10/16/18 Principal diagnosis: colon mass Interval history: Patient is comfortable, no cardiac complaints, 2 days status post open hemicole ctomy. Objective Vital Signs Temp Pulse Resp BP Pulse Ox 10/16/18 09:52 186/99 10/16/18 07:03 110 H 186/99 10/16/18 05:27 99.6 F 110 H 18 186/99 94 10/15/18 23:05 98.2 F 119 H 18 153/79 92 10/15/18 22:00 95 10/15/18 17:20 98.2 F 20 146/73 10/15/18 13:41 128 H 180/90 10/15/18 12:47 180/90 10/15/18 12:30 99.3 F 20 180/90 - Physical Examination General: No Apparent Distress HEENT: Positive: PERRL Neck: Positive: neck supple Cardiac: Positive: Reg Rate and Rhythm Lungs: Positive: Decreased Breath Sounds Neuro: Positive: Weakness Abdomen: Positive: Other (post hemicolectomy) Skin: Positive: Clear Extremities: Absent: edema - Labs and Meds Cardiac Enzymes 10/16/18 Range/Units 04:48 AST 11 (5-40) units/L CBC 10/16/18 Range/Units 04:48 WBC 13.5 H (4.5-11.0) K/mm3 RBC 4.15 (3.65-5.03) M/mm3 Hgb 8.9 L (10.1-14.3) gm/dl Hct 29.2 L (30.3-42.9) % Plt Count 395 (140-440) K/mm3 Comprehensive Metabolic Panel 10/16/18 Range/Units 04:48 Sodium 144 (137-145) mmol/L Potassium 3.9 (3.6-5.0) mmol/L Chloride 105.5 (98-107) mmol/L Carbon Dioxide 25 (22-30) mmol/L BUN 3 L (7-17) mg/dL Creatinine 0.4 L (0.7-1.2) mg/dL Glucose 211 H (65-100) mg/dL Calcium 8.8 (8.4-10.2) mg/dL AST 11 (5-40) units/L ALT 13 (7-56) units/L Alkaline Phosphatase 176 H (35-129) units/L Total Protein 6.2 L (6.3-8.2) g/dL Albumin 2.7 L (3.9-5) g/dL
--- NOTE | 2018-10-16 15:41 | Progress Note ---
Assessment and Plan (1) Mass of colon Current Visit: Yes Status: Acute Plan to address problem: Pt stable. s/p open right hemicolectomy (10/14/18) - POD#2. Pt seems to be doing ok. rec: 1) c/w Clear liquids. Advance once bowel function resumes. Will add protein aguilera pplements. 2) Ambulate, will order PT consult 3) WBC trending down 20 ->13 4) DVT ppx - lovenox 5) prn pain control - switch to PO 6) IS/pulm toilet Discussed plan with patient and sister at the bedside. Explained the importance of mobilization and getting OOB to help with return of bowel function. Please call with questions. Subjective Date of service: 10/16/18 Narrative: Pt seen and examined. Has been sleepy since surgery. Has not been OOB. No n/v, f/c. No bowel movements or flatus. Tolerating clears but not taking in very much. Straight cath x 1 overnight for >400 cc on bladder scan and inability to void. Objective Vital Signs - 12hr 10/16/18 10/16/18 10/16/18 05:27 07:03 09:52 Temperature 99.6 F Pulse Rate 110 H 110 H Respiratory 18 Rate Blood Pressure 186/99 186/99 186/99 O2 Sat by Pulse 94 Oximetry 10/16/18 10/16/18 12:08 12:12 Temperature 99.3 F 98.2 F Pulse Rate 117 H 71 Respiratory 18 20 Rate Blood Pressure 172/93 113/45 O2 Sat by Pulse 94 100 Oximetry - General physical appearance Narrative Exam: Gen: Awake and alert. NAD CV; s1, S2+ Resp: even and unlabored Abd: soft, NT, ND. incision c/d/i Ext: no c/c/e - Labs 10/16/18 04:48 10/16/18 04:48 Diabetes panel 10/16/18 Range/Units 04:48 Sodium 144 (137-145) mmol/L Potassium 3.9 (3.6-5.0) mmol/L Chloride 105.5 (98-107) mmol/L Carbon Dioxide 25 (22-30) mmol/L BUN 3 L (7-17) mg/dL Creatinine 0.4 L (0.7-1.2) mg/dL Glucose 211 H (65-100) mg/dL Calcium 8.8 (8.4-10.2) mg/dL AST 11 (5-40) units/L ALT 13 (7-56) units/L Alkaline Phosphatase 176 H (35-129) units/L Total Protein 6.2 L (6.3-8.2) g/dL Albumin 2.7 L (3.9-5) g/dL Calcium panel 10/16/18 Range/Units 04:48 Calcium 8.8 (8.4-10.2) mg/dL Albumin 2.7 L (3.9-5) g/dL Pituitary panel 10/16/18 Range/Units 04:48 Sodium 144 (137-145) mmol/L Potassium 3.9 (3.6-5.0) mmol/L Chloride 105.5 (98-107) mmol/L Carbon Dioxide 25 (22-30) mmol/L BUN 3 L (7-17) mg/dL Creatinine 0.4 L (0.7-1.2) mg/dL Glucose 211 H (65-100) mg/dL Calcium 8.8 (8.4-10.2) mg/dL Adrenal panel 10/16/18 Range/Units 04:48 Sodium 144 (137-145) mmol/L Potassium 3.9 (3.6-5.0) mmol/L Chloride 105.5 (98-107) mmol/L Carbon Dioxide 25 (22-30) mmol/L BUN 3 L (7-17) mg/dL Creatinine 0.4 L (0.7-1.2) mg/dL Glucose 211 H (65-100) mg/dL Calcium 8.8 (8.4-10.2) mg/dL Total Bilirubin < 0.20 (0.1-1.2) mg/dL AST 11 (5-40) units/L ALT 13 (7-56) units/L Alkaline Phosphatase 176 H (35-129) units/L Total Protein 6.2 L (6.3-8.2) g/dL Albumin 2.7 L (3.9-5) g/dL
[2018-10-16] MEDS: PERCOCET 5/325 PO PRN (16:29)
[2018-10-16] MEDS: ZOFRAN IV PRN (16:31)
--- NOTE | 2018-10-16 17:02 | Progress Note ---
Assessment and Plan 63-year-old female with past medical history significant for CVA with right-sided hemiplegia, lupus was presented to the emergency department with complaints of altered mental status. In the emergency department patient w as found to have hypoglycemia and was treated accordingly. Workup showed that she has leukocytosis and elevated lactic acid level which may be suggestive of infection. Patient admitted to the floor for further workup and management. - Colonic mass s/p right hemicolectmy today 10/14/18 Doing well - Anemia transfuse - Hypokalemia repleted and recheck Acute metabolic encephalopathy due to hypoglycemia - Patient was treated with dextrose, now resolved Lupus - Continue pain medicine and her prednisone History of CVA with right hemiplegia - Supportive care DVT prophylaxis Disposition - Continue inpatient care, home with sister when acute issues resolved Subjective Date of service: 10/16/18 Principal diagnosis: colon mass Interval history: Patient is seen and examined. Leg quietly in bed in no apparent distress. No fever. No abdomen pain nausea or vomiting. Had right hemicolectomy today Objective - Exam Narrative Exam: Constitutional: s/p right hemicolectomy. Well-nourished well-developed.In no distress Head: Normocephalic atraumatic Eyes: Pupils are equal round and reactive to light Nose: No enlarged turbinates, no septal deviation. Mouth: Moist mucous membranes. Neck: Supple no thyromegaly. No bruit. No JVD Heart: Regular rate and rhythm, S1-S2 normal. No rubs murmurs or gallop Lungs: Clear to auscultation bilaterally. no rales or rhonchi Abdomen: Soft, post op tender. Bowel sound not present. Extremities: No edema, no cyanosis, no clubbing. Neuro: Alert oriented Oriented x2. Right hemiparesis Skin: No rashes or hyperpigmented spots Musculoskeletal system: No joint pain or swelling Hematological: No petechia or subcutanous hemorrhages. Immunological: No multiple septic spots on the skin Lymphatic: No generalized lymphadenopathy Psychiatry: Euthymic. Calm. - Constitutional Vitals: Vital Signs - 12hr 10/16/18 10/16/18 10/16/18 05:27 07:03 09:52 Temperature 99.6 F Pulse Rate 110 H 110 H Respiratory 18 Rate Blood Pressure 186/99 186/99 186/99 O2 Sat by Pulse 94 Oximetry 10/16/18 10/16/18 12:08 12:12 Temperature 99.3 F 98.2 F Pulse Rate 117 H 71 Respiratory 18 20 Rate Blood Pressure 172/93 113/45 O2 Sat by Pulse 94 100 Oximetry - Labs CBC & Chem 7: 10/16/18 04:48 10/16/18 04:48 Labs: Abnormal lab results 10/15/18 10/15/18 10/16/18 Range/Units 17:26 21:18 04:48 WBC 13.5 H (4.5-11.0) K/mm3 Hgb 8.9 L (10.1-14.3) gm/dl Hct 29.2 L (30.3-42.9) % MCV 70 L (79-97) fl MCH 22 L (28-32) pg RDW 26.0 H (13.2-15.2) % Seg Neuts % (Manual) 96.0 H (40.0-70.0) % Lymphocytes % (Manual) 3.0 L (13.4-35.0) % Seg Neutrophils # Man 13.0 H (1.8-7.7) K/mm3 Lymphocytes # (Manual) 0.4 L (1.2-5.4) K/mm3 BUN (7-17) mg/dL Creatinine (0.7-1.2) mg/dL Glucose (65-100) mg/dL POC Glucose 229 H 196 H (70-105) Alkaline Phosphatase (35-129) units/L Total Protein (6.3-8.2) g/dL Albumin (3.9-5) g/dL 10/16/18 10/16/18 10/16/18 Range/Units 04:48 08:00 11:42 WBC (4.5-11.0) K/mm3 Hgb (10.1-14.3) gm/dl Hct (30.3-42.9) % MCV (79-97) fl MCH (28-32) pg RDW (13.2-15.2) % Seg Neuts % (Manual) (40.0-70.0) % Lymphocytes % (Manual) (13.4-35.0) % Seg Neutrophils # Man (1.8-7.7) K/mm3 Lymphocytes # (Manual) (1.2-5.4) K/mm3 BUN 3 L (7-17) mg/dL Creatinine 0.4 L (0.7-1.2) mg/dL Glucose 211 H (65-100) mg/dL POC Glucose 221 H 245 H (70-105) Alkaline Phosphatase 176 H (35-129) units/L Total Protein 6.2 L (6.3-8.2) g/dL Albumin 2.7 L (3.9-5) g/dL 10/16/18 Range/Units 16:35 WBC (4.5-11.0) K/mm3 Hgb (10.1-14.3) gm/dl Hct (30.3-42.9) % MCV (79-97) fl MCH (28-32) pg RDW (13.2-15.2) % Seg Neuts % (Manual) (40.0-70.0) % Lymphocytes % (Manual) (13.4-35.0) % Seg Neutrophils # Man (1.8-7.7) K/mm3 Lymphocytes # (Manual) (1.2-5.4) K/mm3 BUN (7-17) mg/dL Creatinine (0.7-1.2) mg/dL Glucose (65-100) mg/dL POC Glucose 202 H (70-105) Alkaline Phosphatase (35-129) units/L Total Protein (6.3-8.2) g/dL Albumin (3.9-5) g/dL
[2018-10-16] MEDS: LOVENOX SUB-Q SCH (22:51)
[2018-10-16] MEDS: DILANTIN PO SCH (22:52)
[2018-10-17] MEDS: LOVENOX SUB-Q SCH (01:07)
[2018-10-17 05:26] LABS: Hematocrit 25.8 % (30.3-42.9); Hemoglobin 8.1 gm/dl (10.1-14.3); Mean Corpuscular HGB Conc 32 % (30-34); Mean Corpuscular Volume 71 fl (79-97); Platelet Count 335 K/mm3 (140-440); Red Blood Count 3.64 M/mm3 (3.65-5.03)
[2018-10-17 05:28] LABS: Red Cell Distribution Width 26.5 % (13.2-15.2)
[2018-10-17 05:50] LABS: Alanine Aminotransferase 11 units/L (7-56); Albumin 2.4 g/dL (3.9-5); BUN/Creatinine Ratio 4; Blood Urea Nitrogen 2 mg/dL (7-17); Calcium 8.5 mg/dL (8.4-10.2); Hemolysis Index 3
[2018-10-17 06:16] LABS: Basophils % (Manual) 0 % (0.0-1.8); Total Cells Counted 100
[2018-10-17 06:17] LABS: Anisocytosis 2+; Dimorphic RBC Yes; Hypochromasia 1+
[2018-10-17] MEDS: LOPRESSOR PO SCH ×2 (06:18→15:19)
[2018-10-17] MEDS: MORPHINE IV PRN (06:19)
--- NOTE | 2018-10-17 06:48 | Hem/Onc Progress Note ---
Assessment and Plan colon mass s/p sx 1. Colon mass, surgical team following the patient. 2. Anemia, MCV low, low iron. 3. B12 deficiency. 4. Radiology mentions 6-cm ascending colon mass with lymph nodes. 5. Radiology mentions right axillary lymph nodes. 6. History of cerebrovascular accident with right hemiparesis. 7. History of hypertension. 8. History of diabetes. 9. History of deep venous thrombosis, was on Coumadin at some time. 10. History of inferior vena cava filter. 11. History of congestive heart failure. 12. There is a plan for surgical evaluation. I will follow the patient during inpatient stay. We will wait for pathology. family/pt keen for treatment will await final staging after sx CEA 17 low b12 - inj low iron - IV iron trial 10/15 - s/p sx CT chest has mediastinal and rt axillary LN - OP PET will help - Patient Problems (1) Mass of colon Current Visit: Yes Status: Acute Subjective Date of service: 10/17/18 Principal diagnosis: s/p sx - colon mass Interval history: post op Objective - Exam Narrative Exam: Pain - none General appearance not in acute distress - obese Performance status limited self care Eyes - no icterus ENT - no bleeding LNs cervical not palpable Neck - no LN Respiratory Normal Breath sounds - decreased air entry CVS S1 S2 + Extremities normal temperature General GI - s/p sx Rectal deferred female - deferred Skin warm Musculoskeletal rt side weakness Neurologically CVA - effecting rt side - Constitutional Vitals: Last Vital Signs Temp 97.9 F 10/17/18 05:26 Pulse 101 H 10/17/18 06:18 Resp 20 10/17/18 05:26 BP 151/71 10/17/18 06:18 Pulse Ox 92 10/17/18 05:26 - Labs Lab Results: Laboratory Results - last 24 hr 10/16/18 10/16/18 10/16/18 04:48 08:00 11:42 WBC RBC Hgb Hct MCV MCH MCHC RDW Plt Count Add Manual Diff Complete Total Counted 100 Seg Neuts % (Manual) 96.0 H Band Neutrophils % 0 Lymphocytes % (Manual) 3.0 L Reactive Lymphs % (Man) 0 Monocytes % (Manual) 1.0 Eosinophils % (Manual) 0 Basophils % (Manual) 0 Metamyelocytes % 0 Myelocytes % 0 Promyelocytes % 0 Blast Cells % 0 Nucleated RBC % Not Reportable Seg Neutrophils # Man 13.0 H Band Neutrophils # 0.0 Lymphocytes # (Manual) 0.4 L Abs React Lymphs (Man) 0.0 Monocytes # (Manual) 0.1 Eosinophils # (Manual) 0.0 Basophils # (Manual) 0.0 Metamyelocytes # 0.0 Myelocytes # 0.0 Promyelocytes # 0.0 Blast Cells # 0.0 WBC Morphology Not Reportable Hypersegmented Neuts Not Reportable Hyposegmented Neuts Not Reportable Hypogranular Neuts Not Reportable Smudge Cells Not Reportable Toxic Granulation Not Reportable Toxic Vacuolation Not Reportable Dohle Bodies Not Reportable Pelger-Huet Anomaly Not Reportable Iliana Rods Not Reportable Platelet Estimate Appears normal Clumped Platelets Not Reportable Plt Clumps, EDTA Not Reportable Large Platelets Not Reportable Giant Platelets Not Reportable Platelet Satelliting Not Reportable Plt Morphology Comment Not Reportable RBC Morphology Not Reportable Dimorphic RBCs Not Reportable Polychromasia Not Reportable Hypochromasia 1+ Poikilocytosis Not Reportable Anisocytosis 1+ Microcytosis Few Macrocytosis Not Reportable Spherocytes Not Reportable Pappenheimer Bodies Not Reportable Sickle Cells Not Reportable Target Cells Not Reportable Tear Drop Cells Not Reportable Ovalocytes Few Stomatocytes Rare Helmet Cells Not Reportable Johnston-Oxly Bodies Not Reportable [place] Rings Not Reportable Trae Cells Not Reportable Bite Cells Not Reportable Crenated Cell Not Reportable Elliptocytes Few Acanthocytes (Spur) Not Reportable Rouleaux Not Reportable Hemoglobin C Crystals Not Reportable Schistocytes Rare Malaria parasites Not Reportable John Bodies Not Reportable Hem Pathologist Commnt No Sodium Potassium Chloride Carbon Dioxide Anion Gap BUN Creatinine Estimated GFR BUN/Creatinine Ratio Glucose POC Glucose 221 H 245 H Calcium Total Bilirubin AST ALT Alkaline Phosphatase Total Protein Albumin Albumin/Globulin Ratio 10/16/18 10/16/18 10/17/18 16:35 21:11 04:21 WBC 8.3 RBC 3.64 L Hgb 8.1 L Hct 25.8 L MCV 71 L MCH 22 L MCHC 32 RDW 26.5 H Plt Count 335 Add Manual Diff Complete Total Counted 100 Seg Neuts % (Manual) 77.0 H Band Neutrophils % 0 Lymphocytes % (Manual) 14.0 Reactive Lymphs % (Man) 0 Monocytes % (Manual) 5.0 Eosinophils % (Manual) 4.0 Basophils % (Manual) 0 Metamyelocytes % 0 Myelocytes % 0 Promyelocytes % 0 Blast Cells % 0 Nucleated RBC % Not Reportable Seg Neutrophils # Man 6.4 Band Neutrophils # 0.0 Lymphocytes # (Manual) 1.2 Abs React Lymphs (Man) 0.0 Monocytes # (Manual) 0.4 Eosinophils # (Manual) 0.3 Basophils # (Manual) 0.0 Metamyelocytes # 0.0 Myelocytes # 0.0 Promyelocytes # 0.0 Blast Cells # 0.0 WBC Morphology Not Reportable Hypersegmented Neuts Not Reportable Hyposegmented Neuts Not Reportable Hypogranular Neuts Not Reportable Smudge Cells Not Reportable Toxic Granulation Not Reportable Toxic Vacuolation Not Reportable Dohle Bodies Not Reportable Pelger-Huet Anomaly Not Reportable Iliana Rods Not Reportable Platelet Estimate Not Reportable Clumped Platelets Not Reportable Plt Clumps, EDTA Not Reportable Large Platelets Not Reportable Giant Platelets Not Reportable Platelet Satelliting Not Reportable Plt Morphology Comment Not Reportable RBC Morphology Not Reportable Dimorphic RBCs Yes Polychromasia Not Reportable Hypochromasia 1+ Poikilocytosis Not Reportable Anisocytosis 2+ Microcytosis Not Reportable Macrocytosis Not Reportable Spherocytes Not Reportable Pappenheimer Bodies Not Reportable Sickle Cells Not Reportable Target Cells Not Reportable Tear Drop Cells Not Reportable Ovalocytes Not Reportable Stomatocytes Helmet Cells Not Reportable Johnston-Oxly Bodies Not Reportable [place] Rings Not Reportable Trae Cells Not Reportable Bite Cells Not Reportable Crenated Cell Not Reportable Elliptocytes Not Reportable Acanthocytes (Spur) Not Reportable Rouleaux Not Reportable Hemoglobin C Crystals Not Reportable Schistocytes Not Reportable Malaria parasites Not Reportable John Bodies Not Reportable Hem Pathologist Commnt No Sodium Potassium Chloride Carbon Dioxide Anion Gap BUN Creatinine Estimated GFR BUN/Creatinine Ratio Glucose POC Glucose 202 H 189 H Calcium Total Bilirubin AST ALT Alkaline Phosphatase Total Protein Albumin Albumin/Globulin Ratio 10/17/18 04:21 WBC RBC Hgb Hct MCV MCH MCHC RDW Plt Count Add Manual Diff Total Counted Seg Neuts % (Manual) Band Neutrophils % Lymphocytes % (Manual) Reactive Lymphs % (Man) Monocytes % (Manual) Eosinophils % (Manual) Basophils % (Manual) Metamyelocytes % Myelocytes % Promyelocytes % Blast Cells % Nucleated RBC % Seg Neutrophils # Man Band Neutrophils # Lymphocytes # (Manual) Abs React Lymphs (Man) Monocytes # (Manual) Eosinophils # (Manual) Basophils # (Manual) Metamyelocytes # Myelocytes # Promyelocytes # Blast Cells # WBC Morphology Hypersegmented Neuts Hyposegmented Neuts Hypogranular Neuts Smudge Cells Toxic Granulation Toxic Vacuolation Dohle Bodies Pelger-Huet Anomaly Iliana Rods Platelet Estimate Clumped Platelets Plt Clumps, EDTA Large Platelets Giant Platelets Platelet Satelliting Plt Morphology Comment RBC Morphology Dimorphic RBCs Polychromasia Hypochromasia Poikilocytosis Anisocytosis Microcytosis Macrocytosis Spherocytes Pappenheimer Bodies Sickle Cells Target Cells Tear Drop Cells Ovalocytes Stomatocytes Helmet Cells Johnston-Oxly Bodies Pember[place] Rings Trae Cells Bite Cells Crenated Cell Elliptocytes Acanthocytes (Spur) Rouleaux Hemoglobin C Crystals Schistocytes Malaria parasites John Bodies Hem Pathologist Commnt Sodium 146 H Potassium 3.7 Chloride 109.8 H Carbon Dioxide 27 Anion Gap 13 BUN 2 L Creatinine 0.5 L Estimated GFR > 60 BUN/Creatinine Ratio 4 Glucose 169 H POC Glucose Calcium 8.5 Total Bilirubin 0.20 AST 10 ALT 11 Alkaline Phosphatase 147 H Total Protein 5.6 L Albumin 2.4 L Albumin/Globulin Ratio 0.8 Medications & Allergies - Medications Allergies/Adverse Reactions: Allergies Penicillins Allergy (Verified 11/10/14 21:41) Unknown Peas Allergy (Uncoded 07/01/16 12:21) Swelling Home Medications: Home Medications Medication Instructions Recorded Confirmed Last Taken Type AtorvaSTATin [Lipitor] 20 mg PO QDAY #30 tablet 07/09/16 10/01/18 1 Day Ago Rx ~10/29/16 Furosemide [Lasix TAB] 40 mg PO BID #60 tablet 07/09/16 10/01/18 1 Day Ago Rx ~10/29/16 Metformin HCl [Glucophage] 1,000 mg PO BID #60 tablet 07/09/16 10/01/18 1 Day Ago Rx ~10/29/16 Metoprolol [Lopressor TAB] 25 mg PO BID #60 tablet 07/09/16 10/02/18 1 Day Ago Rx ~10/29/16 Potassium Chloride [K-Dur] 20 meq PO QDAY #30 tablet 07/09/16 10/01/18 1 Day Ago Rx ~10/29/16 AtorvaSTATin [Lipitor] 20 mg PO QDAY 10/29/16 10/01/18 1 Day Ago History ~10/29/16 Citalopram [celeXA] 10 mg PO TID 10/29/16 10/02/18 1 Day Ago History ~10/29/16 Phenytoin Sodium Extended 200 mg PO QHS 10/30/16 10/01/18 1 Day Ago History ~10/29/16 Insulin Glargine [Lantus VIAL] 10 units SUB-Q QHS #1 units 11/04/16 10/02/18 1 Day Ago Rx ~10/29/16 Carvedilol [Coreg] 3.125 mg PO BID 10/01/18 10/01/18 Unknown History Clopidogrel [Plavix] 75 mg PO QDAY 10/01/18 10/01/18 Unknown History DULoxetine [Cymbalta] 60 mg PO QDAY 10/01/18 10/01/18 Unknown History Gemfibrozil [Lopid] 600 mg PO QDAY 10/01/18 10/01/18 Unknown History Morphine Sulfate 15 mg PO BID 10/01/18 10/01/18 Unknown History Phenytoin [Dilantin] 150 mg PO QDAY 10/01/18 10/01/18 Unknown History predniSONE [Deltasone] 5 mg PO Q48HR 10/03/18 10/03/18 Unknown History Active Medications: Generic Name Dose Route Start Last Admin Trade Name Freq PRN Reason Stop Dose Admin Acetaminophen 650 mg 10/01/18 23:43 10/10/18 02:32 Tylenol PO 650 mg Q4H PRN Administration Fever >101 Atorvastatin Calcium 20 mg 10/02/18 22:00 10/17/18 00:59 Lipitor PO 20 mg QHS ART Administration Dextrose 50 ml 10/02/18 08:23 10/02/18 08:46 D50w (25gm) Syringe IV 50 ml PRN PRN Administration Hypoglycemia Duloxetine HCl 60 mg 10/02/18 14:00 10/16/18 09:45 Cymbalta PO 60 mg QDAY ART Administration Enoxaparin Sodium 40 mg 10/14/18 22:00 10/17/18 01:07 Lovenox SUB-Q 40 mg QDAY@2200 ART Administration Ferrous Sulfate 325 mg 10/13/18 10:00 10/16/18 22:52 Feosol PO 325 mg BID ART Administration Gemfibrozil 600 mg 10/05/18 10:00 10/16/18 09:45 Lopid PO 600 mg QDAY ART Administration Hydralazine HCl 10 mg 10/14/18 16:00 10/16/18 09:52 Apresoline IV 10 mg Q6H PRN Administration Blood Pressure Hydrocortisone Sodium Succinate 25 mg 10/16/18 07:00 10/16/18 12:39 Solu-Cortef IV Not Given DAILY ART Dextrose/Sodium Chloride 1,000 mls @ 75 mls/hr 10/02/18 09:00 10/02/18 19:34 D5ns IV 125 mls/hr DIRECT ART Administration Sodium Chloride 1,000 mls @ 75 mls/hr 10/15/18 16:00 10/15/18 18:07 Nacl 0.9% 1000 Ml IV 75 mls/hr DIRECT ART Administration Insulin Human Lispro 0 unit 10/05/18 16:30 10/16/18 22:51 Humalog SUB-Q 2 unit ACHS ART Administration Protocol Metoprolol Tartrate 50 mg 10/15/18 14:00 10/17/18 06:18 Lopressor PO 50 mg Q8H ART Administration Morphine Sulfate 15 mg 10/02/18 22:00 10/16/18 22:52 Ms Contin Er PO 15 mg Q12HR RAT Administration Morphine Sulfate 2 mg 10/16/18 15:52 10/17/18 06:19 Morphine IV 2 mg Q3H PRN Administration Pain, Moderate (4-6) Multivitamins 5 ml 10/13/18 10:00 10/16/18 09:44 Centrum Liq PO 5 ml QDAY ART Administration Ondansetron HCl 4 mg 10/01/18 23:42 10/16/18 16:31 Zofran IV 4 mg Q8H PRN Administration Nausea And Vomiting Ondansetron HCl 4 mg 10/14/18 11:12 Zofran IV ONCE PRN Nausea And Vomiting Oxycodone/Acetaminophen 1 tab 10/16/18 15:44 10/16/18 16:29 Percocet 5/325 PO 1 tab Q4H PRN Administration Pain, Moderate (4-6) Phenytoin 200 mg 10/02/18 22:00 10/16/18 22:52 Dilantin PO 200 mg QHS ART Administration Potassium Chloride 20 meq 10/09/18 14:00 10/16/18 09:44 K-Dur PO 20 meq QDAY ART Administration
[2018-10-17] MEDS: NACL 0.9% 1000 ML 1,000 ML IV SCH (07:33)
--- NOTE | 2018-10-17 09:33 | Progress Note ---
Assessment and Plan Assessment and plan: 63-year-old female with past medical history significant for CVA with right-sided hemiplegia, lupus was presented to the emergency department with complaints of altered mental status. In the emergency department patient was found to have hypoglycemia and was treated accordingly. Workup showed that she has leukocytosis and elevated lactic acid level which may be suggestive of infection. Patient admitted to the floor for further workup and management. - Colonic mass s/p right hemicolectmy 10/14/18 Doing well surgery following pathology negative for malignancy - Anemia transfuse - Hypokalemia repleted and recheck Acute metabolic encephalopathy due to hypoglycemia - Patient was treated with dextrose, now resolved Lupus - Continue pain medicine and her prednisone History of CVA with right hemiplegia - Supportive care DVT prophylaxis Disposition - Continue inpatient care, home with sister when acute issues resolved History Interval history: Patient is seen and examined. in no apparent distress. No fever. No abdomen pain nausea or vomiting. Had right hemicolectomy 3 days ago and doing well Hospitalist Physical - Physical exam Narrative exam: Constitutional: s/p right hemicolectomy. Well-nourished well-developed.In no distress Head: Normocephalic atraumatic Eyes: Pupils are equal round and reactive to light Nose: No enlarged turbinates, no septal deviation. Mouth: Moist mucous membranes. Neck: Supple no thyromegaly. No bruit. No JVD Heart: Regular rate and rhythm, S1-S2 normal. No rubs murmurs or gallop Lungs: Clear to auscultation bilaterally. no rales or rhonchi Abdomen: Soft, post op tender. Bowel sound not present. Extremities: No edema, no cyanosis, no clubbing. Neuro: Alert oriented Oriented x2. Right hemiparesis Skin: No rashes or hyperpigmented spots Musculoskeletal system: No joint pain or swelling Hematological: No petechia or subcutanous hemorrhages. Immunological: No multiple septic spots on the skin Lymphatic: No generalized lymphadenopathy Psychiatry: Euthymic. Calm. - Constitutional Vitals: Temp Pulse Resp BP Pulse Ox 97.9 F 101 H 20 151/71 92 10/17/18 05:26 10/17/18 06:18 10/17/18 05:26 10/17/18 06:18 10/17/18 05:26 General appearance: Present: no acute distress, well-nourished Results - Labs CBC & Chem 7: 10/17/18 04:21 10/17/18 04:21 Labs: Laboratory Last Values WBC 8.3 K/mm3 (4.5-11.0) 10/17/18 04:21 RBC 3.64 M/mm3 (3.65-5.03) L 10/17/18 04:21 Hgb 8.1 gm/dl (10.1-14.3) L 10/17/18 04:21 Hct 25.8 % (30.3-42.9) L 10/17/18 04:21 MCV 71 fl (79-97) L 10/17/18 04:21 MCH 22 pg (28-32) L 10/17/18 04:21 MCHC 32 % (30-34) 10/17/18 04:21 RDW 26.5 % (13.2-15.2) H 10/17/18 04:21 Plt Count 335 K/mm3 (140-440) 10/17/18 04:21 Lymph % (Auto) 16.3 % (13.4-35.0) 10/09/18 05:31 [place] % (Auto) 6.4 % (0.0-7.3) 10/09/18 05:31 Eos % (Auto) 2.5 % (0.0-4.3) 10/09/18 05:31 Baso % (Auto) 0.8 % (0.0-1.8) 10/09/18 05:31 Lymph # 1.4 K/mm3 (1.2-5.4) 10/09/18 05:31 [place] # 0.6 K/mm3 (0.0-0.8) 10/09/18 05:31 Eos # 0.2 K/mm3 (0.0-0.4) 10/09/18 05:31 Baso # 0.1 K/mm3 (0.0-0.1) 10/09/18 05:31 Add Manual Diff Complete 10/17/18 04:21 Total Counted 100 10/17/18 04:21 Seg Neutrophils % Product Development Manager 10/16/18 04:48 Seg Neuts % (Manual) 77.0 % (40.0-70.0) H 10/17/18 04:21 0 % 10/17/18 04:21 14.0 % (13.4-35.0) 10/17/18 04:21 Reactive Lymphs % (Man) 0 % 10/17/18 04:21 5.0 % (0.0-7.3) 10/17/18 04:21 4.0 % (0.0-4.3) 10/17/18 04:21 0 % (0.0-1.8) 10/17/18 04:21 0 % 10/17/18 04:21 0 % 10/17/18 04:21 0 % 10/17/18 04:21 0 % 10/17/18 04:21 Nucleated RBC % Not Reportable 10/17/18 04:21 Seg Neutrophils # 6.5 K/mm3 (1.8-7.7) 10/09/18 05:31 Seg Neutrophils # Man 6.4 K/mm3 (1.8-7.7) 10/17/18 04:21 Band Neutrophils # 0.0 K/mm3 10/17/18 04:21 1.2 K/mm3 (1.2-5.4) 10/17/18 04:21 Abs React Lymphs (Man) 0.0 K/mm3 10/17/18 04:21 0.4 K/mm3 (0.0-0.8) 10/17/18 04:21 0.3 K/mm3 (0.0-0.4) 10/17/18 04:21 0.0 K/mm3 (0.0-0.1) 10/17/18 04:21 0.0 K/mm3 10/17/18 04:21 0.0 K/mm3 10/17/18 04:21 0.0 K/mm3 10/17/18 04:21 Blast Cells # 0.0 K/mm3 10/17/18 04:21 WBC Morphology Not Reportable 10/17/18 04:21 Hypersegmented Neuts Not Reportable 10/17/18 04:21 Hyposegmented Neuts Not Reportable 10/17/18 04:21 Hypogranular Neuts Not Reportable 10/17/18 04:21 Not Reportable 10/17/18 04:21 Not Reportable 10/17/18 04:21 Not Reportable 10/17/18 04:21 Not Reportable 10/17/18 04:21 Not Reportable 10/17/18 04:21 Not Reportable 10/17/18 04:21 Not Reportable 10/17/18 04:21 Not Reportable 10/17/18 04:21 Plt Clumps, EDTA Not Reportable 10/17/18 04:21 Not Reportable 10/17/18 04:21 Not Reportable 10/17/18 04:21 Not Reportable 10/17/18 04:21 Plt Morphology Comment Not Reportable 10/17/18 04:21 RBC Morphology Not Reportable 10/17/18 04:21 Dimorphic RBCs Yes 10/17/18 04:21 Not Reportable 10/17/18 04:21 1+ 10/17/18 04:21 Not Reportable 10/17/18 04:21 2+ 10/17/18 04:21 Not Reportable 10/17/18 04:21 Not Reportable 10/17/18 04:21 Not Reportable 10/17/18 04:21 Not Reportable 10/17/18 04:21 Not Reportable 10/17/18 04:21 Not Reportable 10/17/18 04:21 Not Reportable 10/17/18 04:21 Not Reportable 10/17/18 04:21 Rare 10/16/18 04:48 Not Reportable 10/17/18 04:21 Not Reportable 10/17/18 04:21 Not Reportable 10/17/18 04:21 Not Reportable 10/17/18 04:21 Not Reportable 10/17/18 04:21 Not Reportable 10/17/18 04:21 Not Reportable 10/17/18 04:21 Acanthocytes (Spur) Not Reportable 10/17/18 04:21 Rouleaux Not Reportable 10/17/18 04:21 Not Reportable 10/17/18 04:21 Not Reportable 10/17/18 04:21 Not Reportable 10/17/18 04:21 Not Reportable 10/17/18 04:21 Hem Pathologist Commnt No 10/17/18 04:21 PT 14.5 Sec. (12.2-14.9) 10/14/18 05:59 INR 1.16 (0.87-1.13) H 10/14/18 05:59 APTT 30.2 Sec. (24.2-36.6) 10/14/18 05:59 Sodium 146 mmol/L (137-145) H 10/17/18 04:21 Potassium 3.7 mmol/L (3.6-5.0) 10/17/18 04:21 Chloride 109.8 mmol/L (98-107) H 10/17/18 04:21 Carbon Dioxide 27 mmol/L (22-30) 10/17/18 04:21 13 mmol/L 10/17/18 04:21 BUN 2 mg/dL (7-17) L 10/17/18 04:21 0.5 mg/dL (0.7-1.2) L 10/17/18 04:21 Estimated GFR > 60 ml/min 10/17/18 04:21 4 % 10/17/18 04:21 Glucose 169 mg/dL (65-100) H 10/17/18 04:21 POC Glucose 219 (70-105) H 10/17/18 08:10 5.4 % (4-6) 10/06/18 05:56 Lactic Acid 1.10 mmol/L (0.7-2.0) 10/02/18 16:50 Calcium 8.5 mg/dL (8.4-10.2) 10/17/18 04:21 Phosphorus 4.00 mg/dL (2.5-4.5) 10/15/18 05:35 Magnesium 1.70 mg/dL (1.7-2.3) 10/15/18 05:35 0.20 mg/dL (0.1-1.2) 10/17/18 04:21 AST 10 units/L (5-40) 10/17/18 04:21 ALT 11 units/L (7-56) 10/17/18 04:21 147 units/L (35-129) H 10/17/18 04:21 38.0 umol/L (25-60) 10/01/18 21:40 33 units/L (30-135) 10/01/18 21:40 < 0.010 ng/mL (0.00-0.029) 10/01/18 21:40 5.6 g/dL (6.3-8.2) L 10/17/18 04:21 2.4 g/dL (3.9-5) L 10/17/18 04:21 0.8 % 10/17/18 04:21 Carcinoembryonic Ag 17.7 ng/mL (0.0-2.4) H 10/09/18 11:34 TSH 0.449 mlU/mL (0.270-4.200) 10/01/18 21:40 Yellow (Yellow) 10/01/18 23:24 Clear (Clear) 10/01/18 23:24 5.0 (5.0-7.0) 10/01/18 23:24 Ur Specific [place] 1.010 (1.003-1.030) 10/01/18 23:24 <15 mg/dl mg/dL (Negative) 10/01/18 23:24 Neg mg/dL (Negative) 10/01/18 23:24 Neg mg/dL (Negative) 10/01/18 23:24 Neg (Negative) 10/01/18 23:24 Neg (Negative) 10/01/18 23:24 Neg (Negative) 10/01/18 23:24 < 2.0 mg/dL (<2.0) 10/01/18 23:24 Ur Leukocyte Esterase Neg (Negative) 10/01/18 23:24 < 1.0 /HPF (0.0-6.0) 10/01/18 23:24 < 1.0 /HPF (0.0-6.0) 10/01/18 23:24 Vancomycin Trough 9.4 ug/mL (5.0-20.0) 10/04/18 12:46 Salicylates < 0.3 mg/dL (2.8-20.0) L 10/01/18 21:40 Acetaminophen < 5.0 ug/mL (10.0-30.0) L 10/01/18 21:40 Phenytoin 6.7 ug/mL (10.0-20.0) L 10/01/18 23:44 Plasma/Serum Alcohol < 0.01 % (0-0.07) 10/01/18 21:40 Blood Type B POSITIVE 10/14/18 05:59 Antibody Screen Negative 10/14/18 05:59 Crossmatch See Detail 10/14/18 05:59 Active Medications - Current Medications Current Medications: Generic Name Dose Route Start Last Admin Trade Name Freq PRN Reason Stop Dose Admin Acetaminophen 650 mg 10/01/18 23:43 10/10/18 02:32 Tylenol PO 650 mg Q4H PRN Administration Fever >101 Atorvastatin Calcium 20 mg 10/02/18 22:00 10/17/18 00:59 Lipitor PO 20 mg QHS ART Administration Dextrose 50 ml 10/02/18 08:23 10/02/18 08:46 D50w (25gm) Syringe IV 50 ml PRN PRN Administration Hypoglycemia Duloxetine HCl 60 mg 10/02/18 14:00 10/16/18 09:45 Cymbalta PO 60 mg QDAY ART Administration Enoxaparin Sodium 40 mg 10/14/18 22:00 10/17/18 01:07 Lovenox SUB-Q 40 mg QDAY@2200 ART Administration Ferrous Sulfate 325 mg 10/13/18 10:00 10/16/18 22:52 Feosol PO 325 mg BID ART Administration Gemfibrozil 600 mg 10/05/18 10:00 10/16/18 09:45 Lopid PO 600 mg QDAY ART Administration Hydralazine HCl 10 mg 10/14/18 16:00 10/16/18 09:52 Apresoline IV 10 mg Q6H PRN Administration Blood Pressure Hydrocortisone Sodium Succinate 25 mg 10/16/18 07:00 10/16/18 12:39 Solu-Cortef IV Not Given DAILY ART Dextrose/Sodium Chloride 1,000 mls @ 75 mls/hr 10/02/18 09:00 10/02/18 19:34 D5ns IV 125 mls/hr DIRECT ART Administration Sodium Chloride 1,000 mls @ 75 mls/hr 10/15/18 16:00 10/17/18 07:33 Nacl 0.9% 1000 Ml IV 75 mls/hr DIRECT ART Administration Insulin Human Lispro 0 unit 10/05/18 16:30 10/16/18 22:51 Humalog SUB-Q 2 unit ACHS ART Administration Protocol Metoprolol Tartrate 50 mg 10/15/18 14:00 10/17/18 06:18 Lopressor PO 50 mg Q8H ART Administration Morphine Sulfate 15 mg 10/02/18 22:00 10/16/18 22:52 Ms Contin Er PO 15 mg Q12HR ART Administration Morphine Sulfate 2 mg 10/16/18 15:52 10/17/18 06:19 Morphine IV 2 mg Q3H PRN Administration Pain, Moderate (4-6) Multivitamins 5 ml 10/13/18 10:00 10/16/18 09:44 Centrum Liq PO 5 ml QDAY ART Administration Ondansetron HCl 4 mg 10/01/18 23:42 10/16/18 16:31 Zofran IV 4 mg Q8H PRN Administration Nausea And Vomiting Ondansetron HCl 4 mg 10/14/18 11:12 Zofran IV ONCE PRN Nausea And Vomiting Oxycodone/Acetaminophen 1 tab 10/16/18 15:44 10/16/18 16:29 Percocet 5/325 PO 1 tab Q4H PRN Administration Pain, Moderate (4-6) Phenytoin 200 mg 10/02/18 22:00 10/16/18 22:52 Dilantin PO 200 mg QHS ART Administration Potassium Chloride 20 meq 10/09/18 14:00 10/16/18 09:44 K-Dur PO 20 meq QDAY ART Administration Nutrition/Malnutrition Assess - Dietary Evaluation Nutrition/Malnutrition Findings: Nutrition Notes Start: 10/06/18 15:07 Freq: Status: Active Protocol: Document 10/15/18 14:03 LM (Rec: 10/15/18 14:14 LM [id number]) Nutrition Notes Initial or Follow up Reassessment Current Diagnosis Sepsis,Stroke Other Pertinent Diagnosis Colon mass, AMS, Lupus, Dementia Current Diet NPO Labs/Tests Reviewed Pertinent Medications Humalog Height 5 ft 6 in Weight 115.6 kg [place] Body Weight (kg) 59.09 BMI 41.1 Weight change and time frame Wt change possibly due to swelling Subjective/Other Information Pt NPO. S/P R hemicolectomy. Percent of energy/protein needs met: 0%/0% Burn Absent Trauma Absent #1 Nutrition Diagnosis Inadequate oral intake Diagnosis Progress(for reassessment Continues documentation) Is patient on ventilator? No Is Patient Ambulatory and/or Out of Bed No REE-([facility]-confined to bed) 2089.764 Kcal/Kg value to use for calculation 14 Approximate Energy Requirements Using 1618 kcal/Kg Calculation Used for Recommendations Kcal/kg Additional Notes Pro needs 0.8-1g/kg adjBW: 68- 85g/day Fluid needs 1ml/kcal Nutrition Intervention Change Diet Order: Consistent CHO when medically feasible Goal #1 Diet advancement Anticipated Discharge Needs: Consistent CHO diet Follow-Up By: 10/18/18 Additional Comments F/U: diet advancement, PO tolerance
[2018-10-17] MEDS: HumaLOG SUB-Q SCH ×3 (09:51→18:56)
[2018-10-17] MEDS: CYMBALTA PO SCH (09:53)
[2018-10-17] MEDS: LOPID PO SCH (09:54)
[2018-10-17] MEDS: K-DUR PO SCH (09:54)
[2018-10-17] MEDS: FEOSOL PO SCH (09:54)
[2018-10-17] MEDS: Centrum Liq PO SCH (09:54)
[2018-10-17] MEDS: MS CONTIN ER PO SCH (09:54)
--- NOTE | 2018-10-17 11:20 | Progress Note ---
Assessment and Plan (1) Mass of colon Current Visit: Yes Status: Acute Plan to address problem: Pt stable. s/p open right hemicolectomy (10/14/18) - POD#3. Pt seems to be doing better today rec: 1) add to full liquid diet with protein supplements 2) Ambulate, PT on board 3) WBC trending down 20 ->13 ->8 4) DVT ppx - lovenox 5) prn PO pain control 6) IS/pulm toilet Discussed plan with patient and her RN. Please call with questions. Subjective Date of service: 10/17/18 Narrative: Pt seen and examined. More awake today and states she feels "so so". No f/c. No cp, sob. Tolerating clear liquids. Got OOB and stood at side of bed with PT yesterday. Urinating on her own. Pt states she had flatus. No BM per nursing. Objective Vital Signs - 12hr 10/17/18 10/17/18 10/17/18 05:26 06:18 09:51 Temperature 97.9 F Pulse Rate 105 H 101 H Respiratory 20 Rate Blood Pressure 151/77 151/71 138/76 O2 Sat by Pulse 92 Oximetry 10/17/18 09:52 Temperature Pulse Rate 62 Respiratory Rate Blood Pressure O2 Sat by Pulse 100 Oximetry - General physical appearance Narrative Exam: Gen: Awake and alert. NAD CV; s1, S2+ resp; even and unlabored Abd: soft, NT, ND. incision c/d/i Ext: no c/c/e - Labs 10/17/18 04:21 10/17/18 04:21 Diabetes panel 10/17/18 Range/Units 04:21 Sodium 146 H (137-145) mmol/L Potassium 3.7 (3.6-5.0) mmol/L Chloride 109.8 H (98-107) mmol/L Carbon Dioxide 27 (22-30) mmol/L BUN 2 L (7-17) mg/dL Creatinine 0.5 L (0.7-1.2) mg/dL Glucose 169 H (65-100) mg/dL Calcium 8.5 (8.4-10.2) mg/dL AST 10 (5-40) units/L ALT 11 (7-56) units/L Alkaline Phosphatase 147 H (35-129) units/L Total Protein 5.6 L (6.3-8.2) g/dL Albumin 2.4 L (3.9-5) g/dL Calcium panel 10/17/18 Range/Units 04:21 Calcium 8.5 (8.4-10.2) mg/dL Albumin 2.4 L (3.9-5) g/dL Pituitary panel 10/17/18 Range/Units 04:21 Sodium 146 H (137-145) mmol/L Potassium 3.7 (3.6-5.0) mmol/L Chloride 109.8 H (98-107) mmol/L Carbon Dioxide 27 (22-30) mmol/L BUN 2 L (7-17) mg/dL Creatinine 0.5 L (0.7-1.2) mg/dL Glucose 169 H (65-100) mg/dL Calcium 8.5 (8.4-10.2) mg/dL Adrenal panel 10/17/18 Range/Units 04:21 Sodium 146 H (137-145) mmol/L Potassium 3.7 (3.6-5.0) mmol/L Chloride 109.8 H (98-107) mmol/L Carbon Dioxide 27 (22-30) mmol/L BUN 2 L (7-17) mg/dL Creatinine 0.5 L (0.7-1.2) mg/dL Glucose 169 H (65-100) mg/dL Calcium 8.5 (8.4-10.2) mg/dL Total Bilirubin 0.20 (0.1-1.2) mg/dL AST 10 (5-40) units/L ALT 11 (7-56) units/L Alkaline Phosphatase 147 H (35-129) units/L Total Protein 5.6 L (6.3-8.2) g/dL Albumin 2.4 L (3.9-5) g/dL
--- NOTE | 2018-10-17 14:10 | Progress Note ---
Assessment and Plan - Patient Problems (1) Pre-op evaluation Current Visit: Yes Status: Acute Plan to address problem: No cardiac complaints, cardiovascular status is stable following surgery. Subjective Date of service: 10/17/18 Principal diagnosis: colon mass Interval history: Patient is comfortable, no cardiac complaints, status post open hemicolectomy. Objective Vital Signs Temp Pulse Resp BP Pulse Ox 10/17/18 11:49 98.4 F 93 H 18 151/90 96 10/17/18 09:52 62 100 10/17/18 09:51 138/76 10/17/18 06:18 101 H 151/71 10/17/18 05:26 97.9 F 105 H 20 151/77 92 10/16/18 22:26 98.5 F 99 H 20 128/69 95 10/16/18 22:00 99 H 128/69 10/16/18 18:12 174/89 10/16/18 17:25 98.6 F 120 H 18 174/89 88 - Physical Examination General: No Apparent Distress HEENT: Positive: PERRL Neck: Positive: neck supple Cardiac: Positive: Reg Rate and Rhythm Lungs: Positive: Decreased Breath Sounds Neuro: Positive: Weakness Abdomen: Positive: Other (post hemicolectomy) Skin: Positive: Clear Extremities: Absent: edema - Labs and Meds Cardiac Enzymes 10/17/18 Range/Units 04:21 AST 10 (5-40) units/L CBC 10/17/18 Range/Units 04:21 WBC 8.3 (4.5-11.0) K/mm3 RBC 3.64 L (3.65-5.03) M/mm3 Hgb 8.1 L (10.1-14.3) gm/dl Hct 25.8 L (30.3-42.9) % Plt Count 335 (140-440) K/mm3 Comprehensive Metabolic Panel 10/17/18 Range/Units 04:21 Sodium 146 H (137-145) mmol/L Potassium 3.7 (3.6-5.0) mmol/L Chloride 109.8 H (98-107) mmol/L Carbon Dioxide 27 (22-30) mmol/L BUN 2 L (7-17) mg/dL Creatinine 0.5 L (0.7-1.2) mg/dL Glucose 169 H (65-100) mg/dL Calcium 8.5 (8.4-10.2) mg/dL AST 10 (5-40) units/L ALT 11 (7-56) units/L Alkaline Phosphatase 147 H (35-129) units/L Total Protein 5.6 L (6.3-8.2) g/dL Albumin 2.4 L (3.9-5) g/dL
[2018-10-18] MEDS: LOPRESSOR PO SCH ×4 (00:45→21:21)
[2018-10-18] MEDS: DILANTIN PO SCH ×2 (00:46→21:20)
[2018-10-18] MEDS: HumaLOG SUB-Q SCH ×5 (00:46→21:34)
[2018-10-18] MEDS: MS CONTIN ER PO SCH ×3 (00:46→21:19)
[2018-10-18] MEDS: LOVENOX SUB-Q SCH ×2 (00:46→21:19)
[2018-10-18] MEDS: FEOSOL PO SCH ×3 (00:46→21:21)
[2018-10-18 05:34] LABS: Hematocrit 27.1 % (30.3-42.9); Hemoglobin 8.6 gm/dl (10.1-14.3); Mean Corpuscular HGB Conc 32 % (30-34); Mean Corpuscular Volume 71 fl (79-97); Platelet Count 361 K/mm3 (140-440)
[2018-10-18 05:53] LABS: BUN/Creatinine Ratio 4; Blood Urea Nitrogen 2 mg/dL (7-17); Calcium 8.4 mg/dL (8.4-10.2); Hemolysis Index 2
[2018-10-18] MEDS ORDERED: DULCOLAX PR ONE (09:36)
[2018-10-18] MEDS: Centrum Liq PO SCH (10:08)
[2018-10-18] MEDS: K-DUR PO SCH (10:10)
[2018-10-18] MEDS: MORPHINE IV PRN (11:23)
--- NOTE | 2018-10-18 11:44 | Progress Note ---
Assessment and Plan (1) Mass of colon Current Visit: Yes Status: Acute Plan to address problem: Pt stable. s/p open right hemicolectomy (10/14/18) - POD#5 rec: 1) c/w Full liquid diet until bowel function 2) Patient encouraged to ambulate and explained to her why this is so important, PT on board 3) DVT ppx - lovenox 4) prn PO pain control 5) IS/pulm toilet 6) bowel regimen Discussed plan with patient, her sister and her RN. Please call with questions. Subjective Date of service: 10/18/18 Narrative: Pt seen and examined. c/o incisional pain. No f/c. Tolerating diet but states that she does not like any of the full liquids and most of the clear liquids. Says she wants real food. No n/v. +flatus but NO BM. Working with PT but states she wants to lay in bed and not get up. Objective Vital Signs - 12hr 10/18/18 10/18/18 10/18/18 00:44 06:07 10:08 Temperature 97.7 F 97.6 F Pulse Rate 95 H 92 H 101 H Respiratory 18 20 Rate Blood Pressure 149/76 138/73 151/85 O2 Sat by Pulse 94 96 Oximetry - General physical appearance Narrative Exam: Gen: Awake and alert. Slightly confused at times. NAD Cv; S1, S2+ Resp: even and unlabored Abd: soft, ND, mild periincisional TTP. Incision c/d/i. No r/r/g Ext: no c/c/e - Labs 10/18/18 04:55 10/18/18 04:55 Diabetes panel 10/18/18 Range/Units 04:55 Sodium 145 (137-145) mmol/L Potassium 4.0 (3.6-5.0) mmol/L Chloride 108.4 H (98-107) mmol/L Carbon Dioxide 28 (22-30) mmol/L BUN 2 L (7-17) mg/dL Creatinine 0.5 L (0.7-1.2) mg/dL Glucose 125 H (65-100) mg/dL Calcium 8.4 (8.4-10.2) mg/dL Calcium panel 10/18/18 Range/Units 04:55 Calcium 8.4 (8.4-10.2) mg/dL Pituitary panel 10/18/18 Range/Units 04:55 Sodium 145 (137-145) mmol/L Potassium 4.0 (3.6-5.0) mmol/L Chloride 108.4 H (98-107) mmol/L Carbon Dioxide 28 (22-30) mmol/L BUN 2 L (7-17) mg/dL Creatinine 0.5 L (0.7-1.2) mg/dL Glucose 125 H (65-100) mg/dL Calcium 8.4 (8.4-10.2) mg/dL Adrenal panel 10/18/18 Range/Units 04:55 Sodium 145 (137-145) mmol/L Potassium 4.0 (3.6-5.0) mmol/L Chloride 108.4 H (98-107) mmol/L Carbon Dioxide 28 (22-30) mmol/L BUN 2 L (7-17) mg/dL Creatinine 0.5 L (0.7-1.2) mg/dL Glucose 125 H (65-100) mg/dL Calcium 8.4 (8.4-10.2) mg/dL
[2018-10-18] MEDS: CYMBALTA PO SCH (12:05)
[2018-10-18] MEDS: LOPID PO SCH (12:05)
--- NOTE | 2018-10-18 16:32 | Progress Note ---
Assessment and Plan - Patient Problems (1) Pre-op evaluation Current Visit: Yes Status: Acute Plan to address problem: No cardiac complaints, cardiovascular status is stable following surgery. Subjective Date of service: 10/18/18 Principal diagnosis: s/p sx - colon mass Interval history: Patient is comfortable, no cardiac complaints, status post open hemicolectomy. Physical therapy in progress. Objective Vital Signs Temp Pulse Resp BP Pulse Ox 10/18/18 14:10 82 144/76 10/18/18 13:21 98.2 F 82 18 144/76 98 10/18/18 10:08 101 H 151/85 10/18/18 06:07 97.6 F 92 H 20 138/73 96 10/18/18 00:44 97.7 F 95 H 18 149/76 94 10/17/18 21:25 98.8 F 91 H 19 125/78 95 10/17/18 17:18 98.2 F 109 H 16 135/78 91 - Physical Examination General: No Apparent Distress HEENT: Positive: PERRL Neck: Positive: neck supple Cardiac: Positive: Reg Rate and Rhythm Lungs: Positive: Decreased Breath Sounds Neuro: Positive: Weakness Abdomen: Positive: Other (post hemicolectomy) Skin: Positive: Clear Extremities: Absent: edema - Labs and Meds CBC 10/18/18 Range/Units 04:55 WBC 9.7 (4.5-11.0) K/mm3 RBC 3.80 (3.65-5.03) M/mm3 Hgb 8.6 L (10.1-14.3) gm/dl Hct 27.1 L (30.3-42.9) % Plt Count 361 (140-440) K/mm3 Comprehensive Metabolic Panel 10/18/18 Range/Units 04:55 Sodium 145 (137-145) mmol/L Potassium 4.0 (3.6-5.0) mmol/L Chloride 108.4 H (98-107) mmol/L Carbon Dioxide 28 (22-30) mmol/L BUN 2 L (7-17) mg/dL Creatinine 0.5 L (0.7-1.2) mg/dL Glucose 125 H (65-100) mg/dL Calcium 8.4 (8.4-10.2) mg/dL
[2018-10-18] MEDS: PERCOCET 5/325 PO PRN (17:41)
[2018-10-18] MEDS: COLACE PO SCH (23:05)
[2018-10-19] MEDS: LOPRESSOR PO SCH ×2 (06:32→13:00)
--- NOTE | 2018-10-19 06:33 | Progress Note ---
Assessment and Plan - Colonic mass s/p right hemicolectmy 10/14/18 Doing well surgery following pathology negative for malignancy - Anemia transfuse - Hypokalemia repleted and recheck Acute metabolic encephalopathy due to hypoglycemia - Patient was treated with dextrose, now resolved Lupus - Continue pain medicine and her prednisone History of CVA with right hemiplegia - Supportive care DVT prophylaxis Disposition - Continue inpatient care, home with sister when acute issues resolved Subjective Date of service: 10/18/18 Principal diagnosis: s/p sx - colon mass Interval history: 63-year-old female with past medical history significant for CVA with right-sided hemiplegia, lupus was presented to the emergency department with complaints of altered mental status. In the emergency department patient was found to have hypoglycemia and was treated accordingly. Workup showed that she has leukocytosis and elevated lactic acid level which may be suggestive of infection. Patient admitted to the floor for further workup and management.Was found to have Rt ascending Colon mass.Had Hemicolectomy on 10/14/18 Objective - Constitutional Vitals: Vital Signs - 12hr 10/18/18 10/18/18 10/18/18 21:16 21:19 21:21 Temperature Pulse Rate 92 H 93 H Respiratory 18 Rate Blood Pressure 135/78 135/78 O2 Sat by Pulse 96 Oximetry 10/18/18 10/18/18 10/19/18 22:19 23:21 05:50 Temperature 98.7 F 98.7 F Pulse Rate 82 98 H Respiratory 16 18 18 Rate Blood Pressure 132/77 141/79 O2 Sat by Pulse 95 97 Oximetry General appearance: Present: no acute distress, well-nourished - EENT Eyes: PERRL, EOM intact ENT: hearing intact, clear oral mucosa Ears: bilateral: normal - Neck Neck: supple, normal ROM - Respiratory Respiratory effort: normal Respiratory: bilateral: CTA - Breasts Breasts: normal - Cardiovascular Heart rate: 78 Rhythm: regular Heart Sounds: Present: S1 & S2. Absent: gallop, rub Extremities: pulses intact, No edema, normal color, Full ROM - Gastrointestinal General gastrointestinal: Present: soft, non-tender, non-distended, normal bowel sounds - Genitourinary Female genitourinary: normal - Integumentary Integumentary: clear, warm, dry - Musculoskeletal Musculoskeletal: 1, strength equal bilaterally - Neurologic Neurologic: moves all extremities - Psychiatric Psychiatric: memory intact, appropriate mood/affect, intact judgment & insight - Labs CBC & Chem 7: 10/18/18 04:55 10/18/18 04:55 Labs: Abnormal lab results 10/18/18 10/18/18 10/18/18 Range/Units 08:17 11:57 17:16 POC Glucose 159 H 227 H 280 H (70-105) 10/18/18 Range/Units 21:37 POC Glucose 170 H (70-105)
--- NOTE | 2018-10-19 07:01 | Hem/Onc Progress Note ---
Assessment and Plan colon mass s/p sx 1. Colon mass, surgical team following the patient. 2. Anemia, MCV low, low iron. 3. B12 deficiency. 4. Radiology mentions 6-cm ascending colon mass with lymph nodes. 5. Radiology mentions right axillary lymph nodes. 6. History of cerebrovascular accident with right hemiparesis. 7. History of hypertension. 8. History of diabetes. 9. History of deep venous thrombosis, was on Coumadin at some time. 10. History of inferior vena cava filter. 11. History of congestive heart failure. 12. There is a plan for surgical evaluation. I will follow the patient during inpatient stay. We will wait for pathology. family/pt keen for treatment CEA 17 low b12 - inj low iron - IV iron trial 10/19 - s/p sx CT chest has mediastinal and rt axillary LN - OP PET will help will await path - Patient Problems (1) Mass of colon Current Visit: Yes Status: Acute Subjective Date of service: 10/19/18 Principal diagnosis: colon mass Interval history: no bleeding Objective - Exam Narrative Exam: Pain - none General appearance not in acute distress - obese Performance status limited self care Eyes - no icterus ENT - no bleeding LNs cervical not palpable Neck - no LN Respiratory Normal Breath sounds - decreased air entry CVS S1 S2 + Extremities normal temperature General GI - s/p sx Rectal deferred female - deferred Skin warm Musculoskeletal rt side weakness Neurologically CVA - effecting rt side - Constitutional Vitals: Last Vital Signs Temp 98.7 F 10/19/18 05:50 Pulse 98 H 10/19/18 06:32 Resp 18 10/19/18 05:50 BP 141/79 10/19/18 06:32 Pulse Ox 97 10/19/18 05:50 - Labs Lab Results: Laboratory Results - last 24 hr 10/18/18 10/18/18 10/18/18 08:17 11:57 17:16 POC Glucose 159 H 227 H 280 H 10/18/18 21:37 POC Glucose 170 H Medications & Allergies - Medications Allergies/Adverse Reactions: Allergies Penicillins Allergy (Verified 11/10/14 21:41) Unknown Peas Allergy (Uncoded 07/01/16 12:21) Swelling Home Medications: Home Medications Medication Instructions Recorded Confirmed Last Taken Type AtorvaSTATin [Lipitor] 20 mg PO QDAY #30 tablet 07/09/16 10/01/18 1 Day Ago Rx ~10/29/16 Furosemide [Lasix TAB] 40 mg PO BID #60 tablet 07/09/16 10/01/18 1 Day Ago Rx ~10/29/16 Metformin HCl [Glucophage] 1,000 mg PO BID #60 tablet 07/09/16 10/01/18 1 Day Ago Rx ~10/29/16 Metoprolol [Lopressor TAB] 25 mg PO BID #60 tablet 07/09/16 10/02/18 1 Day Ago Rx ~10/29/16 Potassium Chloride [K-Dur] 20 meq PO QDAY #30 tablet 07/09/16 10/01/18 1 Day Ago Rx ~10/29/16 AtorvaSTATin [Lipitor] 20 mg PO QDAY 10/29/16 10/01/18 1 Day Ago History ~10/29/16 Citalopram [celeXA] 10 mg PO TID 10/29/16 10/02/18 1 Day Ago History ~10/29/16 Phenytoin Sodium Extended 200 mg PO QHS 10/30/16 10/01/18 1 Day Ago History ~10/29/16 Insulin Glargine [Lantus VIAL] 10 units SUB-Q QHS #1 units 11/04/16 10/02/18 1 Day Ago Rx ~10/29/16 Carvedilol [Coreg] 3.125 mg PO BID 10/01/18 10/01/18 Unknown History Clopidogrel [Plavix] 75 mg PO QDAY 10/01/18 10/01/18 Unknown History DULoxetine [Cymbalta] 60 mg PO QDAY 10/01/18 10/01/18 Unknown History Gemfibrozil [Lopid] 600 mg PO QDAY 10/01/18 10/01/18 Unknown History Morphine Sulfate 15 mg PO BID 10/01/18 10/01/18 Unknown History Phenytoin [Dilantin] 150 mg PO QDAY 10/01/18 10/01/18 Unknown History predniSONE [Deltasone] 5 mg PO Q48HR 10/03/18 10/03/18 Unknown History Active Medications: Generic Name Dose Route Start Last Admin Trade Name Freq PRN Reason Stop Dose Admin Acetaminophen 650 mg 10/01/18 23:43 10/10/18 02:32 Tylenol PO 650 mg Q4H PRN Administration Fever >101 Atorvastatin Calcium 20 mg 10/02/18 22:00 10/18/18 21:21 Lipitor PO 20 mg QHS ART Administration Dextrose 50 ml 10/02/18 08:23 10/02/18 08:46 D50w (25gm) Syringe IV 50 ml PRN PRN Administration Hypoglycemia Docusate Sodium 100 mg 10/18/18 22:00 10/18/18 23:05 Colace PO 100 mg BID ART Administration Duloxetine HCl 60 mg 10/02/18 14:00 10/18/18 12:05 Cymbalta PO 60 mg QDAY ART Administration Enoxaparin Sodium 40 mg 10/14/18 22:00 10/18/18 21:19 Lovenox SUB-Q 40 mg QDAY@2200 ART Administration Ferrous Sulfate 325 mg 10/13/18 10:00 10/18/18 21:21 Feosol PO 325 mg BID ART Administration Gemfibrozil 600 mg 10/05/18 10:00 10/18/18 12:05 Lopid PO 600 mg QDAY ART Administration Hydralazine HCl 10 mg 10/14/18 16:00 10/16/18 09:52 Apresoline IV 10 mg Q6H PRN Administration Blood Pressure Hydrocortisone Sodium Succinate 25 mg 10/16/18 07:00 10/18/18 10:09 Solu-Cortef IV 25 mg DAILY ART Administration Insulin Human Lispro 0 unit 10/05/18 16:30 10/18/18 21:34 Humalog SUB-Q 2 unit ACHS ART Administration Protocol Metoprolol Tartrate 50 mg 10/15/18 14:00 10/19/18 06:32 Lopressor PO 50 mg Q8H ART Administration Morphine Sulfate 15 mg 10/02/18 22:00 10/18/18 21:19 Ms Contin Er PO 15 mg Q12HR ART Administration Morphine Sulfate 2 mg 10/16/18 15:52 10/18/18 11:23 Morphine IV 2 mg Q3H PRN Administration Pain, Moderate (4-6) Multivitamins 5 ml 10/13/18 10:00 10/18/18 10:08 Centrum Liq PO 5 ml QDAY ART Administration Ondansetron HCl 4 mg 10/01/18 23:42 10/16/18 16:31 Zofran IV 4 mg Q8H PRN Administration Nausea And Vomiting Ondansetron HCl 4 mg 10/14/18 11:12 Zofran IV ONCE PRN Nausea And Vomiting Oxycodone/Acetaminophen 1 tab 10/16/18 15:44 10/18/18 17:41 Percocet 5/325 PO 1 tab Q4H PRN Administration Pain, Moderate (4-6) Phenytoin 200 mg 10/02/18 22:00 10/18/18 21:20 Dilantin PO 200 mg QHS ART Administration Potassium Chloride 20 meq 10/09/18 14:00 10/18/18 10:10 K-Dur PO 20 meq QDAY ART Administration
[2018-10-19] MEDS: HumaLOG SUB-Q SCH ×3 (08:22→18:57)
--- NOTE | 2018-10-19 09:09 | Progress Note ---
Assessment and Plan - Patient Problems (1) Mass of colon Current Visit: Yes Status: Acute Plan to address problem: Pt stable. s/p open right hemicolectomy (10/14/18) - POD#5. Pt seems to be doing ok. Appears to have tolerated liquid diet and is consistently passing flatus. Ideally would like to have a bowel movement before advancing diet, but I also n eed her to get nutrition. Currently, she is refusing to drink the liquid diet. She keeps asking for food. I will try her on a solid diet. rec: 1) Consistent carb diet today 2) Ambulate 3) If diet tolerated today, may begin working on discharge. Please call with questions. time=10min Subjective Date of service: 10/19/18 Patient Reports: Positive: tolerating liquids well, flatus, other (Possible BM? Wants food!). Negative: nausea, vomiting Objective Vital Signs - 12hr 10/18/18 10/18/18 10/18/18 21:16 21:19 21:21 Temperature Pulse Rate 92 H 93 H Respiratory 18 Rate Blood Pressure 135/78 135/78 O2 Sat by Pulse 96 Oximetry 10/18/18 10/18/18 10/19/18 22:19 23:21 05:50 Temperature 98.7 F 98.7 F Pulse Rate 82 98 H Respiratory 16 18 18 Rate Blood Pressure 132/77 141/79 O2 Sat by Pulse 95 97 Oximetry 10/19/18 06:32 Temperature Pulse Rate 98 H Respiratory Rate Blood Pressure 141/79 O2 Sat by Pulse Oximetry - General physical appearance no distress, no pain - Respiratory normal expansion, normal respiratory effort - Abdomen soft, not tender, bowel sounds normal, not distended, not guarding, not rigid, surgical scars (C/d/I) - Integumentary no rash, no growths, no abnormal pigmentation - Labs 10/18/18 04:55 10/18/18 04:55
--- NOTE | 2018-10-19 09:54 | Progress Note ---
Assessment and Plan Colon mass s/p open right hemicolectomy with primary anastomosis Pre-op cardiac risk assessment Prior CVA HTN DVT s/p IVC filter 2014 no anticoagulation due to severe anemia, GI bleed and recurrent falls. Anemia An echocardiogram shows a normal left ventricular systolic function, EF 55-60%. Normal stress thallium test this admission. Conservative cardiac management. Subjective Date of service: 10/19/18 Principal diagnosis: colon mass Interval history: Patient denies chest pain, shortness of breath and palpitations. Objective Vital Signs Temp Pulse Resp BP Pulse Ox 10/19/18 06:32 98 H 141/79 10/19/18 05:50 98.7 F 98 H 18 141/79 97 10/18/18 23:21 98.7 F 82 18 132/77 95 10/18/18 22:19 16 10/18/18 21:21 93 H 135/78 10/18/18 21:19 18 10/18/18 21:16 92 H 135/78 96 10/18/18 14:10 82 144/76 10/18/18 13:21 98.2 F 82 18 144/76 98 10/18/18 10:08 101 H 151/85 - Physical Examination General: No Apparent Distress HEENT: Positive: PERRL Neck: Positive: neck supple Cardiac: Positive: Reg Rate and Rhythm Lungs: Positive: Decreased Breath Sounds Neuro: Positive: Weakness Abdomen: Positive: Other (post hemicolectomy) Extremities: Absent: edema
[2018-10-19] MEDS: CYMBALTA PO SCH (11:40)
[2018-10-19] MEDS: COLACE PO SCH (11:41)
[2018-10-19] MEDS: Centrum Liq PO SCH (11:41)
[2018-10-19] MEDS: LOPID PO SCH (11:41)
[2018-10-19] MEDS: MS CONTIN ER PO SCH (11:41)
[2018-10-19] MEDS: FEOSOL PO SCH (11:41)
[2018-10-19] MEDS: K-DUR PO SCH (11:41)
[2018-10-19] MEDS: PERCOCET 5/325 PO PRN (16:03)
[2018-10-19 18:34] VITALS: BP 126/67
--- NOTE | 2018-10-19 18:59 | Discharge Summary ---
Providers - Providers Date of Admission: 10/01/18 23:17 Date of discharge: 10/19/18 Attending physician: ARJUN STEPHENSON 10/01/18 21:59 Consult to Case Management [CONS] Urgent Services Needed at Discharge: Computer Help Desk Specialist Notified:: awaiting call back Additional Physician Instructions: family requests social media marketing specialist 10/01/18 23:15 Consult to Physician [CONS] Urgent Comment: Consulting Provider: REBECA REYNOLDS Physician Instructions: Reason For Exam: colonic mass, poor oral intake 10/02/18 03:52 Consult to Wound/ET Nurse [CONS] Routine Reason For Exam: wound eval 10/03/18 12:40 Physical Therapy Evaluation and Treat [CONS] Routine Comment: Reason For Exam: weakness/ right sided 10/05/18 12:32 Consult to Dietitian/Nutrition [CONS] Routine Physician Instructions: Reason For Exam: Reason for Consult: Diet education 10/06/18 06:40 Consult to Physician [CONS] Routine Comment: Consulting Provider: BERKLEY ALEXANDER Physician Instructions: Reason For Exam: sepsis 10/08/18 11:35 Consult to Physician [CONS] Routine Comment: Consulting Provider: MONICA KAHN Physician Instructions: consult surgery Reason For Exam: colon mass 10/08/18 14:59 Consult to Physician [CONS] Routine Comment: Consulting Provider: MENDOZA CARDENAS Physician Instructions: Reason For Exam: Colon mass 10/08/18 16:32 Consult to Physician [CONS] Routine Comment: Consulting Provider: MICHAEL CAPELLAN Physician Instructions: Reason For Exam: Cardiac Clearance for Surgery 10/15/18 14:46 Physical Therapy Evaluation and Treat [CONS] Routine Comment: Reason For Exam: generalized weakness, S/P open hemicolectomy 10/18/18 18:29 Consult to Case Management [CONS] Routine Services Needed at Discharge: Computer Help Desk Specialist Notified:: COPY LEFT FOR CM Comment:: update: PT recommending Subacute rehab [facility] Condition: Fair Procedures: Hemicolectomy on 10/14/18 Hospital course: 63-year-old female with past medical history significant for CVA with right-sided hemiplegia, lupus was presented to the emergency department with complaints of altered mental status. In the emergency department patient was found to have hypoglycemia and was treated accordingly. Workup showed that she has leukocytosis and elevated lactic acid level which may be suggestive of infection. Patient admitted to the floor for further workup and management.Was found to have Rt ascending Colon mass.Had Hemicolectomy on 10/14/18 Ate well and able to ambulate - Colonic mass s/p right hemicolectmy 10/14/18 Doing well surgery following pathology negative for malignancy - Anemia Iron supplements - Hypokalemia repleted Acute metabolic encephalopathy due to hypoglycemia - Patient was treated with dextrose, now resolved Lupus - Continue pain medicine and her prednisone History of CVA with right hemiplegia - Supportive care Disposition home with sister Disposition: DC-01 TO HOME OR SELFCARE Core Measure Documentation - Palliative Care Palliative Care/ Comfort Measures: Not Applicable - Core Measures Any of the following diagnoses?: none Exam - Constitutional Vitals: Temp Pulse Resp BP Pulse Ox 98.7 F 91 H 20 126/67 94 10/19/18 17:32 10/19/18 17:32 10/19/18 17:32 10/19/18 17:32 10/19/18 17:32 General appearance: Present: no acute distress, well-nourished - EENT Eyes: Present: PERRL ENT: hearing intact, clear oral mucosa - Neck Neck: Present: supple, normal ROM - Respiratory Respiratory effort: normal Respiratory: bilateral: CTA - Cardiovascular Heart rate: 78 Rhythm: regular Heart Sounds: Present: S1 & S2. Absent: rub, click - Extremities Extremities: no ischemia, pulses symmetrical, No edema Peripheral Pulses: within normal limits - Abdominal General gastrointestinal: Present: soft, non-tender, non-distended, normal bowel sounds Female genitourinary: Present: normal - Integumentary Integumentary: Present: clear, warm, dry - Musculoskeletal Musculoskeletal: gait normal, strength equal bilaterally - Psychiatric Psychiatric: appropriate mood/affect, intact judgment & insight - Neurologic Neurologic: CNII-XII intact, moves all extremities Plan Activity: no restrictions Diet: diabetic Durable Medical Equipment Needed Upon Discharge: Walker-Standard Follow up with: MONICA KAHN MD [Staff Physician] - 7 Days MENDOZA CARDENAS MD [Staff Physician] - 7 Days ROSEMARIE JACOB MD [Primary Care Provider] - 3-5 Days AMBER JIMENEZ MD [Staff Physician] - 7 Days
== END 2018-10-19 21:01 | disposition home health service (06) | DRG 853 ==
LOC: ED 19:34 → 3A 23:17
PROVIDERS: ADMIT Internal Medicine; ATTEND Internal Medicine
PROC: 3E0A3GC Introduction of Other Therapeutic Substance into Bone Marrow, Percutaneous Approach (ICD-10-PCS; 2018-10-01)
PROC: 30233N1 Transfusion of Nonautologous Red Blood Cells into Peripheral Vein, Percutaneous Approach (ICD-10-PCS; 2018-10-05)
PROC: 0DBK8ZX Excision of Ascending Colon, Via Natural or Artificial Opening Endoscopic, Diagnostic (ICD-10-PCS; 2018-10-07)
PROC: 0DTF0ZZ Resection of Right Large Intestine, Open Approach (ICD-10-PCS; principal; 2018-10-14)
DX: A41.9 Sepsis, unspecified organism (principal); G93.41 Metabolic encephalopathy; I69.351 Hemiplegia and hemiparesis following cerebral infarction affecting right dominant side; Z68.41 Body mass index [BMI] 40.0-44.9, adult; K02.9 Dental caries, unspecified; I11.0 Hypertensive heart disease with heart failure; E11.649 Type 2 diabetes mellitus with hypoglycemia without coma; K04.7 Periapical abscess without sinus; E83.42 Hypomagnesemia; F03.90 Unspecified dementia, unspecified severity, without behavioral disturbance, psychotic disturbance, mood disturbance, and anxiety; E66.9 Obesity, unspecified; J44.9 Chronic obstructive pulmonary disease, unspecified; E53.8 Deficiency of other specified B group vitamins; M32.9 Systemic lupus erythematosus, unspecified; K63.89 Other specified diseases of intestine; R19.09 Other intra-abdominal and pelvic swelling, mass and lump; D50.9 Iron deficiency anemia, unspecified; G40.909 Epilepsy, unspecified, not intractable, without status epilepticus; Z90.710 Acquired absence of both cervix and uterus; Z79.899 Other long term (current) drug therapy; Z88.0 Allergy status to penicillin; Z86.718 Personal history of other venous thrombosis and embolism; Z79.01 Long term (current) use of anticoagulants; Z80.9 Family history of malignant neoplasm, unspecified; Z79.4 Long term (current) use of insulin; Z79.51 Long term (current) use of inhaled steroids
CPT/HCPCS: 36415; 70450; 70487; 71045; 71260; 72125; 74176; 78452; 80048; 80053; 80185; 80202; 80320; 81001; 82140; 82271; 82378; 82550; 82962; 83036; 83735; 84100; 84443; 84484; 85007; 85025; 85027; 85610; 85730; 86850; 86900; 86901; 86920; 87040; 87086; 88305; 88309; 88342; 93005; 93010; 93017; 93306; G0378; A9270-GY; A9502; G0480; J0360; J1170; J1644; J1650; J1720; J1815; J1956; J2250; J2270; J2370; J2405; J2704; J2710; J2785; J2916; J3010; J3370; J3420; J3475; J3480; J7030; J7040; J7042; J7050; J7512; P9016; Q9967

== ENCOUNTER 2018-10-19 21:37 | Inpatient (IN) | payer MEDICARE ==
[2018-10-19] MEDS ORDERED: MS CONTIN ER PO ONE (23:53)
--- NOTE | 2018-10-19 23:57 | Emergency Department Report ---
ED General Adult HPI - General Chief complaint: Pain General Stated complaint: EXPERIENCING PAIN REFUSING TO GO HOME Time Seen by Provider: 10/19/18 22:20 Source: patient, family, RN notes reviewed, old records reviewed Mode of arrival: Wheelchair Limitations: Physical Limitation - History of Present Illness Initial comments: This is a 63-year-old female. I have evaluated this patient in the past. Patient has a complicated past medical history. I recently saw this patient in the middle of September 2018, please see my note. In short, the patient was admitted to this hospital, and had a complicated hospital course. At baseline, the patient has right-sided jeferson-parous cysts, stroke, lupus, hypoglycemia, found to have colonic mass, status post right hemicolectomy, is documented to have been eating well and ambulating, pathology reportedly negat kilo for malignancy, also found to have anemia, hypokalemia, chronic pain medicine, chronic steroids, and was closely discharged home with her sister. Apparently, the patient was discharged, and c4 planner had received orders to arrange home health nurse, halfway for disease management and surgical wound care in addition to a physical therapy evaluation and treatment. These orders were transmitted on 10/15/2018. The patient's sister, Mrs. Silverio, states that the patient will not walk. She is concerned because the patient reportedly got her last dose of extended release morphine and 11:23 AM. The patient's sister was initially concerned that the patient was not receiving her morphine as scheduled. Apparently, the patient is also having right upper extremity swelling, and bilateral lower extremity swelling. The patient is nonverbal, does not answer my questions. She makes no indication of physical pain. - Related Data Home Medications Medication Instructions Recorded Confirmed Last Taken Citalopram [celeXA] 10 mg PO TID 10/29/16 10/02/18 1 Day Ago ~10/29/16 Phenytoin Sodium Extended 200 mg PO QHS 10/30/16 10/01/18 1 Day Ago ~10/29/16 Carvedilol [Coreg] 3.125 mg PO BID 10/01/18 10/01/18 Unknown Morphine Sulfate 15 mg PO BID 10/01/18 10/01/18 Unknown Phenytoin [Dilantin] 150 mg PO QDAY 10/01/18 10/01/18 Unknown Previous Rx's Medication Instructions Recorded Last Taken Type AtorvaSTATin [Lipitor] 20 mg PO QDAY #30 tablet 07/09/16 1 Day Ago Rx ~10/29/16 AtorvaSTATin [Lipitor] 20 mg PO QDAY 30 Days #30 tablet 10/19/18 Unknown Rx Clopidogrel [Plavix] 75 mg PO QDAY #30 tablet 10/19/18 Unknown Rx DULoxetine [Cymbalta] 60 mg PO QDAY #30 capsule 10/19/18 Unknown Rx Docusate Sodium [Colace ORAL LIQ] 100 mg PO BID #30 oral.liqd 10/19/18 Unknown Rx Ferrous Sulfate [Feosol 325 MG tab] 325 mg PO QDAY #30 tablet 10/19/18 Unknown Rx Furosemide [Lasix TAB] 40 mg PO QDAY #60 tablet 10/19/18 Unknown Rx Gemfibrozil [Lopid] 600 mg PO QDAY #30 tablet 10/19/18 Unknown Rx Insulin Glargine [Lantus VIAL] 10 units SUB-Q QHS #5 pen 10/19/18 Unknown Rx Lispro Insulin [HumaLOG] 5 unit SUB-Q ACHS #5 pen 10/19/18 Unknown Rx Metformin HCl [Glucophage] 1,000 mg PO BID #60 tablet 10/19/18 Unknown Rx Metoprolol [Lopressor TAB] 50 mg PO BID #60 tablet 10/19/18 Unknown Rx Metoprolol [Lopressor TAB] 50 mg PO Q8H #90 tablet 10/19/18 Unknown Rx Morphine ER [Ms Contin ER] 15 mg PO Q12HR #20 tablet 10/19/18 Unknown Rx Multivitamins Liq [Multiple 5 ml PO QDAY oral.liqd 10/19/18 Unknown Rx Vitamin Liq (Theragran)] Phenytoin [Dilantin] 150 mg PO QAM #30 tab 10/19/18 Unknown Rx Phenytoin [Dilantin] 200 mg PO QHS #30 capsule.er 10/19/18 Unknown Rx Potassium Chloride [K-Dur] 20 meq PO QDAY #30 tablet 10/19/18 Unknown Rx predniSONE [Deltasone] 5 mg PO Q48HR 30 Days #16 tablet 10/19/18 Unknown Rx Allergies Allergy/AdvReac Type Severity Reaction Status Date / Time Penicillins Allergy Unknown Verified 11/10/14 21:41 Peas Allergy Swelling Uncoded 05/16/17 12:21 ED Review of Systems ROS: Stated complaint: EXPERIENCING PAIN REFUSING TO GO HOME Other details as noted in HPI Constitutional: weakness Neurological: weakness ED Past Medical Hx - Past Medical History Previous Medical History?: Yes Hx Hypertension: Yes (+Cardiac clearance; Normal ECHO and NST this admission) Hx CVA: Yes (right sided residual weakness) Hx Congestive Heart Failure: Yes Hx Diabetes: Yes Hx Liver Disease: No Hx Renal Disease: No Hx Seizures: Yes Hx Asthma: Yes Hx COPD: Yes - Surgical History Past Surgical History?: Yes Hx Pacemaker: No Hx Internal Defibrillator: No Additional Surgical History: HYSTERECTOMY - Social History Smoking Status: Never Smoker Substance Use Type: None - Medications Home Medications: Home Medications Medication Instructions Recorded Confirmed Last Taken Type AtorvaSTATin [Lipitor] 20 mg PO QDAY #30 tablet 07/09/16 10/01/18 1 Day Ago Rx ~10/29/16 Citalopram [celeXA] 10 mg PO TID 10/29/16 10/02/18 1 Day Ago History ~10/29/16 Phenytoin Sodium Extended 200 mg PO QHS 10/30/16 10/01/18 1 Day Ago History ~10/29/16 Carvedilol [Coreg] 3.125 mg PO BID 10/01/18 10/01/18 Unknown History Morphine Sulfate 15 mg PO BID 10/01/18 10/01/18 Unknown History Phenytoin [Dilantin] 150 mg PO QDAY 10/01/18 10/01/18 Unknown History AtorvaSTATin [Lipitor] 20 mg PO QDAY 30 Days #30 tablet 10/19/18 Unknown Rx Clopidogrel [Plavix] 75 mg PO QDAY #30 tablet 10/19/18 Unknown Rx DULoxetine [Cymbalta] 60 mg PO QDAY #30 capsule 10/19/18 Unknown Rx Docusate Sodium [Colace ORAL LIQ] 100 mg PO BID #30 oral.liqd 10/19/18 Unknown Rx Ferrous Sulfate [Feosol 325 MG tab] 325 mg PO QDAY #30 tablet 10/19/18 Unknown Rx Furosemide [Lasix TAB] 40 mg PO QDAY #60 tablet 10/19/18 Unknown Rx Gemfibrozil [Lopid] 600 mg PO QDAY #30 tablet 10/19/18 Unknown Rx Insulin Glargine [Lantus VIAL] 10 units SUB-Q QHS #5 pen 10/19/18 Unknown Rx Lispro Insulin [HumaLOG] 5 unit SUB-Q ACHS #5 pen 10/19/18 Unknown Rx Metformin HCl [Glucophage] 1,000 mg PO BID #60 tablet 10/19/18 Unknown Rx Metoprolol [Lopressor TAB] 50 mg PO BID #60 tablet 10/19/18 Unknown Rx Metoprolol [Lopressor TAB] 50 mg PO Q8H #90 tablet 10/19/18 Unknown Rx Morphine ER [Ms Contin ER] 15 mg PO Q12HR #20 tablet 10/19/18 Unknown Rx Multivitamins Liq [Multiple 5 ml PO QDAY oral.liqd 10/19/18 Unknown Rx Vitamin Liq (Theragran)] Phenytoin [Dilantin] 150 mg PO QAM #30 tab 10/19/18 Unknown Rx Phenytoin [Dilantin] 200 mg PO QHS #30 capsule.er 10/19/18 Unknown Rx Potassium Chloride [K-Dur] 20 meq PO QDAY #30 tablet 10/19/18 Unknown Rx predniSONE [Deltasone] 5 mg PO Q48HR 30 Days #16 tablet 10/19/18 Unknown Rx ED Physical Exam - General Limitations: Physical Limitation General appearance: alert, obese - Head Head exam: Present: atraumatic, normocephalic - Eye Eye exam: Present: normal appearance - ENT ENT exam: Present: normal exam, mucous membranes moist, normal external ear exam - Neck Neck exam: Present: normal inspection, full ROM. Absent: tenderness, meningismus - Respiratory Respiratory exam: Present: normal lung sounds bilaterally, decreased breath sounds. Absent: respiratory distress - Cardiovascular Cardiovascular Exam: Present: regular rate, normal rhythm, normal heart sounds. Absent: bradycardia, tachycardia, irregular rhythm, systolic murmur, diastolic murmur, rubs, gallop - GI/Abdominal GI/Abdominal exam: Present: soft. Absent: distended, tenderness, guarding, re bound, rigid, pulsatile mass - External exam: Present: normal external exam, other (chaperoned by isaias Mcpherson) - Extremities Exam Extremities exam: Present: normal inspection, pedal edema. Absent: full ROM (rue weak hemiplegic) - Back Exam Back exam: Present: normal inspection. Absent: CVA tenderness (R), CVA tenderness (L), paraspinal tenderness - Neurological Exam Neurological exam: Present: alert, motor sensory deficit (there is chronic right arm, right leg weakness. The patient groans when she is turned.) - Psychiatric Psychiatric exam: Present: flat affect - Skin Skin exam: Present: warm, dry, intact, normal color. Absent: rash ED Course Vital Signs 10/19/18 10/19/18 10/20/18 22:10 23:30 00:00 Temperature 98.1 F Pulse Rate 96 H 95 H 99 H Respiratory 20 16 19 Rate Blood Pressure 138/77 150/74 130/82 Blood Pressure 138/77 [Left] O2 Sat by Pulse 96 96 93 Oximetry 10/20/18 10/20/18 10/20/18 00:05 00:10 00:30 Temperature Pulse Rate 97 H 100 H Respiratory 16 20 Rate Blood Pressure 156/80 169/80 Blood Pressure [Left] O2 Sat by Pulse Oximetry 10/20/18 01:00 Temperature Pulse Rate 100 H Respiratory 19 Rate Blood Pressure 175/86 Blood Pressure [Left] O2 Sat by Pulse 93 Oximetry - Reevaluation(s) Reevaluation #1: 10/20/18 00:14 Differential diagnosis, including but not limited to: Dependent edema, deconditioning, DVT, debility, dementia Assessment and plan: 63-year-old female with chronic pain syndrome, right hemiplegia, multiple medical issues, just discharged from this hospital within the past 12 hours. The patient is documented as having walked, but as per sister, she is not walking. In the ER, moving bilateral lower extremities, and left arm. Right arm has minimal movement. Suspect deconditioning and debility. We will continue the patient's medications. We will obtain bilateral lower extremity DVT studies right upper extremity DVT study, although, suspect dependent edema and lymphedema. Case management consult physical therapy consult have been requested. Patient may need placement in a halfway facility or subacute rehabilitation if sister is not able to care for her. Reevaluation #2: 10/20/18 01:48 Patient resting comfortably, and in no acute distress. Screening laboratory studies unremarkable. Reevaluation #3: 10/20/18 04:[address] Vega to admit for new onset DVT ED Medical Decision Making - Lab Data Result diagrams: 10/19/18 23:58 10/19/18 23:58 Vital Signs 09/05/0410/20/18 10/20/18 22:10 00:05 00:10 Temperature 98.1 F Pulse Rate 96 H 97 H Respiratory 20 16 Rate Blood Pressure 138/77 156/80 Blood Pressure 138/77 [Left] O2 Sat by Pulse 96 Oximetry Lab Results 10/19/18 10/19/18 10/19/18 Range/Units 23:58 23:58 23:58 WBC 11.2 H (4.5-11.0) K/mm3 RBC 3.92 (3.65-5.03) M/mm3 Hgb 8.6 L (10.1-14.3) gm/dl Hct 27.9 L (30.3-42.9) % MCV 71 L (79-97) fl MCH 22 L (28-32) pg MCHC 31 (30-34) % RDW 27.3 H (13.2-15.2) % Plt Count 353 (140-440) K/mm3 PT 14.8 (12.2-14.9) Sec. INR 1.19 H (0.87-1.13) APTT 30.3 (24.2-36.6) Sec. Sodium 141 (137-145) mmol/L Potassium 3.6 (3.6-5.0) mmol/L Chloride 103.8 (98-107) mmol/L Carbon Dioxide 26 (22-30) mmol/L Anion Gap 15 mmol/L BUN 2 L (7-17) mg/dL Creatinine 0.5 L (0.7-1.2) mg/dL Estimated GFR > 60 ml/min BUN/Creatinine Ratio 4 % Glucose 146 H (65-100) mg/dL Calcium 8.4 (8.4-10.2) mg/dL Magnesium 1.70 (1.7-2.3) mg/dL Total Creatine Kinase 40 (30-135) units/L Acetaminophen (10.0-30.0) ug/mL Phenytoin (10.0-20.0) ug/mL 10/20/18 10/20/18 Range/Units 00:15 00:15 WBC (4.5-11.0) K/mm3 RBC (3.65-5.03) M/mm3 Hgb (10.1-14.3) gm/dl Hct (30.3-42.9) % MCV (79-97) fl MCH (28-32) pg MCHC (30-34) % RDW (13.2-15.2) % Plt Count (140-440) K/mm3 PT (12.2-14.9) Sec. INR (0.87-1.13) APTT (24.2-36.6) Sec. Sodium (137-145) mmol/L Potassium (3.6-5.0) mmol/L Chloride (98-107) mmol/L Carbon Dioxide (22-30) mmol/L Anion Gap mmol/L BUN (7-17) mg/dL Creatinine (0.7-1.2) mg/dL Estimated GFR ml/min BUN/Creatinine Ratio % Glucose (65-100) mg/dL Calcium (8.4-10.2) mg/dL Magnesium (1.7-2.3) mg/dL Total Creatine Kinase (30-135) units/L Acetaminophen < 5.0 L (10.0-30.0) ug/mL Phenytoin 2.5 L (10.0-20.0) ug/mL - Radiology Data Radiology results: report reviewed, image reviewed Print Report Referring Physician: LYNNE LANDIN Patient Name: TAYLA WATSON Date of : 1955 Sex: Female Report Date: 2018-10-20 Report Status: [place] [address] Vascular Lab Report Signed Patient: TAYLA WATSON MR#: [id number] 97 : 1955 Acct:[id number] Age/Sex: 63 / F ADM Date: 10/19/18 Loc: ED Attending Dr: Ordering Physician: LYNNE LANDIN MD Date of Service: 10/19/18 Procedure(s): VL venous duplex LE BILAT Accession Number(s): [id number] cc: LYNNE LANDIN MD DUPLEX DOPPLER LOWER EXTREMITY VEINS, BILATERAL INDICATION: lower ext swelling. TECHNIQUE: Duplex doppler imaging was performed through the veins of both lower extremities using venous compression and other maneuvers. COMPARISON: None available. FINDINGS: Right Common Femoral vein: Negative. Right Femoral vein: Negative. Right Popliteal vein: Negative. Right Calf veins: Negative. Left Common Femoral vein: Negative. Left Femoral vein: Occlusive DVT Left Popliteal vein: Occlusive DVT Left Calf veins: Negative. Additional findings: Shotty reactive benign bilateral inguinal nodes with echogenic fatty hazel. IMPRESSION: 1. Occlusive DVT left femoral and popliteal veins. 2. No sonographic evidence for DVT in right lower extremity. Signer Name: Kristopher Marsh MD Signed: 10/20/2018 2:28 AM Workstation Name: [id number] Transcribed By: TL Dictated By: Kristopher Marsh MD Electronically Authenticated By: Kristopher Marsh MD Signed Date/Time: 10/20/18 0228 Critical care attestation.: If time is entered above; I have spent that time in minutes in the direct care of this critically ill patient, excluding procedure time. ED Disposition Clinical Impression: DVT (deep venous thrombosis), Dementia, Left leg pain, Debility Disposition: OP ADMIT IP TO THIS HOSP Is pt being admited?: Yes Condition: Good Referrals: PRIMARY CAREMD [Primary Care Provider] - 3-5 Days
[2018-10-20] MEDS: LOPRESSOR PO SCH ×4 (00:10→22:20)
[2018-10-20 00:21] LABS: Hematocrit 27.9 % (30.3-42.9); Hemoglobin 8.6 gm/dl (10.1-14.3); Mean Corpuscular HGB Conc 31 % (30-34); Mean Corpuscular Volume 71 fl (79-97); Platelet Count 353 K/mm3 (140-440); Red Blood Count 3.92 M/mm3 (3.65-5.03)
[2018-10-20 00:22] LABS: Red Cell Distribution Width 27.3 % (13.2-15.2)
[2018-10-20 00:36] LABS: BUN/Creatinine Ratio 4; Blood Urea Nitrogen 2 mg/dL (7-17); Calcium 8.4 mg/dL (8.4-10.2); Hemolysis Index 3
[2018-10-20 01:19] LABS: INR 1.19 (0.87-1.13)
[2018-10-20 01:20] LABS: Partial Thromboplastin Time 30.3 Sec. (24.2-36.6)
--- NOTE | 2018-10-20 02:32 | Vascular Lab Report ---
DUPLEX DOPPLER LOWER EXTREMITY VEINS, BILATERAL INDICATION: lower ext swelling. TECHNIQUE: Duplex doppler imaging was performed through the veins of both lower extremities using venous alirio kelly and other maneuvers. COMPARISON: None available. FINDINGS: Right Common Femoral vein: Negative. Right Femoral vein: Negative. Right Popliteal vein: Negative. Right Calf veins: Negative. Left Common Femoral vein: Negative. Left Femoral vein: Occlusive DVT Left Popliteal vein: Occlusive DVT Left Calf veins: Negative. Additional findings: Shotty reactive benign bilateral inguinal nodes with echogenic fatty hazel. IMPRESSION: 1. Occlusive DVT left femoral and popliteal veins. 2. No sonographic evidence for DVT in right lower extremity. Signer Name: Kristopher Marsh MD Signed: 10/20/2018 2:28 AM Workstation Name: [email or web address]
[2018-10-20] MEDS ORDERED: LOVENOX SUB-Q STA (03:38)
[2018-10-20] MEDS ORDERED: ZOFRAN IV PRN (04:44)
[2018-10-20] MEDS ORDERED: TYLENOL PO PRN (04:44)
[2018-10-20] MEDS ORDERED: SODIUM CHLORIDE FLUSH SYRINGE 10 ML IV PRN (04:44)
--- NOTE | 2018-10-20 04:52 | History and Physical Report ---
History of Present Illness Date of examination: 10/20/18 History of present illness: 61-year old man with a history of hypertension, diabetes, DVT, CHF, CVA with right-sided weakness, asthma, COPD status post recent hemicolectomy, discharge from the hospital yesterday brought back to the hospital today complaining of le g pain patient is unable to give details, also complaining of chest pain Difficult to obtain review of systems. Patient was found to have left femoral and popliteal DVT. Patient was taken off anticoagulation recently, old chart reviewed PAST MEDICAL HISTORY:hypertension, diabetes, DVT, CHF, CVA,with right-sided weakness, asthma, COPD status post recent hemicolectomy PAST SURGICAL HISTORY: Hysterectomy FAMILY HISTORY: Diabetes SOCIAL HISTORY: No tobacco, alcoho, DRUGS Medications and Allergies Allergies Allergy/AdvReac Type Severity Reaction Status Date / Time Penicillins Allergy Unknown Verified 11/10/14 21:41 Peas Allergy Swelling Uncoded 07/01/16 12:21 Home Medications Medication Instructions Recorded Confirmed Last Taken Type AtorvaSTATin [Lipitor] 20 mg PO QDAY #30 tablet 07/09/16 10/01/18 1 Day Ago Rx ~10/29/16 Citalopram [celeXA] 10 mg PO TID 10/29/16 10/02/18 1 Day Ago History ~10/29/16 Phenytoin Sodium Extended 200 mg PO QHS 10/30/16 10/01/18 1 Day Ago History ~10/29/16 Carvedilol [Coreg] 3.125 mg PO BID 10/01/18 10/01/18 Unknown History Morphine Sulfate 15 mg PO BID 10/01/18 10/01/18 Unknown History Phenytoin [Dilantin] 150 mg PO QDAY 10/01/18 10/01/18 Unknown History AtorvaSTATin [Lipitor] 20 mg PO QDAY 30 Days #30 tablet 10/19/18 Unknown Rx Clopidogrel [Plavix] 75 mg PO QDAY #30 tablet 10/19/18 Unknown Rx DULoxetine [Cymbalta] 60 mg PO QDAY #30 capsule 10/19/18 Unknown Rx Docusate Sodium [Colace ORAL LIQ] 100 mg PO BID #30 oral.liqd 10/19/18 Unknown Rx Ferrous Sulfate [Feosol 325 MG tab] 325 mg PO QDAY #30 tablet 10/19/18 Unknown Rx Furosemide [Lasix TAB] 40 mg PO QDAY #60 tablet 10/19/18 Unknown Rx Gemfibrozil [Lopid] 600 mg PO QDAY #30 tablet 10/19/18 Unknown Rx Insulin Glargine [Lantus VIAL] 10 units SUB-Q QHS #5 pen 10/19/18 Unknown Rx Lispro Insulin [HumaLOG] 5 unit SUB-Q ACHS #5 pen 10/19/18 Unknown Rx Metformin HCl [Glucophage] 1,000 mg PO BID #60 tablet 10/19/18 Unknown Rx Metoprolol [Lopressor TAB] 50 mg PO BID #60 tablet 10/19/18 Unknown Rx Metoprolol [Lopressor TAB] 50 mg PO Q8H #90 tablet 10/19/18 Unknown Rx Morphine ER [Ms Contin ER] 15 mg PO Q12HR #20 tablet 10/19/18 Unknown Rx Multivitamins Liq [Multiple 5 ml PO QDAY oral.liqd 10/19/18 Unknown Rx Vitamin Liq (Theragran)] Phenytoin [Dilantin] 150 mg PO QAM #30 tab 10/19/18 Unknown Rx Phenytoin [Dilantin] 200 mg PO QHS #30 capsule.er 10/19/18 Unknown Rx Potassium Chloride [K-Dur] 20 meq PO QDAY #30 tablet 10/19/18 Unknown Rx predniSONE [Deltasone] 5 mg PO Q48HR 30 Days #16 tablet 10/19/18 Unknown Rx Active Meds: Active Medications Acetaminophen (Tylenol) 650 mg PO Q4H PRN PRN Reason: Pain MILD(1-3)/Fever >100.5/LUIS Atorvastatin Calcium (Lipitor) 20 mg PO QDAY ART Docusate Sodium (Colace) 100 mg PO BID [facility] Ferrous Sulfate (Feosol) 325 mg PO QDAY ART Gemfibrozil (Lopid) 600 mg PO QDAY [facility] Insulin Glargine (Lantus) 10 units SUB-Q QHS [facility] Insulin Human Lispro (Humalog) 5 unit SUB-Q ACHS [facility] Metformin HCl (Glucophage) 1,000 mg PO BIDDIAB [facility] Metoprolol Tartrate (Lopressor) 50 mg PO Q8HR [facility] Last Admin: 10/20/18 00:10 Dose: 50 mg Documented by: Multivitamins (Centrum Liq) 5 ml PO QDAY ART Ondansetron HCl (Zofran) 4 mg IV Q8H PRN PRN Reason: Nausea And Vomiting Potassium Chloride (K-Dur) 20 meq PO QDAY ART Sodium Chloride (Sodium Chloride Flush Syringe 10 Ml) 10 ml IV BID ART Sodium Chloride (Sodium Chloride Flush Syringe 10 Ml) 10 ml IV PRN PRN PRN Reason: LINE FLUSH Exam - Physical Exam Narrative exam: Physical exam - Constitutional Vitals: Temp Pulse Resp BP Pulse Ox 98.1 F 100 H 19 175/86 93 10/19/18 22:10 10/20/18 01:00 10/20/18 01:00 10/20/18 01:00 10/20/18 01:00 Results - Labs CBC & Chem 7: 10/19/18 23:58 10/19/18 23:58 Labs: Abnormal lab results 10/19/18 10/19/18 10/19/18 Range/Units 23:58 23:58 23:58 WBC 11.2 H (4.5-11.0) K/mm3 Hgb 8.6 L (10.1-14.3) gm/dl Hct 27.9 L (30.3-42.9) % MCV 71 L (79-97) fl MCH 22 L (28-32) pg RDW 27.3 H (13.2-15.2) % INR 1.19 H (0.87-1.13) BUN 2 L (7-17) mg/dL Creatinine 0.5 L (0.7-1.2) mg/dL Glucose 146 H (65-100) mg/dL POC Glucose (70-105) Acetaminophen (10.0-30.0) ug/mL Phenytoin (10.0-20.0) ug/mL 10/20/18 10/20/18 10/20/18 Range/Units 00:15 00:15 02:20 WBC (4.5-11.0) K/mm3 Hgb (10.1-14.3) gm/dl Hct (30.3-42.9) % MCV (79-97) fl MCH (28-32) pg RDW (13.2-15.2) % INR (0.87-1.13) BUN (7-17) mg/dL Creatinine (0.7-1.2) mg/dL Glucose (65-100) mg/dL POC Glucose 163 H (70-105) Acetaminophen < 5.0 L (10.0-30.0) ug/mL Phenytoin 2.5 L (10.0-20.0) ug/mL Assessment and Plan Assessment lower Extremity DVT chest pain Hypertension Diabetes type 2 CHF, stable History of DVT History of CVA Seizure Lupus COPD, asthma Plan Admit to medicine Status post a full dose of Lovenox, monitor hemoglobin consult hematology, surgery, check CT chest, CE Checking finger sticks, initiate insulin sliding scale Continue appropriate outpatient medications Check fingersticks and initiate insulin signs
[2018-10-20] MEDS ORDERED: LOVENOX SUB-Q ONE (06:12)
[2018-10-20] MEDS ORDERED: LOPRESSOR ONE (06:12)
--- NOTE | 2018-10-20 06:50 | Event Note ---
Date: 10/20/18 [id number]
[2018-10-20] MEDS ORDERED: VITAMIN B-12 SUB-Q ONE (06:51)
--- NOTE | 2018-10-20 06:54 | Cat Scan Report ---
CTA CHEST WITH IV CONTRAST INDICATION: MAIN: CONFUSION, HTN, HISTORY OF DVT. 100 ML OMNIAPQUE 350. TECHNIQUE: Axial CT images were obtained through the chest after injection of 100 cc Omnipaque 350 IV contrast. 3 plane MIP reconstructions were produced. All CT scans at this location are performed using CT dose reduction for ALARA by means of automated exposure control. COMPARISON: CT chest 10/09/2018 FINDINGS: Contrast opacification of pulmonary arteries is good. Mild respiratory motion artifact is n oted. PULMONARY ARTERIES: No pulmonary emboli. THORACIC AORTA: No acute abnormality. HEART: Remains enlarged. CORONARY ARTERIES: No significant calcification. PLEURA: Small bilateral pleural effusions are again noted, unchanged. No pneumothorax. LYMPH NODES: Several borderline enlarged bilateral axillary and right paratracheal lymph nodes are ag ain noted. LUNGS: Mild compressive atelectasis both lower lobes and linear atelectasis within lingula, unchanged . No focal infiltrate to suggest pneumonia. ADDITIONAL FINDINGS: None. UPPER ABDOMEN: Small to moderate amount of upper abdominal ascites, new since prior study. Gallbladde r remains surgically absent with dilatation of common bile duct measuring 1 cm. SKELETAL STRUCTURES: No significant osseous abnormality. IMPRESSION: 1. No CT evidence for pulmonary embolism. 2. New onset small to moderate amount of upper abdominal ascites. 3. Stable mediastinal and bilateral axillary lymph nodes. 4. Stable small bilateral pleural effusions. Signer Name: Kristopher Marsh MD Signed: 10/20/2018 6:50 AM Workstation Name: [id number]
[2018-10-20] MEDS ORDERED: D50W (25GM) Syringe IV PRN (07:30)
[2018-10-20] MEDS ORDERED: DILANTIN PO SCH ×2 (10:00→22:00)
[2018-10-20] MEDS ORDERED: LOPRESSOR PO SCH (10:00)
[2018-10-20] MEDS ORDERED: LASIX PO SCH (10:00)
[2018-10-20] MEDS ORDERED: PLAVIX PO SCH (10:00)
[2018-10-20] MEDS ORDERED: NON-FORMULARY (Metformin Hcl [Glucophage] 1,000 MG) PO SCH (10:00)
[2018-10-20] MEDS ORDERED: COREG PO SCH (10:00)
--- NOTE | 2018-10-20 10:35 | Vascular Lab Report ---
RIGHT UPPER EXTREMITY VENOUS DOPPLER ULTRASOUND HISTORY: Right arm swelling COMPARISON: None. TECHNIQUE: Grayscale, color and spectral Doppler imaging of the venous system of the right upper extr emity was performed. FINDINGS: Internal Jugular Vein: Normal grayscale appearance and flow. Subclavian Vein: Normal grayscale appearance and flow. Axillary Vein: Normal venous flow, compressibility and augmentation. Brachial vein: Normal venous flow, compressibility and augmentation. Basilic vein: Normal venous flow, compressibility and augmentation. Cephalic vein: Normal venous flow, compressibility and augmentation. Radial vein: Normal venous flow, compressibility and augmentation. Ulnar vein: Normal venous flow, compressibility and augmentation. Additional Findings: None. IMPRESSION: 1. No sonographic evidence of deep venous thrombosis in the right upper extremity. Signer Name: Bimal Menendez Jr, MD Signed: 10/20/2018 10:31 AM Workstation Name: [id number]
[2018-10-20 10:57] LABS: Creatine Kinase MB < 1.0 ng/mL (0.0-4.0)
[2018-10-20] MEDS: LOPID PO SCH (11:40)
[2018-10-20] MEDS: HumaLOG SUB-Q SCH ×4 (11:40→22:32)
[2018-10-20] MEDS: FEOSOL PO SCH (11:41)
[2018-10-20] MEDS: GLUCOPHAGE PO SCH ×2 (11:41→17:45)
[2018-10-20] MEDS: K-DUR PO SCH (11:41)
[2018-10-20] MEDS: SODIUM CHLORIDE FLUSH SYRINGE 10 ML IV SCH ×2 (11:44→22:20)
--- NOTE | 2018-10-20 12:24 | Consultation ---
HISTORY OF PRESENT ILLNESS: The patient was discharged yesterday and she came back today. She had left leg swelling and DVT was found. The patient has past history of recent colon surgery, hypertension, stroke, diabetes, DVT, IVC filter, CHF and right-sided weakness. In the past, the patient was on Coumadin therapy. During recent admission, the patient underwent colon surgery. CEA was 17. B12 was low. Colon pathology of surgery still pending. The patient is not able to ambulate well because of stroke. PAST MEDICAL HISTORY: As above. SURGICAL HISTORY: Hysterectomy, IVC filter and colon surgery. SOCIAL HISTORY: No history of tobacco or alcohol usage. ALLERGIES: PENICILLIN AND BEES. MEDICATIONS: Reviewed. PHYSICAL EXAMINATION: VITAL SIGNS: Temperature 98, pulse 90, respirations 20, BP 176/87. LABORATORY DATA: White cell 11, hemoglobin 8.6, MCV 71, platelets 353. Potassium 3.6, creatinine 0.5, calcium 8.4. RADIOLOGY: CTA was negative. Leg Doppler shows femoral DVT on the left side. ASSESSMENT AND PLAN: 1. Macrocytic anemia secondary to likely bleed. 2. Deep venous thrombosis. The patient has history of deep venous thrombosis in the past. The patient was on Coumadin. The patient has a history of IVC filter. The patient would need anticoagulation for now. Her immobilization may have a role. Her colon cancer may also have a contribution to the same. 3. Colon mass, awaiting pathology. 4. B12 deficiency. We will replace. 5. Radiology mentions right axillary lymph nodes, would need outpatient followup. 6. History of cerebrovascular accident with right hemiparesis. 7. History of hypertension. 8. History of diabetes. 9. History of congestive heart failure. 10. I will follow the patient during inpatient stay. JOB# [id number] NM/NTS
[2018-10-20] MEDS: Centrum Liq PO SCH (12:48)
[2018-10-20] MEDS: COLACE PO SCH ×3 (12:48→22:32)
--- NOTE | 2018-10-20 13:55 | Progress Note ---
Assessment and Plan Assessment and plan: Left femoral and popliteal DVT. Consult vascular surgery for further evaluation. Continue Lovenox twice a day Hypertension. Continue antihypertensive medications. Diabetes mellitus type 2. Continue Accu-Cheks and sliding scale insulin. History DVT. History CVA. Seizure disorder. Continue AEDs and seizure precautions. Lupus Asthma/COPD. Stable. History Interval history: 61-year old man with a history of hypertension, diabetes, DVT, CHF, CVA with right-sided weakness, asthma, COPD status post recent hemicolectomy, discharge from the hospital yesterday brought back to the hospital today complaining of leg pain Hospitalist Physical - Constitutional Vitals: Temp Pulse Resp BP Pulse Ox 98.5 F 95 H 16 162/89 92 10/20/18 12:03 10/20/18 12:03 10/20/18 12:03 10/20/18 12:03 10/20/18 12:03 General appearance: Present: no acute distress, well-nourished - EENT Eyes: Present: PERRL, EOM intact ENT: hearing intact, clear oral mucosa, dentition normal - Neck Neck: Present: supple, normal ROM - Respiratory Respiratory effort: normal Respiratory: bilateral: CTA - Cardiovascular Rhythm: regular Heart Sounds: Present: S1 & S2. Absent: gallop, rub - Extremities Extremities: no ischemia, No edema, Full ROM - Abdominal General gastrointestinal: soft, non-tender, non-distended, normal bowel sounds - Integumentary Integumentary: Present: clear, warm, dry - Neurologic Neurologic: CNII-XII intact, moves all extremities Results - Labs CBC & Chem 7: 10/19/18 23:58 10/19/18 23:58 Labs: Laboratory Last Values WBC 11.2 K/mm3 (4.5-11.0) H 10/19/18 23:58 RBC 3.92 M/mm3 (3.65-5.03) 10/19/18 23:58 Hgb 8.6 gm/dl (10.1-14.3) L 10/19/18 23:58 Hct 27.9 % (30.3-42.9) L 10/19/18 23:58 MCV 71 fl (79-97) L 10/19/18 23:58 MCH 22 pg (28-32) L 10/19/18 23:58 MCHC 31 % (30-34) 10/19/18 23:58 RDW 27.3 % (13.2-15.2) H 10/19/18 23:58 Plt Count 353 K/mm3 (140-440) 10/19/18 23:58 PT 14.8 Sec. (12.2-14.9) 10/19/18 23:58 INR 1.19 (0.87-1.13) H 10/19/18 23:58 APTT 30.3 Sec. (24.2-36.6) 10/19/18 23:58 Sodium 141 mmol/L (137-145) 10/19/18 23:58 Potassium 3.6 mmol/L (3.6-5.0) 10/19/18 23:58 Chloride 103.8 mmol/L (98-107) 10/19/18 23:58 Carbon Dioxide 26 mmol/L (22-30) 10/19/18 23:58 15 mmol/L 10/19/18 23:58 BUN 2 mg/dL (7-17) L 10/19/18 23:58 0.5 mg/dL (0.7-1.2) L 10/19/18 23:58 Estimated GFR > 60 ml/min 10/19/18 23:58 4 % 10/19/18 23:58 Glucose 146 mg/dL (65-100) H 10/19/18 23:58 POC Glucose 178 (70-105) H 10/20/18 12:12 Calcium 8.4 mg/dL (8.4-10.2) 10/19/18 23:58 Magnesium 1.70 mg/dL (1.7-2.3) 10/19/18 23:58 36 units/L (30-135) 10/20/18 00:18 CK-MB (CK-2) < 1.0 ng/mL (0.0-4.0) 10/20/18 00:18 CK-MB (CK-2) Rel Index 2.7 (0-4) 10/20/18 00:18 < 0.010 ng/mL (0.00-0.029) 10/20/18 00:18 Acetaminophen < 5.0 ug/mL (10.0-30.0) L 10/20/18 00:15 Phenytoin 2.5 ug/mL (10.0-20.0) L 10/20/18 00:15 Active Medications - Current Medications Current Medications: Generic Name Dose Route Start Last Admin Trade Name Freq PRN Reason Stop Dose Admin Acetaminophen 650 mg 10/20/18 04:44 Tylenol PO Q4H PRN Pain MILD(1-3)/Fever >100.5/LUIS Atorvastatin Calcium 20 mg 10/20/18 10:00 10/20/18 11:40 Lipitor PO 20 mg QDAY ART Administration Dextrose 50 ml 10/20/18 07:30 D50w (25gm) Syringe IV PRN PRN Hypoglycemia Docusate Sodium 100 mg 10/20/18 10:00 10/20/18 12:48 Colace PO 100 mg BID ART Administration Ferrous Sulfate 325 mg 10/20/18 10:00 10/20/18 11:41 Feosol PO 325 mg QDAY ART Administration Gemfibrozil 600 mg 10/20/18 10:00 10/20/18 11:40 Lopid PO 600 mg QDAY ART Administration Insulin Glargine 10 units 10/20/18 22:00 Lantus SUB-Q QHS ART Insulin Human Lispro 5 unit 10/20/18 07:30 10/20/18 11:42 Humalog SUB-Q 5 unit ACHS ART Administration Metformin HCl 1,000 mg 10/20/18 08:00 10/20/18 11:41 Glucophage PO 1,000 mg BIDDIAB ART Administration Metoprolol Tartrate 50 mg 10/19/18 23:45 10/20/18 06:15 Lopressor PO 50 mg Q8HR ART Administration Multivitamins 5 ml 10/20/18 10:00 10/20/18 12:48 Centrum Liq PO 5 ml QDAY ART Administration Ondansetron HCl 4 mg 10/20/18 04:44 Zofran IV Q8H PRN Nausea And Vomiting Potassium Chloride 20 meq 10/20/18 10:00 10/20/18 11:41 K-Dur PO 20 meq QDAY ART Administration Sodium Chloride 10 ml 10/20/18 10:00 10/20/18 11:44 Sodium Chloride Flush Syringe 10 Ml IV 10 ml BID ART Administration Sodium Chloride 10 ml 10/20/18 04:44 Sodium Chloride Flush Syringe 10 Ml IV PRN PRN LINE FLUSH
[2018-10-20 14:22] LABS: Creatine Kinase MB < 1.0 ng/mL (0.0-4.0)
[2018-10-20] MEDS: LOVENOX SUB-Q SCH (17:45)
[2018-10-20] MEDS: LANTUS SUB-Q SCH (22:32)
[2018-10-21] MEDS: LOPRESSOR PO SCH ×3 (05:38→22:27)
[2018-10-21] MEDS: LOVENOX SUB-Q SCH ×2 (05:39→17:37)
--- NOTE | 2018-10-21 07:02 | Hem/Onc Progress Note ---
Assessment and Plan 1. anemia secondary to likely bleed. 2. Deep venous thrombosis. The patient has history of deep venous thrombosis in the past. The patient was on Coumadin. The patient has a history of IVC filter. The patient would need anticoagulation for now. Her immobilization may have a role. Her colon cancer may also have a contribution to the same. 3. Colon mass, awaiting pathology. 4. B12 deficiency. replace. 5. Radiology mentions right axillary lymph nodes, would need outpatient followup. 6. History of cerebrovascular accident with right hemiparesis. 7. History of hypertension. 8. History of diabetes. 9. History of congestive heart failure. 10. I will follow the patient during inpatient stay. - Patient Problems (1) DVT (deep venous thrombosis) Current Visit: Yes Status: Acute Qualifiers: DVT location: lower extremity Affected thrombotic vein of extremity: femoral Laterality: left Subjective Date of service: 10/21/18 Principal diagnosis: dvt - colon mass Interval history: no bleeding Objective - Exam Narrative Exam: Pain - none General appearance not in acute distress - obese Performance status limited self care Eyes - no icterus ENT - no bleeding LNs cervical not palpable Neck - no LN Respiratory Normal Breath sounds - decreased air entry CVS S1 S2 + Extremities normal temperature General GI - s/p sx Rectal deferred female - deferred Skin warm Musculoskeletal rt side weakness Neurologically CVA - effecting rt side - Constitutional Vitals: Last Vital Signs Temp 98.4 F 10/21/18 04:18 Pulse 99 H 10/21/18 05:38 Resp 18 10/21/18 04:18 BP 171/89 10/21/18 05:38 Pulse Ox 91 10/21/18 04:18 - Labs Lab Results: Laboratory Results - last 24 hr 10/20/18 10/20/18 10/20/18 00:18 12:12 13:14 POC Glucose 178 H Total Creatine Kinase 36 45 CK-MB (CK-2) < 1.0 < 1.0 CK-MB (CK-2) Rel Index 2.7 2.2 Troponin T < 0.010 < 0.010 10/20/18 10/20/18 10/21/18 17:41 22:34 01:10 POC Glucose 114 H 159 H 107 H Total Creatine Kinase CK-MB (CK-2) CK-MB (CK-2) Rel Index Troponin T 10/21/18 06:33 POC Glucose 133 H Total Creatine Kinase CK-MB (CK-2) CK-MB (CK-2) Rel Index Troponin T Medications & Allergies - Medications Allergies/Adverse Reactions: Allergies Penicillins Allergy (Verified 11/10/14 21:41) Unknown Peas Allergy (Uncoded 07/01/16 12:21) Swelling Home Medications: Home Medications Medication Instructions Recorded Confirmed Last Taken Type AtorvaSTATin [Lipitor] 20 mg PO QDAY #30 tablet 07/09/16 10/01/18 1 Day Ago Rx ~10/29/16 Citalopram [celeXA] 10 mg PO TID 10/29/16 10/02/18 1 Day Ago History ~10/29/16 Phenytoin Sodium Extended 200 mg PO QHS 10/30/16 10/01/18 1 Day Ago History ~10/29/16 Carvedilol [Coreg] 3.125 mg PO BID 10/01/18 10/01/18 Unknown History Morphine Sulfate 15 mg PO BID 10/01/18 10/01/18 Unknown History Phenytoin [Dilantin] 150 mg PO QDAY 10/01/18 10/01/18 Unknown History AtorvaSTATin [Lipitor] 20 mg PO QDAY 30 Days #30 tablet 10/19/18 Unknown Rx Clopidogrel [Plavix] 75 mg PO QDAY #30 tablet 10/19/18 Unknown Rx DULoxetine [Cymbalta] 60 mg PO QDAY #30 capsule 10/19/18 Unknown Rx Docusate Sodium [Colace ORAL LIQ] 100 mg PO BID #30 oral.liqd 10/19/18 Unknown Rx Ferrous Sulfate [Feosol 325 MG tab] 325 mg PO QDAY #30 tablet 10/19/18 Unknown Rx Furosemide [Lasix TAB] 40 mg PO QDAY #60 tablet 10/19/18 Unknown Rx Gemfibrozil [Lopid] 600 mg PO QDAY #30 tablet 10/19/18 Unknown Rx Insulin Glargine [Lantus VIAL] 10 units SUB-Q QHS #5 pen 10/19/18 Unknown Rx Lispro Insulin [HumaLOG] 5 unit SUB-Q ACHS #5 pen 10/19/18 Unknown Rx Metformin HCl [Glucophage] 1,000 mg PO BID #60 tablet 10/19/18 Unknown Rx Metoprolol [Lopressor TAB] 50 mg PO BID #60 tablet 10/19/18 Unknown Rx Metoprolol [Lopressor TAB] 50 mg PO Q8H #90 tablet 10/19/18 Unknown Rx Morphine ER [Ms Contin ER] 15 mg PO Q12HR #20 tablet 10/19/18 Unknown Rx Multivitamins Liq [Multiple 5 ml PO QDAY oral.liqd 10/19/18 Unknown Rx Vitamin Liq (Theragran)] Phenytoin [Dilantin] 150 mg PO QAM #30 tab 10/19/18 Unknown Rx Phenytoin [Dilantin] 200 mg PO QHS #30 capsule.er 10/19/18 Unknown Rx Potassium Chloride [K-Dur] 20 meq PO QDAY #30 tablet 10/19/18 Unknown Rx predniSONE [Deltasone] 5 mg PO Q48HR 30 Days #16 tablet 10/19/18 Unknown Rx Active Medications: Generic Name Dose Route Start Last Admin Trade Name Freq PRN Reason Stop Dose Admin Acetaminophen 650 mg 10/20/18 04:44 Tylenol PO Q4H PRN Pain MILD(1-3)/Fever >100.5/LUIS Atorvastatin Calcium 20 mg 10/20/18 10:00 10/20/18 11:40 Lipitor PO 20 mg QDAY ART Administration Dextrose 50 ml 10/20/18 07:30 D50w (25gm) Syringe IV PRN PRN Hypoglycemia Docusate Sodium 100 mg 10/20/18 10:00 10/20/18 22:32 Colace PO Not Given BID ART Enoxaparin Sodium 100 mg 10/20/18 18:00 10/21/18 05:39 Lovenox SUB-Q 100 mg Q12H ART Administration Ferrous Sulfate 325 mg 10/20/18 10:00 10/20/18 11:41 Feosol PO 325 mg QDAY ART Administration Gemfibrozil 600 mg 10/20/18 10:00 10/20/18 11:40 Lopid PO 600 mg QDAY ART Administration Insulin Glargine 10 units 10/20/18 22:00 10/20/18 22:32 Lantus SUB-Q 10 units QHS ART Administration Insulin Human Lispro 5 unit 10/20/18 07:30 10/20/18 22:32 Humalog SUB-Q 5 unit ACHS ART Administration Metformin HCl 1,000 mg 10/20/18 08:00 10/20/18 17:45 Glucophage PO 1,000 mg BIDDIAB ART Administration Metoprolol Tartrate 50 mg 10/19/18 23:45 10/21/18 05:38 Lopressor PO 50 mg Q8HR ART Administration Multivitamins 5 ml 10/20/18 10:00 10/20/18 12:48 Centrum Liq PO 5 ml QDAY ART Administration Ondansetron HCl 4 mg 10/20/18 04:44 Zofran IV Q8H PRN Nausea And Vomiting Potassium Chloride 20 meq 10/20/18 10:00 10/20/18 11:41 K-Dur PO 20 meq QDAY ART Administration Sodium Chloride 10 ml 10/20/18 10:00 10/20/18 22:20 Sodium Chloride Flush Syringe 10 Ml IV 10 ml BID ART Administration Sodium Chloride 10 ml 10/20/18 04:44 Sodium Chloride Flush Syringe 10 Ml IV PRN PRN LINE FLUSH
[2018-10-21 07:33] LABS: Hematocrit 26.8 % (30.3-42.9); Hemoglobin 8.2 gm/dl (10.1-14.3); Mean Corpuscular HGB Conc 31 % (30-34); Mean Corpuscular Volume 72 fl (79-97); Platelet Count 330 K/mm3 (140-440); Red Blood Count 3.72 M/mm3 (3.65-5.03)
[2018-10-21 07:41] LABS: Hemolysis Index 7
[2018-10-21 07:54] LABS: BUN/Creatinine Ratio 2; Blood Urea Nitrogen < 1 mg/dL (7-17)
[2018-10-21 07:57] LABS: Red Cell Distribution Width 29.4 % (13.2-15.2)
[2018-10-21 09:15] LABS: Basophils % (Manual) 0 % (0.0-1.8); Total Cells Counted 100
[2018-10-21 09:16] LABS: Anisocytosis 2+; Hypochromasia 1+; Schistocytes Few; Stomatocytes Few
[2018-10-21 09:17] LABS: Large Platelets Rare; Platelet Estimate Consistent w Auto; Target Cells Rare
[2018-10-21] MEDS: HumaLOG SUB-Q SCH ×4 (09:37→22:26)
[2018-10-21] MEDS: COLACE PO SCH ×2 (09:38→22:26)
[2018-10-21] MEDS: FEOSOL PO SCH (09:38)
[2018-10-21] MEDS: SODIUM CHLORIDE FLUSH SYRINGE 10 ML IV SCH ×2 (09:38→22:27)
[2018-10-21] MEDS: Centrum Liq PO SCH (09:38)
[2018-10-21] MEDS: GLUCOPHAGE PO SCH ×2 (09:38→18:12)
[2018-10-21] MEDS: LOPID PO SCH (09:38)
[2018-10-21] MEDS: K-DUR PO SCH (09:38)
--- NOTE | 2018-10-21 10:06 | Consultation ---
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 The patient has previously had an IVC filter placed. ([employer]). She presents 1 day following discharge with an acute left femoral popliteal DVT. The patient is not currently on anticoagulation. She is nearly nonambulatory and deconditioned. Medications and Allergies Allergies Allergy/AdvReac Type Severity Reaction Status Date / Time Penicillins Allergy Unknown Verified 11/10/14 21:41 Peas Allergy Swelling Uncoded 07/01/16 12:21 Home Medications Medication Instructions Recorded Confirmed Last Taken Type AtorvaSTATin [Lipitor] 20 mg PO QDAY #30 tablet 07/09/16 10/01/18 1 Day Ago Rx ~10/29/16 Citalopram [celeXA] 10 mg PO TID 10/29/16 10/02/18 1 Day Ago History ~10/29/16 Phenytoin Sodium Extended 200 mg PO QHS 10/30/16 10/01/18 1 Day Ago History ~10/29/16 Carvedilol [Coreg] 3.125 mg PO BID 10/01/18 10/01/18 Unknown History Morphine Sulfate 15 mg PO BID 10/01/18 10/01/18 Unknown History Phenytoin [Dilantin] 150 mg PO QDAY 10/01/18 10/01/18 Unknown History AtorvaSTATin [Lipitor] 20 mg PO QDAY 30 Days #30 tablet 10/19/18 Unknown Rx Clopidogrel [Plavix] 75 mg PO QDAY #30 tablet 10/19/18 Unknown Rx DULoxetine [Cymbalta] 60 mg PO QDAY #30 capsule 10/19/18 Unknown Rx Docusate Sodium [Colace ORAL LIQ] 100 mg PO BID #30 oral.liqd 10/19/18 Unknown Rx Ferrous Sulfate [Feosol 325 MG tab] 325 mg PO QDAY #30 tablet 10/19/18 Unknown Rx Furosemide [Lasix TAB] 40 mg PO QDAY #60 tablet 10/19/18 Unknown Rx Gemfibrozil [Lopid] 600 mg PO QDAY #30 tablet 10/19/18 Unknown Rx Insulin Glargine [Lantus VIAL] 10 units SUB-Q QHS #5 pen 10/19/18 Unknown Rx Lispro Insulin [HumaLOG] 5 unit SUB-Q ACHS #5 pen 10/19/18 Unknown Rx Metformin HCl [Glucophage] 1,000 mg PO BID #60 tablet 10/19/18 Unknown Rx Metoprolol [Lopressor TAB] 50 mg PO BID #60 tablet 10/19/18 Unknown Rx Metoprolol [Lopressor TAB] 50 mg PO Q8H #90 tablet 10/19/18 Unknown Rx Morphine ER [Ms Contin ER] 15 mg PO Q12HR #20 tablet 10/19/18 Unknown Rx Multivitamins Liq [Multiple 5 ml PO QDAY oral.liqd 10/19/18 Unknown Rx Vitamin Liq (Theragran)] Phenytoin [Dilantin] 150 mg PO QAM #30 tab 10/19/18 Unknown Rx Phenytoin [Dilantin] 200 mg PO QHS #30 capsule.er 10/19/18 Unknown Rx Potassium Chloride [K-Dur] 20 meq PO QDAY #30 tablet 10/19/18 Unknown Rx predniSONE [Deltasone] 5 mg PO Q48HR 30 Days #16 tablet 10/19/18 Unknown Rx Active Meds: Active Medications Acetaminophen (Tylenol) 650 mg PO Q4H PRN PRN Reason: Pain MILD(1-3)/Fever >100.5/LUIS Atorvastatin Calcium (Lipitor) 20 mg PO QDAY [facility] Last Admin: 10/21/18 09:38 Dose: 20 mg Documented by: Dextrose (D50w (25gm) Syringe) 50 ml IV PRN PRN PRN Reason: Hypoglycemia Docusate Sodium (Colace) 100 mg PO BID [facility] Last Admin: 10/21/18 09:38 Dose: 100 mg Documented by: Enoxaparin Sodium (Lovenox) 100 mg SUB-Q Q12H [facility] Last Admin: 10/21/18 05:39 Dose: 100 mg Documented by: Ferrous Sulfate (Feosol) 325 mg PO QDAY [facility] Last Admin: 10/21/18 09:38 Dose: 325 mg Documented by: Gemfibrozil (Lopid) 600 mg PO QDAY [facility] Last Admin: 10/21/18 09:38 Dose: 600 mg Documented by: Insulin Glargine (Lantus) 10 units SUB-Q QHS [facility] Last Admin: 10/20/18 22:32 Dose: 10 units Documented by: Insulin Human Lispro (Humalog) 5 unit SUB-Q ACHS [facility] Last Admin: 10/21/18 09:37 Dose: 5 unit Documented by: Metformin HCl (Glucophage) 1,000 mg PO BIDDIAB [facility] Last Admin: 10/21/18 09:38 Dose: 1,000 mg Documented by: Metoprolol Tartrate (Lopressor) 50 mg PO Q8HR [facility] Last Admin: 10/21/18 05:38 Dose: 50 mg Documented by: Multivitamins (Centrum Liq) 5 ml PO QDAY [facility] Last Admin: 10/21/18 09:38 Dose: 5 ml Documented by: Ondansetron HCl (Zofran) 4 mg IV Q8H PRN PRN Reason: Nausea And Vomiting Potassium Chloride (K-Dur) 20 meq PO QDAY [facility] Last Admin: 10/21/18 09:38 Dose: 20 meq Documented by: Sodium Chloride (Sodium Chloride Flush Syringe 10 Ml) 10 ml IV BID [facility] Last Admin: 10/21/18 09:38 Dose: 10 ml Documented by: Sodium Chloride (Sodium Chloride Flush Syringe 10 Ml) 10 ml IV PRN PRN PRN Reason: LINE FLUSH Review of Systems All systems: negative Exam - Constitutional Vitals: Temp Pulse Resp BP Pulse Ox 98.6 F 99 H 18 132/81 92 10/21/18 07:29 10/21/18 07:29 10/21/18 07:29 10/21/18 07:29 10/21/18 07:29 General appearance: Present: no acute distress - EENT Eyes: Present: EOM intact ENT: hearing intact - Neck Neck: Present: supple, normal ROM - Respiratory Respiratory effort: normal - Extremities Extremities: abnormal (ble edema) - Abdominal General gastrointestinal: Present: deferred - Rectal Rectal Exam: deferred - Psychiatric Psychiatric: cooperative Results - Labs CBC & Chem 7: 10/21/18 06:52 10/21/18 06:52 Labs: Abnormal lab results 10/20/18 10/20/18 10/20/18 Range/Units 12:12 17:41 22:34 Hgb (10.1-14.3) gm/dl Hct (30.3-42.9) % MCV (79-97) fl MCH (28-32) pg RDW (13.2-15.2) % Seg Neuts % (Manual) (40.0-70.0) % Lymphocytes % (Manual) (13.4-35.0) % Eosinophils % (Manual) (0.0-4.3) % Seg Neutrophils # Man (1.8-7.7) K/mm3 Lymphocytes # (Manual) (1.2-5.4) K/mm3 Eosinophils # (Manual) (0.0-0.4) K/mm3 BUN (7-17) mg/dL Creatinine (0.7-1.2) mg/dL Glucose (65-100) mg/dL POC Glucose 178 H 114 H 159 H (70-105) Calcium (8.4-10.2) mg/dL 10/21/18 10/21/18 10/21/18 Range/Units 01:10 06:33 06:52 Hgb 8.2 L (10.1-14.3) gm/dl Hct 26.8 L (30.3-42.9) % MCV 72 L (79-97) fl MCH 22 L (28-32) pg RDW 29.4 H (13.2-15.2) % Seg Neuts % (Manual) 85.0 H (40.0-70.0) % Lymphocytes % (Manual) 8.0 L (13.4-35.0) % Eosinophils % (Manual) 6.0 H (0.0-4.3) % Seg Neutrophils # Man 8.2 H (1.8-7.7) K/mm3 Lymphocytes # (Manual) 0.8 L (1.2-5.4) K/mm3 Eosinophils # (Manual) 0.6 H (0.0-0.4) K/mm3 BUN (7-17) mg/dL Creatinine (0.7-1.2) mg/dL Glucose (65-100) mg/dL POC Glucose 107 H 133 H (70-105) Calcium (8.4-10.2) mg/dL 10/21/18 10/21/18 Range/Units 06:52 08:03 Hgb (10.1-14.3) gm/dl Hct (30.3-42.9) % MCV (79-97) fl MCH (28-32) pg RDW (13.2-15.2) % Seg Neuts % (Manual) (40.0-70.0) % Lymphocytes % (Manual) (13.4-35.0) % Eosinophils % (Manual) (0.0-4.3) % Seg Neutrophils # Man (1.8-7.7) K/mm3 Lymphocytes # (Manual) (1.2-5.4) K/mm3 Eosinophils # (Manual) (0.0-0.4) K/mm3 BUN < 1 L (7-17) mg/dL Creatinine 0.5 L (0.7-1.2) mg/dL Glucose 118 H (65-100) mg/dL POC Glucose 118 H (70-105) Calcium 8.0 L (8.4-10.2) mg/dL - Imaging and Cardiology Venous US: report reviewed Assessment and Plan Patient with history of DVT currently not on anticoagulation. She does have an indwelling IVC filter. She will need to be restarted on anticoagulation for life. Additionally, the patient will need physical therapy and likely rehabilitation in a half-way facility.
--- NOTE | 2018-10-21 16:57 | Progress Note ---
Assessment and Plan Assessment and plan: Left femoral and popliteal DVT. Consult vascular surgery for further evaluation. Continue Lovenox twice a day. Hematology and Vascular following. Hypertension. Continue antihypertensive medications. Diabetes mellitus type 2. Continue Accu-Cheks and sliding scale insulin. History DVT. History CVA. Seizure disorder. Continue AEDs and seizure precautions. Lupus Asthma/COPD. Stable. History Interval history: 61-year old man with a history of hypertension, diabetes, DVT, CHF, CVA with right-sided weakness, asthma, COPD status post recent hemicolectomy, discharge from the hospital brought back to the hospital on 10/18 complaining of leg pain Hospitalist Physical - Constitutional Vitals: Temp Pulse Resp BP Pulse Ox 98.6 F 102 H 18 135/73 91 10/21/18 07:29 10/21/18 13:49 10/21/18 10:00 10/21/18 13:49 10/21/18 10:00 General appearance: Present: no acute distress - EENT Eyes: Present: PERRL, EOM intact ENT: hearing intact, clear oral mucosa, dentition normal - Neck Neck: Present: supple, normal ROM - Respiratory Respiratory effort: normal Respiratory: bilateral: CTA - Cardiovascular Rhythm: regular Heart Sounds: Present: S1 & S2. Absent: gallop, rub - Extremities Extremities: no ischemia, No edema, Full ROM - Abdominal General gastrointestinal: soft, non-tender, non-distended, normal bowel sounds - Integumentary Integumentary: Present: clear, warm, dry - Neurologic Neurologic: CNII-XII intact, moves all extremities Results - Labs CBC & Chem 7: 10/21/18 06:52 10/21/18 06:52 Labs: Laboratory Last Values WBC 9.6 K/mm3 (4.5-11.0) 10/21/18 06:52 RBC 3.72 M/mm3 (3.65-5.03) 10/21/18 06:52 Hgb 8.2 gm/dl (10.1-14.3) L 10/21/18 06:52 Hct 26.8 % (30.3-42.9) L 10/21/18 06:52 MCV 72 fl (79-97) L 10/21/18 06:52 MCH 22 pg (28-32) L 10/21/18 06:52 MCHC 31 % (30-34) 10/21/18 06:52 RDW 29.4 % (13.2-15.2) H 10/21/18 06:52 Plt Count 330 K/mm3 (140-440) 10/21/18 06:52 Add Manual Diff Complete 10/21/18 06:52 Total Counted 100 10/21/18 06:52 Seg Neuts % (Manual) 85.0 % (40.0-70.0) H 10/21/18 06:52 0 % 10/21/18 06:52 8.0 % (13.4-35.0) L 10/21/18 06:52 Reactive Lymphs % (Man) 0 % 10/21/18 06:52 1.0 % (0.0-7.3) 10/21/18 06:52 6.0 % (0.0-4.3) H 10/21/18 06:52 0 % (0.0-1.8) 10/21/18 06:52 0 % 10/21/18 06:52 0 % 10/21/18 06:52 0 % 10/21/18 06:52 0 % 10/21/18 06:52 Nucleated RBC % Not Reportable 10/21/18 06:52 Seg Neutrophils # Man 8.2 K/mm3 (1.8-7.7) H 10/21/18 06:52 Band Neutrophils # 0.0 K/mm3 10/21/18 06:52 0.8 K/mm3 (1.2-5.4) L 10/21/18 06:52 Abs React Lymphs (Man) 0.0 K/mm3 10/21/18 06:52 0.1 K/mm3 (0.0-0.8) 10/21/18 06:52 0.6 K/mm3 (0.0-0.4) H 10/21/18 06:52 0.0 K/mm3 (0.0-0.1) 10/21/18 06:52 0.0 K/mm3 10/21/18 06:52 0.0 K/mm3 10/21/18 06:52 0.0 K/mm3 10/21/18 06:52 Blast Cells # 0.0 K/mm3 10/21/18 06:52 WBC Morphology Not Reportable 10/21/18 06:52 Hypersegmented Neuts Not Reportable 10/21/18 06:52 Hyposegmented Neuts Not Reportable 10/21/18 06:52 Hypogranular Neuts Not Reportable 10/21/18 06:52 Not Reportable 10/21/18 06:52 Not Reportable 10/21/18 06:52 Not Reportable 10/21/18 06:52 Not Reportable 10/21/18 06:52 Not Reportable 10/21/18 06:52 Not Reportable 10/21/18 06:52 Consistent w auto 10/21/18 06:52 Not Reportable 10/21/18 06:52 Plt Clumps, EDTA Not Reportable 10/21/18 06:52 Rare 10/21/18 06:52 Not Reportable 10/21/18 06:52 Not Reportable 10/21/18 06:52 Plt Morphology Comment Not Reportable 10/21/18 06:52 RBC Morphology Not Reportable 10/21/18 06:52 Dimorphic RBCs Not Reportable 10/21/18 06:52 Not Reportable 10/21/18 06:52 1+ 10/21/18 06:52 Not Reportable 10/21/18 06:52 2+ 10/21/18 06:52 Not Reportable 10/21/18 06:52 Not Reportable 10/21/18 06:52 Not Reportable 10/21/18 06:52 Not Reportable 10/21/18 06:52 Not Reportable 10/21/18 06:52 Rare 10/21/18 06:52 Not Reportable 10/21/18 06:52 Not Reportable 10/21/18 06:52 Few 10/21/18 06:52 Not Reportable 10/21/18 06:52 Not Reportable 10/21/18 06:52 Not Reportable 10/21/18 06:52 Not Reportable 10/21/18 06:52 Not Reportable 10/21/18 06:52 Not Reportable 10/21/18 06:52 Not Reportable 10/21/18 06:52 Acanthocytes (Spur) Not Reportable 10/21/18 06:52 Rouleaux Not Reportable 10/21/18 06:52 Not Reportable 10/21/18 06:52 Few 10/21/18 06:52 Not Reportable 10/21/18 06:52 Not Reportable 10/21/18 06:52 Hem Pathologist Commnt No 10/21/18 06:52 PT 14.8 Sec. (12.2-14.9) 10/19/18 23:58 INR 1.19 (0.87-1.13) H 10/19/18 23:58 APTT 30.3 Sec. (24.2-36.6) 10/19/18 23:58 Sodium 142 mmol/L (137-145) 10/21/18 06:52 Potassium 3.8 mmol/L (3.6-5.0) 10/21/18 06:52 Chloride 105.8 mmol/L (98-107) 10/21/18 06:52 Carbon Dioxide 25 mmol/L (22-30) 10/21/18 06:52 15 mmol/L 10/21/18 06:52 BUN < 1 mg/dL (7-17) L 10/21/18 06:52 0.5 mg/dL (0.7-1.2) L 10/21/18 06:52 Estimated GFR > 60 ml/min 10/21/18 06:52 2 % 10/21/18 06:52 Glucose 118 mg/dL (65-100) H 10/21/18 06:52 POC Glucose 121 (70-105) H 10/21/18 12:14 Calcium 8.0 mg/dL (8.4-10.2) L 10/21/18 06:52 Magnesium 1.70 mg/dL (1.7-2.3) 10/19/18 23:58 45 units/L (30-135) 10/20/18 13:14 CK-MB (CK-2) < 1.0 ng/mL (0.0-4.0) 10/20/18 13:14 CK-MB (CK-2) Rel Index 2.2 (0-4) 10/20/18 13:14 < 0.010 ng/mL (0.00-0.029) 10/20/18 13:14 Acetaminophen < 5.0 ug/mL (10.0-30.0) L 10/20/18 00:15 Phenytoin 2.5 ug/mL (10.0-20.0) L 10/20/18 00:15 Active Medications - Current Medications Current Medications: Generic Name Dose Route Start Last Admin Trade Name Freq PRN Reason Stop Dose Admin Acetaminophen 650 mg 10/20/18 04:44 Tylenol PO Q4H PRN Pain MILD(1-3)/Fever >100.5/LUIS Atorvastatin Calcium 20 mg 10/20/18 10:00 10/21/18 09:38 Lipitor PO 20 mg QDAY ART Administration Dextrose 50 ml 10/20/18 07:30 D50w (25gm) Syringe IV PRN PRN Hypoglycemia Docusate Sodium 100 mg 10/20/18 10:00 10/21/18 09:38 Colace PO 100 mg BID ART Administration Enoxaparin Sodium 100 mg 10/20/18 18:00 10/21/18 05:39 Lovenox SUB-Q 100 mg Q12H ART Administration Ferrous Sulfate 325 mg 10/20/18 10:00 10/21/18 09:38 Feosol PO 325 mg QDAY ART Administration Gemfibrozil 600 mg 10/20/18 10:00 10/21/18 09:38 Lopid PO 600 mg QDAY ART Administration Insulin Glargine 10 units 10/20/18 22:00 10/20/18 22:32 Lantus SUB-Q 10 units QHS ART Administration Insulin Human Lispro 5 unit 10/20/18 07:30 10/21/18 13:48 Humalog SUB-Q 5 unit ACHS ART Administration Metformin HCl 1,000 mg 10/20/18 08:00 10/21/18 09:38 Glucophage PO 1,000 mg BIDDIAB ART Administration Metoprolol Tartrate 50 mg 10/19/18 23:45 10/21/18 13:49 Lopressor PO 50 mg Q8HR ART Administration Multivitamins 5 ml 10/20/18 10:00 10/21/18 09:38 Centrum Liq PO 5 ml QDAY ART Administration Ondansetron HCl 4 mg 10/20/18 04:44 Zofran IV Q8H PRN Nausea And Vomiting Potassium Chloride 20 meq 10/20/18 10:00 10/21/18 09:38 K-Dur PO 20 meq QDAY ART Administration Sodium Chloride 10 ml 10/20/18 10:00 10/21/18 09:38 Sodium Chloride Flush Syringe 10 Ml IV 10 ml BID ART Administration Sodium Chloride 10 ml 10/20/18 04:44 Sodium Chloride Flush Syringe 10 Ml IV PRN PRN LINE FLUSH Nutrition/Malnutrition Assess - Dietary Evaluation Nutrition/Malnutrition Findings: Nutrition Notes Start: 10/21/18 10:22 Freq: Status: Active Protocol: Document 10/21/18 10:22 RS (Rec: 10/21/18 11:28 RS [id number]) Co-Sign 10/21/18 10:22 LP Nutrition Notes Need for Assessment generated from: MD Order Initial or Follow up Assessment Current Diagnosis COPD,Diabetes,Hypertension Current Diet Cardiac diet Labs/Tests BUN: 1.0 Cr: 0.5 Glu: 118 Ca: 8.0L Pertinent Medications Lovenox, Feosol, Metformin, Lantus/Humalog, Zofran, Liptor , Colace Height 5 ft 4 in Weight 118.6 kg [place] Body Weight (kg) 54.54 BMI 44.9 Intake Prior to Admission Good Weight change and time frame Correct wt not recorded. Used previous adm wt (10/19/18) Weight Status Morbidly Obese Subjective/Other Information Pt self reports good appetite. Observed tray and pt ate 50% of breakfast. Pt wanted more food so two packs of zakiya crackers were given to consume . No other meals were recorded . Pt appeared to be tired and mouth showed visble signs of swelling. Pt reports no c/o of chewing/swallowing today and does not want to change to soft diet. Burn Absent Trauma Absent GI Symptoms None Food Allergy No Minimum of two criteria No #1 Nutrition Diagnosis No nutrition diagnosis at this time Is patient on ventilator? No Is Patient Ambulatory and/or Out of Bed Yes REE-([facility]-ambulatory/OOB) [ [id number]] Calculation Used for Recommendations Kcal/kg Additional Notes kcal: 11-14 kcal/kg ABW [id number] Pro: 1.0-1.2 AdjBW 87-104g Fluid: 1ml/kcal Nutrition Intervention Change Diet Order: Continue cardiac diet Anticipated Discharge Needs: Cardiac diet Revisit per MD consult or patient Sign Off request:
[2018-10-21] MEDS: LANTUS SUB-Q SCH (22:26)
[2018-10-22] MEDS: LOPRESSOR PO SCH ×3 (05:47→22:08)
[2018-10-22] MEDS: LOVENOX SUB-Q SCH ×2 (05:48→18:39)
--- NOTE | 2018-10-22 07:17 | Hem/Onc Progress Note ---
Assessment and Plan 1. anemia secondary to likely bleed. 2. Deep venous thrombosis. The patient has history of deep venous thrombosis in the past. The patient was on Coumadin. The patient has a history of IVC filter. The patient would need anticoagulation for now. Her immobilization may have a role. Her colon cancer may also have a contribution to the same. 3. Colon mass, awaiting pathology. 4. B12 deficiency. replace. 5. Radiology mentions right axillary lymph nodes, would need outpatient followup. 6. History of cerebrovascular accident with right hemiparesis. 7. History of hypertension. 8. History of diabetes. 9. History of congestive heart failure. 10. I will follow the patient during inpatient stay. d/w hospitalist - ruth ann - b12 - iron still no final path - Patient Problems (1) DVT (deep venous thrombosis) Current Visit: Yes Status: Acute Qualifiers: DVT location: lower extremity Affected thrombotic vein of extremity: femoral Laterality: left Subjective Date of service: 10/22/18 Principal diagnosis: colon mass Interval history: vascular sx saw pt Objective - Exam Narrative Exam: Pain - none General appearance not in acute distress - obese Performance status limited self care Eyes - no icterus ENT - no bleeding LNs cervical not palpable Neck - no LN Respiratory Normal Breath sounds - decreased air entry CVS S1 S2 + Extremities normal temperature General GI - s/p sx Rectal deferred female - deferred Skin warm Musculoskeletal rt side weakness Neurologically CVA - effecting rt side - Constitutional Vitals: Last Vital Signs Temp 97.8 F 10/22/18 04:14 Pulse 100 H 10/22/18 05:47 Resp 24 10/22/18 04:14 BP 157/83 10/22/18 05:47 Pulse Ox 91 10/22/18 04:14 - Labs Lab Results: Laboratory Results - last 24 hr 10/21/18 10/21/18 10/21/18 06:52 06:52 08:03 WBC 9.6 RBC 3.72 Hgb 8.2 L Hct 26.8 L MCV 72 L MCH 22 L MCHC 31 RDW 29.4 H Plt Count 330 Add Manual Diff Complete Total Counted 100 Seg Neuts % (Manual) 85.0 H Band Neutrophils % 0 Lymphocytes % (Manual) 8.0 L Reactive Lymphs % (Man) 0 Monocytes % (Manual) 1.0 Eosinophils % (Manual) 6.0 H Basophils % (Manual) 0 Metamyelocytes % 0 Myelocytes % 0 Promyelocytes % 0 Blast Cells % 0 Nucleated RBC % Not Reportable Seg Neutrophils # Man 8.2 H Band Neutrophils # 0.0 Lymphocytes # (Manual) 0.8 L Abs React Lymphs (Man) 0.0 Monocytes # (Manual) 0.1 Eosinophils # (Manual) 0.6 H Basophils # (Manual) 0.0 Metamyelocytes # 0.0 Myelocytes # 0.0 Promyelocytes # 0.0 Blast Cells # 0.0 WBC Morphology Not Reportable Hypersegmented Neuts Not Reportable Hyposegmented Neuts Not Reportable Hypogranular Neuts Not Reportable Smudge Cells Not Reportable Toxic Granulation Not Reportable Toxic Vacuolation Not Reportable Dohle Bodies Not Reportable Pelger-Huet Anomaly Not Reportable Iliana Rods Not Reportable Platelet Estimate Consistent w auto Clumped Platelets Not Reportable Plt Clumps, EDTA Not Reportable Large Platelets Rare Giant Platelets Not Reportable Platelet Satelliting Not Reportable Plt Morphology Comment Not Reportable RBC Morphology Not Reportable Dimorphic RBCs Not Reportable Polychromasia Not Reportable Hypochromasia 1+ Poikilocytosis Not Reportable Anisocytosis 2+ Microcytosis Not Reportable Macrocytosis Not Reportable Spherocytes Not Reportable Pappenheimer Bodies Not Reportable Sickle Cells Not Reportable Target Cells Rare Tear Drop Cells Not Reportable Ovalocytes Not Reportable Stomatocytes Few Helmet Cells Not Reportable [place] Bodies Not Reportable Rufe Rings Not Reportable [place] Cells Not Reportable Bite Cells Not Reportable Crenated Cell Not Reportable Elliptocytes Not Reportable Acanthocytes (Spur) Not Reportable Rouleaux Not Reportable Hemoglobin C Crystals Not Reportable Schistocytes Few Malaria parasites Not Reportable John Bodies Not Reportable Hem Pathologist Commnt No Sodium 142 Potassium 3.8 Chloride 105.8 Carbon Dioxide 25 Anion Gap 15 BUN < 1 L Creatinine 0.5 L Estimated GFR > 60 BUN/Creatinine Ratio 2 Glucose 118 H POC Glucose 118 H Calcium 8.0 L 10/21/18 10/21/18 10/21/18 12:14 17:11 17:43 WBC RBC Hgb Hct MCV MCH MCHC RDW Plt Count Add Manual Diff Total Counted Seg Neuts % (Manual) Band Neutrophils % Lymphocytes % (Manual) Reactive Lymphs % (Man) Monocytes % (Manual) Eosinophils % (Manual) Basophils % (Manual) Metamyelocytes % Myelocytes % Promyelocytes % Blast Cells % Nucleated RBC % Seg Neutrophils # Man Band Neutrophils # Lymphocytes # (Manual) Abs React Lymphs (Man) Monocytes # (Manual) Eosinophils # (Manual) Basophils # (Manual) Metamyelocytes # Myelocytes # Promyelocytes # Blast Cells # WBC Morphology Hypersegmented Neuts Hyposegmented Neuts Hypogranular Neuts Smudge Cells Toxic Granulation Toxic Vacuolation Dohle Bodies Pelger-Huet Anomaly Iliana Rods Platelet Estimate Clumped Platelets Plt Clumps, EDTA Large Platelets Giant Platelets Platelet Satelliting Plt Morphology Comment RBC Morphology Dimorphic RBCs Polychromasia Hypochromasia Poikilocytosis Anisocytosis Microcytosis Macrocytosis Spherocytes Pappenheimer Bodies Sickle Cells Target Cells Tear Drop Cells Ovalocytes Stomatocytes Helmet Cells [place] Bodies Rufe Rings [place] Cells Bite Cells Crenated Cell Elliptocytes Acanthocytes (Spur) Rouleaux Hemoglobin C Crystals Schistocytes Malaria parasites John Bodies Hem Pathologist Commnt Sodium Potassium Chloride Carbon Dioxide Anion Gap BUN Creatinine Estimated GFR BUN/Creatinine Ratio Glucose POC Glucose 121 H 59 L 84 Calcium 10/21/18 10/22/18 10/22/18 22:24 01:12 06:01 WBC RBC Hgb Hct MCV MCH MCHC RDW Plt Count Add Manual Diff Total Counted Seg Neuts % (Manual) Band Neutrophils % Lymphocytes % (Manual) Reactive Lymphs % (Man) Monocytes % (Manual) Eosinophils % (Manual) Basophils % (Manual) Metamyelocytes % Myelocytes % Promyelocytes % Blast Cells % Nucleated RBC % Seg Neutrophils # Man Band Neutrophils # Lymphocytes # (Manual) Abs React Lymphs (Man) Monocytes # (Manual) Eosinophils # (Manual) Basophils # (Manual) Metamyelocytes # Myelocytes # Promyelocytes # Blast Cells # WBC Morphology Hypersegmented Neuts Hyposegmented Neuts Hypogranular Neuts Smudge Cells Toxic Granulation Toxic Vacuolation Dohle Bodies Pelger-Huet Anomaly Iliana Rods Platelet Estimate Clumped Platelets Plt Clumps, EDTA Large Platelets Giant Platelets Platelet Satelliting Plt Morphology Comment RBC Morphology Dimorphic RBCs Polychromasia Hypochromasia Poikilocytosis Anisocytosis Microcytosis Macrocytosis Spherocytes Pappenheimer Bodies Sickle Cells Target Cells Tear Drop Cells Ovalocytes Stomatocytes Helmet Cells [place] Bodies Rufe Rings [place] Cells Bite Cells Crenated Cell Elliptocytes Acanthocytes (Spur) Rouleaux Hemoglobin C Crystals Schistocytes Malaria parasites John Bodies Hem Pathologist Commnt Sodium Potassium Chloride Carbon Dioxide Anion Gap BUN Creatinine Estimated GFR BUN/Creatinine Ratio Glucose POC Glucose 104 123 H 156 H Calcium Medications & Allergies - Medications Allergies/Adverse Reactions: Allergies Penicillins Allergy (Verified 11/10/14 21:41) Unknown Peas Allergy (Uncoded 07/01/16 12:21) Swelling Home Medications: Home Medications Medication Instructions Recorded Confirmed Last Taken Type AtorvaSTATin [Lipitor] 20 mg PO QDAY #30 tablet 07/09/16 10/23/18 1 Day Ago Rx ~10/29/16 Citalopram [celeXA] 10 mg PO TID 10/29/16 10/23/18 1 Day Ago History ~10/29/16 Carvedilol [Coreg] 3.125 mg PO BID 10/01/18 10/23/18 Unknown History Clopidogrel [Plavix] 75 mg PO QDAY #30 tablet 10/19/18 10/23/18 Unknown Rx DULoxetine [Cymbalta] 60 mg PO QDAY #30 capsule 10/19/18 10/23/18 Unknown Rx Docusate Sodium [Colace ORAL LIQ] 100 mg PO BID #30 oral.liqd 10/19/18 10/23/18 Unknown Rx Ferrous Sulfate [Feosol 325 MG tab] 325 mg PO QDAY #30 tablet 10/19/18 10/23/18 Unknown Rx Furosemide [Lasix TAB] 40 mg PO QDAY #60 tablet 10/19/18 10/23/18 Unknown Rx Gemfibrozil [Lopid] 600 mg PO QDAY #30 tablet 10/19/18 10/23/18 Unknown Rx Insulin Glargine [Lantus VIAL] 10 units SUB-Q QHS #5 pen 10/19/18 10/23/18 10/22/18 Rx Lispro Insulin [HumaLOG] 5 unit SUB-Q ACHS #5 pen 10/19/18 10/23/18 Unknown Rx Metformin HCl [Glucophage] 1,000 mg PO BID #60 tablet 10/19/18 10/23/18 Unknown Rx Metoprolol [Lopressor TAB] 50 mg PO BID #60 tablet 10/19/18 10/23/18 Unknown Rx Metoprolol [Lopressor TAB] 50 mg PO Q8H #90 tablet 10/19/18 10/23/18 Unknown Rx Morphine ER [Ms Contin ER] 15 mg PO Q12HR #20 tablet 10/19/18 10/23/18 Unknown Rx Multivitamins Liq [Multiple 5 ml PO QDAY oral.liqd 10/19/18 10/23/18 Unknown Rx Vitamin Liq (Theragran)] Phenytoin [Dilantin] 150 mg PO QAM #30 tab 10/19/18 10/23/18 Unknown Rx Phenytoin [Dilantin] 200 mg PO QHS #30 capsule.er 10/19/18 10/23/18 Unknown Rx Potassium Chloride [K-Dur] 20 meq PO QDAY #30 tablet 10/19/18 10/23/18 Unknown Rx predniSONE [Deltasone] 5 mg PO Q48HR 30 Days #16 tablet 10/19/18 10/23/18 Unknown Rx Active Medications: Generic Name Dose Route Start Last Admin Trade Name Freq PRN Reason Stop Dose Admin Acetaminophen 650 mg 10/20/18 04:44 Tylenol PO Q4H PRN Pain MILD(1-3)/Fever >100.5/LUIS Atorvastatin Calcium 20 mg 10/20/18 10:00 10/21/18 09:38 Lipitor PO 20 mg QDAY ART Administration Cyanocobalamin 1,000 mcg 10/22/18 10:00 Vitamin B-12 PO QDAY ART Dextrose 50 ml 10/20/18 07:30 D50w (25gm) Syringe IV PRN PRN Hypoglycemia Docusate Sodium 100 mg 10/20/18 10:00 10/21/18 22:26 Colace PO Not Given BID ART Enoxaparin Sodium 100 mg 10/20/18 18:00 10/22/18 05:48 Lovenox SUB-Q 100 mg Q12H ART Administration Ferrous Sulfate 325 mg 10/20/18 10:00 10/21/18 09:38 Feosol PO 325 mg QDAY ART Administration Gemfibrozil 600 mg 10/20/18 10:00 10/21/18 09:38 Lopid PO 600 mg QDAY ART Administration Insulin Glargine 10 units 10/20/18 22:00 09/05/19 22:26 Lantus SUB-Q Not Given QHS [facility] Insulin Human Lispro 5 unit 10/20/18 07:30 10/21/18 22:26 Humalog SUB-Q Not Given ACHS [facility] Metformin HCl 1,000 mg 10/20/18 08:00 10/21/18 18:12 Glucophage PO Not Given BIDDIAB [facility] Metoprolol Tartrate 50 mg 10/19/18 23:45 10/22/18 05:47 Lopressor PO 50 mg Q8HR ART Administration Multivitamins 5 ml 10/20/18 10:00 10/21/18 09:38 Centrum Liq PO 5 ml QDAY ART Administration Ondansetron HCl 4 mg 10/20/18 04:44 Zofran IV Q8H PRN Nausea And Vomiting Potassium Chloride 20 meq 10/20/18 10:00 10/21/18 09:38 K-Dur PO 20 meq QDAY ART Administration Sodium Chloride 10 ml 10/20/18 10:00 10/21/18 22:27 Sodium Chloride Flush Syringe 10 Ml IV 10 ml BID ART Administration Sodium Chloride 10 ml 10/20/18 04:44 Sodium Chloride Flush Syringe 10 Ml IV PRN PRN LINE FLUSH
[2018-10-22] MEDS: HumaLOG SUB-Q SCH ×4 (08:53→22:04)
[2018-10-22] MEDS: K-DUR PO SCH (09:04)
[2018-10-22] MEDS: VITAMIN B-12 PO SCH (09:04)
[2018-10-22] MEDS: LOPID PO SCH (09:04)
[2018-10-22] MEDS: GLUCOPHAGE PO SCH ×2 (09:04→18:38)
[2018-10-22] MEDS: COLACE PO SCH ×2 (09:04→22:04)
[2018-10-22] MEDS: FEOSOL PO SCH (09:04)
[2018-10-22] MEDS: SODIUM CHLORIDE FLUSH SYRINGE 10 ML IV SCH ×2 (09:05→22:05)
[2018-10-22] MEDS: Centrum Liq PO SCH (09:07)
--- NOTE | 2018-10-22 12:51 | Progress Note ---
Assessment and Plan Assessment and plan: Left femoral and popliteal DVT. Consult vascular surgery for further evaluation. Continue Lovenox twice a day. Hematology and Vascular following. Hypertension. Continue antihypertensive medications. Diabetes mellitus type 2. Continue Accu-Cheks and sliding scale insulin. History DVT. History CVA. Seizure disorder. Continue AEDs and seizure precautions. Lupus Asthma/COPD. Stable. History Interval history: 61-year old man with a history of hypertension, diabetes, DVT, CHF, CVA with right-sided weakness, asthma, COPD status post recent hemicolectomy, discharge from the hospital brought back to the hospital on 10/18 complaining of leg pain Hospitalist Physical - Constitutional Vitals: Temp Pulse Resp BP Pulse Ox 97.8 F 100 H 24 157/83 91 10/22/18 04:14 10/22/18 05:47 10/22/18 04:14 10/22/18 05:47 10/22/18 04:14 General appearance: Present: no acute distress - EENT Eyes: Present: PERRL, EOM intact ENT: hearing intact, clear oral mucosa, dentition normal - Neck Neck: Present: supple, normal ROM - Respiratory Respiratory effort: normal Respiratory: bilateral: CTA - Cardiovascular Rhythm: regular Heart Sounds: Present: S1 & S2. Absent: gallop, rub - Extremities Extremities: no ischemia, No edema, Full ROM - Abdominal General gastrointestinal: soft, non-tender, non-distended, normal bowel sounds - Integumentary Integumentary: Present: clear, warm, dry - Neurologic Neurologic: CNII-XII intact, moves all extremities Results - Labs CBC & Chem 7: 10/21/18 06:52 10/21/18 06:52 Labs: Laboratory Last Values WBC 9.6 K/mm3 (4.5-11.0) 10/21/18 06:52 RBC 3.72 M/mm3 (3.65-5.03) 10/21/18 06:52 Hgb 8.2 gm/dl (10.1-14.3) L 10/21/18 06:52 Hct 26.8 % (30.3-42.9) L 10/21/18 06:52 MCV 72 fl (79-97) L 10/21/18 06:52 MCH 22 pg (28-32) L 10/21/18 06:52 MCHC 31 % (30-34) 10/21/18 06:52 RDW 29.4 % (13.2-15.2) H 10/21/18 06:52 Plt Count 330 K/mm3 (140-440) 10/21/18 06:52 Add Manual Diff Complete 10/21/18 06:52 Total Counted 100 10/21/18 06:52 Seg Neuts % (Manual) 85.0 % (40.0-70.0) H 10/21/18 06:52 0 % 10/21/18 06:52 8.0 % (13.4-35.0) L 10/21/18 06:52 Reactive Lymphs % (Man) 0 % 10/21/18 06:52 1.0 % (0.0-7.3) 10/21/18 06:52 6.0 % (0.0-4.3) H 10/21/18 06:52 0 % (0.0-1.8) 10/21/18 06:52 0 % 10/21/18 06:52 0 % 10/21/18 06:52 0 % 10/21/18 06:52 0 % 10/21/18 06:52 Nucleated RBC % Not Reportable 10/21/18 06:52 Seg Neutrophils # Man 8.2 K/mm3 (1.8-7.7) H 10/21/18 06:52 Band Neutrophils # 0.0 K/mm3 10/21/18 06:52 0.8 K/mm3 (1.2-5.4) L 10/21/18 06:52 Abs React Lymphs (Man) 0.0 K/mm3 10/21/18 06:52 0.1 K/mm3 (0.0-0.8) 10/21/18 06:52 0.6 K/mm3 (0.0-0.4) H 10/21/18 06:52 0.0 K/mm3 (0.0-0.1) 10/21/18 06:52 0.0 K/mm3 10/21/18 06:52 0.0 K/mm3 10/21/18 06:52 0.0 K/mm3 10/21/18 06:52 Blast Cells # 0.0 K/mm3 10/21/18 06:52 WBC Morphology Not Reportable 10/21/18 06:52 Hypersegmented Neuts Not Reportable 10/21/18 06:52 Hyposegmented Neuts Not Reportable 10/21/18 06:52 Hypogranular Neuts Not Reportable 10/21/18 06:52 Not Reportable 10/21/18 06:52 Not Reportable 10/21/18 06:52 Not Reportable 10/21/18 06:52 Not Reportable 10/21/18 06:52 Not Reportable 10/21/18 06:52 Not Reportable 10/21/18 06:52 Consistent w auto 10/21/18 06:52 Not Reportable 10/21/18 06:52 Plt Clumps, EDTA Not Reportable 10/21/18 06:52 Rare 10/21/18 06:52 Not Reportable 10/21/18 06:52 Not Reportable 10/21/18 06:52 Plt Morphology Comment Not Reportable 10/21/18 06:52 RBC Morphology Not Reportable 10/21/18 06:52 Dimorphic RBCs Not Reportable 10/21/18 06:52 Not Reportable 10/21/18 06:52 1+ 10/21/18 06:52 Not Reportable 10/21/18 06:52 2+ 10/21/18 06:52 Not Reportable 10/21/18 06:52 Not Reportable 10/21/18 06:52 Not Reportable 10/21/18 06:52 Not Reportable 10/21/18 06:52 Not Reportable 10/21/18 06:52 Rare 10/21/18 06:52 Not Reportable 10/21/18 06:52 Not Reportable 10/21/18 06:52 Few 10/21/18 06:52 Not Reportable 10/21/18 06:52 Not Reportable 10/21/18 06:52 Not Reportable 10/21/18 06:52 Not Reportable 10/21/18 06:52 Not Reportable 10/21/18 06:52 Not Reportable 10/21/18 06:52 Not Reportable 10/21/18 06:52 Acanthocytes (Spur) Not Reportable 10/21/18 06:52 Rouleaux Not Reportable 10/21/18 06:52 Not Reportable 10/21/18 06:52 Few 10/21/18 06:52 Not Reportable 10/21/18 06:52 Not Reportable 10/21/18 06:52 Hem Pathologist Commnt No 10/21/18 06:52 PT 14.8 Sec. (12.2-14.9) 10/19/18 23:58 INR 1.19 (0.87-1.13) H 10/19/18 23:58 APTT 30.3 Sec. (24.2-36.6) 10/19/18 23:58 Sodium 142 mmol/L (137-145) 10/21/18 06:52 Potassium 3.8 mmol/L (3.6-5.0) 10/21/18 06:52 Chloride 105.8 mmol/L (98-107) 10/21/18 06:52 Carbon Dioxide 25 mmol/L (22-30) 10/21/18 06:52 15 mmol/L 10/21/18 06:52 BUN < 1 mg/dL (7-17) L 10/21/18 06:52 0.5 mg/dL (0.7-1.2) L 10/21/18 06:52 Estimated GFR > 60 ml/min 10/21/18 06:52 2 % 10/21/18 06:52 Glucose 118 mg/dL (65-100) H 10/21/18 06:52 POC Glucose 156 (70-105) H 10/22/18 06:01 Calcium 8.0 mg/dL (8.4-10.2) L 10/21/18 06:52 Magnesium 1.70 mg/dL (1.7-2.3) 10/19/18 23:58 45 units/L (30-135) 10/20/18 13:14 CK-MB (CK-2) < 1.0 ng/mL (0.0-4.0) 10/20/18 13:14 CK-MB (CK-2) Rel Index 2.2 (0-4) 10/20/18 13:14 < 0.010 ng/mL (0.00-0.029) 10/20/18 13:14 Acetaminophen < 5.0 ug/mL (10.0-30.0) L 10/20/18 00:15 Phenytoin 2.5 ug/mL (10.0-20.0) L 10/20/18 00:15 Active Medications - Current Medications Current Medications: Generic Name Dose Route Start Last Admin Trade Name Freq PRN Reason Stop Dose Admin Acetaminophen 650 mg 10/20/18 04:44 Tylenol PO Q4H PRN Pain MILD(1-3)/Fever >100.5/LUIS Atorvastatin Calcium 20 mg 10/20/18 10:00 10/22/18 09:04 Lipitor PO 20 mg QDAY ART Administration Cyanocobalamin 1,000 mcg 10/22/18 10:00 10/22/18 09:04 Vitamin B-12 PO 1,000 mcg QDAY ART Administration Dextrose 50 ml 10/20/18 07:30 D50w (25gm) Syringe IV PRN PRN Hypoglycemia Docusate Sodium 100 mg 10/20/18 10:00 10/22/18 09:04 Colace PO Not Given BID ART Enoxaparin Sodium 100 mg 10/20/18 18:00 10/22/18 05:48 Lovenox SUB-Q 100 mg Q12H ART Administration Ferrous Sulfate 325 mg 10/20/18 10:00 10/22/18 09:04 Feosol PO 325 mg QDAY [facility] Administration Gemfibrozil 600 mg 10/20/18 10:00 10/22/18 09:04 Lopid PO 600 mg QDAY [facility] Administration Insulin Glargine 10 units 10/20/18 22:00 10/21/18 22:26 Lantus SUB-Q Not Given QHS [facility] Insulin Human Lispro 5 unit 10/20/18 07:30 10/22/18 08:53 Humalog SUB-Q Not Given [facility] Metformin HCl 1,000 mg 10/20/18 08:00 10/22/18 09:04 Glucophage PO 1,000 mg BIDDIAB [facility] Administration Metoprolol Tartrate 50 mg 10/19/18 23:45 10/22/18 05:47 Lopressor PO 50 mg Q8HR ART Administration Multivitamins 5 ml 10/20/18 10:00 10/22/18 09:07 Centrum Liq PO 5 ml QDAY [facility] Administration Ondansetron HCl 4 mg 10/20/18 04:44 Zofran IV Q8H PRN Nausea And Vomiting Potassium Chloride 20 meq 10/20/18 10:00 10/22/18 09:04 K-Dur PO 20 meq QDAY ART Administration Sodium Chloride 10 ml 10/20/18 10:00 10/22/18 09:05 Sodium Chloride Flush Syringe 10 Ml IV 10 ml BID ART Administration Sodium Chloride 10 ml 10/20/18 04:44 Sodium Chloride Flush Syringe 10 Ml IV PRN PRN LINE FLUSH Nutrition/Malnutrition Assess - Dietary Evaluation Nutrition/Malnutrition Findings: Nutrition Notes Start: 10/21/18 10:22 Freq: Status: Active Protocol: Document 10/21/18 10:22 RS (Rec: 10/21/18 11:28 RS [id number]) Co-Sign 10/21/18 10:22 LP Nutrition Notes Need for Assessment generated from: MD Order Initial or Follow up Assessment Current Diagnosis COPD,Diabetes,Hypertension Current Diet Cardiac diet Labs/Tests BUN: 1.0 Cr: 0.5 Glu: 118 Ca: 8.0L Pertinent Medications Lovenox, Feosol, Metformin, Lantus/Humalog, Zofran, Liptor , Colace Height 5 ft 4 in Weight 118.6 kg [place] Body Weight (kg) 54.54 BMI 44.9 Intake Prior to Admission Good Weight change and time frame Correct wt not recorded. Used previous adm wt (10/19/18) Weight Status Morbidly Obese Subjective/Other Information Pt self reports good appetite. Observed tray and pt ate 50% of breakfast. Pt wanted more food so two packs of zakiya crackers were given to consume . No other meals were recorded . Pt appeared to be tired and mouth showed visble signs of swelling. Pt reports no c/o of chewing/swallowing today and does not want to change to soft diet. Burn Absent Trauma Absent GI Symptoms None Food Allergy No Minimum of two criteria No #1 Nutrition Diagnosis No nutrition diagnosis at this time Is patient on ventilator? No Is Patient Ambulatory and/or Out of Bed Yes REE-([place]. Jeor-ambulatory/OOB) [ [phone] [id number]] Calculation Used for Recommendations Kcal/kg Additional Notes kcal: 11-14 kcal/kg ABW [id number] Pro: 1.0-1.2 AdjBW 87-104g Fluid: 1ml/kcal Nutrition Intervention Change Diet Order: Continue cardiac diet Anticipated Discharge Needs: Cardiac diet Revisit per MD consult or patient Sign Off request:
[2018-10-22] MEDS: LANTUS SUB-Q SCH (22:07)
[2018-10-23] MEDS: LOPRESSOR PO SCH (06:42)
[2018-10-23] MEDS: LOVENOX SUB-Q SCH (06:42)
[2018-10-23 08:28] VITALS: BP 132/70
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
[2018-10-23] MEDS: HumaLOG SUB-Q SCH (09:46)
[2018-10-23] MEDS: COLACE PO SCH (09:56)
[2018-10-23] MEDS: FEOSOL PO SCH (09:57)
[2018-10-23] MEDS: LOPID PO SCH (09:57)
[2018-10-23] MEDS: K-DUR PO SCH (09:57)
[2018-10-23] MEDS: GLUCOPHAGE PO SCH (09:57)
[2018-10-23] MEDS: VITAMIN B-12 PO SCH (09:57)
[2018-10-23] MEDS: SODIUM CHLORIDE FLUSH SYRINGE 10 ML IV SCH (09:58)
[2018-10-23] MEDS: Centrum Liq PO SCH (09:58)
[2018-10-25] MEDS ORDERED: COLACE ONE (21:50)
== END 2018-10-23 14:08 | disposition home health service (06) | DRG 300 ==
LOC: ED 21:37 → 4A 10-20 05:35
PROVIDERS: ADMIT Internal Medicine; ATTEND Hospitalist
DX: I82.412 Acute embolism and thrombosis of left femoral vein (principal); I69.351 Hemiplegia and hemiparesis following cerebral infarction affecting right dominant side; Z68.45 Body mass index [BMI] 70 or greater, adult; R07.9 Chest pain, unspecified; I50.9 Heart failure, unspecified; M32.9 Systemic lupus erythematosus, unspecified; J44.9 Chronic obstructive pulmonary disease, unspecified; J45.909 Unspecified asthma, uncomplicated; Z88.0 Allergy status to penicillin; Z91.010 Allergy to peanuts; I11.0 Hypertensive heart disease with heart failure; E11.9 Type 2 diabetes mellitus without complications; Z90.49 Acquired absence of other specified parts of digestive tract; Z79.4 Long term (current) use of insulin; E66.9 Obesity, unspecified; G89.4 Chronic pain syndrome; Z83.3 Family history of diabetes mellitus; I82.432 Acute embolism and thrombosis of left popliteal vein; D64.9 Anemia, unspecified; K63.89 Other specified diseases of intestine; G40.909 Epilepsy, unspecified, not intractable, without status epilepticus
CPT/HCPCS: 36415; 71275; 80048; 80185; 80320; 82550; 82553; 82962; 83735; 84484; 85007; 85025; 85027; 85610; 85730; 87116; 93005; 93010; 93970; G0378; A9270-GY; G0480; J1650; J1815; J2405; J3420; Q9967

== ENCOUNTER 2018-10-25 16:02 | Inpatient (IN) | payer MEDICARE ==
[2018-10-25] MEDS ORDERED: D50W (25GM) Syringe IV ONE ×8 (16:08→16:40)
[2018-10-25] MEDS ORDERED: GLUCAGEN ONE (16:30)
[2018-10-25] MEDS ORDERED: GLUCAGEN IM ONE (16:36)
--- NOTE | 2018-10-25 17:54 | XRay Report ---
CHEST 1 VIEW INDICATION: Altered Mental Status. COMPARISON: 10/01/2018. FINDINGS: Support devices: None. Heart: Normal. Lungs/Pleura: There are low lung volumes. Accounting for this, no acute pulmonary or pleural findings . IMPRESSION: 1. No acute findings. Signer Name: Jose Roberto Jules MD Signed: 10/25/2018 5:49 PM Workstation Name: [id number]
[2018-10-25] MEDS ORDERED: NORMODYNE IV ONE (18:05)
[2018-10-25 18:11] LABS: Hematocrit 31.4 % (30.3-42.9); Hemoglobin 9.7 gm/dl (10.1-14.3); Mean Corpuscular HGB Conc 31 % (30-34); Mean Corpuscular Volume 73 fl (79-97); Platelet Count 451 K/mm3 (140-440); Red Blood Count 4.33 M/mm3 (3.65-5.03)
--- NOTE | 2018-10-25 18:23 | Cat Scan Report ---
CT HEAD WITHOUT CONTRAST INDICATION / CLINICAL INFORMATION: Altered Mental Status. TECHNIQUE: All CT scans at this location are performed using CT dose reduction for ALARA by means of automated e xposure control. COMPARISON: Head CT 10/01/2018 and 05/28/2011 and MRI brain 07/02/2016 FINDINGS: HEMORRHAGE: No evidence of intracranial hemorrhage or extra-axial fluid collection. EXTRA-AXIAL SPACES: Dilatation of the left sylvian fissure. Dilatation of the cortical sulci over the lateral convexity of the left cerebral hemisphere is noted secondary to remote left MCA infarction. Cortical sulci, sylvian fissures and basilar cisterns have an otherwise unremarkable appearance. VENTRICULAR SYSTEM: There is dilatation of the frontal horn and body of the left lateral ventricle se condary to encephalomalacia due to remote left MCA infarction. The ventricular system is otherwise of normal size and configuration. CEREBRAL PARENCHYMA: Large area of encephalomalacia is observed involving portions of the left front al, parietal and temporal lobe secondary to remote left MCA infarction. Dystrophic calcification is s een along the medial aspect of this large remote infarction. No areas of abnormal brain parenchymal a ttenuation are identified. There is no indication of recent infarction. MIDLINE SHIFT OR HERNIATION: There is no mass effect. CEREBELLUM / BRAINSTEM: There is a large left-sided posterior fossa mass representing an extensively calcified meningioma which measures about 3.7 x 2.8 cm in transverse dimension. This is unchanged in comparison to previous studies dating back through 07/02/2016. The large meningioma appears to arise f rom the tentorium and extends both above and below the tentorium. The lesion is closely applied to th e adjacent left transverse sinus. Incidental note is made of moderate atrophy of the left cerebral pe duncle which is a manifestation of Wall[place]ian degeneration. INTRACRANIAL VESSELS:No abnormalities are identified on this noncontrast head CT. ORBITS: No abnormality. SOFT TISSUES of HEAD: No significant abnormality. CALVARIUM: Evaluation of bone windows reveals no abnormalities. Incidental note is made of ossificati on of the falx posteriorly. PARANASAL SINUSES / MASTOID AIR CELLS: Paranasal sinuses are free from inflammatory mucosal disease. Mastoid air cells are normally pneumatized. IMPRESSION: 1. Large left posterior fossa meningioma which is not significantly changed since 05/28/2011. 2. Extensive encephalomalacia secondary to remote left MCA infarction unchanged since 05/28/2011. 3. No acute intracranial abnormality. No interval change. Signer Name: Kael Loomis MD Signed: 10/25/2018 6:18 PM Workstation Name: [id number]
[2018-10-25 18:28] LABS: Red Cell Distribution Width 29.9 % (13.2-15.2)
[2018-10-25 18:36] LABS: Alanine Aminotransferase 10 units/L (7-56); Albumin 2.7 g/dL (3.9-5); BUN/Creatinine Ratio 4; Blood Urea Nitrogen 3 mg/dL (7-17); Calcium 8.3 mg/dL (8.4-10.2); Hemolysis Index 4
[2018-10-25] MEDS ORDERED: KEPPRA 1,000 MG/NS 0.75% 100ML 1,000 MG/100 ML BAG IV ONE (18:37)
[2018-10-25 19:02] LABS: INR 1.31 (0.87-1.13)
[2018-10-25 19:05] LABS: Anisocytosis 2+; Basophils % (Manual) 0 % (0.0-1.8); Hypochromasia 2+; Total Cells Counted 100
[2018-10-25 19:33] LABS: INR 1.31 (0.87-1.13)
[2018-10-25] MEDS ORDERED: D50W (25GM) Syringe IV PRN (19:55)
[2018-10-25] MEDS ORDERED: TYLENOL PO PRN (19:55)
[2018-10-25] MEDS ORDERED: SODIUM CHLORIDE FLUSH SYRINGE 10 ML IV PRN (19:55)
[2018-10-25] MEDS ORDERED: ZOFRAN IV PRN (19:55)
[2018-10-25] MEDS ORDERED: ATIVAN IV PRN (20:55)
[2018-10-25] MEDS ORDERED: K-DUR PO ONE (21:00)
[2018-10-25] MEDS ORDERED: PROVENTIL IH PRN (21:37)
--- NOTE | 2018-10-25 21:43 | History and Physical Report ---
History of Present Illness Date of examination: 10/25/18 Date of admission: 10/25/2018 Chief complaint: hypoglycemia, seizure History of present illness: 63-year-old -[place] female with history of GI disorder, left lower extremity DVT on anticoagulation, lupus, hypertension, diabetes, CHF, CVA with right-sided residual weakness, asthma, COPD, colon mass s/p hemicolectomy (09/2018) presents to [facility] ED via EMS with complaints of seizure and hypoglycemia. At the time of my examination patient is drowsy easily aroused. She is in the postictal stage and unable to provide history. History is taken from medical records and family who was present at the bedside. Went to patient's family patient had an active seizure for 45 minutes which was timed by family before termination of seizure and EMS was called. On arrival to the facility she was noted to be severely hypoglycemic with blood glucose readings of less than 20. She was given ampule of D50 times 8 with improvement of blood glucose to 150. Review of medical records shows patient was recently omitted on 11/04 with complaints of left lower extremity pain. She was found to have a DVT and was placed on oral anticoagulation for life. Past History Past Medical History: COPD (Asthma), diabetes, DVT (s/p ivc filter on ac with Eliquis), heart failure (EF 55-60%), hypertension, stroke (rt sided residual weakness), other (colon mass) Past Surgical History: hysterectomy, Other (rt hemicolectomy, ) Social history: lives with family. denies: smoking Family history: no significant family history Medications and Allergies Allergies Allergy/AdvReac Type Severity Reaction Status Date / Time Penicillins Allergy Unknown Verified 11/10/14 21:41 Peas Allergy Swelling Uncoded 07/01/16 12:21 Home Medications Medication Instructions Recorded Confirmed Last Taken Type AtorvaSTATin [Lipitor] 20 mg PO QDAY #30 tablet 07/09/16 10/25/18 10/25/18 Rx Citalopram [celeXA] 10 mg PO TID 10/29/16 10/25/18 10/25/18 History Carvedilol [Coreg] 3.125 mg PO BID 10/01/18 10/25/18 10/25/18 History Clopidogrel [Plavix] 75 mg PO QDAY #30 tablet 10/19/18 10/25/18 10/25/18 Rx DULoxetine [Cymbalta] 60 mg PO QDAY #30 capsule 10/19/18 10/25/18 10/25/18 Rx Docusate Sodium [Colace ORAL LIQ] 100 mg PO BID #30 oral.liqd 10/19/18 10/25/18 10/25/18 Rx Furosemide [Lasix TAB] 40 mg PO QDAY #60 tablet 10/19/18 10/25/18 10/25/18 Rx Gemfibrozil [Lopid] 600 mg PO QDAY #30 tablet 10/19/18 10/25/18 10/25/18 Rx Insulin Glargine [Lantus VIAL] 10 units SUB-Q QHS #5 pen 10/19/18 10/25/18 10/24/18 Rx Lispro Insulin [HumaLOG] 5 unit SUB-Q ACHS #5 pen 10/19/18 10/25/18 10/24/18 Rx Metformin HCl [Glucophage] 1,000 mg PO BID #60 tablet 10/19/18 10/25/18 10/25/18 Rx Metoprolol [Lopressor TAB] 50 mg PO BID #60 tablet 10/19/18 10/25/18 10/25/18 Rx Morphine ER [Ms Contin ER] 15 mg PO Q12HR #20 tablet 10/19/18 10/25/18 10/25/18 Rx Multivitamins Liq [Multiple 5 ml PO QDAY oral.liqd 10/19/18 10/25/18 10/25/18 Rx Vitamin Liq (Theragran)] Phenytoin [Dilantin] 150 mg PO QAM #30 tab 10/19/18 10/25/18 10/25/18 Rx Potassium Chloride [K-Dur] 20 meq PO QDAY #30 tablet 10/19/18 10/25/18 10/25/18 Rx predniSONE [Deltasone] 5 mg PO Q48HR 30 Days #16 tablet 10/19/18 10/25/18 10/25/18 Rx Apixaban [Eliquis] 5 mg PO BID #360 tablet 10/23/18 10/25/18 10/25/18 Rx Apixaban [Eliquis] 10 mg PO BID #14 tablet 10/23/18 10/25/18 10/25/18 Rx Cyanocobalamin [Vitamin B-12] 1,000 mcg PO QDAY #30 tablet 10/23/18 10/25/18 10/25/18 Rx Ferrous Sulfate [Feosol 325 MG tab] 325 mg PO QDAY #30 tablet 10/23/18 10/25/18 10/25/18 Rx Citalopram [celeXA] 10 mg PO TID 10/25/18 10/25/18 10/25/18 History DULoxetine [Cymbalta] 60 mg PO QDAY 10/25/18 10/25/18 10/25/18 History Docusate Sodium 30 mg PO BID 10/25/18 10/25/18 10/25/18 History Duloxetine HCl [Cymbalta] 60 mg PO DAILY 10/25/18 10/25/18 10/25/18 History Furosemide [Lasix TAB] 40 mg PO QDAY 10/25/18 10/25/18 10/25/18 History Gemfibrozil [Lopid] 600 mg PO DAILY 10/25/18 10/25/18 10/25/18 History Insulin Glargine [Lantus] 10 unit SUB-Q QHS 10/25/18 10/25/18 10/24/18 History Lispro Insulin [HumaLOG] 5 unit SQ QACHS 10/25/18 10/25/18 10/25/18 History Metformin HCl [metFORMIN] 1,000 mg PO BID 10/25/18 10/25/18 10/25/18 History Metoprolol [Lopressor TAB] 50 mg PO TID 10/25/18 10/25/18 10/25/18 History Morphine [Morphine TAB] 15 mg PO BID 10/25/18 10/25/18 10/25/18 History Phenytoin [Dilantin] 100 mg PO DAILY 10/25/18 10/25/18 10/25/18 History Potassium Chloride [K-Dur] 20 meq PO DAILY 10/25/18 10/25/18 10/25/18 History Prednisone [predniSONE 5 mg (6-Day 5 mg PO .TAPER 10/25/18 10/25/18 10/25/18 History Pack, 21 Tabs)] Active Meds: Active Medications Acetaminophen (Tylenol) 650 mg PO Q4H PRN PRN Reason: Pain MILD(1-3)/Fever >100.5/LUIS Apixaban (Eliquis) 5 mg PO BID [facility]; Protocol Atorvastatin Calcium (Lipitor) 20 mg PO QDAY [facility] Citalopram Hydrobromide (Celexa) 10 mg PO TID [facility] Clopidogrel Bisulfate (Plavix) 75 mg PO QDAY [facility] Cyanocobalamin (Vitamin B-12) 1,000 mcg PO QDAY [facility] Dextrose (D50w (25gm) Syringe) 50 ml IV PRN PRN PRN Reason: Hypoglycemia Docusate Sodium (Colace) 100 mg PO BID [facility] Duloxetine HCl (Cymbalta) 60 mg PO QDAY [facility] Duloxetine HCl (Cymbalta) 60 mg PO DAILY [facility] Ferrous Sulfate (Feosol) 325 mg PO QDAY [facility] Furosemide (Lasix) 40 mg PO QDAY [facility] Gemfibrozil (Lopid) 600 mg PO QDAY [facility] Dextrose/Sodium Chloride (D5/0.45ns) 1,000 mls @ 42 mls/hr IV DIRECT ART Ceftriaxone Sodium (Rocephin/Ns 2 Gm/100 Ml) 2 gm in 100 mls @ 200 mls/hr IV Q24HR [facility]; Protocol Phenytoin 150 mg/ Sodium (Chloride) 53 mls @ 212 mls/hr IV Q24HR [facility] Potassium Chloride (Kcl 10meq/100ml) 10 meq in 100 mls @ 100 mls/hr IV Q1H [facility] Stop: 10/25/18 23:59 Lorazepam (Ativan) 2 mg IV Q4H PRN PRN Reason: Agitation, seizure Metoprolol Tartrate (Lopressor) 50 mg PO BID [facility] Multivitamins (Centrum Liq) 5 ml PO QDAY [facility] Ondansetron HCl (Zofran) 4 mg IV Q8H PRN PRN Reason: Nausea And Vomiting Potassium Chloride (K-Dur) 20 meq PO QDAY [facility] Sodium Chloride (Sodium Chloride Flush Syringe 10 Ml) 10 ml IV BID [facility] Sodium Chloride (Sodium Chloride Flush Syringe 10 Ml) 10 ml IV PRN PRN PRN Reason: LINE FLUSH Review of Systems ROS unobtainable: due to mental status Exam - Physical Exam Narrative exam: Physical exam General appearance: Present: No apparent distress, drowsy but arousable, mumbles and comprehensive sounds/word, well-developed, adult -[place] female - EENT Eyes: Present: PERRL ENT: hearing intact, normal dentition - Neck Neck: Present: supple, normal ROM - Respiratory Respiratory effort: Non-labored Respiratory: CTA bilaterally - Cardiovascular Heart rate: 118 (bpm) Rhythm: ST Heart Sounds: Present: S1 & S2. Absent: rub, click - Extremities Extremities: no ischemia, pulses intact - Peripheral Assessment Peripheral Pulses: within normal limits - Abdominal General gastrointestinal: soft, non-tender, normal bowel sounds - Integumentary Integumentary: Present: warm, dry - Musculoskeletal Musculoskeletal: generalized weakness, right-sided residual deficits from previous CVA -Neurological Neurological: - Psychiatric: Drowsy but arousable, Psychiatric: unable to assess - Constitutional Vitals: Temp Pulse Resp BP Pulse Ox 98.2 F 80 14 131/70 98 10/25/18 16:29 10/25/18 21:00 10/25/18 21:00 10/25/18 21:00 10/25/18 21:00 Results - Labs CBC & Chem 7: 10/25/18 17:48 10/25/18 17:48 Labs: Laboratory Last Values WBC 14.8 K/mm3 (4.5-11.0) H 10/25/18 17:48 RBC 4.33 M/mm3 (3.65-5.03) 10/25/18 17:48 Hgb 9.7 gm/dl (10.1-14.3) L 10/25/18 17:48 Hct 31.4 % (30.3-42.9) 10/25/18 17:48 MCV 73 fl (79-97) L 10/25/18 17:48 MCH 22 pg (28-32) L 10/25/18 17:48 MCHC 31 % (30-34) 10/25/18 17:48 RDW 29.9 % (13.2-15.2) H 10/25/18 17:48 Plt Count 451 K/mm3 (140-440) H 10/25/18 17:48 Add Manual Diff Complete 10/25/18 17:48 Total Counted 100 10/25/18 17:48 Seg Neutrophils % Industrial Management Teacher 10/25/18 17:48 Seg Neuts % (Manual) 87.0 % (40.0-70.0) H 10/25/18 17:48 0 % 10/25/18 17:48 6.0 % (13.4-35.0) L 10/25/18 17:48 Reactive Lymphs % (Man) 0 % 10/25/18 17:48 5.0 % (0.0-7.3) 10/25/18 17:48 2.0 % (0.0-4.3) 10/25/18 17:48 0 % (0.0-1.8) 10/25/18 17:48 0 % 10/25/18 17:48 0 % 10/25/18 17:48 0 % 10/25/18 17:48 0 % 10/25/18 17:48 Nucleated RBC % Not Reportable 10/25/18 17:48 Seg Neutrophils # Man 12.9 K/mm3 (1.8-7.7) H 10/25/18 17:48 Band Neutrophils # 0.0 K/mm3 10/25/18 17:48 0.9 K/mm3 (1.2-5.4) L 10/25/18 17:48 Abs React Lymphs (Man) 0.0 K/mm3 10/25/18 17:48 0.7 K/mm3 (0.0-0.8) 10/25/18 17:48 0.3 K/mm3 (0.0-0.4) 10/25/18 17:48 0.0 K/mm3 (0.0-0.1) 10/25/18 17:48 0.0 K/mm3 10/25/18 17:48 0.0 K/mm3 10/25/18 17:48 0.0 K/mm3 10/25/18 17:48 Blast Cells # 0.0 K/mm3 10/25/18 17:48 WBC Morphology Not Reportable 10/25/18 17:48 Hypersegmented Neuts Not Reportable 10/25/18 17:48 Hyposegmented Neuts Not Reportable 10/25/18 17:48 Hypogranular Neuts Not Reportable 10/25/18 17:48 Not Reportable 10/25/18 17:48 Not Reportable 10/25/18 17:48 Not Reportable 10/25/18 17:48 Not Reportable 10/25/18 17:48 Not Reportable 10/25/18 17:48 Not Reportable 10/25/18 17:48 Not Reportable 10/25/18 17:48 Not Reportable 10/25/18 17:48 Plt Clumps, EDTA Not Reportable 10/25/18 17:48 Not Reportable 10/25/18 17:48 Not Reportable 10/25/18 17:48 Not Reportable 10/25/18 17:48 Plt Morphology Comment Not Reportable 10/25/18 17:48 RBC Morphology Not Reportable 10/25/18 17:48 Dimorphic RBCs Not Reportable 10/25/18 17:48 Not Reportable 10/25/18 17:48 2+ 10/25/18 17:48 Not Reportable 10/25/18 17:48 2+ 10/25/18 17:48 Not Reportable 10/25/18 17:48 Not Reportable 10/25/18 17:48 Not Reportable 10/25/18 17:48 Not Reportable 10/25/18 17:48 Not Reportable 10/25/18 17:48 Not Reportable 10/25/18 17:48 Not Reportable 10/25/18 17:48 Not Reportable 10/25/18 17:48 Not Reportable 10/25/18 17:48 Not Reportable 10/25/18 17:48 Not Reportable 10/25/18 17:48 Not Reportable 10/25/18 17:48 Not Reportable 10/25/18 17:48 Not Reportable 10/25/18 17:48 Not Reportable 10/25/18 17:48 Acanthocytes (Spur) Not Reportable 10/25/18 17:48 Rouleaux Not Reportable 10/25/18 17:48 Not Reportable 10/25/18 17:48 Not Reportable 10/25/18 17:48 Not Reportable 10/25/18 17:48 Not Reportable 10/25/18 17:48 Hem Pathologist Commnt No 10/25/18 17:48 PT 16.0 Sec. (12.2-14.9) H 10/25/18 19:08 INR 1.31 (0.87-1.13) H 10/25/18 19:08 APTT 32.0 Sec. (24.2-36.6) 10/25/18 18:13 Sodium 141 mmol/L (137-145) 10/25/18 17:48 Potassium 3.5 mmol/L (3.6-5.0) L 10/25/18 17:48 Chloride 102.3 mmol/L (98-107) 10/25/18 17:48 Carbon Dioxide 25 mmol/L (22-30) 10/25/18 17:48 17 mmol/L 10/25/18 17:48 BUN 3 mg/dL (7-17) L 10/25/18 17:48 0.7 mg/dL (0.7-1.2) 10/25/18 17:48 Estimated GFR > 60 ml/min 10/25/18 17:48 4 % 10/25/18 17:48 Glucose 128 mg/dL (65-100) H 10/25/18 17:48 5.4 % (4-6) 10/25/18 17:48 Lactic Acid 2.30 mmol/L (0.7-2.0) H* 10/25/18 20:29 Calcium 8.3 mg/dL (8.4-10.2) L 10/25/18 17:48 0.20 mg/dL (0.1-1.2) 10/25/18 17:48 AST 13 units/L (5-40) 10/25/18 17:48 ALT 10 units/L (7-56) 10/25/18 17:48 159 units/L (35-129) H 10/25/18 17:48 36.0 umol/L (25-60) 10/25/18 17:48 < 0.010 ng/mL (0.00-0.029) 10/25/18 17:48 6.6 g/dL (6.3-8.2) 10/25/18 17:48 2.7 g/dL (3.9-5) L 10/25/18 17:48 0.7 % 10/25/18 17:48 TSH 1.850 mlU/mL (0.270-4.200) 10/25/18 17:48 Salicylates < 0.3 mg/dL (2.8-20.0) L 10/25/18 17:48 Acetaminophen < 5.0 ug/mL (10.0-30.0) L 10/25/18 17:48 Plasma/Serum Alcohol < 0.01 % (0-0.07) 10/25/18 17:48 - Imaging and Cardiology Imaging and Cardiology: CT Head: FINDINGS: HEMORRHAGE: No evidence of intracranial hemorrhage or extra-axial fluid collection. EXTRA-AXIAL SPACES: Dilatation of the left sylvian fissure. Dilatation of the cortical sulci over the lateral convexity of the left cerebral hemisphere is noted secondary to remote left MCA infarction. Cortical sulci, sylvian fissures and basilar cisterns have an otherwise unremarkable appearance. VENTRICULAR SYSTEM: There is dilatation of the frontal horn and body of the left lateral ventricle secondary to encephalomalacia due to remote left MCA infarction. The ventricular system is otherwise of normal size and configuration. CEREBRAL PARENCHYMA: Large area of encephalomalacia is observed involving portions of the leftfrontal, parietal and temporal lobe secondary to remote left MCA infarction. Dystrophic calcification is seen along the medial aspect of this large remote infarction. No areas of abnormal brain parenchymal attenuation are identified. There is no indication of recent infarction. MIDLINE SHIFT OR HERNIATION: There is no mass effect. CEREBELLUM / BRAINSTEM: There is a large left-sided posterior fossa mass representing an extensively calcified meningioma which measures about 3.7 x 2.8 cm in transverse dimension. This is unchanged in comparison to previous studies dating back through 07/02/2016. The large meningioma appears to arise from the tentorium and extends both above and below the tentorium. The lesion is closely applied to the adjacent left transverse sinus. Incidental note is made of moderate atrophy of the left cerebral peduncle which is a manifestation of Wallerian degeneration. INTRACRANIAL VESSELS:No abnormalities are identified on this noncontrast head CT. ORBITS: No abnormality. SOFT TISSUES of HEAD: No significant abnormality. CALVARIUM: Evaluation of bone windows reveals no abnormalities. Incidental note is made of ossification of the falx posteriorly. PARANASAL SINUSES / MASTOID AIR CELLS: Paranasal sinuses are free from inflammatory mucosal disease. Mastoid air cells are normally pneumatized. IMPRESSION: 1. Large left posterior fossa meningioma which is not significantly changed since 05/28/2011. 2. Extensive encephalomalacia secondary to remote left MCA infarction unchanged since 05/28/2011. 3. No acute intracranial abnormality. No interval change. CXR: FINDINGS: Support devices: None. Heart: Normal. Lungs/Pleura: There are low lung volumes. Accounting for this, no acute pulmonary or pleural findings. IMPRESSION: 1. No acute findings. Assessment and Plan Assessment and plan: 63-year-old -[place] female with history of GI disorder, left lower extremity DVT on anticoagulation, lupus, hypertension, diabetes, CHF, CVA with right-sided residual weakness, asthma, COPD, colon mass s/p hemicolectomy () presents to [facility] ED via EMS with complaints of seizure for 45 minutes and hypoglycemia. Post ictal state -History of seizure disorder -Per family patient had seizure for a total of 45 minutes before termination and calling EMS -Received Keppra in the ED -Initiate seizure precautions -IV Ativan when necessary -Continue Dilantin -Neurology consult pending Hypoglycemia -History of diabetes DM 2 -POC BG monitoring - Hold all anti-glycemic meds for now -HbgA1C pending Leukocytosis -WBC 14.8 -Blood and urine cultures pending -Will start on empiric IV ABX -Receiving IVF Lactic acidosis -Lactic Acid 2.60 -on IV abx -On IVF -Continue to monitor Hypertension -Continue to monitor BP -Resume home antihypertensive meds to optimize BP History of left lower extremity DVT -Status post IVC filter (2014) -Currently on anticoagulation with Eliquis -Per review of medical record patient will need to be on anticoagulation for life History of colon mass -Supposed right hemicolectomy 10/14/18 History of CVA -Right side residual weakness -PT/OT eval/treatment pending History of CHF -EF 55%-60% on echo 10/05/18 -On continuous telemetry monitoring -Continue Plavix and statin Chronic anemia -Hbg on admission 9.7 -No s/s of active bleeding -Continue to monitor -Transfuse prn Hypokalemia -mild -3.5 on admission -Repleted -Continue to monitor electrolytes, replete prn Moderate to severe malnutrition -Albumin 2.7 -Poor oral intake -Dietitian consulted DVT PPX -on Eliquis -SCD's Advance Directives: No VTE prophylaxis?: Chemical Plan of care discussed with patient/family: Yes
--- NOTE | 2018-10-25 21:57 | Emergency Department Report ---
ED Altered Mental Status HPI - General Chief Complaint: Hypoglycemia Stated Complaint: HYPOGLYCEMIA Time Seen by Provider: 10/25/18 16:29 Source: EMS Mode of arrival: Ambulatory Limitations: No Limitations - History of Present Illness Initial Comments: Mrs. Salcedo is a 63-year-old female with history of SLE, dyslipidemia, DVT, hypertension, anemia, colonic mass, CHF, CVA, asthma, COPD who presents with seizure and altered mental status from home. Her relative and home health nurse witnessed prolonged seizure over 45 minutes with decreased level of consciousness and right arm twitching. Upon EMS arrival blood sugar was 22. Enterolysis device 2 attempts per EMS were unsuccessful. Upon arrival patient is nonresponsive to pain on voice. Blood sugar less than 20. History obtained from relatives and electronic medical record. Sister explained that she explained that she was at her normal state of health prior to the seizure and hypoglycemia episode. Recent discharge 2 days ago. Hx of recent hemicolectomy and subsequent DVT. According to sisters,she has history of seizures. MD Complaint: altered mental status, decreased responsiveness -: Sudden, minutes(s) (45) Severity: severe Consistency of Symptoms: constant Context: diabetes, other (seizure) - Related Data Home Medications Medication Instructions Recorded Confirmed Last Taken Citalopram [celeXA] 10 mg PO TID 10/29/16 10/25/18 10/25/18 Carvedilol [Coreg] 3.125 mg PO BID 10/01/18 10/25/18 10/25/18 Citalopram [celeXA] 10 mg PO TID 10/25/18 10/25/18 10/25/18 DULoxetine [Cymbalta] 60 mg PO QDAY 10/25/18 10/25/18 10/25/18 Docusate Sodium 30 mg PO BID 10/25/18 10/25/18 10/25/18 Duloxetine HCl [Cymbalta] 60 mg PO DAILY 10/25/18 10/25/18 10/25/18 Furosemide [Lasix TAB] 40 mg PO QDAY 10/25/18 10/25/18 10/25/18 Gemfibrozil [Lopid] 600 mg PO DAILY 10/25/18 10/25/18 10/25/18 Insulin Glargine [Lantus] 10 unit SUB-Q QHS 10/25/18 10/25/1819 Lispro Insulin [HumaLOG] 5 unit SQ QACHS 10/25/18 10/25/18 10/25/18 Metformin HCl [metFORMIN] 1,000 mg PO BID 10/25/18 10/25/18 10/25/18 Metoprolol [Lopressor TAB] 50 mg PO TID 10/25/18 10/25/18 10/25/18 Morphine [Morphine TAB] 15 mg PO BID 10/25/18 10/25/18 10/25/18 Phenytoin [Dilantin] 100 mg PO DAILY 10/25/18 10/25/18 10/25/18 Potassium Chloride [K-Dur] 20 meq PO DAILY 10/25/18 10/25/18 10/25/18 Prednisone [predniSONE 5 mg (6-Day 5 mg PO .TAPER 10/25/18 10/25/18 10/25/18 Pack, 21 Tabs)] Previous Rx's Medication Instructions Recorded Last Taken Type AtorvaSTATin [Lipitor] 20 mg PO QDAY #30 tablet 07/09/16 10/25/18 Rx Clopidogrel [Plavix] 75 mg PO QDAY #30 tablet 10/19/18 10/25/18 Rx DULoxetine [Cymbalta] 60 mg PO QDAY #30 capsule 10/19/18 10/25/18 Rx Docusate Sodium [Colace ORAL LIQ] 100 mg PO BID #30 oral.liqd 10/19/18 10/25/18 Rx Furosemide [Lasix TAB] 40 mg PO QDAY #60 tablet 10/19/18 10/25/18 Rx Gemfibrozil [Lopid] 600 mg PO QDAY #30 tablet 10/19/18 10/25/18 Rx Insulin Glargine [Lantus VIAL] 10 units SUB-Q QHS #5 pen 10/19/18 10/24/18 Rx Lispro Insulin [HumaLOG] 5 unit SUB-Q ACHS #5 pen 10/19/18 10/24/18 Rx Metformin HCl [Glucophage] 1,000 mg PO BID #60 tablet 10/19/18 10/25/18 Rx Metoprolol [Lopressor TAB] 50 mg PO BID #60 tablet 10/19/18 10/25/18 Rx Morphine ER [Ms Contin ER] 15 mg PO Q12HR #20 tablet 10/19/18 10/25/18 Rx Multivitamins Liq [Multiple 5 ml PO QDAY oral.liqd 10/19/18 10/25/18 Rx Vitamin Liq (Theragran)] Phenytoin [Dilantin] 150 mg PO QAM #30 tab 10/19/18 10/25/18 Rx Potassium Chloride [K-Dur] 20 meq PO QDAY #30 tablet 10/19/18 10/25/18 Rx predniSONE [Deltasone] 5 mg PO Q48HR 30 Days #16 tablet 10/19/18 10/25/18 Rx Apixaban [Eliquis] 5 mg PO BID #360 tablet 10/23/18 10/25/18 Rx Apixaban [Eliquis] 10 mg PO BID #14 tablet 10/23/18 10/25/18 Rx Cyanocobalamin [Vitamin B-12] 1,000 mcg PO QDAY #30 tablet 10/23/18 10/25/18 Rx Ferrous Sulfate [Feosol 325 MG tab] 325 mg PO QDAY #30 tablet 10/23/18 10/25/18 Rx Allergies Allergy/AdvReac Type Severity Reaction Status Date / Time Penicillins Allergy Unknown Verified 11/10/14 21:41 Peas Allergy Swelling Uncoded 07/01/16 12:21 ED Review of Systems ROS: Stated complaint: HYPOGLYCEMIA Other details as noted in HPI Comment: Unobtainable due to pts medical conditions (altered mental status) ED Past Medical Hx - Past Medical History Previous Medical History?: Yes Hx Hypertension: Yes Hx CVA: Yes (right sided residual weakness) Hx Heart Attack/AMI: No Hx Congestive Heart Failure: Yes Hx Diabetes: Yes Hx Deep Vein Thrombosis: Yes Hx Pulmonary Embolism: No Hx GERD: No Hx Liver Disease: No Hx Renal Disease: No Hx of Cancer: No Hx Sickle Cell Disease: No Hx Arthritis: No Hx Headaches / Migraines: No Hx Seizures: No Hx Kidney Stones: No Hx Psychiatric Treatment: No Hx Asthma: Yes Hx COPD: Yes Hx Tuberculosis: No Hx Dementia: No Hx HIV: No - Surgical History Past Surgical History?: Yes Hx Coronary Stent: No Hx Open Heart Surgery: No Hx Pacemaker: No Hx Internal Defibrillator: No Hx Cholecystectomy: No Hx Appendectomy: No Hx Breast Surgery: No Additional Surgical History: HYSTERECTOMY - Social History Smoking Status: Never Smoker - Medications Home Medications: Home Medications Medication Instructions Recorded Confirmed Last Taken Type AtorvaSTATin [Lipitor] 20 mg PO QDAY #30 tablet 07/09/16 10/25/18 10/25/18 Rx Citalopram [celeXA] 10 mg PO TID 10/29/16 10/25/18 10/25/18 History Carvedilol [Coreg] 3.125 mg PO BID 10/01/18 10/25/18 10/25/18 History Clopidogrel [Plavix] 75 mg PO QDAY #30 tablet 10/19/18 10/25/18 10/25/18 Rx DULoxetine [Cymbalta] 60 mg PO QDAY #30 capsule 10/19/18 10/25/18 10/25/18 Rx Docusate Sodium [Colace ORAL LIQ] 100 mg PO BID #30 oral.liqd 10/19/18 10/25/18 10/25/18 Rx Furosemide [Lasix TAB] 40 mg PO QDAY #60 tablet 10/19/18 10/25/18 10/25/18 Rx Gemfibrozil [Lopid] 600 mg PO QDAY #30 tablet 10/19/18 10/25/18 10/25/18 Rx Insulin Glargine [Lantus VIAL] 10 units SUB-Q QHS #5 pen 10/19/18 10/25/18 10/24/18 Rx Lispro Insulin [HumaLOG] 5 unit SUB-Q ACHS #5 pen 10/19/18 10/25/18 10/24/18 Rx Metformin HCl [Glucophage] 1,000 mg PO BID #60 tablet 10/19/18 10/25/18 10/25/18 Rx Metoprolol [Lopressor TAB] 50 mg PO BID #60 tablet 10/19/18 10/25/18 10/25/18 Rx Morphine ER [Ms Contin ER] 15 mg PO Q12HR #20 tablet 10/19/18 10/25/18 10/25/18 Rx Multivitamins Liq [Multiple 5 ml PO QDAY oral.liqd 10/19/18 10/25/18 10/25/18 Rx Vitamin Liq (Theragran)] Phenytoin [Dilantin] 150 mg PO QAM #30 tab 10/19/18 10/25/18 10/25/18 Rx Potassium Chloride [K-Dur] 20 meq PO QDAY #30 tablet 10/19/18 10/25/18 10/25/18 Rx predniSONE [Deltasone] 5 mg PO Q48HR 30 Days #16 tablet 10/19/18 10/25/18 10/25/18 Rx Apixaban [Eliquis] 5 mg PO BID #360 tablet 10/23/18 10/25/18 10/25/18 Rx Apixaban [Eliquis] 10 mg PO BID #14 tablet 10/23/18 10/25/18 10/25/18 Rx Cyanocobalamin [Vitamin B-12] 1,000 mcg PO QDAY #30 tablet 10/23/18 10/25/18 10/25/18 Rx Ferrous Sulfate [Feosol 325 MG tab] 325 mg PO QDAY #30 tablet 10/23/18 10/25/18 10/25/18 Rx Citalopram [celeXA] 10 mg PO TID 10/25/18 10/25/18 10/25/18 History DULoxetine [Cymbalta] 60 mg PO QDAY 10/25/18 10/25/18 10/25/18 History Docusate Sodium 30 mg PO BID 10/25/18 10/25/18 10/25/18 History Duloxetine HCl [Cymbalta] 60 mg PO DAILY 10/25/18 10/25/18 10/25/18 History Furosemide [Lasix TAB] 40 mg PO QDAY 10/25/18 10/25/18 10/25/18 History Gemfibrozil [Lopid] 600 mg PO DAILY 10/25/18 10/25/18 10/25/18 History Insulin Glargine [Lantus] 10 unit SUB-Q QHS 10/25/18 10/25/18 10/24/18 History Lispro Insulin [HumaLOG] 5 unit SQ QACHS 10/25/18 10/25/18 10/25/18 History Metformin HCl [metFORMIN] 1,000 mg PO BID 10/25/18 10/25/18 10/25/18 History Metoprolol [Lopressor TAB] 50 mg PO TID 10/25/18 10/25/18 10/25/18 History Morphine [Morphine TAB] 15 mg PO BID 10/25/18 10/25/18 10/25/18 History Phenytoin [Dilantin] 100 mg PO DAILY 10/25/18 10/25/18 10/25/18 History Potassium Chloride [K-Dur] 20 meq PO DAILY 10/25/18 10/25/18 10/25/18 History Prednisone [predniSONE 5 mg (6-Day 5 mg PO .TAPER 10/25/18 10/25/18 10/25/18 History Pack, 21 Tabs)] ED Physical Exam - General Limitations: No Limitations General appearance: lethargic, other (drooling swallowing ) - Head Head exam: Present: atraumatic, normocephalic - Eye Eye exam: Present: normal appearance, PERRL. Absent: scleral icterus, conjun ctival injection - ENT ENT exam: Present: mucous membranes moist - Neck Neck exam: Present: normal inspection, full ROM - Respiratory Respiratory exam: Present: normal lung sounds bilaterally. Absent: respiratory distress, wheezes, rales, rhonchi - Cardiovascular Cardiovascular Exam: Present: regular rate, normal rhythm, normal heart sounds. Absent: systolic murmur, diastolic murmur, rubs, gallop - GI/Abdominal GI/Abdominal exam: Present: soft, normal bowel sounds. Absent: distended, tenderness, guarding, rebound - Extremities Exam Extremities exam: Present: other (no deformity of the lower extremities) - Neurological Exam Neurological exam: Present: altered - Psychiatric Psychiatric exam: Present: other (unresponsive to voice or pain) - Skin Skin exam: Present: other (cool to touch). Absent: rash ED Course Vital Signs 10/25/18 10/25/18 10/25/18 16:15 16:29 17:00 Temperature 98.2 F Pulse Rate 87 81 Respiratory 16 16 16 Rate Blood Pressure 154/78 121/73 Blood Pressure 154/87 [Right] O2 Sat by Pulse 97 95 97 Oximetry 10/25/18 10/25/18 10/25/18 17:27 17:30 18:06 Temperature Pulse Rate 75 84 84 Respiratory 25 H 20 15 Rate Blood Pressure 122/78 136/73 Blood Pressure 167/86 [Right] O2 Sat by Pulse 96 98 96 Oximetry 10/25/18 10/25/18 10/25/18 18:10 18:30 19:00 Temperature Pulse Rate 80 81 80 Respiratory 17 9 L Rate Blood Pressure 148/92 151/85 140/80 Blood Pressure [Right] O2 Sat by Pulse 98 99 Oximetry 10/25/18 10/25/18 10/25/18 19:20 19:30 20:00 Temperature Pulse Rate 82 77 Respiratory 18 14 17 Rate Blood Pressure 124/79 120/73 Blood Pressure [Right] O2 Sat by Pulse 98 97 Oximetry 10/25/18 10/25/18 10/25/18 20:30 21:00 21:57 Temperature 96.5 F L Pulse Rate 79 80 Respiratory 12 14 Rate Blood Pressure 128/72 131/70 Blood Pressure [Right] O2 Sat by Pulse 99 98 Oximetry - Lab Data Result diagrams: 10/25/18 17:48 10/25/18 17:48 Lab Results 10/25/18 10/25/18 10/25/18 Range/Units 16:17 16:31 17:48 WBC 14.8 H (4.5-11.0) K/mm3 RBC 4.33 (3.65-5.03) M/mm3 Hgb 9.7 L (10.1-14.3) gm/dl Hct 31.4 (30.3-42.9) % MCV 73 L (79-97) fl MCH 22 L (28-32) pg MCHC 31 (30-34) % RDW 29.9 H (13.2-15.2) % Plt Count 451 H (140-440) K/mm3 Add Manual Diff Complete Total Counted 100 Seg Neutrophils % [employer] Investigator Seg Neuts % (Manual) 87.0 H (40.0-70.0) % Band Neutrophils % 0 % Lymphocytes % (Manual) 6.0 L (13.4-35.0) % Reactive Lymphs % (Man) 0 % Monocytes % (Manual) 5.0 (0.0-7.3) % Eosinophils % (Manual) 2.0 (0.0-4.3) % Basophils % (Manual) 0 (0.0-1.8) % Metamyelocytes % 0 % Myelocytes % 0 % Promyelocytes % 0 % Blast Cells % 0 % Nucleated RBC % Not Reportable Seg Neutrophils # Man 12.9 H (1.8-7.7) K/mm3 Band Neutrophils # 0.0 K/mm3 Lymphocytes # (Manual) 0.9 L (1.2-5.4) K/mm3 Abs React Lymphs (Man) 0.0 K/mm3 Monocytes # (Manual) 0.7 (0.0-0.8) K/mm3 Eosinophils # (Manual) 0.3 (0.0-0.4) K/mm3 Basophils # (Manual) 0.0 (0.0-0.1) K/mm3 Metamyelocytes # 0.0 K/mm3 Myelocytes # 0.0 K/mm3 Promyelocytes # 0.0 K/mm3 Blast Cells # 0.0 K/mm3 WBC Morphology Not Reportable Hypersegmented Neuts Not Reportable Hyposegmented Neuts Not Reportable Hypogranular Neuts Not Reportable Smudge Cells Not Reportable Toxic Granulation Not Reportable Toxic Vacuolation Not Reportable Dohle Bodies Not Reportable Pelger-Huet Anomaly Not Reportable Iliana Rods Not Reportable Platelet Estimate Not Reportable Clumped Platelets Not Reportable Plt Clumps, EDTA Not Reportable Large Platelets Not Reportable Giant Platelets Not Reportable Platelet Satelliting Not Reportable Plt Morphology Comment Not Reportable RBC Morphology Not Reportable Dimorphic RBCs Not Reportable Polychromasia Not Reportable Hypochromasia 2+ Poikilocytosis Not Reportable Anisocytosis 2+ Microcytosis Not Reportable Macrocytosis Not Reportable Spherocytes Not Reportable Pappenheimer Bodies Not Reportable Sickle Cells Not Reportable Target Cells Not Reportable Tear Drop Cells Not Reportable Ovalocytes Not Reportable Helmet Cells Not Reportable Johnston-Carey Bodies Not Reportable [place] Rings Not Reportable [place] Cells Not Reportable Bite Cells Not Reportable Crenated Cell Not Reportable Elliptocytes Not Reportable Acanthocytes (Spur) Not Reportable Rouleaux Not Reportable Hemoglobin C Crystals Not Reportable Schistocytes Not Reportable Malaria parasites Not Reportable John Bodies Not Reportable Hem Pathologist Commnt No PT (12.2-14.9) Sec. INR (0.87-1.13) APTT (24.2-36.6) Sec. Sodium (137-145) mmol/L Potassium (3.6-5.0) mmol/L Chloride (98-107) mmol/L Carbon Dioxide (22-30) mmol/L Anion Gap mmol/L BUN (7-17) mg/dL Creatinine (0.7-1.2) mg/dL Estimated GFR ml/min BUN/Creatinine Ratio % Glucose (65-100) mg/dL POC Glucose < 40 L 286 H (70-105) Hemoglobin A1c (4-6) % Lactic Acid (0.7-2.0) mmol/L Calcium (8.4-10.2) mg/dL Total Bilirubin (0.1-1.2) mg/dL AST (5-40) units/L ALT (7-56) units/L Alkaline Phosphatase (35-129) units/L Ammonia (25-60) umol/L Troponin T (0.00-0.029) ng/mL Total Protein (6.3-8.2) g/dL Albumin (3.9-5) g/dL Albumin/Globulin Ratio % TSH (0.270-4.200) mlU/mL Salicylates (2.8-20.0) mg/dL Acetaminophen (10.0-30.0) ug/mL Plasma/Serum Alcohol (0-0.07) % 10/25/18 10/25/18 10/25/18 Range/Units 17:48 17:48 17:48 WBC (4.5-11.0) K/mm3 RBC (3.65-5.03) M/mm3 Hgb (10.1-14.3) gm/dl Hct (30.3-42.9) % MCV (79-97) fl MCH (28-32) pg MCHC (30-34) % RDW (13.2-15.2) % Plt Count (140-440) K/mm3 Add Manual Diff Total Counted Seg Neutrophils % Seg Neuts % (Manual) (40.0-70.0) % Band Neutrophils % % Lymphocytes % (Manual) (13.4-35.0) % Reactive Lymphs % (Man) % Monocytes % (Manual) (0.0-7.3) % Eosinophils % (Manual) (0.0-4.3) % Basophils % (Manual) (0.0-1.8) % Metamyelocytes % % Myelocytes % % Promyelocytes % % Blast Cells % % Nucleated RBC % Seg Neutrophils # Man (1.8-7.7) K/mm3 Band Neutrophils # K/mm3 Lymphocytes # (Manual) (1.2-5.4) K/mm3 Abs React Lymphs (Man) K/mm3 Monocytes # (Manual) (0.0-0.8) K/mm3 Eosinophils # (Manual) (0.0-0.4) K/mm3 Basophils # (Manual) (0.0-0.1) K/mm3 Metamyelocytes # K/mm3 Myelocytes # K/mm3 Promyelocytes # K/mm3 Blast Cells # K/mm3 WBC Morphology Hypersegmented Neuts Hyposegmented Neuts Hypogranular Neuts Smudge Cells Toxic Granulation Toxic Vacuolation Dohle Bodies Pelger-Huet Anomaly Iliana Rods Platelet Estimate Clumped Platelets Plt Clumps, EDTA Large Platelets Giant Platelets Platelet Satelliting Plt Morphology Comment RBC Morphology Dimorphic RBCs Polychromasia Hypochromasia Poikilocytosis Anisocytosis Microcytosis Macrocytosis Spherocytes Pappenheimer Bodies Sickle Cells Target Cells Tear Drop Cells Ovalocytes Helmet Cells Johnston-Carey Bodies [place] Rings Trae Cells Bite Cells Crenated Cell Elliptocytes Acanthocytes (Spur) Rouleaux Hemoglobin C Crystals Schistocytes Malaria parasites John Bodies Hem Pathologist Commnt PT (12.2-14.9) Sec. INR (0.87-1.13) APTT (24.2-36.6) Sec. Sodium 141 (137-145) mmol/L Potassium 3.5 L (3.6-5.0) mmol/L Chloride 102.3 (98-107) mmol/L Carbon Dioxide 25 (22-30) mmol/L Anion Gap 17 mmol/L BUN 3 L (7-17) mg/dL Creatinine 0.7 (0.7-1.2) mg/dL Estimated GFR > 60 ml/min BUN/Creatinine Ratio 4 % Glucose 128 H (65-100) mg/dL POC Glucose (70-105) Hemoglobin A1c (4-6) % Lactic Acid 2.20 H* (0.7-2.0) mmol/L Calcium 8.3 L (8.4-10.2) mg/dL Total Bilirubin 0.20 (0.1-1.2) mg/dL AST 13 (5-40) units/L ALT 10 (7-56) units/L Alkaline Phosphatase 159 H (35-129) units/L Ammonia 36.0 (25-60) umol/L Troponin T < 0.010 (0.00-0.029) ng/mL Total Protein 6.6 (6.3-8.2) g/dL Albumin 2.7 L (3.9-5) g/dL Albumin/Globulin Ratio 0.7 % TSH (0.270-4.200) mlU/mL Salicylates (2.8-20.0) mg/dL Acetaminophen (10.0-30.0) ug/mL Plasma/Serum Alcohol (0-0.07) % 10/25/18 10/25/18 10/25/18 Range/Units 17:48 17:48 17:48 WBC (4.5-11.0) K/mm3 RBC (3.65-5.03) M/mm3 Hgb (10.1-14.3) gm/dl Hct (30.3-42.9) % MCV (79-97) fl MCH (28-32) pg MCHC (30-34) % RDW (13.2-15.2) % Plt Count (140-440) K/mm3 Add Manual Diff Total Counted Seg Neutrophils % Seg Neuts % (Manual) (40.0-70.0) % Band Neutrophils % % Lymphocytes % (Manual) (13.4-35.0) % Reactive Lymphs % (Man) % Monocytes % (Manual) (0.0-7.3) % Eosinophils % (Manual) (0.0-4.3) % Basophils % (Manual) (0.0-1.8) % Metamyelocytes % % Myelocytes % % Promyelocytes % % Blast Cells % % Nucleated RBC % Seg Neutrophils # Man (1.8-7.7) K/mm3 Band Neutrophils # K/mm3 Lymphocytes # (Manual) (1.2-5.4) K/mm3 Abs React Lymphs (Man) K/mm3 Monocytes # (Manual) (0.0-0.8) K/mm3 Eosinophils # (Manual) (0.0-0.4) K/mm3 Basophils # (Manual) (0.0-0.1) K/mm3 Metamyelocytes # K/mm3 Myelocytes # K/mm3 Promyelocytes # K/mm3 Blast Cells # K/mm3 WBC Morphology Hypersegmented Neuts Hyposegmented Neuts Hypogranular Neuts Smudge Cells Toxic Granulation Toxic Vacuolation Dohle Bodies Pelger-Huet Anomaly Iliana Rods Platelet Estimate Clumped Platelets Plt Clumps, EDTA Large Platelets Giant Platelets Platelet Satelliting Plt Morphology Comment RBC Morphology Dimorphic RBCs Polychromasia Hypochromasia Poikilocytosis Anisocytosis Microcytosis Macrocytosis Spherocytes Pappenheimer Bodies Sickle Cells Target Cells Tear Drop Cells Ovalocytes Helmet Cells Johnston-Carey Bodies [place] Rings [place] Cells Bite Cells Crenated Cell Elliptocytes Acanthocytes (Spur) Rouleaux Hemoglobin C Crystals Schistocytes Malaria parasites John Bodies Hem Pathologist Commnt PT (12.2-14.9) Sec. INR (0.87-1.13) APTT (24.2-36.6) Sec. Sodium (137-145) mmol/L Potassium (3.6-5.0) mmol/L Chloride (98-107) mmol/L Carbon Dioxide (22-30) mmol/L Anion Gap mmol/L BUN (7-17) mg/dL Creatinine (0.7-1.2) mg/dL Estimated GFR ml/min BUN/Creatinine Ratio % Glucose (65-100) mg/dL POC Glucose (70-105) Hemoglobin A1c (4-6) % Lactic Acid (0.7-2.0) mmol/L Calcium (8.4-10.2) mg/dL Total Bilirubin (0.1-1.2) mg/dL AST (5-40) units/L ALT (7-56) units/L Alkaline Phosphatase (35-129) units/L Ammonia (25-60) umol/L Troponin T (0.00-0.029) ng/mL Total Protein (6.3-8.2) g/dL Albumin (3.9-5) g/dL Albumin/Globulin Ratio % TSH 1.850 (0.270-4.200) mlU/mL Salicylates < 0.3 L (2.8-20.0) mg/dL Acetaminophen < 5.0 L (10.0-30.0) ug/mL Plasma/Serum Alcohol (0-0.07) % 10/25/18 10/25/18 10/25/18 Range/Units 17:48 17:48 18:13 WBC (4.5-11.0) K/mm3 RBC (3.65-5.03) M/mm3 Hgb (10.1-14.3) gm/dl Hct (30.3-42.9) % MCV (79-97) fl MCH (28-32) pg MCHC (30-34) % RDW (13.2-15.2) % Plt Count (140-440) K/mm3 Add Manual Diff Total Counted Seg Neutrophils % Seg Neuts % (Manual) (40.0-70.0) % Band Neutrophils % % Lymphocytes % (Manual) (13.4-35.0) % Reactive Lymphs % (Man) % Monocytes % (Manual) (0.0-7.3) % Eosinophils % (Manual) (0.0-4.3) % Basophils % (Manual) (0.0-1.8) % Metamyelocytes % % Myelocytes % % Promyelocytes % % Blast Cells % % Nucleated RBC % Seg Neutrophils # Man (1.8-7.7) K/mm3 Band Neutrophils # K/mm3 Lymphocytes # (Manual) (1.2-5.4) K/mm3 Abs React Lymphs (Man) K/mm3 Monocytes # (Manual) (0.0-0.8) K/mm3 Eosinophils # (Manual) (0.0-0.4) K/mm3 Basophils # (Manual) (0.0-0.1) K/mm3 Metamyelocytes # K/mm3 Myelocytes # K/mm3 Promyelocytes # K/mm3 Blast Cells # K/mm3 WBC Morphology Hypersegmented Neuts Hyposegmented Neuts Hypogranular Neuts Smudge Cells Toxic Granulation Toxic Vacuolation Dohle Bodies Pelger-Huet Anomaly Iliana Rods Platelet Estimate Clumped Platelets Plt Clumps, EDTA Large Platelets Giant Platelets Platelet Satelliting Plt Morphology Comment RBC Morphology Dimorphic RBCs Polychromasia Hypochromasia Poikilocytosis Anisocytosis Microcytosis Macrocytosis Spherocytes Pappenheimer Bodies Sickle Cells Target Cells Tear Drop Cells Ovalocytes Helmet Cells Johnston-Carey Bodies [place] Rings [place] Cells Bite Cells Crenated Cell Elliptocytes Acanthocytes (Spur) Rouleaux Hemoglobin C Crystals Schistocytes Malaria parasites John Bodies Hem Pathologist Commnt PT 16.0 H (12.2-14.9) Sec. INR 1.31 H (0.87-1.13) APTT 32.0 (24.2-36.6) Sec. Sodium (137-145) mmol/L Potassium (3.6-5.0) mmol/L Chloride (98-107) mmol/L Carbon Dioxide (22-30) mmol/L Anion Gap mmol/L BUN (7-17) mg/dL Creatinine (0.7-1.2) mg/dL Estimated GFR ml/min BUN/Creatinine Ratio % Glucose (65-100) mg/dL POC Glucose (70-105) Hemoglobin A1c 5.4 (4-6) % Lactic Acid (0.7-2.0) mmol/L Calcium (8.4-10.2) mg/dL Total Bilirubin (0.1-1.2) mg/dL AST (5-40) units/L ALT (7-56) units/L Alkaline Phosphatase (35-129) units/L Ammonia (25-60) umol/L Troponin T (0.00-0.029) ng/mL Total Protein (6.3-8.2) g/dL Albumin (3.9-5) g/dL Albumin/Globulin Ratio % TSH (0.270-4.200) mlU/mL Salicylates (2.8-20.0) mg/dL Acetaminophen (10.0-30.0) ug/mL Plasma/Serum Alcohol < 0.01 (0-0.07) % 10/25/18 10/25/18 Range/Units 19:08 19:08 WBC (4.5-11.0) K/mm3 RBC (3.65-5.03) M/mm3 Hgb (10.1-14.3) gm/dl Hct (30.3-42.9) % MCV (79-97) fl MCH (28-32) pg MCHC (30-34) % RDW (13.2-15.2) % Plt Count (140-440) K/mm3 Add Manual Diff Total Counted Seg Neutrophils % Seg Neuts % (Manual) (40.0-70.0) % Band Neutrophils % % Lymphocytes % (Manual) (13.4-35.0) % Reactive Lymphs % (Man) % Monocytes % (Manual) (0.0-7.3) % Eosinophils % (Manual) (0.0-4.3) % Basophils % (Manual) (0.0-1.8) % Metamyelocytes % % Myelocytes % % Promyelocytes % % Blast Cells % % Nucleated RBC % Seg Neutrophils # Man (1.8-7.7) K/mm3 Band Neutrophils # K/mm3 Lymphocytes # (Manual) (1.2-5.4) K/mm3 Abs React Lymphs (Man) K/mm3 Monocytes # (Manual) (0.0-0.8) K/mm3 Eosinophils # (Manual) (0.0-0.4) K/mm3 Basophils # (Manual) (0.0-0.1) K/mm3 Metamyelocytes # K/mm3 Myelocytes # K/mm3 Promyelocytes # K/mm3 Blast Cells # K/mm3 WBC Morphology Hypersegmented Neuts Hyposegmented Neuts Hypogranular Neuts Smudge Cells Toxic Granulation Toxic Vacuolation Dohle Bodies Pelger-Huet Anomaly Iliana Rods Platelet Estimate Clumped Platelets Plt Clumps, EDTA Large Platelets Giant Platelets Platelet Satelliting Plt Morphology Comment RBC Morphology Dimorphic RBCs Polychromasia Hypochromasia Poikilocytosis Anisocytosis Microcytosis Macrocytosis Spherocytes Pappenheimer Bodies Sickle Cells Target Cells Tear Drop Cells Ovalocytes Helmet Cells Johnston-Carey Bodies [place] Rings Trae Cells Bite Cells Crenated Cell Elliptocytes Acanthocytes (Spur) Rouleaux Hemoglobin C Crystals Schistocytes Malaria parasites John Bodies Hem Pathologist Commnt PT 16.0 H (12.2-14.9) Sec. INR 1.31 H (0.87-1.13) APTT (24.2-36.6) Sec. Sodium (137-145) mmol/L Potassium (3.6-5.0) mmol/L Chloride (98-107) mmol/L Carbon Dioxide (22-30) mmol/L Anion Gap mmol/L BUN (7-17) mg/dL Creatinine (0.7-1.2) mg/dL Estimated GFR ml/min BUN/Creatinine Ratio % Glucose (65-100) mg/dL POC Glucose (70-105) Hemoglobin A1c (4-6) % Lactic Acid 2.60 H* (0.7-2.0) mmol/L Calcium (8.4-10.2) mg/dL Total Bilirubin (0.1-1.2) mg/dL AST (5-40) units/L ALT (7-56) units/L Alkaline Phosphatase (35-129) units/L Ammonia (25-60) umol/L Troponin T (0.00-0.029) ng/mL Total Protein (6.3-8.2) g/dL Albumin (3.9-5) g/dL Albumin/Globulin Ratio % TSH (0.270-4.200) mlU/mL Salicylates (2.8-20.0) mg/dL Acetaminophen (10.0-30.0) ug/mL Plasma/Serum Alcohol (0-0.07) % 10/25/18 21:56 EKG obtained 1736 Normal sinus rhythm rate 80 beats a minute normal axis normal intervals no ST-T signs of ischemia - Radiology Data Radiology results: report reviewed CT of the head large posterior fossa meningioma unchanged from 2012, and extensive encephalomalacia due to remote left MCA infarction, no acute cranial abnormality.. Chest radiograph AP portable chest according to radiology no acute findings - Medical Decision Making Mr. Salcedo presents with severe hypoglycemia and resultant decreased level constant. Due to inability to obtain venous access, we inserted rapid IO device. She received IM glucagon. She also received dextrose to the IO device. In spite interventions, blood sugar remained below 20. Nurse inserted 24- gauge in the hand. I understood the risk of dextrose infusion in the hand. However, patient urgently needed intervention. After 2 ampules of dextrose through IV, blood sugar greater than 200. Over period of time, Mrs. Salcedo regained consciousness with limited speech. I reviewed labs, leukocytosis can be explained by aadrenergic response to seizure and hypoglycemia (demarginalization). No indication of SIRS. Admitted to hospitalist service further care and treatment. Critical Care Time: Yes Critical care time in (mins) excluding proc time.: 40 Critical care attestation.: If time is entered above; I have spent that time in minutes in the direct care of this critically ill patient, excluding procedure time. 40 minutes of critical care time excluding procedures were used in the care of the patient. Patient required multiple assessments and interventions. I reviewed the electronic medical record. I spoke with consultants involved in the care of the patient. I came to the bedside immediately. I obtained history from paramedics. I directed resuscitation. I obtained history from relatives. The Relatives and warm. Patient required multiple interventions in reassessments. I was concerned for airway compromise. I was concerned for for intracranial hemorrhage. ED Disposition Clinical Impression: Acute metabolic encephalopathy due to hypoglycemia, Seizure Disposition: DC-[id number] OP ADMIT IP TO THIS HOSP Is pt being admited?: Yes Does the pt Need Aspirin: No
[2018-10-25] MEDS ORDERED: COREG PO SCH (22:00)
[2018-10-25] MEDS ORDERED: ELIQUIS PO SCH (22:00)
[2018-10-25] MEDS: KCL 10MEQ/100ML 10 MEQ/100 ML BAG IV SCH (23:33)
[2018-10-25] MEDS: D5/0.45NS 1,000 ML IV SCH (23:33)
[2018-10-26] MEDS: KCL 10MEQ/100ML 10 MEQ/100 ML BAG IV SCH (01:03)
[2018-10-26] MEDS: SODIUM CHLORIDE FLUSH SYRINGE 10 ML IV SCH ×3 (01:04→22:24)
[2018-10-26] MEDS: ELIQUIS PO SCH ×3 (01:09→22:23)
[2018-10-26] MEDS: celeXA PO SCH ×4 (01:09→20:45)
[2018-10-26] MEDS: COLACE PO SCH ×4 (01:09→22:23)
[2018-10-26] MEDS: LOPRESSOR PO SCH ×3 (01:11→22:23)
[2018-10-26] MEDS ORDERED: DILANTIN PO SCH (10:00)
[2018-10-26] MEDS ORDERED: NACL 0.9% IV SCH (10:00)
[2018-10-26] MEDS ORDERED: DILANTIN IV SCH (10:00)
[2018-10-26] MEDS: CYMBALTA PO SCH (10:00)
[2018-10-26] MEDS ORDERED: CYMBALTA PO SCH (10:00)
[2018-10-26 10:07] LABS: Amphetamine Screen,Urine PRESUMPTIVE NEGATIVE; Benzodiazepines Screen,Urine PRESUMPTIVE NEGATIVE; Cannabinoid Screen,Urine PRESUMPTIVE NEGATIVE; Cocaine Screen,Urine PRESUMPTIVE NEGATIVE; Methadone Screen,Urine PRESUMPTIVE NEGATIVE
[2018-10-26] MEDS: ROCEPHIN/NS 2 GM/100 ML 2 GM/100 ML BAG IV SCH (10:15)
[2018-10-26 10:22] LABS: Bilirubin,Urine NEG (Negative); Blood,Urine SM (Negative); Color,Urine Yellow (Yellow); Protein,Urine <15 mg/dL mg/dL (Negative); Urobilinogen,Urine < 2.0 mg/dL (<2.0)
[2018-10-26] MEDS: VITAMIN B-12 PO SCH (10:27)
[2018-10-26] MEDS: LOPID PO SCH (10:28)
[2018-10-26] MEDS: FEOSOL PO SCH (10:29)
[2018-10-26] MEDS: PLAVIX PO SCH (10:29)
[2018-10-26] MEDS: K-DUR PO SCH (10:30)
[2018-10-26] MEDS: LASIX PO SCH (10:30)
[2018-10-26 10:43] LABS: Opiate Screen,Urine PRESUMPTIVE POSITIVE
[2018-10-26] MEDS: Centrum Liq PO SCH (14:02)
--- NOTE | 2018-10-26 17:27 | Progress Note ---
Assessment and Plan Assessment and plan: 63-year-old -[place] female with history of GI disorder, left lower extremity DVT on anticoagulation, lupus, hypertension, diabetes, CHF, CVA with right-sided residual weakness, asthma, COPD, colon mass s/p hemicolectomy (09/2018) presents to [facility] ED via EMS with complaints of seizure for 45 minutes and hypoglycemia. --Metabolic encephalopathy; present on admission Multifactorial, probably secondary to severe hypoglycemia With regard to seizures, postictal state Mild improvement, supportive care --Status epilepticus; probably secondary to severe hypoglycemia However patient has history of seizures on Dilantin, received Keppra in the ED Seizure precautions, Ativan as needed, resume Dilantin Follow neurology evaluation,EEG --History of seizure disorder:on Dilantin at home Resume Dilantin, check levels Follow Neurology consult --Large posterior fossa meningioma significantly changed since 2011. Follow neurology evaluation and recommendations --History of CVA Right side residual weakness PT/OT eval/treatment pending --Hypoglycemia Insulin, closely monitor blood sugars Accu-Chek sliding scale coverage ADA diet, and D10 infusion if no improvement --Lactic acidosis/leukocytosis Empiric antibiotics follow cultures --Hypertension Continue current antihypertensives and when necessary medications --History of left lower extremity DVT Status post IVC filter (2014) Continue Eliquis --History of recent colon mass excision s/p right hemicolectomy 10/14/18 Supportive care, surgery consult if needed --Hypokalemia Corrected, monitor electrolytes --Moderate to severe malnutrition -Albumin 2.7, nutrition supplements, nutrition consult --DVT PPX; continue Eliquis. --DC planning per case management Possible placement subacute versus SNF Plan of care is reviewed with the caregiver who is patient's sister at the bedside Monitor closely and adjust management as needed History Interval history: Patient seen and examined medical records reviewed Patient was admitted with severe hypoglycemia and seizures Patient has past history of seizure on phenytoin at home Today patient is alert awake minimally communicative[probably her baseline] Caregiver sister at the bedside No new episodes of seizures since admission Vital Signs noted Hospitalist Physical - Constitutional Vitals: Temp Pulse Resp BP Pulse Ox 98.4 F 84 18 118/58 100 10/26/18 16:19 10/26/18 16:19 10/26/18 16:19 10/26/18 16:19 10/26/18 16:19 General appearance: Present: no acute distress, well-nourished, obese, other - EENT Eyes: Present: PERRL, EOM intact - Neck Neck: Present: supple, normal ROM - Respiratory Respiratory effort: normal Respiratory: bilateral: diminished, rhonchi, negative: rales, wheezing - Cardiovascular Rhythm: regular Heart Sounds: Present: S1 & S2 - Extremities Extremities: no ischemia, No edema - Abdominal General gastrointestinal: soft, non-tender, non-distended, normal bowel sounds - Integumentary Integumentary: Present: clear, warm - Psychiatric Psychiatric: other (minimally communicative) - Neurologic Neurologic: other (minimally communicative) Results - Labs CBC & Chem 7: 10/25/18 17:48 10/25/18 17:48 Labs: Laboratory Last Values WBC 14.8 K/mm3 (4.5-11.0) H 10/25/18 17:48 RBC 4.33 M/mm3 (3.65-5.03) 10/25/18 17:48 Hgb 9.7 gm/dl (10.1-14.3) L 10/25/18 17:48 Hct 31.4 % (30.3-42.9) 10/25/18 17:48 MCV 73 fl (79-97) L 10/25/18 17:48 MCH 22 pg (28-32) L 10/25/18 17:48 MCHC 31 % (30-34) 10/25/18 17:48 RDW 29.9 % (13.2-15.2) H 10/25/18 17:48 Plt Count 451 K/mm3 (140-440) H 10/25/18 17:48 Add Manual Diff Complete 10/25/18 17:48 Total Counted 100 10/25/18 17:48 Seg Neutrophils % Fur Feeder 10/25/18 17:48 Seg Neuts % (Manual) 87.0 % (40.0-70.0) H 10/25/18 17:48 0 % 10/25/18 17:48 6.0 % (13.4-35.0) L 10/25/18 17:48 Reactive Lymphs % (Man) 0 % 10/25/18 17:48 5.0 % (0.0-7.3) 10/25/18 17:48 2.0 % (0.0-4.3) 10/25/18 17:48 0 % (0.0-1.8) 10/25/18 17:48 0 % 10/25/18 17:48 0 % 10/25/18 17:48 0 % 10/25/18 17:48 0 % 10/25/18 17:48 Nucleated RBC % Not Reportable 10/25/18 17:48 Seg Neutrophils # Man 12.9 K/mm3 (1.8-7.7) H 10/25/18 17:48 Band Neutrophils # 0.0 K/mm3 10/25/18 17:48 0.9 K/mm3 (1.2-5.4) L 10/25/18 17:48 Abs React Lymphs (Man) 0.0 K/mm3 10/25/18 17:48 0.7 K/mm3 (0.0-0.8) 10/25/18 17:48 0.3 K/mm3 (0.0-0.4) 10/25/18 17:48 0.0 K/mm3 (0.0-0.1) 10/25/18 17:48 0.0 K/mm3 10/25/18 17:48 0.0 K/mm3 10/25/18 17:48 0.0 K/mm3 10/25/18 17:48 Blast Cells # 0.0 K/mm3 10/25/18 17:48 WBC Morphology Not Reportable 10/25/18 17:48 Hypersegmented Neuts Not Reportable 10/25/18 17:48 Hyposegmented Neuts Not Reportable 10/25/18 17:48 Hypogranular Neuts Not Reportable 10/25/18 17:48 Not Reportable 10/25/18 17:48 Not Reportable 10/25/18 17:48 Not Reportable 10/25/18 17:48 Not Reportable 10/25/18 17:48 Not Reportable 10/25/18 17:48 Not Reportable 10/25/18 17:48 Not Reportable 10/25/18 17:48 Not Reportable 10/25/18 17:48 Plt Clumps, EDTA Not Reportable 10/25/18 17:48 Not Reportable 10/25/18 17:48 Not Reportable 10/25/18 17:48 Not Reportable 10/25/18 17:48 Plt Morphology Comment Not Reportable 10/25/18 17:48 RBC Morphology Not Reportable 10/25/18 17:48 Dimorphic RBCs Not Reportable 10/25/18 17:48 Not Reportable 10/25/18 17:48 2+ 10/25/18 17:48 Not Reportable 10/25/18 17:48 2+ 10/25/18 17:48 Not Reportable 10/25/18 17:48 Not Reportable 10/25/18 17:48 Not Reportable 10/25/18 17:48 Not Reportable 10/25/18 17:48 Not Reportable 10/25/18 17:48 Not Reportable 10/25/18 17:48 Not Reportable 10/25/18 17:48 Not Reportable 10/25/18 17:48 Not Reportable 10/25/18 17:48 Not Reportable 10/25/18 17:48 Not Reportable 10/25/18 17:48 Not Reportable 10/25/18 17:48 Not Reportable 10/25/18 17:48 Not Reportable 10/25/18 17:48 Not Reportable 10/25/18 17:48 Acanthocytes (Spur) Not Reportable 10/25/18 17:48 Rouleaux Not Reportable 10/25/18 17:48 Not Reportable 10/25/18 17:48 Not Reportable 10/25/18 17:48 Not Reportable 10/25/18 17:48 Not Reportable 10/25/18 17:48 Hem Pathologist Commnt No 10/25/18 17:48 PT 16.0 Sec. (12.2-14.9) H 10/25/18 19:08 INR 1.31 (0.87-1.13) H 10/25/18 19:08 APTT 32.0 Sec. (24.2-36.6) 10/25/18 18:13 Sodium 141 mmol/L (137-145) 10/25/18 17:48 Potassium 3.5 mmol/L (3.6-5.0) L 10/25/18 17:48 Chloride 102.3 mmol/L (98-107) 10/25/18 17:48 Carbon Dioxide 25 mmol/L (22-30) 10/25/18 17:48 17 mmol/L 10/25/18 17:48 BUN 3 mg/dL (7-17) L 10/25/18 17:48 0.7 mg/dL (0.7-1.2) 10/25/18 17:48 Estimated GFR > 60 ml/min 10/25/18 17:48 4 % 10/25/18 17:48 Glucose 128 mg/dL (65-100) H 10/25/18 17:48 POC Glucose 126 (70-105) H 10/26/18 16:08 5.4 % (4-6) 10/25/18 17:48 Lactic Acid 1.20 mmol/L (0.7-2.0) 10/25/18 23:09 Calcium 8.3 mg/dL (8.4-10.2) L 10/25/18 17:48 0.20 mg/dL (0.1-1.2) 10/25/18 17:48 AST 13 units/L (5-40) 10/25/18 17:48 ALT 10 units/L (7-56) 10/25/18 17:48 159 units/L (35-129) H 10/25/18 17:48 36.0 umol/L (25-60) 10/25/18 17:48 < 0.010 ng/mL (0.00-0.029) 10/25/18 17:48 6.6 g/dL (6.3-8.2) 10/25/18 17:48 2.7 g/dL (3.9-5) L 10/25/18 17:48 0.7 % 10/25/18 17:48 TSH 1.850 mlU/mL (0.270-4.200) 10/25/18 17:48 Yellow (Yellow) 10/26/18 09:30 Slightly-cloudy (Clear) 10/26/18 09:30 6.0 (5.0-7.0) 10/26/18 09:30 Ur Specific [place] 1.015 (1.003-1.030) 10/26/18 09:30 <15 mg/dl mg/dL (Negative) 10/26/18 09:30 Neg mg/dL (Negative) 10/26/18 09:30 Tr mg/dL (Negative) 10/26/18 09:30 Sm (Negative) 10/26/18 09:30 Pos (Negative) 10/26/18 09:30 Neg (Negative) 10/26/18 09:30 < 2.0 mg/dL (<2.0) 10/26/18 09:30 Ur Leukocyte Esterase Lg (Negative) 10/26/18 09:30 87.0 /HPF (0.0-6.0) H 10/26/18 09:30 4.0 /HPF (0.0-6.0) 10/26/18 09:30 U Epithel Cells (Auto) 1.0 /HPF (0-13.0) 10/26/18 09:30 Salicylates < 0.3 mg/dL (2.8-20.0) L 10/25/18 17:48 Presumptive positive 10/26/18 09:30 Presumptive negative 10/26/18 09:30 Acetaminophen < 5.0 ug/mL (10.0-30.0) L 10/25/18 17:48 Ur Barbiturates Screen Presumptive negative 10/26/18 09:30 Ur Phencyclidine Scrn Presumptive negative 10/26/18 09:30 Ur Amphetamines Screen Presumptive negative 10/26/18 09:30 U Benzodiazepines Scrn Presumptive negative 10/26/18 09:30 Presumptive negative 10/26/18 09:30 U Marijuana (THC) Screen Presumptive negative 10/26/18 09:30 Disclamer 10/26/18 09:30 Plasma/Serum Alcohol < 0.01 % (0-0.07) 10/25/18 17:48 Active Medications - Current Medications Current Medications: Generic Name Dose Route Start Last Admin Trade Name Freq PRN Reason Stop Dose Admin Acetaminophen 650 mg 10/25/18 19:55 Tylenol PO Q4H PRN Pain MILD(1-3)/Fever >100.5/LUIS Albuterol 2.5 mg 10/25/18 21:37 Proventil IH Q4HRT PRN Shortness Of Breath Apixaban 5 mg 10/25/18 22:00 10/26/18 10:30 Eliquis PO 5 mg BID ART Administration Protocol Atorvastatin Calcium 20 mg 10/26/18 10:00 10/26/18 10:29 Lipitor PO 20 mg QDAY ART Administration Citalopram Hydrobromide 10 mg 10/25/18 20:00 10/26/18 14:06 Celexa PO Not Given TID ART Clopidogrel Bisulfate 75 mg 10/26/18 10:00 10/26/18 10:29 Plavix PO 75 mg QDAY ART Administration Cyanocobalamin 1,000 mcg 10/26/18 10:00 10/26/18 10:27 Vitamin B-12 PO 1,000 mcg QDAY ART Administration Dextrose 50 ml 10/25/18 19:55 D50w (25gm) Syringe IV PRN PRN Hypoglycemia Docusate Sodium 100 mg 10/25/18 22:00 10/26/18 13:29 Colace PO Not Given BID ART Duloxetine HCl 60 mg 10/26/18 10:00 10/26/18 10:00 Cymbalta PO 60 mg DAILY ART Administration Ferrous Sulfate 325 mg 10/26/18 10:00 10/26/18 10:29 Feosol PO 325 mg QDAY ART Administration Furosemide 40 mg 10/26/18 10:00 10/26/18 10:30 Lasix PO 40 mg QDAY ART Administration Gemfibrozil 600 mg 10/26/18 10:00 10/26/18 10:28 Lopid PO 600 mg QDAY ART Administration Dextrose/Sodium Chloride 1,000 mls @ 42 mls/hr 10/25/18 21:00 10/25/18 23:33 D5/0.45ns IV 42 mls/hr DIRECT ART Administration Ceftriaxone Sodium 2 gm in 100 mls @ 200 mls/hr 10/26/18 10:00 10/26/18 10:15 Rocephin/Ns 2 Gm/100 Ml IV 200 mls/hr Q24HR ART Administration Protocol Phenytoin 150 mg/ Sodium 53 mls @ 212 mls/hr 10/26/18 10:00 10/26/18 13:36 Chloride IV Infused Q24HR ART Infusion Lorazepam 2 mg 10/25/18 20:55 Ativan IV Q4H PRN Agitation, seizure Metoprolol Tartrate 50 mg 10/25/18 22:00 10/26/18 10:28 Lopressor PO 50 mg BID ART Administration Multivitamins 5 ml 10/26/18 10:00 10/26/18 14:02 Centrum Liq PO 5 ml QDAY ART Administration Ondansetron HCl 4 mg 10/25/18 19:55 Zofran IV Q8H PRN Nausea And Vomiting Potassium Chloride 20 meq 10/26/18 10:00 10/26/18 10:30 K-Dur PO 20 meq QDAY ART Administration Sodium Chloride 10 ml 10/25/18 22:00 10/26/18 10:32 Sodium Chloride Flush Syringe 10 Ml IV 10 ml BID ART Administration Sodium Chloride 10 ml 10/25/18 19:55 Sodium Chloride Flush Syringe 10 Ml IV PRN PRN LINE FLUSH Nutrition/Malnutrition Assess - Dietary Evaluation Nutrition/Malnutrition Findings: Nutrition Notes Start: 10/26/18 09:27 Freq: Status: Active Protocol: Document 10/26/18 09:27 NIECY (Rec: 10/26/18 10:02 NIECY [id number]) Co-Sign 10/26/18 09:27 NHALL Nutrition Notes Need for Assessment generated from: MD Order Initial or Follow up Assessment Current Diagnosis Diabetes,Hypertension,Heart Failure,Stroke Other Pertinent Diagnosis Encephalopathy, Dementia, COPD Current Diet Cardiac consistent CHO diet Labs/Tests Reviewed Pertinent Medications Lasix Height 5 ft 5 in Weight 102.9 kg [place] Body Weight (kg) 56.81 BMI 37.7 Weight Status Obese Subjective/Other Information RD consult for malnutrition. Pt was unable to answer assessment questions, secondary to drowsiness. Breakfast was not touched. Percent of energy/protein needs met: 0%/0% Burn Absent Trauma Absent Minimum of two criteria No #1 Nutrition Diagnosis Predicted suboptimal energy intake Etiology Seizures, AMS As Evidenced by Signs and Symptoms 0% intake of food Is patient on ventilator? No Is Patient Ambulatory and/or Out of Bed No REE-([facility]-confined to bed) 1918.476 Kcal/Kg value to use for calculation 14 Approximate Energy Requirements Using 1441 kcal/Kg Calculation Used for Recommendations Kcal/kg Additional Notes Protein needs: 63-79g/kg adjBW (0.8-1g/kg) Fluid needs: 1ml/kcal Nutrition Intervention Change Diet Order: Continue current Add Supplement/Snack (indicate name/kcal Glucerna 1 daily /protein ) Provides kCal: 220 Provides Protein (gm) 19 Goal #1 Meet at least 75% of energy and protein needs via po intake Anticipated Discharge Needs: Cardiac CHO controlled diet Follow-Up By: 10/28/18 Additional Comments F/U for po and ONS intakes
--- NOTE | 2018-10-26 18:00 | Consultation ---
History of Present Illness Consult date: 10/26/18 Reason for Consult: Seizure Chief complaint: Seizure History of present illness: Patient is a 63 y/o woman w/ a h/o seizures, h/o DVT on anti-coagulation, lupus, HTN, DM, CHF, h/o CVA w/ residual right sided weakness, asthma, COPD, history of colon mass s/p hemocolectomy. Patient presented yesterday after having a seizure at home. Per the patient's sister, the patient was convulsing for about 30-45 minutes. At baseline, the patient lives with her sister, and she is her primary caregiver. Per sister, she has been taking all of her medications, and has not missed any doses of dilantin. She takes dilantin 150mg in AM and 200mg in PM. On arrival in ER, patient was found to have glucose of 20, elevated lactic acid, and WBC of 14.8. 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 Patient also walks with a walker at baseline. Past History Past Medical History: COPD (Asthma), diabetes, DVT (s/p ivc filter on ac with Eliquis), heart failure (EF 55-60%), hypertension, seizures, stroke (rt sided residual weakness), other (colon mass) Past Surgical History: hysterectomy, Other (rt hemicolectomy, ) Social history: lives with family. denies: smoking Family history: no significant family history Medications and Allergies Allergies Allergy/AdvReac Type Severity Reaction Status Date / Time Penicillins Allergy Unknown Verified 11/10/14 21:41 Peas Allergy Swelling Uncoded 07/01/16 12:21 Home Medications Medication Instructions Recorded Confirmed Last Taken Type AtorvaSTATin [Lipitor] 20 mg PO QDAY #30 tablet 07/09/16 10/25/18 10/25/18 Rx Citalopram [celeXA] 10 mg PO TID 10/29/16 10/25/18 10/25/18 History Carvedilol [Coreg] 3.125 mg PO BID 10/01/18 10/25/18 10/25/18 History Clopidogrel [Plavix] 75 mg PO QDAY #30 tablet 10/19/18 10/25/18 10/25/18 Rx DULoxetine [Cymbalta] 60 mg PO QDAY #30 capsule 10/19/18 10/25/18 10/25/18 Rx Docusate Sodium [Colace ORAL LIQ] 100 mg PO BID #30 oral.liqd 10/19/18 10/25/18 10/25/18 Rx Furosemide [Lasix TAB] 40 mg PO QDAY #60 tablet 10/19/18 10/25/18 10/25/18 Rx Gemfibrozil [Lopid] 600 mg PO QDAY #30 tablet 10/19/18 10/25/18 10/25/18 Rx Insulin Glargine [Lantus VIAL] 10 units SUB-Q QHS #5 pen 10/19/18 10/25/18 10/24/18 Rx Lispro Insulin [HumaLOG] 5 unit SUB-Q ACHS #5 pen 10/19/18 10/25/18 10/24/18 Rx Metformin HCl [Glucophage] 1,000 mg PO BID #60 tablet 10/19/18 10/25/18 10/25/18 Rx Metoprolol [Lopressor TAB] 50 mg PO BID #60 tablet 10/19/18 10/25/18 10/25/18 Rx Morphine ER [Ms Contin ER] 15 mg PO Q12HR #20 tablet 10/19/18 10/25/18 10/25/18 Rx Multivitamins Liq [Multiple 5 ml PO QDAY oral.liqd 10/19/18 10/25/18 10/25/18 Rx Vitamin Liq (Theragran)] Phenytoin [Dilantin] 150 mg PO QAM #30 tab 10/19/18 10/25/18 10/25/18 Rx Potassium Chloride [K-Dur] 20 meq PO QDAY #30 tablet 10/19/18 10/25/18 10/25/18 Rx predniSONE [Deltasone] 5 mg PO Q48HR 30 Days #16 tablet 10/19/18 10/25/18 10/25/18 Rx Apixaban [Eliquis] 5 mg PO BID #360 tablet 10/23/18 10/25/18 10/25/18 Rx Apixaban [Eliquis] 10 mg PO BID #14 tablet 10/23/18 10/25/18 10/25/18 Rx Cyanocobalamin [Vitamin B-12] 1,000 mcg PO QDAY #30 tablet 10/23/18 10/25/18 10/25/18 Rx Ferrous Sulfate [Feosol 325 MG tab] 325 mg PO QDAY #30 tablet 10/23/18 10/25/18 10/25/18 Rx Citalopram [celeXA] 10 mg PO TID 10/25/18 10/25/18 10/25/18 History DULoxetine [Cymbalta] 60 mg PO QDAY 10/25/18 10/25/18 10/25/18 History Docusate Sodium 30 mg PO BID 10/25/18 10/25/18 10/25/18 History Duloxetine HCl [Cymbalta] 60 mg PO DAILY 10/25/18 10/25/18 10/25/18 History Furosemide [Lasix TAB] 40 mg PO QDAY 10/25/18 10/25/18 10/25/18 History Gemfibrozil [Lopid] 600 mg PO DAILY 10/25/18 10/25/18 10/25/18 History Insulin Glargine [Lantus] 10 unit SUB-Q QHS 10/25/18 10/25/18 10/24/18 History Lispro Insulin [HumaLOG] 5 unit SQ QACHS 10/25/18 10/25/18 10/25/18 History Metformin HCl [metFORMIN] 1,000 mg PO BID 10/25/18 10/25/18 10/25/18 History Metoprolol [Lopressor TAB] 50 mg PO TID 10/25/18 10/25/18 10/25/18 History Morphine [Morphine TAB] 15 mg PO BID 10/25/18 10/25/18 10/25/18 History Phenytoin [Dilantin] 100 mg PO DAILY 10/25/18 10/25/18 10/25/18 History Potassium Chloride [K-Dur] 20 meq PO DAILY 10/25/18 10/25/18 10/25/18 History Prednisone [predniSONE 5 mg (6-Day 5 mg PO .TAPER 10/25/18 10/25/18 10/25/18 History Pack, 21 Tabs)] Active Meds: Active Medications Acetaminophen (Tylenol) 650 mg PO Q4H PRN PRN Reason: Pain MILD(1-3)/Fever >100.5/LUIS Albuterol (Proventil) 2.5 mg IH Q4HRT PRN PRN Reason: Shortness Of Breath Apixaban (Eliquis) 5 mg PO BID [facility]; Protocol Last Admin: 10/26/18 10:30 Dose: 5 mg Documented by: Atorvastatin Calcium (Lipitor) 20 mg PO QDAY [facility] [place] Last Admin: 10/26/18 10:29 Dose: 20 mg Documented by: Citalopram Hydrobromide (Celexa) 10 mg PO TID [facility] [place] Last Admin: 10/26/18 14:06 Dose: Not Given Documented by: Clopidogrel Bisulfate (Plavix) 75 mg PO QDAY [facility] [place] Last Admin: 10/26/18 10:29 Dose: 75 mg Documented by: Cyanocobalamin (Vitamin B-12) 1,000 mcg PO QDAY [facility] [place] Last Admin: 10/26/18 10:27 Dose: 1,000 mcg Documented by: Dextrose (D50w (25gm) Syringe) 50 ml IV PRN PRN PRN Reason: Hypoglycemia Docusate Sodium (Colace) 100 mg PO BID [facility] Last Admin: 10/26/18 13:29 Dose: Not Given Documented by: Duloxetine HCl (Cymbalta) 60 mg PO DAILY [facility] [place] Last Admin: 10/26/18 10:00 Dose: 60 mg Documented by: Ferrous Sulfate (Feosol) 325 mg PO QDAY [facility] [place] Last Admin: 10/26/18 10:29 Dose: 325 mg Documented by: Furosemide (Lasix) 40 mg PO QDAY [facility] [place] Last Admin: 10/26/18 10:30 Dose: 40 mg Documented by: Gemfibrozil (Lopid) 600 mg PO QDAY [facility] [place] Last Admin: 10/26/18 10:28 Dose: 600 mg Documented by: Dextrose/Sodium Chloride (D5/0.45ns) 1,000 mls @ 42 mls/hr IV DIRECT [facility] Last Admin: 10/25/18 23:33 Dose: 42 mls/hr Documented by: Ceftriaxone Sodium (Rocephin/Ns 2 Gm/100 Ml) 2 gm in 100 mls @ 200 mls/hr IV Q24HR [facility] [place]; Protocol Last Admin: 10/26/18 10:15 Dose: 200 mls/hr Documented by: Phenytoin 150 mg/ Sodium (Chloride) 53 mls @ 212 mls/hr IV Q24HR [facility] [place] Last Infusion: 10/26/18 13:36 Dose: Infused Documented by: Lorazepam (Ativan) 2 mg IV Q4H PRN PRN Reason: Agitation, seizure Metoprolol Tartrate (Lopressor) 50 mg PO BID [facility] [place] Last Admin: 10/26/18 10:28 Dose: 50 mg Documented by: Multivitamins (Centrum Liq) 5 ml PO QDAY [facility] [place] Last Admin: 10/26/18 14:02 Dose: 5 ml Documented by: Ondansetron HCl (Zofran) 4 mg IV Q8H PRN PRN Reason: Nausea And Vomiting Potassium Chloride (K-Dur) 20 meq PO QDAY [facility] [place] Last Admin: 10/26/18 10:30 Dose: 20 meq Documented by: Sodium Chloride (Sodium Chloride Flush Syringe 10 Ml) 10 ml IV BID [facility] [place] Last Admin: 10/26/18 10:32 Dose: 10 ml Documented by: Sodium Chloride (Sodium Chloride Flush Syringe 10 Ml) 10 ml IV PRN PRN PRN Reason: LINE FLUSH Review of Systems All systems: negative Neurological: convulsions Physical Examination - Vital Signs Vital Signs: Vital Signs Resp Pulse Ox 16 97 10/25/18 16:15 10/25/18 16:15 - Physical Exam Narrative exam: Patient awake, alert, oriented to name, age, location. Patient able to follow two-step commands intermittently. Patient noted to have contracture and right upper extremity, which is patient's baseline. Right upper extremity strength 0- 5, right lower extremity strength to out of 5, left upper extremity 5 out of 5, left lower extremity 4-5. Visual aparicio full to confrontation, pupils equal, round, reactive to light, no facial droop noted, bilaterally intact to light touch and pinprick on the face, tongue midline. Patient has decreased sensations on the right upper extremity to light touch, intact sensations on the left upper and lower extremity and right lower extremity. Increased reflexes 3+ on the right upper and lower extremity, 2+ reflexes on the left upper and lower extremity. - Constitutional General appearance: comfortable - EENT EENT: Present: ATNC, PERRL, mucous membranes moist, hearing intact, vision intact - Respiratory Respiratory: Present: lungs clear, normal breath sounds - Cardiovascular Cardiovascular: Present: regular rate, normal S1, normal S2 Extremities: Present: no peripheral edema bilatateraly, no clubbing, cyanosis - Gastrointestinal Gastrointestinal: Present: normoactive bowel sounds, soft, non-tender - Integumentary Integumentary: Present: normal - Neurologic Cranial nerve examination: PERRL, EOMI, VFF, V1/V2/V3 grossly intact, face symmetric, tongue midline - Musculoskeletal Musculoskeletal: Present: no fluid collection, no pain - Psychiatric Psychiatric: Present: mood/affect appropriate Results - Laboratory Findings CBC and BMP: 10/25/18 17:48 10/25/18 17:48 Abnormal Lab Findings: Abnormal Labs 10/25/18 10/25/18 10/25/18 16:06 16:17 16:31 WBC Hgb MCV MCH RDW Plt Count Seg Neuts % (Manual) Lymphocytes % (Manual) Seg Neutrophils # Man Lymphocytes # (Manual) PT INR Potassium BUN Glucose POC Glucose < 40 L < 40 L 286 H Lactic Acid Calcium Alkaline Phosphatase Albumin Urine WBC (Auto) Salicylates Acetaminophen 10/25/18 10/25/18 10/25/18 17:48 17:48 17:48 WBC 14.8 H Hgb 9.7 L MCV 73 L MCH 22 L RDW 29.9 H Plt Count 451 H Seg Neuts % (Manual) 87.0 H Lymphocytes % (Manual) 6.0 L Seg Neutrophils # Man 12.9 H Lymphocytes # (Manual) 0.9 L PT INR Potassium 3.5 L BUN 3 L Glucose 128 H POC Glucose Lactic Acid 2.20 H* Calcium 8.3 L Alkaline Phosphatase 159 H Albumin 2.7 L Urine WBC (Auto) Salicylates Acetaminophen 10/25/18 10/25/18 10/25/18 17:48 17:48 18:13 WBC Hgb MCV MCH RDW Plt Count Seg Neuts % (Manual) Lymphocytes % (Manual) Seg Neutrophils # Man Lymphocytes # (Manual) PT 16.0 H INR 1.31 H Potassium BUN Glucose POC Glucose Lactic Acid Calcium Alkaline Phosphatase Albumin Urine WBC (Auto) Salicylates < 0.3 L Acetaminophen < 5.0 L 10/25/18 10/25/18 10/25/18 19:08 19:08 20:29 WBC Hgb MCV MCH RDW Plt Count Seg Neuts % (Manual) Lymphocytes % (Manual) Seg Neutrophils # Man Lymphocytes # (Manual) PT 16.0 H INR 1.31 H Potassium BUN Glucose POC Glucose Lactic Acid 2.60 H* 2.30 H* Calcium Alkaline Phosphatase Albumin Urine WBC (Auto) Salicylates Acetaminophen 10/26/18 10/26/18 10/26/18 09:30 10:27 11:34 WBC Hgb MCV MCH RDW Plt Count Seg Neuts % (Manual) Lymphocytes % (Manual) Seg Neutrophils # Man Lymphocytes # (Manual) PT INR Potassium BUN Glucose POC Glucose 143 H 196 H Lactic Acid Calcium Alkaline Phosphatase Albumin Urine WBC (Auto) 87.0 H Salicylates Acetaminophen 10/26/18 16:08 WBC Hgb MCV MCH RDW Plt Count Seg Neuts % (Manual) Lymphocytes % (Manual) Seg Neutrophils # Man Lymphocytes # (Manual) PT INR Potassium BUN Glucose POC Glucose 126 H Lactic Acid Calcium Alkaline Phosphatase Albumin Urine WBC (Auto) Salicylates Acetaminophen Assessment and Plan Patient is a 63 y/o woman w/ a h/o seizures, h/o DVT on anti-coagulation, lupus, HTN, DM, CHF, h/o CVA w/ residual right sided weakness, asthma, COPD, history of colon mass s/p hemocolectomy, who p/w a seizure, and was found to have hypoglycemia. Plan: 1. Seizure: - Likely occurred in setting of hypoglycemia, infection. - Will continue patient's home dose of dilantin of 150mg in AM and 200mg in PM - Check EEG - Check dilantin level 2. Metabolic encephalopathy: - Likely due to UTI, as UA showed increased WBC and large LE - continue to workup and treat leukocytosis, elevated lactic acid, and UTI per primary team. - Will continue to monitor patient. - Thank you for allowing me to take part in the care of this patient. Emigdio Shea MD Neurology
[2018-10-27] MEDS: D5/0.45NS 1,000 ML IV SCH (07:30)
[2018-10-27 08:38] LABS: Hematocrit 29.3 % (30.3-42.9); Hemoglobin 9.1 gm/dl (10.1-14.3); Mean Corpuscular HGB Conc 31 % (30-34); Mean Corpuscular Volume 73 fl (79-97); Platelet Count 458 K/mm3 (140-440); Red Blood Count 4.02 M/mm3 (3.65-5.03)
--- NOTE | 2018-10-27 08:52 | Progress Note ---
Assessment and Plan Assessment and plan: 63-year-old -[place] female with history of GI disorder, left lower extremity DVT on anticoagulation, lupus, hypertension, diabetes, CHF, CVA with right-sided residual weakness, asthma, COPD, colon mass s/p hemicolectomy (09/2018) presents to [facility] ED via EMS with complaints of seizure for 45 minutes and hypoglycemia. --Metabolic encephalopathy; present on admission Multifactorial, probably secondary to severe hypoglycemia With regard to seizures, postictal state Mild improvement, supportive care --Status epilepticus; probably secondary to severe hypoglycemia However patient has history of seizures on Dilantin, received Keppra in the ED Seizure precautions, Ativan as needed, resume Dilantin Follow neurology evaluation,EEG --History of seizure disorder:on Dilantin at home Resume Dilantin, check levels Follow Neurology consult --Large posterior fossa meningioma significantly changed since 2011. Follow neurology evaluation and recommendations --History of CVA Right side residual weakness PT/OT eval/treatment pending --Hypoglycemia Insulin, closely monitor blood sugars Accu-Chek sliding scale coverage ADA diet, and D10 infusion if no improvement --Lactic acidosis/leukocytosis Empiric antibiotics follow cultures --Hypertension ; Continue current antihypertensives and when necessary medications --History of left lower extremity DVT Status post IVC filter (2014),Continue Eliquis --History of recent colon mass excision s/p right hemicolectomy 10/14/18 Supportive care, surgery consult if needed --Hypokalemia Corrected, monitor electrolytes --Moderate to severe malnutrition -Albumin 2.7, nutrition supplements, nutrition consult --DVT PPX; continue Eliquis. --DC planning per case management Possible placement subacute versus SNF Plan of care is reviewed with the caregiver who is patient's sister at the bedside Monitor closely and adjust management as needed History Interval history: Patient seen and examined medical records reviewed Patient is more alert and awake today No new episodes of seizure Blood sugars labile Possible placement when stable Hospitalist Physical - Constitutional Vitals: Temp Pulse Resp BP Pulse Ox 98.6 F 91 H 18 163/73 96 10/27/18 07:22 10/27/18 08:48 10/27/18 07:22 10/27/18 07:22 10/27/18 08:48 General appearance: Present: no acute distress, well-nourished, obese, other - EENT Eyes: Present: PERRL, EOM intact - Neck Neck: Present: supple, normal ROM - Respiratory Respiratory effort: normal Respiratory: bilateral: diminished, negative: rales, rhonchi, wheezing - Cardiovascular Rhythm: regular Heart Sounds: Present: S1 & S2 - Extremities Extremities: no ischemia, No edema - Abdominal General gastrointestinal: soft, non-tender, non-distended, normal bowel sounds - Integumentary Integumentary: Present: clear, warm - Psychiatric Psychiatric: cooperative, other (confused at times) - Neurologic Neurologic: other (residual weakness) Results - Labs CBC & Chem 7: 10/27/18 08:15 10/27/18 08:15 Labs: Laboratory Last Values WBC 14.8 K/mm3 (4.5-11.0) H 10/25/18 17:48 RBC 4.33 M/mm3 (3.65-5.03) 10/25/18 17:48 Hgb 9.7 gm/dl (10.1-14.3) L 10/25/18 17:48 Hct 31.4 % (30.3-42.9) 10/25/18 17:48 MCV 73 fl (79-97) L 10/25/18 17:48 MCH 22 pg (28-32) L 10/25/18 17:48 MCHC 31 % (30-34) 10/25/18 17:48 RDW 29.9 % (13.2-15.2) H 10/25/18 17:48 Plt Count 451 K/mm3 (140-440) H 10/25/18 17:48 Add Manual Diff Complete 10/25/18 17:48 Total Counted 100 10/25/18 17:48 Seg Neutrophils % [employer] Agent 10/25/18 17:48 Seg Neuts % (Manual) 87.0 % (40.0-70.0) H 10/25/18 17:48 0 % 10/25/18 17:48 6.0 % (13.4-35.0) L 10/25/18 17:48 Reactive Lymphs % (Man) 0 % 10/25/18 17:48 5.0 % (0.0-7.3) 10/25/18 17:48 2.0 % (0.0-4.3) 10/25/18 17:48 0 % (0.0-1.8) 10/25/18 17:48 0 % 10/25/18 17:48 0 % 10/25/18 17:48 0 % 10/25/18 17:48 0 % 10/25/18 17:48 Nucleated RBC % Not Reportable 10/25/18 17:48 Seg Neutrophils # Man 12.9 K/mm3 (1.8-7.7) H 10/25/18 17:48 Band Neutrophils # 0.0 K/mm3 10/25/18 17:48 0.9 K/mm3 (1.2-5.4) L 10/25/18 17:48 Abs React Lymphs (Man) 0.0 K/mm3 10/25/18 17:48 0.7 K/mm3 (0.0-0.8) 10/25/18 17:48 0.3 K/mm3 (0.0-0.4) 10/25/18 17:48 0.0 K/mm3 (0.0-0.1) 10/25/18 17:48 0.0 K/mm3 10/25/18 17:48 0.0 K/mm3 10/25/18 17:48 0.0 K/mm3 10/25/18 17:48 Blast Cells # 0.0 K/mm3 10/25/18 17:48 WBC Morphology Not Reportable 10/25/18 17:48 Hypersegmented Neuts Not Reportable 10/25/18 17:48 Hyposegmented Neuts Not Reportable 10/25/18 17:48 Hypogranular Neuts Not Reportable 10/25/18 17:48 Not Reportable 10/25/18 17:48 Not Reportable 10/25/18 17:48 Not Reportable 10/25/18 17:48 Not Reportable 10/25/18 17:48 Not Reportable 10/25/18 17:48 Not Reportable 10/25/18 17:48 Not Reportable 10/25/18 17:48 Not Reportable 10/25/18 17:48 Plt Clumps, EDTA Not Reportable 10/25/18 17:48 Not Reportable 10/25/18 17:48 Not Reportable 10/25/18 17:48 Not Reportable 10/25/18 17:48 Plt Morphology Comment Not Reportable 10/25/18 17:48 RBC Morphology Not Reportable 10/25/18 17:48 Dimorphic RBCs Not Reportable 10/25/18 17:48 Not Reportable 10/25/18 17:48 2+ 10/25/18 17:48 Not Reportable 10/25/18 17:48 2+ 10/25/18 17:48 Not Reportable 10/25/18 17:48 Not Reportable 10/25/18 17:48 Not Reportable 10/25/18 17:48 Not Reportable 10/25/18 17:48 Not Reportable 10/25/18 17:48 Not Reportable 10/25/18 17:48 Not Reportable 10/25/18 17:48 Not Reportable 10/25/18 17:48 Not Reportable 10/25/18 17:48 Not Reportable 10/25/18 17:48 Not Reportable 10/25/18 17:48 Not Reportable 10/25/18 17:48 Not Reportable 10/25/18 17:48 Not Reportable 10/25/18 17:48 Not Reportable 10/25/18 17:48 Acanthocytes (Spur) Not Reportable 10/25/18 17:48 Rouleaux Not Reportable 10/25/18 17:48 Not Reportable 10/25/18 17:48 Not Reportable 10/25/18 17:48 Not Reportable 10/25/18 17:48 Not Reportable 10/25/18 17:48 Hem Pathologist Commnt No 10/25/18 17:48 PT 16.0 Sec. (12.2-14.9) H 10/25/18 19:08 INR 1.31 (0.87-1.13) H 10/25/18 19:08 APTT 32.0 Sec. (24.2-36.6) 10/25/18 18:13 Sodium 141 mmol/L (137-145) 10/25/18 17:48 Potassium 3.5 mmol/L (3.6-5.0) L 10/25/18 17:48 Chloride 102.3 mmol/L (98-107) 10/25/18 17:48 Carbon Dioxide 25 mmol/L (22-30) 10/25/18 17:48 17 mmol/L 10/25/18 17:48 BUN 3 mg/dL (7-17) L 10/25/18 17:48 0.7 mg/dL (0.7-1.2) 10/25/18 17:48 Estimated GFR > 60 ml/min 10/25/18 17:48 4 % 10/25/18 17:48 Glucose 128 mg/dL (65-100) H 10/25/18 17:48 POC Glucose 106 (70-105) H 10/27/18 07:26 5.4 % (4-6) 10/25/18 17:48 Lactic Acid 1.20 mmol/L (0.7-2.0) 10/25/18 23:09 Calcium 8.3 mg/dL (8.4-10.2) L 10/25/18 17:48 0.20 mg/dL (0.1-1.2) 10/25/18 17:48 AST 13 units/L (5-40) 10/25/18 17:48 ALT 10 units/L (7-56) 10/25/18 17:48 159 units/L (35-129) H 10/25/18 17:48 36.0 umol/L (25-60) 10/25/18 17:48 < 0.010 ng/mL (0.00-0.029) 10/25/18 17:48 6.6 g/dL (6.3-8.2) 10/25/18 17:48 2.7 g/dL (3.9-5) L 10/25/18 17:48 0.7 % 10/25/18 17:48 TSH 1.850 mlU/mL (0.270-4.200) 10/25/18 17:48 Yellow (Yellow) 10/26/18 09:30 Slightly-cloudy (Clear) 10/26/18 09:30 6.0 (5.0-7.0) 10/26/18 09:30 Ur Specific Carney 1.015 (1.003-1.030) 10/26/18 09:30 <15 mg/dl mg/dL (Negative) 10/26/18 09:30 Neg mg/dL (Negative) 10/26/18 09:30 Tr mg/dL (Negative) 10/26/18 09:30 Sm (Negative) 10/26/18 09:30 Pos (Negative) 10/26/18 09:30 Neg (Negative) 10/26/18 09:30 < 2.0 mg/dL (<2.0) 10/26/18 09:30 Ur Leukocyte Esterase Lg (Negative) 10/26/18 09:30 87.0 /HPF (0.0-6.0) H 10/26/18 09:30 4.0 /HPF (0.0-6.0) 10/26/18 09:30 U Epithel Cells (Auto) 1.0 /HPF (0-13.0) 10/26/18 09:30 Salicylates < 0.3 mg/dL (2.8-20.0) L 10/25/18 17:48 Presumptive positive 10/26/18 09:30 Presumptive negative 10/26/18 09:30 Acetaminophen < 5.0 ug/mL (10.0-30.0) L 10/25/18 17:48 Ur Barbiturates Screen Presumptive negative 10/26/18 09:30 Ur Phencyclidine Scrn Presumptive negative 10/26/18 09:30 Ur Amphetamines Screen Presumptive negative 10/26/18 09:30 U Benzodiazepines Scrn Presumptive negative 10/26/18 09:30 Presumptive negative 10/26/18 09:30 U Marijuana (THC) Screen Presumptive negative 10/26/18 09:30 Disclamer 10/26/18 09:30 Plasma/Serum Alcohol < 0.01 % (0-0.07) 10/25/18 17:48 Active Medications - Current Medications Current Medications: Generic Name Dose Route Start Last Admin Trade Name Freq PRN Reason Stop Dose Admin Acetaminophen 650 mg 10/25/18 19:55 Tylenol PO Q4H PRN Pain MILD(1-3)/Fever >100.5/LUIS Albuterol 2.5 mg 10/25/18 21:37 Proventil IH Q4HRT PRN Shortness Of Breath Apixaban 5 mg 10/25/18 22:00 10/26/18 22:23 Eliquis PO 5 mg BID ART Administration Protocol Atorvastatin Calcium 20 mg 10/26/18 10:00 10/26/18 10:29 Lipitor PO 20 mg QDAY ART Administration Citalopram Hydrobromide 10 mg 10/25/18 20:00 10/26/18 20:45 Celexa PO 10 mg TID ART Administration Clopidogrel Bisulfate 75 mg 10/26/18 10:00 10/26/18 10:29 Plavix PO 75 mg QDAY ART Administration Cyanocobalamin 1,000 mcg 10/26/18 10:00 10/26/18 10:27 Vitamin B-12 PO 1,000 mcg QDAY ART Administration Dextrose 50 ml 10/25/18 19:55 D50w (25gm) Syringe IV PRN PRN Hypoglycemia Docusate Sodium 100 mg 10/26/18 23:15 10/26/18 22:23 Colace PO 100 mg BID ART Administration Duloxetine HCl 60 mg 10/26/18 10:00 10/26/18 10:00 Cymbalta PO 60 mg DAILY ART Administration Ferrous Sulfate 325 mg 10/26/18 10:00 10/26/18 10:29 Feosol PO 325 mg QDAY ART Administration Furosemide 40 mg 10/26/18 10:00 10/26/18 10:30 Lasix PO 40 mg QDAY ART Administration Gemfibrozil 600 mg 10/26/18 10:00 10/26/18 10:28 Lopid PO 600 mg QDAY ART Administration Dextrose/Sodium Chloride 1,000 mls @ 42 mls/hr 10/25/18 21:00 10/27/18 07:30 D5/0.45ns IV 42 mls/hr DIRECT ART Administration Ceftriaxone Sodium 2 gm in 100 mls @ 200 mls/hr 10/26/18 10:00 10/26/18 10:15 Rocephin/Ns 2 Gm/100 Ml IV 200 mls/hr Q24HR ART Administration Protocol Lorazepam 2 mg 10/25/18 20:55 Ativan IV Q4H PRN Agitation, seizure Metoprolol Tartrate 50 mg 10/25/18 22:00 10/26/18 22:23 Lopressor PO 50 mg BID ART Administration Multivitamins 5 ml 10/26/18 10:00 10/26/18 14:02 Centrum Liq PO 5 ml QDAY ART Administration Ondansetron HCl 4 mg 10/25/18 19:55 Zofran IV Q8H PRN Nausea And Vomiting Phenytoin 200 mg 10/27/18 18:00 Dilantin PO QPM ART Phenytoin 150 mg 10/27/18 10:00 Dilantin PO QAM ART Potassium Chloride 20 meq 10/26/18 10:00 10/26/18 10:30 K-Dur PO 20 meq QDAY ART Administration Sodium Chloride 10 ml 10/25/18 22:00 10/26/18 22:24 Sodium Chloride Flush Syringe 10 Ml IV 10 ml BID ART Administration Sodium Chloride 10 ml 10/25/18 19:55 Sodium Chloride Flush Syringe 10 Ml IV PRN PRN LINE FLUSH Nutrition/Malnutrition Assess - Dietary Evaluation Nutrition/Malnutrition Findings: Nutrition Notes Start: 10/26/18 09:27 Freq: Status: Active Protocol: Document 10/26/18 09:27 NIECY (Rec: 10/26/18 10:02 NIECY [id number]) Co-Sign 10/26/18 09:27 NHALL Nutrition Notes Need for Assessment generated from: MD Order Initial or Follow up Assessment Current Diagnosis Diabetes,Hypertension,Heart Failure,Stroke Other Pertinent Diagnosis Encephalopathy, Dementia, COPD Current Diet Cardiac consistent CHO diet Labs/Tests Reviewed Pertinent Medications Lasix Height 5 ft 5 in Weight 102.9 kg [place] Body Weight (kg) 56.81 BMI 37.7 Weight Status Obese Subjective/Other Information RD consult for malnutrition. Pt was unable to answer assessment questions, secondary to drowsiness. Breakfast was not touched. Percent of energy/protein needs met: 0%/0% Burn Absent Trauma Absent Minimum of two criteria No #1 Nutrition Diagnosis Predicted suboptimal energy intake Etiology Seizures, AMS As Evidenced by Signs and Symptoms 0% intake of food Is patient on ventilator? No Is Patient Ambulatory and/or Out of Bed No REE-([place]-confined to bed) [phone] Kcal/Kg value to use for calculation 14 Approximate Energy Requirements Using 1441 kcal/Kg Calculation Used for Recommendations Kcal/kg Additional Notes Protein needs: 63-79g/kg adjBW (0.8-1g/kg) Fluid needs: 1ml/kcal Nutrition Intervention Change Diet Order: Continue current Add Supplement/Snack (indicate name/kcal Glucerna 1 daily /protein ) Provides kCal: 220 Provides Protein (gm) 19 Goal #1 Meet at least 75% of energy and protein needs via po intake Anticipated Discharge Needs: Cardiac CHO controlled diet Follow-Up By: 10/28/18 Additional Comments F/U for po and ONS intakes
[2018-10-27 08:53] LABS: Red Cell Distribution Width 29.7 % (13.2-15.2)
[2018-10-27 08:56] LABS: BUN/Creatinine Ratio 5; Blood Urea Nitrogen 3 mg/dL (7-17); Calcium 7.9 mg/dL (8.4-10.2); Hemolysis Index 18
[2018-10-27] MEDS: Centrum Liq PO SCH (09:42)
[2018-10-27] MEDS: celeXA PO SCH ×3 (09:43→21:45)
[2018-10-27] MEDS: ROCEPHIN/NS 2 GM/100 ML 2 GM/100 ML BAG IV SCH (09:44)
[2018-10-27] MEDS: FEOSOL PO SCH (09:44)
[2018-10-27] MEDS: VITAMIN B-12 PO SCH (09:44)
[2018-10-27] MEDS: CYMBALTA PO SCH (09:44)
[2018-10-27] MEDS: K-DUR PO SCH (09:46)
[2018-10-27] MEDS: LOPID PO SCH (09:46)
[2018-10-27] MEDS: PLAVIX PO SCH (09:46)
[2018-10-27 09:47] LABS: Anisocytosis 2+; Band Neutrophils # (Manual) 0.1 K/mm3; Basophils % (Manual) 0 % (0.0-1.8); Hypochromasia 1+; Large Platelets Rare; Platelet Estimate Consistent w Auto; Total Cells Counted 100
[2018-10-27] MEDS: LASIX PO SCH (09:47)
[2018-10-27] MEDS: LOPRESSOR PO SCH ×2 (09:47→21:45)
[2018-10-27] MEDS: COLACE PO SCH ×2 (09:47→21:45)
[2018-10-27] MEDS: ELIQUIS PO SCH ×2 (09:47→21:45)
[2018-10-27] MEDS: SODIUM CHLORIDE FLUSH SYRINGE 10 ML IV SCH ×2 (09:48→21:48)
[2018-10-27] MEDS: DILANTIN PO SCH (09:48)
[2018-10-27] MEDS ORDERED: DILANTIN IV SCH (10:00)
[2018-10-27] MEDS ORDERED: NACL 0.9% IV SCH (10:00)
--- NOTE | 2018-10-27 15:59 | Progress Note ---
Assessment and Plan Patient is a 63 y/o woman w/ a h/o seizures, h/o DVT on anti-coagulation, lupus, HTN, DM, CHF, h/o CVA w/ residual right sided weakness, asthma, COPD, history of colon mass s/p hemocolectomy, who p/w a seizure, and was found to have hypogly cemia. Plan: 1. Seizure: - Likely occurred in setting of hypoglycemia, infection. - Will continue patient's home dose of dilantin of 150mg in AM and 200mg in PM - Check EEG- final report pending, however no seizures noted on initial review. - Check dilantin level 2. Metabolic encephalopathy: - Likely due to UTI, as UA showed increased WBC and large LE - continue to workup and treat leukocytosis, elevated lactic acid, and UTI per primary team. - Will continue to monitor patient. - Thank you for allowing me to take part in the care of this patient. Emigdio Shea MD Neurology Subjective Date of service: 10/27/18 Principal diagnosis: Seizure Interval history: No acute events overnight. Objective - Exam Narrative Exam: Patient awake, alert, oriented to name, age, location. Patient able to follow two-step commands intermittently. Patient noted to have contracture and right upper extremity, which is patient's baseline. Right upper extremity strength 0- 5, right lower extremity strength to out of 5, left upper extremity 5 out of 5, left lower extremity 4-5. Visual aparicio full to confrontation, pupils equal, round, reactive to light, no facial droop noted, bilaterally intact to light touch and pinprick on the face, tongue midline. Patient has decreased sensations on the right upper extremity to light touch, intact sensations on the left upper and lower extremity and right lower extremity. Increased reflexes 3+ on the right upper and lower extremity, 2+ reflexes on the left upper and lower extremity. - Vital Sign Vital Signs - 12hr 10/27/18 10/27/18 10/27/18 07:00 07:22 08:48 Temperature 98.6 F Pulse Rate 94 H Pulse Rate [ 91 H Apical] Respiratory 18 Rate Blood Pressure 163/73 O2 Sat by Pulse 96 Oximetry 10/27/18 09:47 Temperature Pulse Rate 91 H Pulse Rate [ Apical] Respiratory Rate Blood Pressure 163/73 O2 Sat by Pulse Oximetry - General Apperance Constitutional: comfortable - EENT EENT: ATNC, PERRL, mucous membranes moist, hearing intact, vision intact - Respiratory Respiratory: lungs clear, normal breath sounds - Cardiovascular Cardiovascular: regular rate, normal S1, normal S2 Extremities: no peripheral edema bilat, no clubbing, cyanosis - Gastrointestinal Gastrointestinal: normoactive bowel sounds, soft, non-tender - Integumentary Integumentary: normal - Laboratory Findings CBC and BMP: 10/27/18 08:15 10/27/18 08:15 Abnormal Lab Findings: Abnormal Labs 10/25/18 10/25/18 10/25/18 16:06 16:17 16:31 WBC Hgb Hct MCV MCH RDW Plt Count Seg Neuts % (Manual) Lymphocytes % (Manual) Seg Neutrophils # Man Lymphocytes # (Manual) PT INR Potassium BUN Creatinine Glucose POC Glucose < 40 L < 40 L 286 H Lactic Acid Calcium Alkaline Phosphatase Albumin Urine WBC (Auto) Salicylates Acetaminophen Phenytoin 10/25/18 10/25/18 10/25/18 17:48 17:48 17:48 WBC 14.8 H Hgb 9.7 L Hct MCV 73 L MCH 22 L RDW 29.9 H Plt Count 451 H Seg Neuts % (Manual) 87.0 H Lymphocytes % (Manual) 6.0 L Seg Neutrophils # Man 12.9 H Lymphocytes # (Manual) 0.9 L PT INR Potassium 3.5 L BUN 3 L Creatinine Glucose 128 H POC Glucose Lactic Acid 2.20 H* Calcium 8.3 L Alkaline Phosphatase 159 H Albumin 2.7 L Urine WBC (Auto) Salicylates Acetaminophen Phenytoin 10/25/18 10/25/18 10/25/18 17:48 17:48 18:13 WBC Hgb Hct MCV MCH RDW Plt Count Seg Neuts % (Manual) Lymphocytes % (Manual) Seg Neutrophils # Man Lymphocytes # (Manual) PT 16.0 H INR 1.31 H Potassium BUN Creatinine Glucose POC Glucose Lactic Acid Calcium Alkaline Phosphatase Albumin Urine WBC (Auto) Salicylates < 0.3 L Acetaminophen < 5.0 L Phenytoin 10/25/18 10/25/18 10/25/18 19:08 19:08 20:29 WBC Hgb Hct MCV MCH RDW Plt Count Seg Neuts % (Manual) Lymphocytes % (Manual) Seg Neutrophils # Man Lymphocytes # (Manual) PT 16.0 H INR 1.31 H Potassium BUN Creatinine Glucose POC Glucose Lactic Acid 2.60 H* 2.30 H* Calcium Alkaline Phosphatase Albumin Urine WBC (Auto) Salicylates Acetaminophen Phenytoin 10/26/18 10/26/18 10/26/18 09:30 10:27 11:34 WBC Hgb Hct MCV MCH RDW Plt Count Seg Neuts % (Manual) Lymphocytes % (Manual) Seg Neutrophils # Man Lymphocytes # (Manual) PT INR Potassium BUN Creatinine Glucose POC Glucose 143 H 196 H Lactic Acid Calcium Alkaline Phosphatase Albumin Urine WBC (Auto) 87.0 H Salicylates Acetaminophen Phenytoin 10/26/18 10/26/18 10/27/18 16:08 20:24 07:26 WBC Hgb Hct MCV MCH RDW Plt Count Seg Neuts % (Manual) Lymphocytes % (Manual) Seg Neutrophils # Man Lymphocytes # (Manual) PT INR Potassium BUN Creatinine Glucose POC Glucose 126 H 164 H 106 H Lactic Acid Calcium Alkaline Phosphatase Albumin Urine WBC (Auto) Salicylates Acetaminophen Phenytoin 10/27/18 10/27/18 10/27/18 08:15 08:15 08:15 WBC Hgb 9.1 L Hct 29.3 L MCV 73 L MCH 23 L RDW 29.7 H Plt Count 458 H Seg Neuts % (Manual) 91.0 H Lymphocytes % (Manual) 5.0 L Seg Neutrophils # Man 8.1 H Lymphocytes # (Manual) 0.4 L PT INR Potassium BUN 3 L Creatinine 0.6 L Glucose 127 H POC Glucose Lactic Acid Calcium 7.9 L Alkaline Phosphatase Albumin Urine WBC (Auto) Salicylates Acetaminophen Phenytoin 2.4 L 10/27/18 11:44 WBC Hgb Hct MCV MCH RDW Plt Count Seg Neuts % (Manual) Lymphocytes % (Manual) Seg Neutrophils # Man Lymphocytes # (Manual) PT INR Potassium BUN Creatinine Glucose POC Glucose 122 H Lactic Acid Calcium Alkaline Phosphatase Albumin Urine WBC (Auto) Salicylates Acetaminophen Phenytoin
--- NOTE | 2018-10-27 16:58 | Electroencephalogram Report ---
Electroencephalogram EEG Date of exam: 10/27/18 History: Patient is a 63 y/o woman w/ a h/o seizures, h/o DVT on anti-coagulation, lupus, HTN, DM, CHF, h/o CVA w/ residual right sided weakness, asthma, COPD, history of colon mass s/p hemocolectomy, who p/w a seizure, and was found to have hypoglycemia. Description: Description: DESCRIPTION OF THE PROCEDURE: Electrodes were applied using Paste technique in positions dictated by International 10-20 system of placement. In addition to EEG data EKG and eye movements were recorded. DESCRIPTION OF ACTIVITY: At the onset of this recording, the patient is lying supine. In the background we note a 6-7 Hz theta activity that has an amplitude ranging 20-30uV. Additional low voltage rhythmic delta activity occurs at the anterior head regions bilaterally. There are no asymmetries in amplitude or frequency between hemispheres. There is significant muscle and movement artifact noted during EEG. Intermittent photic stimulation was not performed. Hyperventilation was not performed. EEG Impression: 1) Generalized slowing. 2) No seizures or epileptiform discharges CLINICAL INTERPRETATION: This routine video EEG, performed is abnormal secondary to above findings and is consistent with bi-hemispheric dysfunction and encephalopathy. The above described finding of diffuse slowing is etiologically non-specific and similar findings have been reported in cases of toxic, metabolic, hypoxic ischemic, infectious, medication, sleep deprivation, dementia,post-ictal state, and other causes of diffuse and multifocal encephalopathy.
[2018-10-27] MEDS ORDERED: DILANTIN PO SCH (18:00)
[2018-10-28] MEDS: DILANTIN PO SCH ×2 (09:56→22:53)
[2018-10-28] MEDS: CYMBALTA PO SCH (09:57)
[2018-10-28] MEDS: COLACE PO SCH ×2 (09:57→22:54)
[2018-10-28] MEDS: PLAVIX PO SCH (09:57)
[2018-10-28] MEDS: FEOSOL PO SCH (09:57)
[2018-10-28] MEDS: ELIQUIS PO SCH ×2 (09:57→22:53)
[2018-10-28] MEDS: VITAMIN B-12 PO SCH (09:57)
[2018-10-28] MEDS: LOPID PO SCH (09:58)
[2018-10-28] MEDS: K-DUR PO SCH (09:58)
[2018-10-28] MEDS: LASIX PO SCH (09:58)
[2018-10-28] MEDS: celeXA PO SCH ×3 (09:58→22:53)
[2018-10-28] MEDS: ROCEPHIN/NS 2 GM/100 ML 2 GM/100 ML BAG IV SCH (09:59)
[2018-10-28] MEDS: Centrum Liq PO SCH (09:59)
[2018-10-28] MEDS: LOPRESSOR PO SCH ×2 (09:59→22:59)
[2018-10-28] MEDS: SODIUM CHLORIDE FLUSH SYRINGE 10 ML IV SCH ×2 (10:01→22:58)
--- NOTE | 2018-10-28 10:35 | Progress Note ---
Assessment and Plan Patient is a 63 y/o woman w/ a h/o seizures, h/o DVT on anti-coagulation, lupus, HTN, DM, CHF, h/o CVA w/ residual right sided weakness, asthma, COPD, history of colon mass s/p hemocolectomy, who p/w a seizure, and was found to have hypogly cemia. Plan: 1. Seizure: - Likely occurred in setting of hypoglycemia, infection. - As phenytoin level was low, may be due to non-compliance. WIll increase dilantin to 200mg in AM and 200mg in PM - EEG: generalized slowing. No seizures or epileptiform activity noted. 2. Metabolic encephalopathy: - Mental status slowly improving. - Likely due to UTI, as UA showed increased WBC and large LE - continue to workup and treat leukocytosis, elevated lactic acid, and UTI per primary team. - Will continue to monitor patient. - Thank you for allowing me to take part in the care of this patient. Emigdio Shea MD Neurology Subjective Date of service: 10/28/18 Principal diagnosis: Seizure Interval history: No acute events overnight. Mental status noted to be somewhat improved today. Objective - Exam Narrative Exam: Patient awake, alert, oriented to name, age, location, minus year/month. Patient able to follow two-step commands intermittently. Patient noted to have contracture and right upper extremity, which is patient's baseline. Right upper extremity strength 0-5, right lower extremity strength to out of 5, left upper extremity 5 out of 5, left lower extremity 4-5. Visual aparicio full to confrontation, pupils equal, round, reactive to light, no facial droop noted, bilaterally intact to light touch and pinprick on the face, tongue midline. Patient has decreased sensations on the right upper extremity to light touch, intact sensations on the left upper and lower extremity and right lower extremity. Increased reflexes 3+ on the right upper and lower extremity, 2+ reflexes on the left upper and lower extremity. - Vital Signs Vital signs: Vital Signs - 12hr 10/27/18 10/27/18 10/28/18 23:00 23:46 04:05 Temperature 98.7 F 99.0 F Pulse Rate 89 94 H 86 Respiratory 18 18 Rate Blood Pressure 139/81 130/72 O2 Sat by Pulse 100 100 Oximetry 10/28/18 05:19 Temperature Pulse Rate 87 Respiratory Rate Blood Pressure O2 Sat by Pulse Oximetry - General Appearance General appearance: well-nourished, appears stated age EENT: ATNC, PERRL, mucous membranes moist, hearing intact, vision intact Neck: supple Respiratory: Present: Clear to Ascultation Cardiology: regular, normal heart rate, S1S2 Gastrointestinal: normal, normoactive bowel sounds Integumentary: no rash, warm and dry - Lab 10/27/18 08:15 10/27/18 08:15 Most recent lab results Calcium 7.9 mg/dL (8.4-10.2) L 10/27/18 08:15 Medications & Allergies - Medications Allergies/Adverse Reactions: Allergies Penicillins Allergy (Verified 11/10/14 21:41) Unknown Peas Allergy (Uncoded 07/01/16 12:21) Swelling Home Medications: Home Medications Medication Instructions Recorded Confirmed Last Taken Type AtorvaSTATin [Lipitor] 20 mg PO QDAY #30 tablet 07/09/16 10/25/18 10/25/18 Rx Citalopram [celeXA] 10 mg PO TID 10/29/16 10/25/18 10/25/18 History Carvedilol [Coreg] 3.125 mg PO BID 10/01/18 10/25/18 10/25/18 History Clopidogrel [Plavix] 75 mg PO QDAY #30 tablet 10/19/18 10/25/18 10/25/18 Rx DULoxetine [Cymbalta] 60 mg PO QDAY #30 capsule 10/19/18 10/25/18 10/25/18 Rx Docusate Sodium [Colace ORAL LIQ] 100 mg PO BID #30 oral.liqd 10/19/18 10/25/18 10/25/18 Rx Furosemide [Lasix TAB] 40 mg PO QDAY #60 tablet 10/19/18 10/25/18 10/25/18 Rx Gemfibrozil [Lopid] 600 mg PO QDAY #30 tablet 10/19/18 10/25/18 10/25/18 Rx Insulin Glargine [Lantus VIAL] 10 units SUB-Q QHS #5 pen 10/19/18 10/25/18 09/10/04 Rx Lispro Insulin [HumaLOG] 5 unit SUB-Q ACHS #5 pen 09/05/0410/25/18 10/24/18 Rx Metformin HCl [Glucophage] 1,000 mg PO BID #60 tablet 10/19/18 10/25/18 10/25/18 Rx Metoprolol [Lopressor TAB] 50 mg PO BID #60 tablet 10/19/18 10/25/18 10/25/18 Rx Morphine ER [Ms Contin ER] 15 mg PO Q12HR #20 tablet 10/19/18 10/25/18 10/25/18 Rx Multivitamins Liq [Multiple 5 ml PO QDAY oral.liqd 10/19/18 10/25/18 10/25/18 Rx Vitamin Liq (Theragran)] Phenytoin [Dilantin] 150 mg PO QAM #30 tab 10/19/18 10/25/18 10/25/18 Rx Potassium Chloride [K-Dur] 20 meq PO QDAY #30 tablet 10/19/18 10/25/18 10/25/18 Rx predniSONE [Deltasone] 5 mg PO Q48HR 30 Days #16 tablet 10/19/18 10/25/1810/25 Rx Apixaban [Eliquis] 5 mg PO BID #360 tablet 10/23/18 10/25/18 10/25/18 Rx Apixaban [Eliquis] 10 mg PO BID #14 tablet 10/23/18 10/25/18 10/25/18 Rx Cyanocobalamin [Vitamin B-12] 1,000 mcg PO QDAY #30 tablet 10/23/18 10/25/18 10/25/18 Rx Ferrous Sulfate [Feosol 325 MG tab] 325 mg PO QDAY #30 tablet 10/23/18 10/25/18 10/25/18 Rx Citalopram [celeXA] 10 mg PO TID 10/25/18 10/25/18 10/25/18 History DULoxetine [Cymbalta] 60 mg PO QDAY 10/25/18 10/25/18 10/25/18 History Docusate Sodium 30 mg PO BID 10/25/18 10/25/18 10/25/18 History Duloxetine HCl [Cymbalta] 60 mg PO DAILY 10/25/18 10/25/18 10/25/18 History Furosemide [Lasix TAB] 40 mg PO QDAY 10/25/18 10/25/18 10/25/18 History Gemfibrozil [Lopid] 600 mg PO DAILY 10/25/18 10/25/18 10/25/18 History Insulin Glargine [Lantus] 10 unit SUB-Q QHS 10/25/18 10/25/18 10/24/18 History Lispro Insulin [HumaLOG] 5 unit SQ QACHS 10/25/18 10/25/18 10/25/18 History Metformin HCl [metFORMIN] 1,000 mg PO BID 10/25/18 10/25/18 10/25/18 History Metoprolol [Lopressor TAB] 50 mg PO TID 10/25/18 10/25/18 10/25/18 History Morphine [Morphine TAB] 15 mg PO BID 10/25/18 10/25/18 10/25/18 History Phenytoin [Dilantin] 100 mg PO DAILY 10/25/18 10/25/18 10/25/18 History Potassium Chloride [K-Dur] 20 meq PO DAILY 10/25/18 10/25/18 10/25/18 History Prednisone [predniSONE 5 mg (6-Day 5 mg PO .TAPER 10/25/18 10/25/18 10/25/18 Hi story Pack, 21 Tabs)] Active Medications: Generic Name Dose Route Start Last Admin Trade Name Freq PRN Reason Stop Dose Admin Acetaminophen 650 mg 10/25/18 19:55 Tylenol PO Q4H PRN Pain MILD(1-3)/Fever >100.5/LUIS Albuterol 2.5 mg 10/25/18 21:37 Proventil IH Q4HRT PRN Shortness Of Breath Apixaban 5 mg 10/25/18 22:00 10/28/18 09:57 Eliquis PO 5 mg BID ART Administration Protocol Atorvastatin Calcium 20 mg 10/26/18 10:00 10/28/18 09:57 Lipitor PO 20 mg QDAY ATR Administration Citalopram Hydrobromide 10 mg 10/25/18 20:00 10/28/18 09:58 Celexa PO 10 mg TID ART Administration Clopidogrel Bisulfate 75 mg 10/26/18 10:00 10/28/18 09:57 Plavix PO 75 mg QDAY ART Administration Cyanocobalamin 1,000 mcg 10/26/18 10:00 10/28/18 09:57 Vitamin B-12 PO 1,000 mcg QDAY ART Administration Dextrose 50 ml 10/25/18 19:55 D50w (25gm) Syringe IV PRN PRN Hypoglycemia Docusate Sodium 100 mg 10/26/18 23:15 10/28/18 09:57 Colace PO 100 mg BID ART Administration Duloxetine HCl 60 mg 10/26/18 10:00 10/28/18 09:57 Cymbalta PO 60 mg DAILY ART Administration Ferrous Sulfate 325 mg 10/26/18 10:00 10/28/18 09:57 Feosol PO 325 mg QDAY ART Administration Furosemide 40 mg 10/26/18 10:00 10/28/18 09:58 Lasix PO 40 mg QDAY ART Administration Gemfibrozil 600 mg 10/26/18 10:00 10/28/18 09:58 Lopid PO 600 mg QDAY ART Administration Dextrose/Sodium Chloride 1,000 mls @ 42 mls/hr 10/25/18 21:00 10/27/18 07:30 D5/0.45ns IV 42 mls/hr DIRECT ART Administration Ceftriaxone Sodium 2 gm in 100 mls @ 200 mls/hr 10/26/18 10:00 10/28/18 09:59 Rocephin/Ns 2 Gm/100 Ml IV 200 mls/hr Q24HR ART Administration Protocol Lorazepam 2 mg 10/25/18 20:55 Ativan IV Q4H PRN Agitation, seizure Metoprolol Tartrate 50 mg 10/25/18 22:00 10/28/18 09:59 Lopressor PO 50 mg BID ART Administration Multivitamins 5 ml 10/26/18 10:00 10/28/18 09:59 Centrum Liq PO 5 ml QDAY ART Administration Ondansetron HCl 4 mg 10/25/18 19:55 Zofran IV Q8H PRN Nausea And Vomiting Phenytoin 200 mg 10/27/18 18:00 10/27/18 17:33 Dilantin PO 200 mg QPM ART Administration Phenytoin 150 mg 10/27/18 10:00 10/28/18 09:56 Dilantin PO 150 mg QAM ART Administration Potassium Chloride 20 meq 10/26/18 10:00 10/28/18 09:58 K-Dur PO 20 meq QDAY ART Administration Sodium Chloride 10 ml 10/25/18 22:00 10/28/18 10:01 Sodium Chloride Flush Syringe 10 Ml IV 10 ml BID ART Administration Sodium Chloride 10 ml 10/25/18 19:55 Sodium Chloride Flush Syringe 10 Ml IV PRN PRN LINE FLUSH
[2018-10-28] MEDS ORDERED: DILANTIN PO SCH (12:00)
--- NOTE | 2018-10-28 19:05 | Progress Note ---
Assessment and Plan Assessment and plan: 63-year-old -[place] female with history of GI disorder, left lower extremity DVT on anticoagulation, lupus, hypertension, diabetes, CHF, CVA with right-sided residual weakness, asthma, COPD, colon mass s/p hemicolectomy (09/2018) presents to [facility] ED via EMS with complaints of seizure for 45 minutes and hypoglycemia. Urine cultures positive for Klebsiella, ID consult at Case management setting up SNF/subacute placement --Sepsis secondary to UTI/Klebsiella Continue current antibiotics, ID consultation Supportive care --Metabolic encephalopathy; present on admission Multifactorial, probably secondary to severe hypoglycemia With regard to seizures, postictal state Mild improvement, supportive care --Status epilepticus; probably secondary to severe hypoglycemia However patient has history of seizures on Dilantin, received Keppra in the ED Seizure precautions, Ativan as needed, resume Dilantin Follow neurology evaluation,EEG --History of seizure disorder:on Dilantin at home Resume Dilantin, check levels Follow Neurology consult --Large posterior fossa meningioma significantly changed since 2011. Follow neurology evaluation and recommendations --History of CVA: Right side residual weakness PT/OT eval/treatment pending --Hypoglycemia: Present on admission, resolved Insulin, closely monitor blood sugars Accu-Chek sliding scale coverage ADA diet, and D10 infusion if no improvement --Lactic acidosis/leukocytosis Empiric antibiotics follow cultures --Hypertension Continue current antihypertensives and when necessary medications --History of left lower extremity DVT Status post IVC filter (2014) Continue Eliquis --History of recent colon mass excision s/p right hemicolectomy 10/14/18 Supportive care, surgery consult if needed --Hypokalemia Corrected, monitor electrolytes --Moderate to severe malnutrition -Albumin 2.7, nutrition supplements, nutrition consult --DVT PPX; continue Eliquis. --DC planning per case management SNF /subacute placement tomorrow if stable Follow-up ID evaluation for choice of antibiotics and duration to treat UTI Plan of care is reviewed with the caregiver who is patient's sister at the bedside Monitor closely and adjust management as needed History Interval history: Patient seen and examined medical records reviewed Patient feels better no new complaints Blood sugars are reasonable control Awaiting placement Vital signs noted Hospitalist Physical - Constitutional Vitals: Temp Pulse Resp BP Pulse Ox 98.2 F 102 H 20 139/85 100 10/28/18 16:06 09/12/19 16:06 10/28/18 16:06 10/28/18 16:06 10/28/18 16:06 General appearance: Present: no acute distress, well-nourished, obese, other - EENT Eyes: Present: PERRL, EOM intact - Neck Neck: Present: supple, normal ROM - Respiratory Respiratory effort: normal Respiratory: bilateral: diminished, negative: rales, rhonchi, wheezing - Cardiovascular Rhythm: regular Heart Sounds: Present: S1 & S2 - Extremities Extremities: no ischemia, No edema - Abdominal General gastrointestinal: soft, non-tender, non-distended, normal bowel sounds - Integumentary Integumentary: Present: clear, warm - Psychiatric Psychiatric: appropriate mood/affect, cooperative - Neurologic Neurologic: CNII-XII intact, moves all extremities Results - Labs CBC & Chem 7: 10/27/18 08:15 10/27/18 08:15 Labs: Laboratory Last Values WBC 8.9 K/mm3 (4.5-11.0) 10/27/18 08:15 RBC 4.02 M/mm3 (3.65-5.03) 10/27/18 08:15 Hgb 9.1 gm/dl (10.1-14.3) L 10/27/18 08:15 Hct 29.3 % (30.3-42.9) L 10/27/18 08:15 MCV 73 fl (79-97) L 10/27/18 08:15 MCH 23 pg (28-32) L 10/27/18 08:15 MCHC 31 % (30-34) 10/27/18 08:15 RDW 29.7 % (13.2-15.2) H 10/27/18 08:15 Plt Count 458 K/mm3 (140-440) H 10/27/18 08:15 Add Manual Diff Complete 10/27/18 08:15 Total Counted 100 10/27/18 08:15 Seg Neutrophils % Area Captain 10/25/18 17:48 Seg Neuts % (Manual) 91.0 % (40.0-70.0) H 10/27/18 08:15 1.0 % 10/27/18 08:15 5.0 % (13.4-35.0) L 10/27/18 08:15 Reactive Lymphs % (Man) 0 % 10/27/18 08:15 1.0 % (0.0-7.3) 10/27/18 08:15 2.0 % (0.0-4.3) 10/27/18 08:15 0 % (0.0-1.8) 10/27/18 08:15 0 % 10/27/18 08:15 0 % 10/27/18 08:15 0 % 10/27/18 08:15 0 % 10/27/18 08:15 Nucleated RBC % Not Reportable 10/27/18 08:15 Seg Neutrophils # Man 8.1 K/mm3 (1.8-7.7) H 10/27/18 08:15 Band Neutrophils # 0.1 K/mm3 10/27/18 08:15 0.4 K/mm3 (1.2-5.4) L 10/27/18 08:15 Abs React Lymphs (Man) 0.0 K/mm3 10/27/18 08:15 0.1 K/mm3 (0.0-0.8) 10/27/18 08:15 0.2 K/mm3 (0.0-0.4) 10/27/18 08:15 0.0 K/mm3 (0.0-0.1) 10/27/18 08:15 0.0 K/mm3 10/27/18 08:15 0.0 K/mm3 10/27/18 08:15 0.0 K/mm3 10/27/18 08:15 Blast Cells # 0.0 K/mm3 10/27/18 08:15 WBC Morphology Not Reportable 10/27/18 08:15 Hypersegmented Neuts Not Reportable 10/27/18 08:15 Hyposegmented Neuts Not Reportable 10/27/18 08:15 Hypogranular Neuts Not Reportable 10/27/18 08:15 Not Reportable 10/27/18 08:15 Not Reportable 10/27/18 08:15 Not Reportable 10/27/18 08:15 Not Reportable 10/27/18 08:15 Not Reportable 10/27/18 08:15 Not Reportable 10/27/18 08:15 Consistent w auto 10/27/18 08:15 Not Reportable 10/27/18 08:15 Plt Clumps, EDTA Not Reportable 10/27/18 08:15 Rare 10/27/18 08:15 Not Reportable 10/27/18 08:15 Not Reportable 10/27/18 08:15 Plt Morphology Comment Not Reportable 10/27/18 08:15 RBC Morphology Not Reportable 10/27/18 08:15 Dimorphic RBCs Not Reportable 10/27/18 08:15 Not Reportable 10/27/18 08:15 1+ 10/27/18 08:15 Not Reportable 10/27/18 08:15 2+ 10/27/18 08:15 Not Reportable 10/27/18 08:15 Not Reportable 10/27/18 08:15 Not Reportable 10/27/18 08:15 Not Reportable 10/27/18 08:15 Not Reportable 10/27/18 08:15 Not Reportable 10/27/18 08:15 Not Reportable 10/27/18 08:15 Not Reportable 10/27/18 08:15 Not Reportable 10/27/18 08:15 Not Reportable 10/27/18 08:15 Not Reportable 10/27/18 08:15 Not Reportable 10/27/18 08:15 Not Reportable 10/27/18 08:15 Not Reportable 10/27/18 08:15 Not Reportable 10/27/18 08:15 Acanthocytes (Spur) Not Reportable 10/27/18 08:15 Rouleaux Not Reportable 10/27/18 08:15 Not Reportable 10/27/18 08:15 Not Reportable 10/27/18 08:15 Not Reportable 10/27/18 08:15 Not Reportable 10/27/18 08:15 Hem Pathologist Commnt No 10/27/18 08:15 PT 16.0 Sec. (12.2-14.9) H 10/25/18 19:08 INR 1.31 (0.87-1.13) H 10/25/18 19:08 APTT 32.0 Sec. (24.2-36.6) 10/25/18 18:13 Sodium 139 mmol/L (137-145) 10/27/18 08:15 Potassium 4.3 mmol/L (3.6-5.0) D 10/27/18 08:15 Chloride 102.9 mmol/L (98-107) 10/27/18 08:15 Carbon Dioxide 25 mmol/L (22-30) 10/27/18 08:15 15 mmol/L 10/27/18 08:15 BUN 3 mg/dL (7-17) L 10/27/18 08:15 0.6 mg/dL (0.7-1.2) L 10/27/18 08:15 Estimated GFR > 60 ml/min 10/27/18 08:15 5 % 10/27/18 08:15 Glucose 127 mg/dL (65-100) H 10/27/18 08:15 POC Glucose 201 (70-105) H 10/28/18 16:12 5.4 % (4-6) 10/25/18 17:48 Lactic Acid 1.20 mmol/L (0.7-2.0) 10/25/18 23:09 Calcium 7.9 mg/dL (8.4-10.2) L 10/27/18 08:15 0.20 mg/dL (0.1-1.2) 10/25/18 17:48 AST 13 units/L (5-40) 10/25/18 17:48 ALT 10 units/L (7-56) 10/25/18 17:48 159 units/L (35-129) H 10/25/18 17:48 36.0 umol/L (25-60) 10/25/18 17:48 < 0.010 ng/mL (0.00-0.029) 10/25/18 17:48 6.6 g/dL (6.3-8.2) 10/25/18 17:48 2.7 g/dL (3.9-5) L 10/25/18 17:48 0.7 % 10/25/18 17:48 TSH 1.850 mlU/mL (0.270-4.200) 10/25/18 17:48 Yellow (Yellow) 10/26/18 09:30 Slightly-cloudy (Clear) 10/26/18 09:30 6.0 (5.0-7.0) 10/26/18 09:30 Ur Specific [place] 1.015 (1.003-1.030) 10/26/18 09:30 <15 mg/dl mg/dL (Negative) 10/26/18 09:30 Neg mg/dL (Negative) 10/26/18 09:30 Tr mg/dL (Negative) 10/26/18 09:30 Sm (Negative) 10/26/18 09:30 Pos (Negative) 10/26/18 09:30 Neg (Negative) 10/26/18 09:30 < 2.0 mg/dL (<2.0) 10/26/18 09:30 Ur Leukocyte Esterase Lg (Negative) 10/26/18 09:30 87.0 /HPF (0.0-6.0) H 10/26/18 09:30 4.0 /HPF (0.0-6.0) 10/26/18 09:30 U Epithel Cells (Auto) 1.0 /HPF (0-13.0) 10/26/18 09:30 Salicylates < 0.3 mg/dL (2.8-20.0) L 10/25/18 17:48 Presumptive positive 10/26/18 09:30 Presumptive negative 10/26/18 09:30 Acetaminophen < 5.0 ug/mL (10.0-30.0) L 10/25/18 17:48 Ur Barbiturates Screen Presumptive negative 10/26/18 09:30 Phenytoin 2.4 ug/mL (10.0-20.0) L 10/27/18 08:15 Ur Phencyclidine Scrn Presumptive negative 10/26/18 09:30 Ur Amphetamines Screen Presumptive negative 10/26/18 09:30 U Benzodiazepines Scrn Presumptive negative 10/26/18 09:30 Presumptive negative 10/26/18 09:30 U Marijuana (THC) Screen Presumptive negative 10/26/18 09:30 Disclamer 10/26/18 09:30 Plasma/Serum Alcohol < 0.01 % (0-0.07) 10/25/18 17:48 Active Medications - Current Medications Current Medications: Generic Name Dose Route Start Last Admin Trade Name Freq PRN Reason Stop Dose Admin Acetaminophen 650 mg 10/25/18 19:55 Tylenol PO Q4H PRN Pain MILD(1-3)/Fever >100.5/LUIS Albuterol 2.5 mg 10/25/18 21:37 Proventil IH Q4HRT PRN Shortness Of Breath Apixaban 5 mg 10/25/18 22:00 10/28/18 09:57 Eliquis PO 5 mg BID ART Administration Protocol Atorvastatin Calcium 20 mg 10/26/18 10:00 10/28/18 09:57 Lipitor PO 20 mg QDAY ART Administration Citalopram Hydrobromide 10 mg 10/25/18 20:00 10/28/18 14:11 Celexa PO 10 mg TID ART Administration Clopidogrel Bisulfate 75 mg 10/26/18 10:00 10/28/18 09:57 Plavix PO 75 mg QDAY ART Administration Cyanocobalamin 1,000 mcg 10/26/18 10:00 10/28/18 09:57 Vitamin B-12 PO 1,000 mcg QDAY ART Administration Dextrose 50 ml 10/25/18 19:55 D50w (25gm) Syringe IV PRN PRN Hypoglycemia Docusate Sodium 100 mg 10/26/18 23:15 10/28/18 09:57 Colace PO 100 mg BID ART Administration Duloxetine HCl 60 mg 10/26/18 10:00 10/28/18 09:57 Cymbalta PO 60 mg DAILY ART Administration Ferrous Sulfate 325 mg 10/26/18 10:00 10/28/18 09:57 Feosol PO 325 mg QDAY ART Administration Furosemide 40 mg 10/26/18 10:00 10/28/18 09:58 Lasix PO 40 mg QDAY ART Administration Gemfibrozil 600 mg 10/26/18 10:00 10/28/18 09:58 Lopid PO 600 mg QDAY ART Administration Dextrose/Sodium Chloride 1,000 mls @ 42 mls/hr 10/25/18 21:00 10/27/18 07:30 D5/0.45ns IV 42 mls/hr DIRECT ART Administration Ceftriaxone Sodium 2 gm in 100 mls @ 200 mls/hr 10/26/18 10:00 10/28/18 09:59 Rocephin/Ns 2 Gm/100 Ml IV 200 mls/hr Q24HR ART Administration Protocol Lorazepam 2 mg 10/25/18 20:55 Ativan IV Q4H PRN Agitation, seizure Metoprolol Tartrate 50 mg 10/25/18 22:00 10/28/18 09:59 Lopressor PO 50 mg BID ART Administration Multivitamins 5 ml 10/26/18 10:00 10/28/18 09:59 Centrum Liq PO 5 ml QDAY ART Administration Ondansetron HCl 4 mg 10/25/18 19:55 Zofran IV Q8H PRN Nausea And Vomiting Phenytoin 200 mg 10/28/18 22:00 Dilantin PO Q12HR ART Potassium Chloride 20 meq 10/26/18 10:00 10/28/18 09:58 K-Dur PO 20 meq QDAY ART Administration Sodium Chloride 10 ml 10/25/18 22:00 10/28/18 10:01 Sodium Chloride Flush Syringe 10 Ml IV 10 ml BID ART Administration Sodium Chloride 10 ml 10/25/18 19:55 Sodium Chloride Flush Syringe 10 Ml IV PRN PRN LINE FLUSH Nutrition/Malnutrition Assess - Dietary Evaluation Nutrition/Malnutrition Findings: Nutrition Notes Start: 10/26/18 09:27 Freq: Status: Active Protocol: Document 10/28/18 12:08 RS (Rec: 10/28/18 13:06 RS [id number]) Co-Sign 10/28/18 12:08 RM Nutrition Notes 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 Pt was unable to accurately answer questions regarding intake d/t dementia/confusion. Tech was asked about intake and reports pt eats 100% of her meals and drinks glucerna daily. Percent of energy/protein needs met: 114%/ 100% Burn Absent Trauma Absent #1 Nutrition Diagnosis Predicted suboptimal energy intake As Evidenced by Signs and Symptoms Pt meeting 114% of kcal needs and 100% of protein needs Diagnosis Progress(for reassessment Resolved documentation) Is patient on ventilator? No Is Patient Ambulatory and/or Out of Bed No REE-([facility]-confined to bed) 1919.676 Kcal/Kg value to use for calculation 14 Approximate Energy Requirements Using 1442 kcal/Kg Calculation Used for Recommendations Kcal/kg Additional Notes Protein needs: 96-120g/kg adjBW (1.2-1.5/kg) Fluid needs: 1ml/kcal Nutrition Intervention Change Diet Order: Continue current Add Supplement/Snack (indicate name/kcal d/c Glucerna /protein ) Goal #1 Continue to meet at least 75% of energy and protein needs via po intake Anticipated Discharge Needs: Cardiac CHO controlled diet Revisit per MD consult or patient Sign Off request:
[2018-10-29 00:27] VITALS: BP 135/75
[2018-10-29] MEDS: celeXA PO SCH (09:15)
[2018-10-29] MEDS: DILANTIN PO SCH (09:15)
[2018-10-29] MEDS: VITAMIN B-12 PO SCH (09:15)
[2018-10-29] MEDS: PLAVIX PO SCH (09:16)
[2018-10-29] MEDS: CYMBALTA PO SCH (09:16)
[2018-10-29] MEDS: FEOSOL PO SCH (09:17)
[2018-10-29] MEDS: LASIX PO SCH (09:17)
[2018-10-29] MEDS: ELIQUIS PO SCH (09:17)
[2018-10-29] MEDS: COLACE PO SCH (09:17)
[2018-10-29] MEDS: LOPID PO SCH (09:17)
[2018-10-29] MEDS: Centrum Liq PO SCH (09:18)
[2018-10-29] MEDS: K-DUR PO SCH (09:19)
[2018-10-29] MEDS: ROCEPHIN/NS 2 GM/100 ML 2 GM/100 ML BAG IV SCH (09:19)
[2018-10-29] MEDS: LOPRESSOR PO SCH (09:20)
--- NOTE | 2018-10-29 11:04 | Consultation ---
History of Present Illness - Reason for Consult Consult date: 10/29/18 - History of Present Illness 63 yo F PMHx GI disorder, LLE DVT on AC, lupus, HTN, DM2, CHF, CVA. COPD, colon mass s/p 09/2018 hemicolectomy admitted to hospital with seizure and hypoglycemia. She was with her home health nurse when the seizure began and was reportedly ongoing for approximately 45 minutes before termination. EMS was then called and she was found to be severely hypoglycemic and given several ampules of D50. Prior to this episode she was in her normal state of health. During her most recent admission she was treated for sepsis with potential etiology of multiple dental abscesses with Augmentin. She tolerated that well despite her history of penicillin allergy. Afebrile since admission with tachycardia and a white count that peaked at 14.8. She is currently receiving ceftriaxone. 10/25 BCx NGTD. 10/25 UCx with Klebsiella pneumoniaen which is mostly sensitive. Imaging personally reviewed: CXR: normal CTA chest: Ascites, stable lymph nodes. Review of systems: Bold if positive; otherwise negative GENERAL: fever, chills, weight loss, fatigue, night sweats EYES: blurry vision, eye pain HENT: headache, hearing loss, sore throat, dysphagia, sinus pain CARDIO: chest pain, palpitations, orthopnea PULM: shortness of breath, wheezing, cough, sputum, hemoptysis GI: nausea, vomiting, diarrhea, abdominal pain, blood in stool : urinary frequency, urgency, dysuria, urethral discharge MSK: joint pain, back pain, swelling SKIN: rash, redness HEME: easy bruising, bleeding Past History Past Medical History: COPD (Asthma), diabetes, DVT (s/p ivc filter on ac with Eliquis), heart failure (EF 55-60%), hypertension, seizures, stroke (rt sided residual weakness), other (colon mass) Past Surgical History: hysterectomy, Other (rt hemicolectomy, ) Social history: lives with family. denies: smoking Family history: no significant family history Medications and Allergies Allergies Allergy/AdvReac Type Severity Reaction Status Date / Time Penicillins Allergy Unknown Verified 11/10/14 21:41 Peas Allergy Swelling Uncoded 07/01/16 12:21 Home Medications Medication Instructions Recorded Confirmed Last Taken Type AtorvaSTATin [Lipitor] 20 mg PO QDAY #30 tablet 07/09/16 10/25/18 10/25/18 Rx Citalopram [celeXA] 10 mg PO TID 10/29/16 10/25/18 10/25/18 History Clopidogrel [Plavix] 75 mg PO QDAY #30 tablet 10/19/18 10/25/18 10/25/18 Rx Docusate Sodium [Colace ORAL LIQ] 100 mg PO BID #30 oral.liqd 10/19/18 10/25/18 10/25/18 Rx Furosemide [Lasix TAB] 40 mg PO QDAY #60 tablet 10/19/18 10/25/18 10/25/18 Rx Gemfibrozil [Lopid] 600 mg PO QDAY #30 tablet 10/19/18 10/25/18 10/25/18 Rx Metoprolol [Lopressor TAB] 50 mg PO BID #60 tablet 10/19/18 10/25/18 10/25/18 Rx Multivitamins Liq [Multiple 5 ml PO QDAY oral.liqd 10/19/18 10/25/18 10/25/18 Rx Vitamin Liq (Theragran)] Potassium Chloride [K-Dur] 20 meq PO QDAY #30 tablet 10/19/18 10/25/18 10/25/18 Rx Apixaban [Eliquis] 5 mg PO BID #360 tablet 10/23/18 10/25/18 10/25/18 Rx Cyanocobalamin [Vitamin B-12] 1,000 mcg PO QDAY #30 tablet 10/23/18 10/25/18 10/25/18 Rx Ferrous Sulfate [Feosol 325 MG tab] 325 mg PO QDAY #30 tablet 10/23/18 10/25/18 10/25/18 Rx Duloxetine HCl [Cymbalta] 60 mg PO DAILY 10/25/18 10/25/18 10/25/18 History Phenytoin [Dilantin] 200 mg PO Q12HR capsule.er 10/29/18 Unknown Rx Active Meds: Active Medications Acetaminophen (Tylenol) 650 mg PO Q4H PRN PRN Reason: Pain MILD(1-3)/Fever >100.5/LUIS Albuterol (Proventil) 2.5 mg IH Q4HRT PRN PRN Reason: Shortness Of Breath Apixaban (Eliquis) 5 mg PO BID [facility]; Protocol Last Admin: 10/29/18 09:17 Dose: 5 mg Documented by: Atorvastatin Calcium (Lipitor) 20 mg PO QDAY [facility] Last Admin: 10/29/18 09:17 Dose: 20 mg Documented by: Citalopram Hydrobromide (Celexa) 10 mg PO TID [facility] Last Admin: 10/29/18 09:15 Dose: 10 mg Documented by: Clopidogrel Bisulfate (Plavix) 75 mg PO QDAY [facility] Last Admin: 10/29/18 09:16 Dose: 75 mg Documented by: Cyanocobalamin (Vitamin B-12) 1,000 mcg PO QDAY [facility] Last Admin: 10/29/18 09:15 Dose: 1,000 mcg Documented by: Dextrose (D50w (25gm) Syringe) 50 ml IV PRN PRN PRN Reason: Hypoglycemia Docusate Sodium (Colace) 100 mg PO BID [facility] Last Admin: 10/29/18 09:17 Dose: 100 mg Documented by: Duloxetine HCl (Cymbalta) 60 mg PO DAILY [facility] Last Admin: 10/29/18 09:16 Dose: 60 mg Documented by: Ferrous Sulfate (Feosol) 325 mg PO QDAY [facility] Last Admin: 10/29/18 09:17 Dose: 325 mg Documented by: Furosemide (Lasix) 40 mg PO QDAY [facility] Last Admin: 10/29/18 09:17 Dose: 40 mg Documented by: Gemfibrozil (Lopid) 600 mg PO QDAY [facility] Last Admin: 10/29/18 09:17 Dose: 600 mg Documented by: Dextrose/Sodium Chloride (D5/0.45ns) 1,000 mls @ 42 mls/hr IV DIRECT [facility] Last Admin: 10/27/18 07:30 Dose: 42 mls/hr Documented by: Ceftriaxone Sodium (Rocephin/Ns 2 Gm/100 Ml) 2 gm in 100 mls @ 200 mls/hr IV Q24HR [facility]; Protocol Last Admin: 10/29/18 09:19 Dose: 200 mls/hr Documented by: Lorazepam (Ativan) 2 mg IV Q4H PRN PRN Reason: Agitation, seizure Metoprolol Tartrate (Lopressor) 50 mg PO BID [facility] Last Admin: 10/29/18 09:20 Dose: 50 mg Documented by: Multivitamins (Centrum Liq) 5 ml PO QDAY [facility] Last Admin: 10/29/18 09:18 Dose: 5 ml Documented by: Ondansetron HCl (Zofran) 4 mg IV Q8H PRN PRN Reason: Nausea And Vomiting Phenytoin (Dilantin) 200 mg PO Q12HR [facility] Last Admin: 10/29/18 09:15 Dose: 200 mg Documented by: Potassium Chloride (K-Dur) 20 meq PO QDAY [facility] Last Admin: 10/29/18 09:19 Dose: 20 meq Documented by: Sodium Chloride (Sodium Chloride Flush Syringe 10 Ml) 10 ml IV BID [facility] Last Admin: 10/28/18 22:58 Dose: 10 ml Documented by: Sodium Chloride (Sodium Chloride Flush Syringe 10 Ml) 10 ml IV PRN PRN PRN Reason: LINE FLUSH Physical Examination - Physical Exam Narrative exam: General Normal appearance, well developed, no acute distress Eyes - PERRLA, EOM intact ENT - Moist mucous membranes, no lymphadenopathy Neck - No noticeable or palpable swelling, redness or rash around throat or on face Lymph Nodes - No lymphadenopathy Cardiovascular - RRR no m/r/g, no JVD, no carotid bruits Lungs - Clear to auscultation, no use of accessory muscles, no crackles or wheezes. Skin - No rashes, skin warm and dry, no erythematous areas Abdomen - Normal bowel sounds, abdomen soft and nontender Extremities - No edema, cyanosis or clubbing Musculoskeletal - 5/5 strength, normal range of motion, no swollen or erythematous joints. Neurological Alert and oriented x 3, CN 2-12 grossly intact. - Constitutional Vitals: Vital Signs Temp Pulse Resp BP Pulse Ox 98.0 F 107 H 20 135/75 100 10/28/18 23:55 10/29/18 04:52 10/28/18 23:55 10/28/18 23:55 10/28/18 23:55 Temperature -Last 24 Hours Temperature 98.0 F Temperature 98.2 F Temperature 98.6 F Results - Labs CBC & Chem 7: 10/27/18 08:15 10/27/18 08:15 Labs: Abnormal lab results 10/28/18 10/28/18 10/28/18 Range/Units 11:57 16:12 23:00 POC Glucose 177 H 201 H 184 H (70-105) 10/29/18 Range/Units 08:42 POC Glucose 171 H (70-105) Assessment and Plan Cultures: BCx 10/25 - NGTD UCx 10/25 - K pneumoniae Assessment: 63 yo F PMHx GI disorder, LLE DVT on AC, lupus, HTN, DM2, CHF, CVA. COPD, colon mass s/p 09/2018 hemicolectomy admitted with seizure and profound hypoglycemia 1. Acute sepsis - present with leukocytosis and tachycardia. Likely secondary to UTI. 2. K pneumoniae UTI - currently on ceftriaxone. Would compete a 5 day course and then stop. Encourage to maintain strong barrier between stool and urethra, and proper hygiene. Perhaps contributing to hypoglycemia and seizure 3. DM2 - maintain good control without going hypoglycemia for best immune function 4. Lupus 5. HTN 6. COPD 7. CHF 8. HTN Recs: - Discharge on Keflex 500 q6h to complete 5 days (stop date: 10/29) - follow up blood cultures Thank you for the consult, we will continue to follow. MD Dashawn Santiago [facility] M: [phone] O: [phone] F: [phone]
--- NOTE | 2018-10-29 13:47 | Discharge Summary ---
Providers - Providers Date of Admission: 10/25/18 19:55 Date of discharge: 10/29/18 Attending physician: BRIGIDO BOYD 10/25/18 21:04 Consult to Physician [CONS] Routine Comment: Consulting Provider: MARITZA FOSTER Physician Instructions: Reason For Exam: seizure lasting 45min per family, postictal 10/25/18 21:34 Physical Therapy Evaluation and Treat [CONS] Routine Comment: Reason For Exam: debility 10/25/18 21:35 Occupational Therapy Evaluate and Treat [CONS] Routine Comment: Reason For Exam: debility 10/25/18 21:55 Consult to Dietitian/Nutrition [CONS] Routine Physician Instructions: Reason For Exam: Reason for Consult: Malnutrition 10/26/18 07:34 Consult to Wound/ET Nurse [CONS] Routine Reason For Exam: wound eval 10/28/18 19:09 Consult to Physician [CONS] Routine Comment: Consulting Provider: ALLY LABOY Physician Instructions: Reason For Exam: UTI/Klebsiella Primary care physician: ROSEMARIE KIM Hospitalization Reason for admission: seizures/hypoglycemia/metabolic encephalopathy Hospital course: 63-year-old -[place] female with history of GI disorder, left lower ext remity DVT on anticoagulation, lupus, hypertension, diabetes, CHF, CVA with right-sided residual weakness, asthma, COPD, colon mass s/p hemicolectomy (09/2018) presents to [facility] ED via EMS with complaints of seizure for 45 minutes and hypoglycemia. Urine cultures positive for Klebsiella, received Rocephin during hospital stay, advised 3 more days of Keflex Patient is stable to [place] and transferred to [facility]rehabilitation --Sepsis secondary to UTI/Klebsiella Continue current antibiotics, ID evaluated Received Rocephin, 3 more days of Keflex --Metabolic encephalopathy; present on admission Multifactorial, probably secondary to severe hypoglycemia With regard to seizures, postictal state Significantly improved--Status epilepticus; probably secondary to severe hypoglycemia However patient has history of seizures on Dilantin, received Keppra in the ED Seizure precautions, Ativan as needed, resume Dilantin Follow neurology outpatient --History of seizure disorder:on Dilantin at home On Dilantin , check Dilantin levels in 1-2 weeks , follow neurology outpatient --Large posterior fossa meningioma Follow neurology outpatient --History of CVA: Right side residual weakness PT/OT rehabilitation --Hypoglycemia: Present on admission, resolved Insulin, closely monitor blood sugars Accu-Chek sliding scale coverage ADA diet, and D10 infusion if no improvement --Lactic acidosis/leukocytosis Empiric antibiotics follow cultures --Hypertension Continue current antihypertensives and when necessary medications --History of left lower extremity DVT Status post IVC filter (2014) Continue Eliquis --History of recent colon mass excision s/p right hemicolectomy 10/14/18 Supportive care, surgery consult if needed --Hypokalemia Corrected, monitor electrolytes --Moderate to severe malnutrition -Albumin 2.7, nutrition supplements, nutrition consult --DVT PPX; continue Eliquis. Status stable to be discharged to SNF/subacute placement today Disposition: DC/[place]-03 SNF [facility] Time spent for discharge: 32 min Core Measure Documentation - Palliative Care Palliative Care/ Comfort Measures: Not Applicable - Core Measures Any of the following diagnoses?: none Exam - Constitutional Vitals: Temp Pulse Resp BP Pulse Ox 98.0 F 107 H 20 135/75 100 10/28/18 23:55 10/29/18 04:52 10/28/18 23:55 10/28/18 23:55 10/28/18 23:55 General appearance: Present: no acute distress, well-nourished - EENT Eyes: Present: PERRL, EOM intact - Neck Neck: Present: supple, normal ROM - Respiratory Respiratory effort: normal Respiratory: bilateral: diminished, negative: rales, rhonchi, wheezing - Cardiovascular Rhythm: regular Heart Sounds: Present: S1 & S2 - Extremities Extremities: no ischemia, No edema - Abdominal General gastrointestinal: Present: soft, non-tender, non-distended, normal bowel sounds - Integumentary Integumentary: Present: clear, warm - Musculoskeletal Musculoskeletal: generalized weakness - Psychiatric Psychiatric: appropriate mood/affect, cooperative - Neurologic Neurologic: moves all extremities Plan Activity: advance as tolerated, fall precautions Diet: diabetic Special Instructions: physical therapy, occupational therapy Additional Instructions: Fall Precautions. Avoid hypoglycemia. Check Dilantin level in one week. Seizure Precautions Follow up with: ROSEMARIE KIM MD [Primary Care Provider] - 7 Days MONICA KAHN MD [Staff Physician] - 7 Days JANEL SMITH MD [Staff Physician] - 7 Days
--- NOTE | 2018-10-29 19:23 | Progress Note ---
Assessment and Plan Patient is a 63 y/o woman w/ a h/o seizures, h/o DVT on anti-coagulation, lupus, HTN, DM, CHF, h/o CVA w/ residual right sided weakness, asthma, COPD, history of colon mass s/p hemocolectomy, who p/w a seizure, and was found to have hypogly cemia. Plan: 1. Seizure: - Likely occurred in setting of hypoglycemia, infection. - As phenytoin level was low, may be due to non-compliance. Cont. dilantin 200mg in AM and 200mg in PM - EEG: generalized slowing. No seizures or epileptiform activity noted. 2. Metabolic encephalopathy: - Mental status slowly improving. - Likely due to UTI, as UA showed increased WBC and large LE - continue to workup and treat leukocytosis, elevated lactic acid, and UTI per primary team. - Will sign off as I am not covering neurology service over the weekend. Recommend for neurologist covering weekend to be consulted for further neurologic monitoring and management. - Thank you for allowing me to take part in the care of this patient. Emigdio Shea MD Neurology Subjective Date of service: 10/29/18 Principal diagnosis: Seizure Interval history: No acute events overnight. Objective - Exam Narrative Exam: Patient awake, alert, oriented to name, age, location, minus year/month. Patient able to follow two-step commands intermittently. Patient noted to have contracture and right upper extremity, which is patient's baseline. Right upper extremity strength 0-5, right lower extremity strength to out of 5, left upper extremity 5 out of 5, left lower extremity 4-5. Visual aparicio full to confrontation, pupils equal, round, reactive to light, no facial droop noted, bilaterally intact to light touch and pinprick on the face, tongue midline. Patient has decreased sensations on the right upper extremity to light touch, intact sensations on the left upper and lower extremity and right lower extremity. Increased reflexes 3+ on the right upper and lower extremity, 2+ reflexes on the left upper and lower extremity. - General Apperance Constitutional: comfortable - EENT EENT: ATNC, PERRL, mucous membranes moist, hearing intact, vision intact - Respiratory Respiratory: lungs clear, normal breath sounds - Cardiovascular Cardiovascular: regular rate, normal S1, normal S2 Extremities: no clubbing, cyanosis - Gastrointestinal Gastrointestinal: normoactive bowel sounds, soft, non-tender - Laboratory Findings CBC and BMP: 10/27/18 08:15 10/27/18 08:15 Abnormal Lab Findings: Abnormal Labs 10/25/18 10/25/18 10/25/18 16:06 16:17 16:31 WBC Hgb Hct MCV MCH RDW Plt Count Seg Neuts % (Manual) Lymphocytes % (Manual) Seg Neutrophils # Man Lymphocytes # (Manual) PT INR Potassium BUN Creatinine Glucose POC Glucose < 40 L < 40 L 286 H Lactic Acid Calcium Alkaline Phosphatase Albumin Urine WBC (Auto) Salicylates Acetaminophen Phenytoin 10/25/18 10/25/18 10/25/18 17:48 17:48 17:48 WBC 14.8 H Hgb 9.7 L Hct MCV 73 L MCH 22 L RDW 29.9 H Plt Count 451 H Seg Neuts % (Manual) 87.0 H Lymphocytes % (Manual) 6.0 L Seg Neutrophils # Man 12.9 H Lymphocytes # (Manual) 0.9 L PT INR Potassium 3.5 L BUN 3 L Creatinine Glucose 128 H POC Glucose Lactic Acid 2.20 H* Calcium 8.3 L Alkaline Phosphatase 159 H Albumin 2.7 L Urine WBC (Auto) Salicylates Acetaminophen Phenytoin 10/25/18 10/25/18 10/25/18 17:48 17:48 18:13 WBC Hgb Hct MCV MCH RDW Plt Count Seg Neuts % (Manual) Lymphocytes % (Manual) Seg Neutrophils # Man Lymphocytes # (Manual) PT 16.0 H INR 1.31 H Potassium BUN Creatinine Glucose POC Glucose Lactic Acid Calcium Alkaline Phosphatase Albumin Urine WBC (Auto) Salicylates < 0.3 L Acetaminophen < 5.0 L Phenytoin 10/25/18 10/25/18 10/25/18 19:08 19:08 20:29 WBC Hgb Hct MCV MCH RDW Plt Count Seg Neuts % (Manual) Lymphocytes % (Manual) Seg Neutrophils # Man Lymphocytes # (Manual) PT 16.0 H INR 1.31 H Potassium BUN Creatinine Glucose POC Glucose Lactic Acid 2.60 H* 2.30 H* Calcium Alkaline Phosphatase Albumin Urine WBC (Auto) Salicylates Acetaminophen Phenytoin 10/26/18 10/26/18 10/26/18 09:30 10:27 11:34 WBC Hgb Hct MCV MCH RDW Plt Count Seg Neuts % (Manual) Lymphocytes % (Manual) Seg Neutrophils # Man Lymphocytes # (Manual) PT INR Potassium BUN Creatinine Glucose POC Glucose 143 H 196 H Lactic Acid Calcium Alkaline Phosphatase Albumin Urine WBC (Auto) 87.0 H Salicylates Acetaminophen Phenytoin 10/26/18 10/26/18 10/27/18 16:08 20:24 07:26 WBC Hgb Hct MCV MCH RDW Plt Count Seg Neuts % (Manual) Lymphocytes % (Manual) Seg Neutrophils # Man Lymphocytes # (Manual) PT INR Potassium BUN Creatinine Glucose POC Glucose 126 H 164 H 106 H Lactic Acid Calcium Alkaline Phosphatase Albumin Urine WBC (Auto) Salicylates Acetaminophen Phenytoin 10/27/18 10/27/18 10/27/18 08:15 08:15 08:15 WBC Hgb 9.1 L Hct 29.3 L MCV 73 L MCH 23 L RDW 29.7 H Plt Count 458 H Seg Neuts % (Manual) 91.0 H Lymphocytes % (Manual) 5.0 L Seg Neutrophils # Man 8.1 H Lymphocytes # (Manual) 0.4 L PT INR Potassium BUN 3 L Creatinine 0.6 L Glucose 127 H POC Glucose Lactic Acid Calcium 7.9 L Alkaline Phosphatase Albumin Urine WBC (Auto) Salicylates Acetaminophen Phenytoin 2.4 L 10/27/18 10/27/18 10/27/18 11:44 17:29 21:41 WBC Hgb Hct MCV MCH RDW Plt Count Seg Neuts % (Manual) Lymphocytes % (Manual) Seg Neutrophils # Man Lymphocytes # (Manual) PT INR Potassium BUN Creatinine Glucose POC Glucose 122 H 134 H 125 H Lactic Acid Calcium Alkaline Phosphatase Albumin Urine WBC (Auto) Salicylates Acetaminophen Phenytoin 10/28/18 10/28/18 10/28/18 08:06 11:57 16:12 WBC Hgb Hct MCV MCH RDW Plt Count Seg Neuts % (Manual) Lymphocytes % (Manual) Seg Neutrophils # Man Lymphocytes # (Manual) PT INR Potassium BUN Creatinine Glucose POC Glucose 143 H 177 H 201 H Lactic Acid Calcium Alkaline Phosphatase Albumin Urine WBC (Auto) Salicylates Acetaminophen Phenytoin 10/28/18 10/29/18 10/29/18 23:00 08:42 11:43 WBC Hgb Hct MCV MCH RDW Plt Count Seg Neuts % (Manual) Lymphocytes % (Manual) Seg Neutrophils # Man Lymphocytes # (Manual) PT INR Potassium BUN Creatinine Glucose POC Glucose 184 H 171 H 215 H Lactic Acid Calcium Alkaline Phosphatase Albumin Urine WBC (Auto) Salicylates Acetaminophen Phenytoin
== END 2018-10-29 17:09 | DRG 871 ==
LOC: ED 16:02 → 4A 19:55
PROVIDERS: ADMIT Internal Medicine; ATTEND Internal Medicine
DX: A41.59 Other Gram-negative sepsis (principal); E43 Unspecified severe protein-calorie malnutrition; E87.2 Acidosis; N39.0 Urinary tract infection, site not specified; I69.351 Hemiplegia and hemiparesis following cerebral infarction affecting right dominant side; M32.9 Systemic lupus erythematosus, unspecified; E78.5 Hyperlipidemia, unspecified; G40.901 Epilepsy, unspecified, not intractable, with status epilepticus; D32.0 Benign neoplasm of cerebral meninges; I10 Essential (primary) hypertension; E11.649 Type 2 diabetes mellitus with hypoglycemia without coma; E87.6 Hypokalemia; Z86.718 Personal history of other venous thrombosis and embolism; Z79.01 Long term (current) use of anticoagulants; Z90.49 Acquired absence of other specified parts of digestive tract; Z90.710 Acquired absence of both cervix and uterus; Z88.0 Allergy status to penicillin; Z88.8 Allergy status to other drugs, medicaments and biological substances; Z79.899 Other long term (current) drug therapy; Z79.4 Long term (current) use of insulin; Z68.37 Body mass index [BMI] 37.0-37.9, adult
CPT/HCPCS: 36415; 70450; 71045; 80048; 80053; 80185; 80186; 80307; 80320; 81001; 82140; 82270; 82962; 83036; 84443; 84484; 85007; 85025; 85610; 85730; 87040; 87086; 87116; 87186; 93005; 93010; 95819; G0378; A9270-GY; G0480; J0696; J1165; J1610; J1953; J3480

== ENCOUNTER 2018-12-30 10:11 | Outpatient (CLI) | payer MEDICARE ==
--- NOTE | 2018-12-30 14:23 | PET Report ---
PET/CT HISTORY: C18.9. Colon cancer TECHNIQUE: The patient's fasting blood glucose was 94. The patient weighed 265 lbs. The patient wa s injected with 14.7 mCi of FDG in the left antecubital fossa at 1122 hours and imaging was started a t 1215 hours. The patient was imaged from the skull base to the thighs. All CT scans at this [facility] are performed using CT dose reduction for ALARA by means of automated exposure control. Images were reviewed on a workstation. COMPARISON: No previous PET/CT at this facility FINDINGS: IMAGED BRAIN: [Physiologic FDG uptake]. Previously described 4 cm calcified meningioma in the left p osterior fossa is again noted and grossly unchanged. NECK: [Physiologic FDG uptake] CHEST WALL: [Right breast stromal and parenchymal tissue appears increased density compared to the l eft side. There is no discrete mass. Max SUV in the right breast measures 2.7.] MEDIASTINUM: [Physiologic FDG uptake] LUNGS: [Physiologic FDG uptake] no suspicious pulmonary nodule. HEPATOBILIARY: [Physiologic FDG uptake]. Liver SUV measures 6.6. Cholecystectomy changes are noted. PANCREAS: [Physiologic FDG uptake SPLEEN: [Physiologic FDG uptake] KIDNEYS/BLADDER: [Physiologic FDG uptake] ADRENAL GLANDS: [Physiologic FDG uptake] GI/MESENTERY: [Surgical suture line in the proximal colon is noted. No recurrent local mass is appre ciated. Physiologic FDG uptake.] PELVIC VISCERA: [Physiologic FDG uptake]. Hysterectomy changes. LYMPH NODES: [Physiologic FDG uptake] OSSEOUS STRUCTURES: [Physiologic FDG uptake] ADDITIONAL FINDINGS: [None] IMPRESSION: Negative PET CT. No evidence for recurrent or metastatic colon cancer. Of note, right breast stromal tissue appears increased density compared to the left side. No discrete breast mass is appreciated. Consider correlation with mammogram and clinical evaluation. Signer Name: Bimal Menendez Jr, MD Signed: 12/30/2018 2:18 PM Workstation Name: [id number]
== END 2018-12-30 10:12 | disposition home or self-care (01) ==
LOC: PET 10:11
PROVIDERS: ATTEND Internal Medicine Hematology & Oncology
DX: C18.9 Malignant neoplasm of colon, unspecified (principal); I10 Essential (primary) hypertension; E78.5 Hyperlipidemia, unspecified; E13.9 Other specified diabetes mellitus without complications; Z90.49 Acquired absence of other specified parts of digestive tract; Z88.0 Allergy status to penicillin; Z91.018 Allergy to other foods
CPT/HCPCS: 78815; 82962; A9552

== ENCOUNTER 2019-01-21 10:41 | Outpatient (CLI) | payer MEDICARE ==
--- NOTE | 2019-01-21 13:34 | Vascular Lab Report ---
DUPLEX DOPPLER LOWER EXTREMITY VEINS, RIGHT INDICATION: COLON CANCER. TECHNIQUE: Duplex doppler imaging was performed through the veins of the right lower extremity using venous compression and other maneuvers. COMPARISON: No relevant prior imaging study available. FINDINGS: Right Common femoral vein: Chronic echogenic recannulized thrombus is suspected in the common femoral vein. No acute hypoechoic thrombus.. Right Superficial femoral vein: Negative. Right Popliteal vein: Negative. Right Calf veins: Negative. Additional findings: None.. IMPRESSION: No sonographic evidence for DVT in the right lower extremity. Chronic recannulized DVT in the right common femoral vein. Signer Name: Bimal Menendez Jr, MD Signed: 01/21/2019 1:29 PM Workstation Name: [id number]
== END 2019-01-21 10:42 | disposition home or self-care (01) ==
LOC: VAS 10:41
PROVIDERS: ATTEND Internal Medicine Hematology & Oncology
DX: I82.511 Chronic embolism and thrombosis of right femoral vein (principal); C18.9 Malignant neoplasm of colon, unspecified

== ENCOUNTER 2019-03-01 10:05 | Outpatient (CLI) | payer MEDICARE ==
[2019-03-01 13:38] LABS: Chol/HDL Ratio 3.43 %
== END 2019-03-01 10:06 | disposition home or self-care (01) ==
LOC: LAB 10:05
PROVIDERS: ATTEND Internal Medicine
DX: E11.8 Type 2 diabetes mellitus with unspecified complications (principal); E78.5 Hyperlipidemia, unspecified; R56.9 Unspecified convulsions
CPT/HCPCS: 36415; 80061; 80186; 83036

== ENCOUNTER 2019-04-06 11:37 | Outpatient (CLI) | payer MEDICARE ==
--- NOTE | 2019-04-06 15:42 | Mammography Report ---
DIGITAL SCREENING MAMMOGRAM WITH CAD, 04/06/2019 INDICATION: Routine screening mammography. TECHNIQUE: Digital bilateral 2D mammography was obtained in the craniocaudal and mediolateral obliq ue projections. This examination was interpreted with the benefit of Computer-Aided Detection analysi s. COMPARISON: None available. FINDINGS: Breast Density: The breasts are heterogeneously dense, which may obscure small masses. There is no evidence of dominant mass, suspicious calcifications or architectural distortion in eithe r breast. Ketter bilateral calcifications with benign morphology. IMPRESSION: No mammographic evidence of malignancy. Follow up recommendation: Routine yearly BI-RADS Category 2: Benign. A "normal" or negative report should not discourage follow up or biopsy of a clinically significant f inding. A written summary of these findings will be mailed to the patient. The patient will be entered into a mammography reporting system which will generate a reminder letter for the patient's next appointmen t at the appropriate interval. The [employer] recommends yearly mammograms starting at age 40 and continuing as l [place] as a woman is in good health. Breast MRI is recommended for women with an approximate 20-25% or greater lifetime risk of breast cancer, including women with a strong family history of breast or ova jeff cancer or who have been treated for Hodgkin's disease. Signer Name: Aguilar Green MD Signed: 04/06/2019 3:38 PM Workstation Name: [id number]
== END 2019-04-06 11:38 | disposition home or self-care (01) ==
LOC: MAMMO 11:37
PROVIDERS: ATTEND Internal Medicine
DX: Z12.31 Encounter for screening mammogram for malignant neoplasm of breast (principal)
CPT/HCPCS: 77067

== ENCOUNTER 2019-06-23 09:40 | Outpatient (CLI) | payer MEDICARE ==
--- NOTE | 2019-06-23 12:55 | Magnetic Resonance Report ---
MRI BRAIN WITHOUT CONTRAST INDICATION / CLINICAL INFORMATION: CEREBRAL INFARCTION,BENIGN NEOPLASM,SYMPTOMATIC EPILEPSY. TECHNIQUE: Multisequence, multiplanar images were obtained. COMPARISON: 07/02/2016 MR brain with and without contrast FINDINGS: CEREBRAL and CEREBELLAR HEMISPHERES: Large chronic infarct in the left MCA distribution along the gal vian fissure is again noted and unchanged. No evidence for acute ischemia, hemorrhage or extra-axial fluid collection. Extra-axial mass in the left side of the posterior fossa measuring 3.1 x 3.8 cm in axial plane appears stable. There is moderate mass effect on the left cerebellar hemisphere but the fourth ventricle remains patent and near midline. A second small extra-axial mass along the posteri or falx measuring 1.2 cm is also unchanged. VENTRICLES: Normal in size and configuration for age. VISUALIZED ORBITS: No significant abnormality. VISUALIZED PARANASAL SINUSES: Mild mucosal thickening is noted throughout all paranasal sinuses. The mastoid air cells are adequately aerated. ADDITIONAL FINDINGS: None. IMPRESSION: No significant change since 07/02/2016 exam. Large chronic infarct in the left MCA distribution. Stable appearance of the extra axial masses in the left side of the posterior fossa and along the pos terior falx. These remain consistent with meningiomas. Mild chronic sinus disease. Signer Name: Bimal Menendez Jr, MD Signed: 06/23/2019 12:50 PM Workstation Name: [id number]
== END 2019-06-23 09:41 | disposition home or self-care (01) ==
LOC: MRI 09:40
PROVIDERS: ATTEND Psychiatry & Neurology Neurology
DX: I63.89 Other cerebral infarction (principal); L98.8 Other specified disorders of the skin and subcutaneous tissue; I63.512 Cerebral infarction due to unspecified occlusion or stenosis of left middle cerebral artery; G40.219 Localization-related (focal) (partial) symptomatic epilepsy and epileptic syndromes with complex partial seizures, intractable, without status epilepticus; D32.0 Benign neoplasm of cerebral meninges
CPT/HCPCS: 70551

== ENCOUNTER 2019-08-04 12:31 | Outpatient (CLI) | payer MEDICARE ==
--- NOTE | 2019-08-04 14:50 | XRay Report ---
ABDOMEN 1 VIEW(S) INDICATION / CLINICAL INFORMATION: I82.499Acute embolism and thrombosis of other specified deep vein. COMPARISON: None available. FINDINGS: TUBES / LINES: None. BOWEL GAS PATTERN: No significant abnormality. FREE AIR / EXTRALUMINAL GAS: None seen. ADDITIONAL FINDINGS: There has been prior cholecystectomy. Caval filter is in place. IMPRESSION: 1. No significant abnormality. Signer Name: Ibrahima Zimmer MD Signed: 08/04/2019 2:46 PM Workstation Name: [id number]
== END 2019-08-04 12:32 | disposition home or self-care (01) ==
LOC: XRAY 12:31
PROVIDERS: ATTEND Surgery Vascular Surgery
DX: I82.499 Acute embolism and thrombosis of other specified deep vein of unspecified lower extremity (principal)
CPT/HCPCS: 74018

== ENCOUNTER 2020-04-23 09:41 | Outpatient (CLI) | payer MEDICARE ==
--- NOTE | 2020-04-23 11:30 | Ultrasound Report ---
Abdominal ultrasound INDICATION: Abdominal pain FINDINGS: Aorta appears normal. Liver measures 13.3 cm. There is fatty infiltration liver. Gallbladde r is absent. Common bile duct measures 3 mm. Kidneys appear normal without hydronephrosis. Spleen is unremarkable. Examination is limited by body habitus. Portal vein is patent. IMPRESSION: Fatty infiltration of the liver. Signer Name: Jose J Betancourt MD Signed: 04/23/2020 11:26 AM Workstation Name: [email or web address]
--- NOTE | 2020-04-23 11:41 | XRay Report ---
CHEST 2 VIEWS INDICATION / CLINICAL INFORMATION: MALIGNANT NEOPLASM OF COLON. COMPARISON: Chest radiograph 09/27/2019 FINDINGS: SUPPORT DEVICES: None. HEART / MEDIASTINUM: No significant abnormality. LUNGS / PLEURA: No significant pulmonary or pleural abnormality. No pneumothorax. ADDITIONAL FINDINGS: No significant additional findings. IMPRESSION: 1. No acute findings. Signer Name: Marilyn Cash MD Signed: 04/23/2020 11:36 AM Workstation Name: [id number]
== END 2020-04-23 09:42 | disposition home or self-care (01) ==
LOC: US 09:41
DX: C18.9 Malignant neoplasm of colon, unspecified (principal); K76.0 Fatty (change of) liver, not elsewhere classified
CPT/HCPCS: 71046; 76700

== ENCOUNTER 2020-11-14 13:03 | Emergency (ER) | payer MEDICARE ==
--- NOTE | 2020-11-14 14:20 | Event Note ---
ED Screening Note ED Screening Note: I briefly evaluated patient in the triage room. Patient has bilateral leg swelling. She also has right lower extremity ankle. I reviewed the trauma record. Patient has history of DVT hypercoagulable disorder. I have ordered bilateral duplex ultrasound. I have ordered CBC chemistry PT PTT
[2020-11-14 14:46] LABS: Basophils # (Auto) 0.1 K/mm3 (0.0-0.1); Basophils % (Auto) 1.2 % (0.0-1.8); Eosinophils # (Auto) 0.3 K/mm3 (0.0-0.4); Hematocrit 38.4 % (30.3-42.9); Hemoglobin 13.3 gm/dl (10.1-14.3); Lymphocytes # (Auto) 1.5 K/mm3 (1.2-5.4); Lymphocytes % (Auto) 18.5 % (13.4-35.0); Mean Corpuscular HGB Conc 35 % (30-34); Mean Corpuscular Volume 86 fl (79-97); Monocytes # (Auto) 0.3 K/mm3 (0.0-0.8); Monocytes % (Auto) 3.9 % (0.0-7.3); Platelet Count 288 K/mm3 (140-440); Red Blood Count 4.47 M/mm3 (3.65-5.03); Red Cell Distribution Width 15.4 % (13.2-15.2)
[2020-11-14 15:01] LABS: INR 0.95 (0.87-1.13); Partial Thromboplastin Time 24.4 Sec. (24.2-36.6)
[2020-11-14 15:06] LABS: BUN/Creatinine Ratio 16; Blood Urea Nitrogen 18 mg/dL (7-17); Calcium 9.5 mg/dL (8.4-10.2); Hemolysis Index 68
--- NOTE | 2020-11-14 16:33 | Vascular Lab Report ---
DUPLEX DOPPLER LOWER EXTREMITY VEINS, BILATERAL INDICATION / CLINICAL INFORMATION: bilateral lower extremity swelling hx of DVT. TECHNIQUE: Duplex doppler imaging was performed through the veins of both lower extremities using alyssa ous compression and other maneuvers. COMPARISON: 01/21/19 FINDINGS: RIGHT COMMON FEMORAL VEIN: Negative. RIGHT FEMORAL VEIN: Negative. RIGHT POPLITEAL VEIN: Negative. RIGHT CALF VEINS: Negative. LEFT COMMON FEMORAL VEIN: Negative. LEFT FEMORAL VEIN: Chronic thrombus. No acute thrombus. LEFT POPLITEAL VEIN: Chronic thrombus. No acute thrombus. LEFT CALF VEINS: Negative. ADDITIONAL FINDINGS: None. IMPRESSION: 1. Chronic appearing DVT in the left femoral and popliteal veins. Signer Name: Ludivina Lucero MD Signed: 11/14/2020 4:29 PM Workstation Name: [id number]
--- NOTE | 2020-11-14 16:43 | Emergency Department Report ---
HPI - General Chief Complaint: Wound/Laceration Time Seen by Provider: 11/14/20 14:25 - HPI HPI: This is a 65-year-old -[place] female presents to the emergency department with a complaint of a 4-day history of bilateral lower extremity swelling. The patient also complains of a 3-day history of a wound to the back of her right foot, over her Achilles. Patient has a past medical history of CVA with residual right-sided deficits, paroxysmal atrial fibrillation, previous DVT anticoagulated on Eliquis, and diabetes. It appears that the right Achilles wound occurred from rubbing on a shoe or on the prosthesis she uses for her right lower extremity. She denies any chest pain, shortness of breath, back pain, fever, skin color change. ED Past Medical Hx - Past Medical History Previous Medical History?: Yes Hx Hypertension: Yes Hx CVA: Yes (right sided residual weakness) Hx Congestive Heart Failure: Yes Hx Diabetes: Yes Hx Deep Vein Thrombosis: Yes Hx Asthma: Yes Hx COPD: Yes Additional medical history: Lupus - Surgical History Past Surgical History?: Yes Additional Surgical History: HYSTERECTOMY, colon resection, tyshawn filter - Social History Smoking Status: Never Smoker - Medications Home Medications: Home Medications Medication Instructions Recorded Confirmed Last Taken Type Docusate Sodium [Colace ORAL LIQ] 100 mg PO BID #30 oral.liqd 10/19/18 11/14/20 11/14/20 17:05 Rx n/a Furosemide [Lasix TAB] 40 mg PO QDAY #60 tablet 10/19/18 11/14/20 09/27/19 Rx Metoprolol [Lopressor TAB] 50 mg PO BID #60 tablet 10/19/18 11/14/20 11/14/20 17:04 Rx Multivitamins Liq [Multiple 5 ml PO QDAY oral.liqd 10/19/18 11/14/20 11/14/20 17:02 Rx Vitamin Liq (Theragran)] Potassium Chloride [K-Dur] 20 meq PO QDAY #30 tablet 10/19/18 11/14/20 09/27/19 Rx Cyanocobalamin [Vitamin B-12] 1,000 mcg PO QDAY #30 tablet 10/23/18 11/14/20 09/27/19 Rx Ferrous Sulfate [Feosol 325 MG tab] 325 mg PO QDAY #30 tablet 10/23/18 11/14/20 09/27/19 Rx Apixaban [Eliquis] 2.5 mg PO BID 09/27/19 11/14/20 11/14/20 17:04 History AtorvaSTATin [Lipitor] 80 mg PO QDAY 09/27/19 11/14/20 1 Day Ago History ~09/26/19 Metformin HCl [metFORMIN] 1,000 mg PO BID 09/27/19 11/14/20 09/27/19 History Prednisone [predniSONE (Swapnil) ER 5 mg PO DAILY 09/27/19 11/14/20 11/14/20 17:04 History TAB] carvediloL [Coreg] 3.125 mg PO BID 09/27/19 11/14/20 11/14/20 17:03 History gemfibroziL [Lopid] 600 mg PO BID 09/27/19 11/14/20 11/14/20 17:03 History gemfibroziL [Lopid] 600 mg PO BID tablet 09/30/19 11/14/20 11/14/20 17:02 Rx levETIRAcetam [Keppra TAB] 500 mg PO BID #60 tablet 09/30/19 11/14/20 Unknown Rx predniSONE [Deltasone] 5 mg PO QDAY tablet 09/30/19 11/14/20 Unknown Rx Sulfamethoxazole/Trimethoprim 1 each PO BID #14 tablet 11/14/20 Unknown Rx [Bactrim DS TAB] ED Review of Systems ROS: Stated complaint: RT FOOT PAIN Other details as noted in HPI Comment: All other systems reviewed and negative Constitutional: denies: chills, fever Eyes: denies: eye pain, vision change ENT: denies: ear pain, throat pain Respiratory: denies: cough, shortness of breath Cardiovascular: edema. denies: chest pain Gastrointestinal: denies: nausea, vomiting Genitourinary: denies: urgency, dysuria Musculoskeletal: denies: back pain, arthralgia Skin: lesions (Right Achilles wound). denies: rash Neurological: denies: headache, numbness Physical Exam - Physical Exam Vital Signs: Vital Signs 11/14/20 14:14 Temperature 98.6 F Pulse Rate 103 H Respiratory 18 Rate Blood Pressure 139/82 [Right] O2 Sat by Pulse 97 Oximetry Physical Exam: GENERAL: The patient is well-developed well-nourished. HENT: Normocephalic. Atraumatic. Patient has moist mucous membranes. EYES: Extraocular motions are intact. NECK: Supple. Trachea is midline. CHEST/LUNGS: Clear to auscultation. There is no respiratory distress noted. HEART/CARDIOVASCULAR: Regular. There is no tachycardia. There is no murmur. ABDOMEN: Abdomen is soft, nontender. Patient has normal bowel sounds. Morbidly obese habitus. SKIN: There is a small slightly ulcerated wound to the right Achilles at the top of the heel. Bilateral lower extremity nonpitting edema. NEURO: The patient is awake, alert, and oriented. The patient is cooperative. Chronic right-sided weakness. MUSCULOSKELETAL: Right upper extremity is slightly contracted. ED Course Vital Signs 11/14/20 14:14 Temperature 98.6 F Pulse Rate 103 H Respiratory 18 Rate Blood Pressure 139/82 [Right] O2 Sat by Pulse 97 Oximetry ED Medical Decision Making - Lab Data Result diagrams: 11/14/20 14:27 11/14/20 14:27 Lab Results 11/14/20 11/14/20 11/14/20 Range/Units 14:27 14:27 14:27 WBC 8.3 (4.5-11.0) K/mm3 RBC 4.47 (3.65-5.03) M/mm3 Hgb 13.3 (10.1-14.3) gm/dl Hct 38.4 (30.3-42.9) % MCV 86 (79-97) fl MCH 30 (28-32) pg MCHC 35 H (30-34) % RDW 15.4 H (13.2-15.2) % Plt Count 288 (140-440) K/mm3 Lymph % (Auto) 18.5 (13.4-35.0) % Trimble % (Auto) 3.9 (0.0-7.3) % Eos % (Auto) 4.0 (0.0-4.3) % Baso % (Auto) 1.2 (0.0-1.8) % Lymph # (Auto) 1.5 (1.2-5.4) K/mm3 Tr[place]ble # (Auto) 0.3 (0.0-0.8) K/mm3 Eos # (Auto) 0.3 (0.0-0.4) K/mm3 Baso # (Auto) 0.1 (0.0-0.1) K/mm3 Seg Neutrophils % 72.4 H (40.0-70.0) % Seg Neutrophils # 6.0 (1.8-7.7) K/mm3 PT 13.3 (12.2-14.9) Sec. INR 0.95 (0.87-1.13) APTT 24.4 (24.2-36.6) Sec. Sodium 138 (137-145) mmol/L Potassium 5.2 H (3.6-5.0) mmol/L Chloride 100.3 (98-107) mmol/L Carbon Dioxide 23 (22-30) mmol/L Anion Gap 20 mmol/L BUN 18 H (7-17) mg/dL Creatinine 1.1 (0.6-1.2) mg/dL Estimated GFR > 60 ml/min BUN/Creatinine Ratio 16 % Glucose 351 H (65-100) mg/dL POC Glucose (70-105) mg/dL Calcium 9.5 (8.4-10.2) mg/dL NT-Pro-B Natriuret Pep (0-900) pg/mL 11/14/20 11/14/20 Range/Units 14:27 16:48 WBC (4.5-11.0) K/mm3 RBC (3.65-5.03) M/mm3 Hgb (10.1-14.3) gm/dl Hct (30.3-42.9) % MCV (79-97) fl MCH (28-32) pg MCHC (30-34) % RDW (13.2-15.2) % Plt Count (140-440) K/mm3 Lymph % (Auto) (13.4-35.0) % Trimble % (Auto) (0.0-7.3) % Eos % (Auto) (0.0-4.3) % Baso % (Auto) (0.0-1.8) % Lymph # (Auto) (1.2-5.4) K/mm3 Trimble # (Auto) (0.0-0.8) K/mm3 Eos # (Auto) (0.0-0.4) K/mm3 Baso # (Auto) (0.0-0.1) K/mm3 Seg Neutrophils % (40.0-70.0) % Seg Neutrophils # (1.8-7.7) K/mm3 PT (12.2-14.9) Sec. INR (0.87-1.13) APTT (24.2-36.6) Sec. Sodium (137-145) mmol/L Potassium (3.6-5.0) mmol/L Chloride (98-107) mmol/L Carbon Dioxide (22-30) mmol/L Anion Gap mmol/L BUN (7-17) mg/dL Creatinine (0.6-1.2) mg/dL Estimated GFR ml/min BUN/Creatinine Ratio % Glucose (65-100) mg/dL POC Glucose 317 H (70-105) mg/dL Calcium (8.4-10.2) mg/dL NT-Pro-B Natriuret Pep 9.76 (0-900) pg/mL - Radiology Data Radiology results: report reviewed DUPLEX DOPPLER LOWER EXTREMITY VEINS, BILATERAL INDICATION / CLINICAL INFORMATION: bilateral lower extremity swelling hx of DVT. TECHNIQUE: Duplex doppler imaging was performed through the veins of both lower extremities using venous compression and other maneuvers. COMPARISON: 01/21/19 FINDINGS: RIGHT COMMON FEMORAL VEIN: Negative. RIGHT FEMORAL VEIN: Negative. RIGHT POPLITEAL VEIN: Negative. RIGHT CALF VEINS: Negative. LEFT COMMON FEMORAL VEIN: Negative. LEFT FEMORAL VEIN: Chronic thrombus. No acute thrombus. LEFT POPLITEAL VEIN: Chronic thrombus. No acute thrombus. LEFT CALF VEINS: Negative. ADDITIONAL FINDINGS: None. IMPRESSION: 1. Chronic appearing DVT in the left femoral and popliteal veins. - Medical Decision Making This patient presents with a complaint of bilateral lower extremity swelling, and a right heel wound. There is a slightly ulcerated circular wound to the posterior right heel and Achilles. No surrounding erythema. No bleeding or discharge. It looks like it was rubbing against either a shoe, or the prosthesis she uses to assist her with ambulation status post CVA. The patient will be placed on antibiotics and given outpatient wound care referral. She had a bilateral lower extremity venous Doppler ultrasound that shows chronic appearing DVT in the right femoral and popliteal veins, but no acute thrombus. Patient is currently anticoagulated on Eliquis and will continue to take her medication compliantly. Patient's labs are mostly unremarkable except for some hyperglycemia with a blood sugar of about 350 and mild elevation in the potassium level of 5.2. Patient was given a few units of subcutaneous insulin, and a low 15 g dose of Kayexalate. Patient does not appear to have any medical condition that is life or limb threatening or requires a medical admission at this time. I spoke to the patient's sister who is currently working on assisted placement for this patient through the PCP and they will continue to do so. Critical Care Time: No Critical care attestation.: If time is entered above; I have spent that time in minutes in the direct care of this critically ill patient, excluding procedure time. ED Disposition Clinical Impression: Swelling of lower extremity, Hyperglycemia, Hyperkalemia Chronic deep vein thrombosis (DVT) Qualifiers: DVT location: lower extremity Affected thrombotic vein of extremity: unspecified vein of extremity Laterality: right Qualified Code(s): I82.501 - Chronic embolism and thrombosis of unspecified deep veins of right lower extremity Foot ulcer, right Qualifiers: Non-pressure ulcer stage: limited to breakdown of skin Qualified Code(s): L97.511 - Non-pressure chronic ulcer of other part of right foot limited to breakdown of skin Disposition: 01 HOME / SELF CARE / HOMELESS Is pt being admited?: No Condition: Stable Instructions: Diabetes Mellitus and Foot Care, Hyperkalemia, Hyperglycemia, Blood Glucose Monitoring, Adult Additional Instructions: I am giving you a referral for a local wound care clinic to follow-up regarding the right Achilles wound. Clean the area with soap and water and then make sure it remains dry. Please follow-up with your primary care physician regarding your elevated blood sugar, slightly elevated potassium level, lower extremity swelling. Continue taking all of your medication including the anticoagulation. Also, follow-up with your PCP regarding your desire for placement into a assisted and/or rehabilitation center. Try to stay away from foods that are high in sugar, carbohydrates and starches to help with your diabetes. Keep a blood sugar log. Return to the emergency department with any worsening of your symptoms, new or concerning symptoms not addressed during this current emergency department visit, or with any acute distress. Prescriptions: Sulfamethoxazole/Trimethoprim [Bactrim DS TAB] 1 each PO BID #14 tablet Referrals: [facility] [Outside] - 2-3 Days PRIMARY CARE, [Primary Care Provider] - 2-3 Days
[2020-11-14] MEDS ORDERED: SODIUM POLYSTYRENE 15 GM/60 ML ORAL LIQD PO ONE (16:44)
[2020-11-14] MEDS ORDERED: INSULIN REGULAR, HUMAN 100 UNITS/1 ML SUB-Q ONE (16:50)
[2020-11-14 17:15] VITALS: BP 146/94
== END 2020-11-14 18:42 | disposition home or self-care (01) ==
LOC: ED 13:03
DX: L97.511 Non-pressure chronic ulcer of other part of right foot limited to breakdown of skin (principal); E11.65 Type 2 diabetes mellitus with hyperglycemia; M79.89 Other specified soft tissue disorders; E87.5 Hyperkalemia; I11.0 Hypertensive heart disease with heart failure; J44.9 Chronic obstructive pulmonary disease, unspecified; M32.9 Systemic lupus erythematosus, unspecified; Z90.710 Acquired absence of both cervix and uterus; Z98.890 Other specified postprocedural states
CPT/HCPCS: 36415; 80048; 82962; 83880; 85025; 85610; 85730; 93970; 99284

== ENCOUNTER 2020-11-28 10:10 | Outpatient (CLI) | payer MEDICARE ==
[2020-11-28] MEDS ORDERED: LIDOCAINE (4%) 40 MG/ML TOPICAL SOLN 50 ML BOTTLE TP ONE (10:57)
== END 2020-11-28 10:11 | disposition home or self-care (01) ==
LOC: WOUND 10:10
PROVIDERS: ATTEND Surgery
DX: E11.622 Type 2 diabetes mellitus with other skin ulcer (principal); L97.312 Non-pressure chronic ulcer of right ankle with fat layer exposed; M32.9 Systemic lupus erythematosus, unspecified; J44.9 Chronic obstructive pulmonary disease, unspecified; I11.0 Hypertensive heart disease with heart failure; I50.9 Heart failure, unspecified; Z86.718 Personal history of other venous thrombosis and embolism; Z85.038 Personal history of other malignant neoplasm of large intestine; Z85.841 Personal history of malignant neoplasm of brain; Z90.710 Acquired absence of both cervix and uterus
CPT/HCPCS: 11042; G0463; 99214

== ENCOUNTER 2020-12-03 10:38 | Outpatient (CLI) | payer MEDICARE | END 2020-12-03 10:39 | disposition home or self-care (01) | LOC: WOUND 10:38 | PROVIDERS: ATTEND Surgery | DX: E11.622 Type 2 diabetes mellitus with other skin ulcer (principal); L97.312 Non-pressure chronic ulcer of right ankle with fat layer exposed; M32.9 Systemic lupus erythematosus, unspecified; J44.9 Chronic obstructive pulmonary disease, unspecified; I11.0 Hypertensive heart disease with heart failure; I50.9 Heart failure, unspecified; Z86.718 Personal history of other venous thrombosis and embolism; Z85.038 Personal history of other malignant neoplasm of large intestine; Z85.841 Personal history of malignant neoplasm of brain; Z90.710 Acquired absence of both cervix and uterus ==

== ENCOUNTER 2021-01-28 13:30 | Outpatient (CLI) | payer MEDICARE ==
[2021-01-28] MEDS ORDERED: LIDOCAINE (4%) 40 MG/ML TOPICAL SOLN 50 ML BOTTLE TP ONE (15:00)
== END 2021-01-28 13:31 | disposition home or self-care (01) ==
LOC: WOUND 13:30
PROVIDERS: ATTEND Surgery
DX: E11.622 Type 2 diabetes mellitus with other skin ulcer (principal); L97.318 Non-pressure chronic ulcer of right ankle with other specified severity; M32.9 Systemic lupus erythematosus, unspecified; J44.9 Chronic obstructive pulmonary disease, unspecified; I11.0 Hypertensive heart disease with heart failure; I50.9 Heart failure, unspecified; Z86.718 Personal history of other venous thrombosis and embolism; Z85.038 Personal history of other malignant neoplasm of large intestine; Z85.841 Personal history of malignant neoplasm of brain; Z90.710 Acquired absence of both cervix and uterus
CPT/HCPCS: 99212; G0463